=== PATIENT | female | born 1950 | race Caucasian/White ===

== ENCOUNTER 2017-05-11 06:45 | Day surgery (SDC) | payer MEDICARE, OTHER ==
[~2017-05-11] VITALS: Ht 152.4 cm; Wt 81.7 kg
[~2017-05-11 06:45] MED LIST: CARDIZEM LA240 MG PO; CARDIZEM30 MG; CRESTOR20 MG PO; CYCLOBENZAPRINE10 MG PO; LASIX20 MG; LASIX40 MG PO; LIPITOR10 MG; NITROGLYCERIN0.4 MG SUBD; NITROGLYCERIN0.4 MG TD; NORCO 5-325 TA1 EACH PO; PERCOCET 10-321 EACH PO; PRILOSEC20 MG PO; QVAR8.7 GM INH; TESSALON PERLE100 MG PO; TRAZODONE HCL150 MG PO; VENLAFAXINE HCL75 MG PO; VENTOLIN HFA18 GM INH
[2017-05-11] MEDS ORDERED: LEVOTHYROXINE88 MCG PO (07:05)
--- NOTE | 2017-05-11 10:02 | NUR ---
05/11/17 1002 Kailey Mariscal 0957 - PT ARRIVED TO PACU, MAINTAINING OWN AIRWAY. COUGH NOTED. SPECIAL OFFICER AUTOMAT STATES PT HAS HAD CRONIC COUGH RECIENTLY AND NO ACTION IS NEEDED AT THIS TIME.
[2017-05-11] MEDS ORDERED: NORCO 5-325 TA1 EACH PO (10:12)
--- NOTE | 2017-05-13 07:21 | OR ---
[facility] [address] [place] [address] Signed DATE OF OPERATION: 05/11/2017 SURGEON: Crispin Hill MD PREOPERATIVE DIAGNOSIS: Carpal tunnel syndrome, right. POSTOPERATIVE DIAGNOSIS: Carpal tunnel syndrome, right. PROCEDURE: Carpal tunnel release, right. ANESTHESIA: Alexus block with sedation. SPECIMENS AND COMPLICATIONS: There were no specimens or complications. TOURNIQUET TIME: About 25 minutes. WHAT WAS DONE: The patient was taken to the operating room. After anesthesia was induced and the patient sedated, the right upper extremity was positioned, prepped and draped in a routine sterile fashion. A volar incision was made beginning at the distal wrist flexion crease and extending distally about 2 cm. The skin was divided sharply. The subcutaneous tissue was bluntly spread. The transverse volar carpal ligament was identified and released with the tip of a #5 blade. We then used a small Ragnell retractor to lift up the distal flap and completed the decompression of the nerve under direct visualization. We then performed a retrograde examination putting the Ragnell underneath the edge of the proximal flap lifting up and then we did decompress the distal 3 cm of the antebrachial fascia. At this point, we appeared to have a complete release of the nerve which was significantly compromised in the carpal tunnel. The wound was gently irrigated, closed in standard fashion, sterile dressing applied. The patient was awakened to the recovery room where she arrived in stable condition. Counts were correct and antibiotic protocols were followed. Electronically Signed By: RCISPIN HILL MD 05/13/17 0721 PATIENT NAME: ANTHONY GONZALEZ OPERATIVE REPORT DATE OF : 54 PHYSICIAN: CRISPIN HILL MD REPORT #: [id number] REPORT IS CONFIDENTIAL AND NOT TO BE RELEASED WITHOUT AUTHORIZATION [address] [address] Signed Crispin Hill MD WFB/MODL /[id number] Electronically Signed By: CRISPIN HILL MD 05/13/17 0721 PATIENT NAME: ANTHONY GONZALEZ OPERATIVE REPORT DATE OF : 54 PHYSICIAN: CRISPIN HILL MD REPORT #: [id number] REPORT IS CONFIDENTIAL AND NOT TO BE RELEASED WITHOUT AUTHORIZATION
== END 2017-05-11 11:00 | disposition home or self-care (01) ==
LOC: DS 06:45
PROVIDERS: Orthopaedic Surgery
PROC: 01N50ZZ Release Median Nerve, Open Approach (ICD-10-PCS; principal; 2017-05-11 09:15)
DX: G56.01 Carpal tunnel syndrome, right upper limb (principal); I10 Essential (primary) hypertension; E78.00 Pure hypercholesterolemia, unspecified; J30.2 Other seasonal allergic rhinitis; Z88.8 Allergy status to other drugs, medicaments and biological substances
CPT/HCPCS: 01810; J0690; J1885; J2250; J2704; J7120

== ENCOUNTER 2017-10-21 08:00 | Day surgery (SDC) | payer MEDICARE, OTHER ==
[~2017-10-21] VITALS: Ht 152.4 cm; Wt 81.7 kg
--- NOTE | ~2017-10-21 | OR ---
[facility] [address] [place], [place] [address] Draft DATE OF OPERATION: 10/21/2017 SURGEON: Kirk Hill MD PREOPERATIVE DIAGNOSIS: Medial meniscal tear, left knee. POSTOPERATIVE DIAGNOSIS: Medial meniscal tear, left knee. PROCEDURE: Left knee arthroscopy with partial medial meniscectomy. ANESTHESIA: General. SPECIMENS AND COMPLICATIONS: There were no specimens or complications. TOURNIQUET TIME: About 20 minutes. WHAT WAS DONE: The patient was taken to the operating room. After anesthesia was induced and airway secured, the patient was positioned, prepped and draped in a routine sterile fashion. The leg was exsanguinated with Esmarch bandage. Pneumatic tourniquet about the thigh was inflated to 300 mmHg pressure. The standard superolateral portal was created for the outflow cannula and the standard anterolateral portal was created. We then created the anteromedial portal using transillumination and localization with a spinal needle. A probe was introduced. Diagnostic arthroscopy revealed an unremarkable suprapatellar pouch. Patellofemoral joint revealed pretty minimal degenerative change. The medial recess was unremarkable. Medial compartment revealed some areas of grade 2 to grade 3 chondral change both over the weightbearing portion of the medial femoral condyle as well as the reciprocal tibial plateau. There was a flap tear of the posterior horn of the medial meniscus and a portion of it had been smoothed off into almost a spherical appearing lesion. The intercondylar notch was unremarkable. There is intact ACL and the lateral compartment was similarly unremarkable to inspection and palpation as was the lateral recess. We then returned the scope to the medial compartment. I used a basket forceps to complete the tear. We then used the motorized shaver to debride the edges of the meniscectomy and remove the debris from the knee joint. The knee was PATIENT NAME: ANTHONY GONZALEZ OPERATIVE REPORT DATE OF : 54 REPORT #: [id number] PHYSICIAN: KIRK HILL MD PCP: CRIS VINCENT MD REPORT IS CONFIDENTIAL AND NOT TO BE RELEASED WITHOUT AUTHORIZATION [facility] [address] [place], [place] [address] Draft copiously irrigated and drained. The portals were closed and sterile dressings applied. The patient was awakened and taken to the recovery room where she arrived in stable condition. Counts were correct and antibiotic protocols were followed. Kirk Hill MD WFB/MODL /[id number] Copies: ~ PATIENT NAME: ANTHONY GONZALEZ OPERATIVE REPORT DATE OF : 54 REPORT #: [id number] PHYSICIAN: KIRK HILL MD PCP: CRIS VINCENT MD REPORT IS CONFIDENTIAL AND NOT TO BE RELEASED WITHOUT AUTHORIZATION
[~2017-10-21 08:00] MED LIST changes: +ASPIR-LOW81 MG PO; +LEVOTHYROXINE88 MCG PO; +LOSARTAN POTAS100 MG PO; +MELOXICAM7.5 MG PO; +NITROGLYCERIN0.4 MG MT; -NITROGLYCERIN0.4 MG SUBD
[2017-10-21] MEDS ORDERED: PROTONIX40 MG PO (08:22)
--- NOTE | 2017-10-21 10:57 | NUR ---
10/21/17 1057 Leonarda Pratt 1038 PATIENT ARRIVES TO PACU SLEEPING, BUT OPENS EYES AND ANSWERS QUESTIONS APPROPRIATELY WITH VERBAL STIMULI. RESP EVEN AND UNLABORED, MASK AT 6 LITERS. RATES PAIN AT 6/10, MEDICATED WITH FENTANYL BY AUTOMATIC BEADING LATHE OPERATOR. 1045 PATIENT DENIES IMPROVEMENT IN PAIN AFTER MEDS. PATIENT REPOSITIONED, ICE PACK APPLIED, WILL REMEDICATE FOR PAIN. ALSO NITRO PASTE TO PATIENT'S CHEST FOR CHRONIC USE. NO COMPLAINTS OF CHEST PAIN NOW. 1055 PATIENT DENIES IMPROVEMENT IN PAIN AFTER BEING REMEDICATED, BUT IS VERY DROWSY, AND SLEEPING WHEN NOT STIMULATED. RESP EVEN AND UNLABORED, BUT MORE SHALLOW WITH ROOM AIR SATS AT 87%. NC AT 2 LITERS APPLIED. ENCOURAGED PATIENT TO TAKE DEEP BREATHS, AND IS COUGING EFFECTIVELY ON HER OWN.
[2017-10-21] MEDS ORDERED: ULTRAM50 MG PO (11:57)
--- NOTE | 2017-10-21 14:49 | NUR ---
1125: PATIENT BACK IN DAY SURGERY ROOM FROM PACU. C/O PAIN 4/10 IN LEFT KNEE. LEFT KNEE DRESSING CDI. ICE PACK TO LEFT KNEE. LEFT LEG ELEVATED ON PILLOW. CSM TO LEFT TOES WNL. DENIES NAUSEA. GIVEN ICE WATER AND PUDDING. IV SITE WNL. AT BEDSIDE. CALL LIGHT WITHIN REACH. 1150: PATIENT TOLERATED WATER AND PUDDING. MEDICATED FOR PAIN WITH 1 TAB OF NORCO. 1300: PATIENT ASSISTED OOB AND TO WALK ABOUT ROOM. GAIT STEADY. PATIENT GETTING DRESSED. 1320: PATIENT WALKED TO BATHROOM WITH HELP FROM . VOID WITHOUT DIFFICULTY. GAIT STEADY BACK TO ROOM. 1345: DISCHARGE INSTRUCTIONS GIVEN TO PATIENT AND . IV DC'D WNL. TIP INTACT. DRESSING APPLIED. PATIENT DISCHARGED TO HOME WITH VIA WHEELCHAIR.
== END 2017-10-21 13:45 | disposition home or self-care (01) ==
LOC: DS 08:00 → OPS 08:00
PROVIDERS: Orthopaedic Surgery
PROC: 0SBD4ZZ Excision of Left Knee Joint, Percutaneous Endoscopic Approach (ICD-10-PCS; principal; 2017-10-21 09:00)
DX: S83.242A Other tear of medial meniscus, current injury, left knee, initial encounter (principal); M17.12 Unilateral primary osteoarthritis, left knee; I10 Essential (primary) hypertension; E78.00 Pure hypercholesterolemia, unspecified; J45.909 Unspecified asthma, uncomplicated; G47.30 Sleep apnea, unspecified; Z79.899 Other long term (current) drug therapy; Z79.1 Long term (current) use of non-steroidal anti-inflammatories (NSAID); Z88.8 Allergy status to other drugs, medicaments and biological substances; Z79.82 Long term (current) use of aspirin
CPT/HCPCS: J0690; J1885; J2250; J2405; J2704; J2765; J3010; J3301; J7120

== ENCOUNTER 2017-10-29 23:35 | Inpatient (IN) | payer MEDICARE, OTHER ==
[~2017-10-29] VITALS: Ht 152.4 cm; Wt 85.9 kg
[~2017-10-29 23:35] MED LIST changes: +MELOXICAM15 MG PO; -MELOXICAM7.5 MG PO; +NITRO-DUR1 EAC4 TD; -NITROGLYCERIN0.4 MG MT; -NITROGLYCERIN0.4 MG TD; +NITROLINGUAL12 GM TL; +PROTONIX40 MG PO; +QVAR REDIHALE10.6 G1 INH; -QVAR8.7 GM INH; +ULTRAM50 MG PO
--- NOTE | 2017-10-30 03:15 | NUR ---
PATIENT ARRIVED TO THE FLOOR VIA STRETCHER. ABLE TO MOVE HER SELF FROM ONE BED TO THE OTHER. SHE IS SLIGHTLY DROWSEY FROM DILAUDID AND ATIVAN GIVEN IN THE ED. PATIENT REPORTS GOOD PAIN CONTROL IN HER ABD, BUT IS COMPLAINING OF DISCOMFORT IN HER NOSE & THROAT FROM NG TUBE. NG PLACEMENT CONFIRMED VIA X-RAY IN ED, DR. LOWERY CONFIRMED PLACEMENT IN THE ABD. NG CONNECTED TO LIWS WITH PINK DRAINAGE. IV FLUIDS PER ORDER. PATIENT HAS HISTORY OF OFELIA AND DESATS TO THE MID 80'S WHILE SLEEPING. PLACED ON CONTINUOUS PULSE OX AND 2L NC TO MAINTAIN SATS >92%. LUNG SOUNDS ARE CLEAR. ABD IS MODERATELY DISTENDED, FIRM, AND TENDER. BOWEL SOUNDS HYPOACTIVE THROUGHOUT. NPO AT THIS TIME. LAP SITES ON LEFT KNEE ARE WELL APPROXIMATED AND HEALING WELL. NO EDEMA NOTED. CMS INTACT.
--- NOTE | 2017-10-30 03:17 | NUR ---
0305 - PT ADMITTED TO ROOM 115 FROM ER VIA STRETCHER, NGT LEFT NARE, PT ORIENTED TO ROOM, RETURN DEMONSTRATION OF CALL LIGHTS DONE. 07/27 L NARE PAIN, NO ABD PAIN, NO N/V, STATED LBM 10/25/17
--- NOTE | 2017-10-30 04:00 | NUR ---
PATIENT SLEEPING SOUNDLY. RR 18. O2 SAT 96% ON 2L NC. IV FLUIDS INFUSING, SITE WNL. CALL LIGHT IN REACH.
--- NOTE | 2017-10-30 05:11 | NUR ---
PATIENT RESTING SOUNDLY. WOKE EASILY TO VOICE. DENIES TOILETING NEEDS AT THIS TIME. IV FLUIDS INFUSING, SITE WNL. O2 SAT 96% 2L NC. CALL LIGHT IN REACH.
--- NOTE | 2017-10-30 06:13 | NUR ---
PATIENT ADMITTED AT 0300 FOR OBSERVATION. NG TUBE PLACED IN ED, CONFIRMED VIA CHEST X-RAY, CONNECTED TO LIWS. NPO. IV FLUIDS PER ORDER. PRN DILAUDID IN ED, NONE SINCE ADMISSION. MINIMAL NAUSEA. PAIN LOCALIZED IN LLQ, RADIATES TO LEFT ARM AND NECK. BOWEL SOUNDS HYPOACTIVE. LEFT KNEE HAS LAP SITE HEALING FROM SURGERY LAST WEEK, WNL. SBA TO BSC. AAOX4. CONTINUOUS PULSE OX DURING THE NIGHT W/ 2L NC, HX OFELIA.
--- NOTE | 2017-10-30 06:29 | NUR ---
PATIENT FEELING BETTER THIS MORNING. REPORTS MINIMAL PAIN IN ABD. COMPLAINS OF PAIN IN HER THROAT. PATIENT UP TO THE BATHROOM WITH SBA, STEADY ON HER FEET. WHILE PATIENT MOVING BACK INTO THE BED SHE SOME HOW PULLED THE NG TUBE OUT. NG HAD BEEN CONNECTED TO LIWS, MINIMAL OUTPUT SINCE 299. DR. NAVA CONTACTED. ORDERS TO LEAVE NG TUBE OUT.
--- NOTE | 2017-10-30 06:52 | NUR ---
VITALS AND I&OS DONE AND CHARTED. BEDSIDE TABLE AND CALL LIGHT WITHIN REACH.
--- NOTE | 2017-10-30 07:41 | NUR ---
RECIEVED BEDSIDE REPORT FROM SOPHY SORIANO. PT AWAKE AND ALERT IN BED. REPORTS NO NAUSEA, NO VOMITING, NO PAIN AT THIS TIME. PT STATED SHE WILL LET ME KNOW IF SHE NEEDS PAIN MEDS. NOTHING ORDERED AT THIS TIME. NG TUBE DC DUE TO ACCIDENTAL DISLODGEMENT.
--- NOTE | 2017-10-30 10:28 | NUR ---
pt showered herslef and is now back in bed, linens were changed. pt does not need anything else at the moment, call light in reach.
--- NOTE | 2017-10-30 13:24 | NUR ---
PT SLEEPING SOUNDLY, BREATHING EVEN AND UNLABORED.
--- NOTE | 2017-10-30 13:55 | NUR ---
pt is resting in bed safely with call light in reach. pt asked for a warm blanket
--- NOTE | 2017-10-30 14:40 | EKG ---
[facility] [address] [facility] [place] [address] Signed Normal sinus rhythm Possible Left atrial enlargement Borderline ECG When compared with ECG of 13-OCT-2017 10:31, QT has shortened Confirmed by CAIT MARTINEZ MD ([id number]) on 10/30/2017 2:39:44 PM Electronically Signed By: CAIT MARTINEZ MD 10/30/17 1440 PATIENT NAME: SERAFINMAUREENANTHONY Electrocardiogram DATE OF : 54 PHYSICIAN: CAIT MARTINEZ MD REPORT #: [id number] REPORT IS CONFIDENTIAL AND NOT TO BE RELEASED WITHOUT AUTHORIZATION
--- NOTE | 2017-10-30 17:25 | NUR ---
PT NPO ALL SHIFT. NG TUBE NOT REPLACED. PT TOLERATING NPO STATUS WELL. PT REPORTS PAIN CONTROLED WITH PRN DILAUDID. PT UP TO SHOWER THIS SHIFT. PT INDEPENDENT IN ROOM. RT ORDERS. FAMILY AT BEDSIDE.
--- NOTE | 2017-10-30 18:15 | NUR ---
pt is resting in bed safely with call light in reach and does not need anything at the moment
--- NOTE | 2017-10-30 20:00 | NUR ---
RECEIVED REPORT AT 1900, FOUND PT IN BED RESTING. PT DENIED PAIN AT THAT TIME AND HAD NO OTHER NEEDS.
--- NOTE | 2017-10-30 20:58 | NUR ---
ENTERED ROOM TO CHECK IV. PT STATES IT IS LEAKING. IV FLUSHES FINE AND PT DENIES PAIN. 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 HER ARM HAS SLIGHT SWELLING BUT VERY CLOSE IN COMPARISON TO HER OTHER ARM. EXPLAINED THAT IT MAY BE AGAINST A VALVE AND WE WILL KEEP AN EYE ON IT. REPOSITIONED ARM WITH PILLOW TO KEEP IT STRAIGHT AND TOLD HER TO CALL IF IT CAUSES PAIN OR SHE NOTICES ANY CHANGES.
--- NOTE | 2017-10-30 22:00 | NUR ---
V/S ARE WDL, ALL LOBES ARE CLEAR, PT DENIED PAIN AND N/V. ABD SOUNDS ARE NORMALLY ACTIVE, PT IS NOT PASSING GAS SO FAR. NEW IV WAS STARTED ON LEFT UPPER ARM. NO EDEMA NOTED. NO NEW CONCERNS AT THIS TIME.
--- NOTE | 2017-10-31 | NUR ---
PT IS SLEEPING AT THIS TIME.
--- NOTE | 2017-10-31 01:47 | NUR ---
VITALS AND I&OS DONE AND CHARTED. BEDSIDE TABLE AND CALL LIGHT IN REACH. PT NEEDS NOTHING ELSE AT THIS TIME.
--- NOTE | 2017-10-31 02:00 | NUR ---
PT RECEIVED 1MG IV DILAUDED FOR PAIN /. NEW IV SITE IS WDL SO FAR. ABD SOUNDS ARE PRESENT, ABD IS SOFT BUT THENDER IN LUQ TO TOUCH. PT STATED THAT ABD IS LESS DISTENDED AT THIS TIME. PT IS STILL NO PASSING GAS. V/S ARE WDL. NO NEW CONCERNS AT THIS TIME.
--- NOTE | 2017-10-31 04:00 | NUR ---
PT IS SLEEPING AT THIS TIME.
--- NOTE | 2017-10-31 04:01 | CONS ---
[facility] [address] [place], [place] [address] Signed DATE OF CONSULTATION: 10/30/2017 CHIEF COMPLAINT: Left upper quadrant abdominal pain with nausea and vomiting. HISTORY OF PRESENT ILLNESS: Anthony is a 67-year-old female, who has had previous abdominal surgery to include an open cholecystectomy with a common bile duct exploration with Dr. Gladys Carter. She has also had a full hysterectomy over three procedures and eventually had a laparoscopic assisted total abdominal colectomy in [address] Umberto Joseph in 2006 for colonic inertia. She presents now the last 2 days with left upper quadrant abdominal pain and nausea and vomiting. She said she has been through this twice before and it has always resolved. I helped her with the small bowel obstruction and he ended up having lysis of adhesions. I believe on Easter or Raj. Anthony came through our emergency room last night with elevated white count after all the vomiting. Chest x-ray was fine and showed the NG tube in her stomach, but it came out in the middle of the night. She said quite a bit of fluid come out of it. The CT scan showed the fluid-filled stomach and a fluid-filled mid jejunum, but the distal terminal ileum was decompressed. We can see mgiuel down around the top of the rectum. There is some stool in the rectum. She has been hydrated overnight and overall she says she does feel better. PAST MEDICAL HISTORY: Coronary artery spasm, hypertension, hypercholesterolemia, angina, colonic inertia, obstructive sleep apnea, osteoporosis, and obesity. PAST SURGICAL HISTORY: Left knee arthroscopy last week with Dr. Joseph. Full hysterectomy over three different procedures. An open cholecystectomy with common bile duct exploration with Dr. Carter many years ago, and then an laparoscopic assisted total abdominal colectomy in [address] Umberto Joseph for a colonic inertia. SOCIAL HISTORY: She does not smoke or drink. She lives with her , Shaggy, at [phone]. They currently live in a 5th wheel, but they were thinking about building a house here in [place]. They prefer the [facility] at [phone]. She is going to go see Dr. Emily Castaneda as a primary care provider. FAMILY HISTORY: Mom had diabetes, congestive heart failure, and CABG. Dad had an LA and CABG and eventually from his Alzheimer's dementia. REVIEW OF SYSTEMS: She had 10 systems reviewed and all the pertinent positives are included in the above. Electronically Signed By: MINA NAVA MD 10/31/17 0401 PATIENT NAME: ANTHONY GONZALEZ CONSULTATION DATE OF : 54 REPORT #: [id number] PHYSICIAN: MINA NAVA MD PCP: EMILY CASTANEDA MD REPORT IS CONFIDENTIAL AND NOT TO BE RELEASED WITHOUT AUTHORIZATION [facility] [address] [place] [id number] Signed There is no metal in the body having surgical clips and mgiuel. ALLERGIES: Prochlorperazine cause muscle spasms. MEDICATIONS: Nitroglycerin, diltiazem, Crestor, Flexeril, albuterol, Qvar, levothyroxine, losartan, meloxicam, aspirin, Protonix, and tramadol. PHYSICAL EXAMINATION: VITAL SIGNS: Her blood pressure is 154/60, heart rate 70, respiratory rate 16, and temperature is 98.5. She is 95% on room air. She is 5 feet tall at 85 kg. GENERAL: Anthony is a 67-year-old female, lying supine in her hospital bed. She does not appear to be systemically ill or toxic. She does appear to be uncomfortable. LUNGS: Clear to auscultation. HEART: Regular rate and rhythm. ABDOMEN: Obese, but mildly distended. She is mild to moderately firm. It is nontender and there is no peritoneal signs or symptoms. LABORATORY [place]: [place] [address], hemoglobin 15, neutrophils 74, BUN 20, and creatinine 0.8. Urinalysis negative. Liver function tests negative. Albumin is 4.4, lipase 11. RADIOGRAPHIC STUDIES: A chest x-ray showed clear lungs and an NG tube in her stomach. The CT scan of abdomen and pelvis showed the fluid-filled mid jejunum with miguel at the top of the rectum. ASSESSMENT AND PLAN: Anthony is a 67-year-old female, who presents with what sounds like her 3rd episode of small bowel obstruction. She said it has resolved quickly the last two times. She is not particularly encouraged about using her CPAP mask nor her an NG tube, but she is aware they are available to her, she wants them. We are going to keep her hydrated and provide her with pain control and antiemetics and I encourage her to walk the hallways and we will see if we can get this small bowel obstruction to resolve. We will also give her a Fleets enema and just see if we can help from below. We will give this a few days and see how things develop clinically. She has expressed understanding and agrees the above plan. Mina Nava MD Electronically Signed By: MINA NAVA MD 10/31/17 0401 PATIENT NAME: ANTHONY GONZALEZ CONSULTATION DATE OF : 54 REPORT #: [id number] PHYSICIAN: MINA NAVA MD PCP: EMILY CASTANEDA MD REPORT IS CONFIDENTIAL AND NOT TO BE RELEASED WITHOUT AUTHORIZATION [address] [place], [place] [address] Signed ALB/MODL /[id number] cc: MD Dr. Emily Saha Copies: MINA NAVA MD ~ Electronically Signed By: MINA NAVA MD 10/31/17 0401 PATIENT NAME: ANTHONY GONZALEZ CONSULTATION DATE OF : 54 REPORT #: [id number] PHYSICIAN: MINA NAVA MD PCP: EMILY CASTANEDA MD REPORT IS CONFIDENTIAL AND NOT TO BE RELEASED WITHOUT AUTHORIZATION
--- NOTE | 2017-10-31 05:15 | NUR ---
AT START OF SHIFT NEW IV SITE WAS NEEDED. V/S ARE WDL SO FAR. ABD SOUNDS ARE AND HAVE BEEN PRESENT ALL SHIFT. PT IS NOT PASSING GAS SO FAR. PT HAS MINOR BELCHING AT TIMES. ABD IS SOFT TO TOUCH WITH PAIN IN THE LUQ. PT REQUIRED 1MG OF IV DILAUDED SO FAR THIS SHIFT. NO NEW CONCERNS AT THIS TIME.
--- NOTE | 2017-10-31 05:38 | NUR ---
VITALS AND I&OS DONE AND CHARTED. STOOD BY PT USED THE BATHROOM. BEDSIDE TABLE AND CALL LIGHT WITHIN REACH. PT NEEDS NOTHING ELSE AT THIS TIME AND IS BACK IN BED.
--- NOTE | 2017-10-31 06:01 | NUR ---
PT IS PASSING GAS. ENCOURAGED PT TO GET UP AND WALK THE LATEST AFTER BREAKFAST.
--- NOTE | 2017-10-31 06:50 | NUR ---
ENTERED PT'S ROOM TO STOP IV FROM BEEPING, HER IV IS CAUSING DISCOMFORT. IT FLUSHES BUT THERE IS NO BLOOD RETURN. WILL NOTIFY HER RN.
--- NOTE | 2017-10-31 07:26 | NUR ---
RECIEVED REPORT FROM SOPHY ROLON. PT HAD A GOOD NIGHT. WILL HAVE SHAYAN, TEXTILE DESIGNER ATTEMPT A NEW IV SITE. PT HAS FRAGILE VEINS. RN REPORTS PT NOT PASSING GAS, BUT HAS BELCHED SEVERAL TIMES.
--- NOTE | 2017-10-31 09:09 | NUR ---
MULTIPLE RN'S ATTEMPTED TO PLACE IV. PT HAS SMALL, FRAGILE VEINS. NON-SUCESSFUL. DR NAVA ROUNDED WHILE SOPHY BARAKAT WAS ATTEMPTING IV START. DUE TO DIFFICULT START, WILL ADVANCE DIET TO CLEAR LIQUIDS TOLERATED. STOP IV FLUIDS. WILL RECHECK CBC IN AM.
--- NOTE | 2017-10-31 10:25 | NUR ---
pt is resting in bed with call light in reach. pt did not need anything at the moment but did complain of abdominal pain and feeling bloated, will notify nurse
--- NOTE | 2017-10-31 12:00 | NUR ---
pt asked to shower, IV was wrapped, and shower set up. pt then showered by herself and then returned to bed, linens changed.
--- NOTE | 2017-10-31 12:17 | NUR ---
pt's complained of IV site hurting, it appread red and puffy. Nurse was informed, after she looked at it she instructed me to DC the IV. IV was DC'd and pt is resting comfortably in bed now safely with call light in reach.
--- NOTE | 2017-10-31 13:22 | NUR ---
PT AWAKE AND ALERT IN BED. PT STATES SHE HAD A SMALL BM, ACTIVE BT. NO NAUSEA/VOMITING. PT STATES SHE HAS A LITTLE MORE DISCOMFORT WITH CLEAR LIQUIDS, BUT TOLERABLE. PT WILL CALL AND CANCEL HER APPOINTMENT WITH DR HILL IN THE MORNING.
--- NOTE | 2017-10-31 14:00 | NUR ---
RN BROUGHT PT A ROBE AND SLIPPER SOCKS. PT IS ENCOURAGED TO WALK AROUND THE UNIT TOLERATED. PT AGREES TO THIS PLAN.
--- NOTE | 2017-10-31 14:17 | NUR ---
pt has just returned from ambulating out in hallway, she is now resting in bed safely with call light in reach. pt asked for ice water
--- NOTE | 2017-10-31 17:28 | NUR ---
PT IV INFILTRATED AT SHIFT CHANGE. FOUR RN ATTEMPTED TO PLACE IV, NOT SUCESSFUL. MD VERBAL ORDER AT BEDSIDE TO LEAVE IV OUT AND ADVANCE TO CLEAR LIQUIDS. PT TOLERAING CLEAR LIQUIDS WELL. PT REPORTS SMALL BM, PASSING GAS. PT UP WALKING IN THE HALLS.
--- NOTE | 2017-10-31 18:14 | NUR ---
pt is sitting up in bed visiting with and call light in reach. pt did not need anything at the moment
--- NOTE | 2017-10-31 20:00 | NUR ---
RECEIVED REPORT AT 1900, FOUND PT WALKING THE HALLWAY. PT HAD NO NEEDS AT THAT TIME.
--- NOTE | 2017-10-31 22:00 | NUR ---
SBP WAS ELEVATED IN THE 160'S. OTHERWISE V/S WERE WDL. ABD SOUNDS ARE PRESENT, PT IS PASSING GAS AND TOLERATING THE CLEAR LIQUID DIET WELL. ALL LOBES ARE CLEAR, NO EDEMA NOTED, ABD IS NOT DISTENDED AND ONLY MILDLY TENDER TO TOUCH. NO NEW CONCERNS AT THIS TIME.
--- NOTE | 2017-10-31 22:19 | NUR ---
ADMINISTERED MEDICATION FOR PT'S PRIMARY NURSE. PT DENIES FURTHER NEEDS AT THIS TIME. CALL LIGHT IS WITHIN REACH.
--- NOTE | 2017-11-01 | NUR ---
PT IS SLEEPING AT THIS TIME.
--- NOTE | 2017-11-01 02:00 | NUR ---
PT IS SLEEPING AT THIS TIME.
--- NOTE | 2017-11-01 04:00 | NUR ---
PT IS SLEEPING AT THIS TIME.
--- NOTE | 2017-11-01 06:11 | NUR ---
VITALS ADONIS&OS DONE AND CHARTED. GARBAGES EMPTIED. BEDSIDE TABLE AND CALL LIGHT WITHIN REACH.
--- NOTE | 2017-11-01 06:28 | NUR ---
PT WALKED HALLWAY AT START OF SHIFT. PT IS PASSING GAS, HAD A BM FOR DAY SHIFT, IS TOLERATING A CLEAR LIQUID DIET, HAS NO PAIN OR N/V. ABD SOUNDS ARE PRESENT, ABD IS SOFT TO TOUCH. ALL LOBES ARE CLEAR. NO NEW ISSUES NOTED SO FAR THIS SHIFT.
--- NOTE | 2017-11-01 07:10 | NUR ---
RECIEVED BEDSIDE REPORT FROM SOPHY ROLON. PT AWAKE AND ALERT IN BED. PT STATED SHE HAS BEEN AWAKE SINCE 2AM. PT REPORTS NO PAIN, NO NAUSEA, NO VOMITING. ABD HAS BEEN SOFT. PT IS PASSING GAS.
--- NOTE | 2017-11-01 09:58 | NUR ---
PT DISCHARGE TEACHING COMPLETE WITH PT AND HER SPOUSE. DISCUSSED MEDICATIONS, ACTIVITY, AND FOLLOW-UP. PT AND SPOUSE VERBALIZED UNDERSTANDING. VITALS TAKEN AND PT ESCORTED OUT WITH URBAN AND REGIONAL PLANNER.
--- NOTE | 2017-11-02 06:50 | DS ---
[facility] [address], [place] [address] Signed ADMISSION DATE: 10/30/2017 DISCHARGE DATE: 11/01/2017 FINAL DIAGNOSIS: Resolved small-bowel obstruction. PROCEDURES: CT scan of abdomen and pelvis. HISTORY OF PRESENT ILLNESS: Anthony is a 67-year-old female, who underwent a laparoscopic-assisted total abdominal colectomy with an ileorectal anastomosis in [address] Umberto Joseph for colonic inertia. She has also had an open cholecystectomy with common bile duct exploration with Dr. Carter. She has had a full hysterectomy over 3 separate surgeries as well. Two days prior to this admission, she was having left lower quadrant abdominal pain with repeated nausea and vomiting. She finally told me today that she ate a bunch of pistachio nuts before coming to the hospital. In the emergency room, she was distended and mildly firm and mildly tender throughout. White count was elevated and a CT scan showed fluid-filled mid jejunum. We can see the miguel at the top of the rectum. I was asked to admit her as a general surgeon on-call. HOSPITAL COURSE: Anthony was admitted as above. We withheld the antibiotics and her white count came down nicely. She rapidly removed her NG tube that same night after more than 700 mL of bilious fluid was evacuated. She has a very difficult peripheral IV and we lost that the next day, so we simply left it out as she was already improving with moderate amounts of flatus and a bowel movement. We went ahead and allowed her clear liquid diet and kept her one more day even though she was anxious to leave. She continued to do well with lots of flatus. All her abdominal distention and pain is completely resolved at this point, and she had another bowel movement. At this point, she feels very comfortable going home. DISCHARGE PLANS AND MEDICATIONS: No new prescriptions for Anthony are written. We did have our Internal Medicine Service see her while she was here in the hospital because of her complex medical history and medications. She can resume her chronic medications at home. There has been no changes made. We talked at length about a diet for her and she needs to stay away from things like raw vegetables, peanuts, and other types of nuts as well. She is down to a soft diet at least for a couple of days and then proceed from there and in the future abstained from those very hard rough foods. She can shower and bathe as usual. She can perform her activities as usual and she is welcome to follow up my office as needed. Electronically Signed By: MINA NAVA MD 11/02/17 0650 PATIENT NAME: ANTHONY GONZALEZ DISCHARGE SUMMARY DATE OF : 54 REPORT #: [id number] PHYSICIAN: MINA NAVA MD PCP: CRIS VINCENT MD REPORT IS CONFIDENTIAL AND NOT TO BE RELEASED WITHOUT AUTHORIZATION [address] [address] Signed Otherwise, we are going to release her from the hospital today. She has expressed understanding and agrees to above plan. Mina Nava MD ALB/MODL /[id number] cc: MD Umberto Saha MD Dr. Gwen Libby Copies: MINA NAVA MD, MARK MD ~ Electronically Signed By: MINA NAVA MD 11/02/17 0650 PATIENT NAME: ANTHONY GONZALEZ DISCHARGE SUMMARY DATE OF : 54 REPORT #: [id number] PHYSICIAN: MINA NAVA MD PCP: CRIS VINCENT MD REPORT IS CONFIDENTIAL AND NOT TO BE RELEASED WITHOUT AUTHORIZATION
== END 2017-11-01 09:40 | disposition home or self-care (01) | DRG 390 ==
LOC: ED 23:35 → MS 23:36
PROVIDERS: ADMIT Colon & Rectal Surgery
DX: K56.699 Other intestinal obstruction unspecified as to partial versus complete obstruction (principal); I10 Essential (primary) hypertension; I25.10 Atherosclerotic heart disease of native coronary artery without angina pectoris; E03.9 Hypothyroidism, unspecified; E78.5 Hyperlipidemia, unspecified; G47.33 Obstructive sleep apnea (adult) (pediatric)
CPT/HCPCS: 36415; 43752; 71045; 74177; 80048; 80053; 81001; 83690; 83735; 84100; 85025; 93005; 93010; 94640; 96374; 96375; 99285; J1170; J1644; J2060; J2405; J7120; Q9967

== ENCOUNTER 2018-05-19 01:44 | Emergency (ER) | payer MEDICARE, OTHER ==
[~2018-05-19] VITALS: Ht 152.4 cm; Wt 77.6 kg
[2018-05-19] MEDS ORDERED: SYMBICORT 80-10.2 GM INH (02:05)
[2018-05-19] MEDS ORDERED: ISOSORBIDE DINI10 MG PO (02:06)
--- NOTE | 2018-05-19 07:46 | EKG ---
[facility] [address] [place] [address] Signed Normal sinus rhythm Normal ECG When compared with ECG of 29-OCT-2017 23:53, QT has lengthened Confirmed by TARAS AARON MD ([id number]) on 05/19/2018 7:46:28 AM Electronically Signed By: TARAS AARON MD 05/19/18 0746 PATIENT NAME: ANTHONY GONZALEZ Electrocardiogram DATE OF : 54 PHYSICIAN: TARAS AARON MD REPORT #: [id number] REPORT IS CONFIDENTIAL AND NOT TO BE RELEASED WITHOUT AUTHORIZATION
== END 2018-05-19 07:20 | disposition short-term general hospital (02) ==
LOC: ED 01:44
DX: I21.4 Non-ST elevation (NSTEMI) myocardial infarction (principal); I10 Essential (primary) hypertension; E78.00 Pure hypercholesterolemia, unspecified; Z90.49 Acquired absence of other specified parts of digestive tract; Z88.8 Allergy status to other drugs, medicaments and biological substances; Z79.82 Long term (current) use of aspirin; Z79.899 Other long term (current) drug therapy
CPT/HCPCS: 71045; 80053; 84484; 85025; 93005; 93010; 96374; 96375; 99285-25; J1644; J2405

== ENCOUNTER 2019-03-13 20:13 | Emergency (ER) | payer MEDICARE, OTHER ==
[~2019-03-13] VITALS: Ht 152.4 cm; Wt 79.4 kg
--- OUTSIDE RECORDS SUMMARY | ~2019-03-13 | XMS | Encounter Summary ---
Demographics + + + | Address | [address] | | | [place] [address] | + + + | Home Phone | | + + + | Preferred Language | Unknown | + + + | Marital Status | | + + + | Jain Affiliation | 1041 | + + + | Race | Unknown | + + + | Ethnic Group | Unknown | + + + Author + + + | Author | [facility] | | | and [place] | + + + | Organization | [facility] | | | and [place] | + + + | Address | Unknown | + + + | Phone | Unavailable | + + + Support + + +---------+ + | Name | Relationship | Address | Phone | + + +---------+ + | Shaggy Montez | ECON | Unknown | | + + +---------+ + | Shreya Romero | ECON | Unknown | | + + +---------+ + Care Team Providers + +------+ + | Care Counselor Camp Name | Role | Phone | + +------+ + | Garcia Valle MD | PCP | | + +------+ + Encounter Details +--------+ + + + + | Date | Type | Department | Care Team | Description | +--------+ + + + + | 05/25/ | Imaging | [facility] | Provider, | | | 2019 | Exam | [facility] | MD [address] | | | | | IMAGING | [address] | | | | | [phone] | [place] [address] | | +--------+ + + + + Social History + +-------+ +--------+------+ | Tobacco Use | Types | Packs/Day | Years | Date | | | | | Used | | + +-------+ +--------+------+ | Never Smoker | | | | | + +-------+ +--------+------+ + + +---------+ + | Alcohol Use | Drinks/Week | oz/Week | Comments | + + +---------+ + | Yes | | | | + + +---------+ + + + + | Sex Assigned at | Date Recorded | | | | + + + | Not on file | | + + + + + + + | Job Start Date | Occupation | Industry | + + + + | Not on file | Not on file | Not on file | + + + + + + + + | Travel History | Travel Start | Travel End | + + + + + + | No recent travel history available. | + + documented as of this encounter Plan of Treatment +--------+---------+ + + + | Date | Type | Specialty | Care Team | Description | +--------+---------+ + + + | 04/04/ | Office | Cardiology | Homero Lizarraga, | | | 2018 | Visit | | MD [address] | | | | | | [place] [address] | | | | | | [phone] | | | | | | | | +--------+---------+ + + + documented as of this encounter Procedures + +--------+ + + + | Procedure Name | Priori | Date/Time | Associated Diagnosis | Comments | | | ty | | | | + +--------+ + + + | XR CHEST 1 VIEW | Routin | 05/19/2018 | | Results for this | | | e | 2:25 AM | | procedure are in the | | | | PST | | results section. | + +--------+ + + + documented in this encounter Results XR Chest 1 Vw (05/19/2018 2:25 AM PST) + + | Specimen | + + | | + + + + + | Narrative | Performed At | + + + | External films for comparison only | [facility] | | | | | No results will be in the chart. | | + + + + +---------+ + + | Performing | Address | City/State/Zipcode | Phone Number | | Organization | | | | + +---------+ + + | [facility] | | | | + +---------+ + + documented in this encounter Visit Diagnoses Not on filedocumented in this encounter"
--- OUTSIDE RECORDS SUMMARY | ~2019-03-13 | XMS | Encounter Summary ---
Demographics + + + | Address | [address] | | | [place] [address] | + + + | Home Phone | | + + + | Preferred Language | Unknown | + + + | Marital Status | | + + + | Church Affiliation | CAT | + + + | Race | White | + + + | Ethnic Group | Not or | + + + Author + + + | Author | [facility] | + + + | Organization | [facility] [employer] [facility] | + + + | Address | Unknown | + + + | Phone | Unavailable | + + + Support + + +---------+ + | Name | Relationship | Address | Phone | + + +---------+ + | Charlene Rouse | ECON | Unknown | | + + +---------+ + Care Team Providers + +------+ + | Care Undercoater Name | Role | Phone | + +------+ + | Jesse Chand MD | PCP | | + +------+ + Reason for Visit + + + | Reason | Comments | + + + | Follow-up visit | | + + + Consultation (Routine) + +--------+ + + + + | Status | Reason | Specialty | Diagnoses / | Referred By | Referred To | | | | | Procedures | Contact | Contact | + +--------+ + + + + | Pending | | Otolaryngolog | | [place], | Ent | | Review | | y | | Mamta Peter, | Laryngology | | | | | | MD [address] [facility] [address] | | | | | [address] | [address] | | | | | | [place], | [place], [place] | | | | | | [place] [address] | [address] | | | | | | Phone: | Phone: | | | | | | [phone] | [phone] | | | | | | Fax: | Fax: | | | | | | [phone] | [phone] | + +--------+ + + + + Encounter Details +--------+---------+ + + + | Date | Type | Department | Care Team | Description | +--------+---------+ + + + | 07/29/ | Office | Otolaryngology | [place], | Chronic cough | | 2017 | Visit | Laryngology Services | Mamta Argueta PA-C | (Primary Dx); Vocal | | | | at [facility] [address] | [address] | cord dysfunction; | | | | [address] [place], | [place], [place] | Laryngeal | | | | [place] [address] | [address] | hyperfunction; | | | | [phone] | [phone] | Esophageal | | | | | | dysmotility | +--------+---------+ + + + Social History + +-------+ [...] + + documented as of this encounter Last Filed Vital Signs + + + + + | Vital Sign | Reading | Time Taken | Comments | + + + + + | Blood Pressure | 131/73 | 07/29/2016 1:03 PM | | | | | PDT | | + + + + + | Pulse | 94 | 07/29/2016 1:03 PM | | | | | PDT | | + + + + + | Temperature | - | - | | + + + + + | Respiratory Rate | - | - | | + + + + + | Oxygen Saturation | - | - | | + + + + + | Inhaled Oxygen | - | - | | | Concentration | | | | + + + + + | Weight | 77.1 kg (170 lb) | 07/29/2016 1:03 PM | | | | | PDT | | + + + + + | Height | 154.9 cm (5' 1") | 07/29/2016 1:03 PM | | | | | PDT | | + + + + + | Body Mass Index | 32.12 | 07/29/2016 1:03 PM | | | | | PDT | | + + + + + documented in this encounter Patient Instructions Patient Instructions Josefina Jeffers MA - 07/29/2016 1:00 PM PDTThank you for choosing [facility] Department of Otolaryngology for your health care needs. If you need to speak to an ENT physician after normal business hours, please call [phone] and ask to have the ENT phys ician customer solutions representative paged. 1. Start taking 4 puffs Qvar 40mcg twice daily - if your cough comes right back then we tommy l try gabapentin. If the higher dose seems to keep the cough suppressed, let me know to send a new inhaler ([email or web address]) 2. If the Qvar doesn't work call the clinic. We will start gabapentin. You take one 1 table t at night for the first week. Then after a week add a second tablet in the morning. After a nother week add a third dose before bedtime so you will be taking this 3x/day. 3. We will schedule you to have VCD and breathing therapy at your next follow-up. Francisca tavarez signed by Mamta Zambrano PA-C at 07/29/2016 1:43 PM PDT documented in this encounter Progress Notes Josefina Jeffers MA - 07/29/2016 1:00 PM PDTlaryngoscopy procedure was performed using the following instruments: Description #1: laryngoscope Serial ID #1: [id number] Mamta Silva PA-C - 07/29/2016 1:00 PM PDTFormatting of this note might be different from the enmanuela wagner. PATIENT NAME: Jocelyne Montez : 1950 REFERRING PROVIDER: LE LÓPEZ [facility] [facility] [address] / [place] [address] PRIMARY CARE PROVIDER: Jesse Chand MD CLINIC: [facility] REASON FOR FOLLOW-UP: Chief Complaint Patient presents with Follow-up visit HPI: Jocelyne Montez is a 66 y.o. female who was last seen at the [facility] for cough that was previously responsive to oral steroids. She was fel t to have some laryngeal hyperfunction and symptoms of vocal cord dysfunction, but we decide d to proceed with a trial of prednisone prior to initiation of breathing therapy. She endors es dysphagia for which a swallow study was ordered to be completed today. She returns today noting she didn't like what the prednisone did to her body. She reports r etaining water, feeling anxious and more trouble sleeping at night. She didn't notice an imp rovement as quickly as she did with her prior oral steroid trial, with her response not star ting until about 7 days into the trial. She reports at that time noting a 75% improvement in her cough. She was exposed to smoke which caused her cough come back, but remained improved compared to prior to the oral steroid. She was able to stop the hydrocodone and codeine whi le on the oral steroid. She took her last dose today. She reports 30 years ago she was treat ed with amitriptyline for headaches and ended up in the hospital with urinary retention. She has never been on gabapentin. She also wants to discuss tightness she experiences over the left side of her neck and points to the entire left side of her neck. She has noted the tigh tness for many years. She does not find this is worse positionally. PMHx: Past Medical History: Diagnosis Date Coronary disease Gastroesophageal reflux no esophagitis HTN (hypertension), benign Hypothyroidism Moderate persistent asthma OFELIA (obstructive sleep apnea) Osteopenia Prinzmetal angina (HCC) SURGHx: Past Surgical History Procedure Laterality Date Removal of rectum and colon 03/2007 colonic inertia Cystocele repair 08/2003` w/donor fascia, SPARC sling urethropexy, rectocele repair, enterocele resection and remov al vulvar lesions Breast biopsy 2001 right, atypical but benign Hx sphinterotomy 1993 for stenosis of bile ducts Hx pancreatic duct sphincterotomy 02/1991 for biliary dyskinesia Cholecystectomy 09/1989 gangerous cholecystitis Salpingo-oophorectomy 1981 left, cystic ovary Hx delia rso 1976 with kevin Egd (esophagogastroduodenoscopy) 01/08/[address] Moe Paiz, no esophagitis Tonsillectomy and adenoidectomy 1951 ALLERGIES: Allergies Allergen Reactions Compazine [Prochlorperazine] Unknown rxn at age 18 Morphine spasms MEDICATIONS: Current Outpatient Prescriptions Medication Sig Aspirin 81 mg Oral Tablet po 1 daily beclomethasone 40 mcg/actuation inhalation aerosol Inhale 1 puff two times daily. cholecalciferol, Vitamin D3, 1,000 unit oral tablet Take by mouth. cyclobenzaprine (FLEXERIL) 10 mg Oral Tablet take 1 tablet (10 mg) by oral route 2 time s per day as needed for pelvic muscle spasm denosumab (PROLIA) 60 mg/mL subcutaneous syringe Inject under the skin (SUBC). dilTIAZem CD 24 hour release 240 mg oral capsule,extended release 24hr Take by mouth. diphenoxylate-atropine (LOMOTIL) 2.5-0.025 mg Oral Tablet take 2 tablets (5 mg) by oral route 4 times per day as needed fexofenadine 180 mg oral tablet Take by mouth. Fluticasone Furoate 27.5 mcg/actuation nasal spray,suspension Instill in nose. furosemide (LASIX) 20 mg Oral Tablet take 1 tablet (20 mg) by oral route once daily hydroCHLOROthiazide 25 mg oral tablet Take by mouth. HYDROcodone-acetaminophen 5-500 mg oral tablet 1/2 to 2 every 6 hours as needed montelukast 10 mg oral tablet Take by mouth. nitroglycerin 0.4 mg Sublingual Tablet, Sublingual place 1 tablet (0.4 mg) by sublingua l route at the first sign of an attack; may repeat every 5 minutes, until relief; if pain pe rsists after a total of 3 tablets in 15 minutes, prompt medical attention is recommended predniSONE 10 mg oral tablet Take 3 tablets by mouth once daily. Indications: chronic c ough rosuvastatin (CRESTOR) 20 mg oral tablet Take by mouth. traZODone 150 mg oral tablet Take by mouth. valACYclovir (VALTREX) 1 g oral tablet 2 tablets by mouth two times daily for 7 days as needed No current facility-administered medications for this visit. EXAMINATION: BP 131/73 | Pulse 94 | Ht 1.549 m (5' 1") | Wt 77.1 kg (170 lb) | BMI 32.12 k g/(m^2) Gen: She is a 66 y.o. female. She is awake, alert and comfortable with the examination. Her weight is elevated. She is normocephalic. Ears: The pinnae are normal. External auditory canals show minimal cerumen bilaterally. The tympanic membranes are clear with normal anatomic landmarks and an aerated middle ear sp matt. Nose: The nasal dorsum is straight. The right inferior turbinate is hypertrophied which cameron rows the nasal vestibule. and the nares are widely patent. The mucosa is pink and there are no lesions or masses noted. Face: There are no worrisome lesions noted of the face or head. Salivary Glands: The salivary glands are soft and show no lesions or masses within the par otid or submandibular glands bilaterally. There is no obvious obstruction of Stensen's or W jimmie's ducts bilaterally. Oropharynx: Normal lips and oral competence are noted. The dentition is fair. The mucosa is moist and pale, but shows no lesions or masses. The tonsils are absent and the fossae s how no lesions. Neck: The neck is atraumatic. There is no lymphadenopathy noted in the anterior, posterior , digastric or submental triangles. Chest: Chest rise is symmetric and there is no audible wheezing, stridor or wet vocal qual ity. Neuro: Extraoccular movements are grossly intact. There is symmetric movement noted of th e face. Hearing is grossly intact. Palatal elevation is symmetric and full. Tongue protru freddy is midline. VOICE EVALUATION: Perceptual voice evaluation demonstrates dysphonia which is moderate. He r pitch is low for a female and shows limited range. Vocal intensity is acceptable and shows limited upper range. There is 1+ roughness and 2+ tightness appreciated. There is moderate glottal wang. LARYNGOSCOPY: Flexible fiberoptic laryngoscopy was performed today. The patient was spraye d with Lidocaine and Phenylephrine to each nostril prior to the examination after verbal con sent. The prominence of the right pharynx is similar in appearance to her last exam with mil d erythema. The vallecula is clear and epiglottis is crisp. The aryepiglottic folds are int act and symmetric bilaterally. The hypopharynx does not demonstrate pooling. The interaryt enoid space demonstrates no lesions. It does not demonstrate pachydermia. The false vocal folds are symmetric and without lesions or masses. False fold voicing (plica ventricularis) is not noted today. The true vocal folds show normal and symmetric motion bilaterally. Th ere is no paradoxical motion. There is moderate laryngeal hyperfunction which is most notabl e in the lateral dimension. There is not noted to be increased thick laryngeal mucous. Crico thyroid function appears to be intact bilaterally. While closure is difficult to assess comp letely without stroboscopy, it does appear to be complete. The right medial edge is crisp an d shows no lesions or masses. The left medial edge is crisp and shows no lesions or masses. The mucosal covering is not edematous. There is no erythema present today. There are no obvious vascular ectasias present. The vocal processes do not demonstrate granulomas or con tact ulcers. The subglottis and proximal trachea is clear and unobstructed to the limits of the examination today. Pseudosulcus is not appreciated on indirect examination today. IMAGING: Modified barium swallow 07/30/15 with Jasmine Contreras CF-MEDICAL DOCTOR MD Oral Phase: Oral bolus control and preparation were within normal limits. Pharyngeal Phase: Initiation of the pharyngeal phase was timely. Once initiated, laryngeal elevation was normal resulting in complete epiglottic deflection. Velopharyngeal closure was normal. Tongue base to pharyngeal wall contact was normal. There was no penetration, aspira tion, or post-swallow residue noted with any consistency. In the saurabh-posterior view, the swallow was noted to be normally symmetric. Esophageal Phase: Cricopharyngeal opening was noted to be normal. Please see the radiologis t s report for additional information. PATIENT EDUCATION [...] and after meals -chew gum after meals ASSESSMENT: Jocelyne appears to suffer from cough associated with 75% improvement following 2 weeks of 30mg prednisone. We discussed continuing the benefit with Qvar, but at a higher do se than she was taking previously. I have asked Jocelyne to take 160mcg twice daily. I prescrib ed a spacer as she was not using one previously with her inhaler. If her cough returns while on the inhaler, we discussed trying gabapentin. I don't find this as affect as amitriptylin e, but given her prior urinary retention with this I will avoid it. We discussed slowing tap ering up to 300mg TID and she was provided with instructions for the taper incase we decide to proceed with this. She will contact the clinic in a few weeks to discus how she is doing given the distance she has to travel for her visits. I do think Jocelyne will benefit from lelia thing and cough suppression therapy to address her vocal cord dysfunction and cough paroxysm s as smoke and fragrances are still problem for her. We will try to arrange for this when idalia argueta comes back up to [place] for another visit or is visiting her family in [place]. Jocelyne' s modified barium swallow and esophagram revealed normal oropharyngeal swallow with mild eso phageal dysmotility. She was provided with strategies to manage these symptoms which we revi ewed today. The tightness of her left lateral neck coincides with her left sternocleidomasto id muscle. We discussed considering massage to address this. PLAN: Today I have recommended 160mcg Qvar twice daily with spacer. She will contact the [facility] in 1-2 weeks to discuss how she is doing and the next steps. Maricel Zambrano PA-C [facility] Department of Otolaryngology and Head and Neck Surgery documented i n this encounter Plan of Treatment Not on filedocumented as of this encounter Procedures + +--------+ + + + | Procedure Name | Priori | Date/Time | Associated Diagnosis | Comments | | | ty | | | | + +--------+ + + + | [place] | Routin | 07/29/2016 | Chronic cough | | | LARYNGOSCOPY,FLEXIBL | e | 6:12 PM | Vocal cord | | | E, DIAGNOSTIC | | PDT | dysfunction | | | | | | Laryngeal | | | | | | hyperfunction | | + +--------+ + + + documented in this encounter Visit Diagnoses + + | Diagnosis | + + | Chronic cough - Primary Cough | + + | Vocal cord dysfunction Other diseases of vocal cords | + + | Laryngeal hyperfunction Other diseases of larynx | + + | Esophageal dysmotility Dyskinesia of esophagus | + + documented in this encounter
--- OUTSIDE RECORDS SUMMARY | ~2019-03-13 | XMS | Encounter Summary ---
Demographics + + + | Address | [address] | | | [place] [address] | + + + | Home Phone | | + + + | Preferred Language | Unknown | + + + | Marital Status | | + + + | Samaritan Affiliation | 1041 | + + + | Race | Unknown | + + + | Ethnic Group | Unknown | + + + Author + + + | Author | [facility] | | | and [place] | + + + | Organization | [facility] | | | and [place] | + + + | Address | Unknown | + + + | Phone | Unavailable | + + + Support + + +---------+ + | Name | Relationship | Address | Phone | + + +---------+ + | Shaggy Tc | ECON | Unknown | | + + +---------+ + | Shreya Romero | ECON | Unknown | | + + +---------+ + Care Team Providers + +------+ + | Care Block Machine Operator Name | Role | Phone | + +------+ + PCP | Unavailable | + +------+ + Encounter Details +--------+ + + + + | Date | Type | Department | Care Team | Description | +--------+ + + + + | 01/10/ | Abstract | [facility] | [facility] | | | 2011 | | Conversion Location | SR | | | | | [phone] | | | +--------+ + + + + Social History + +-------+ +--------+------+ | Tobacco Use | Types | Packs/Day | Years | Date | | | | | Used | | + +-------+ +--------+------+ | Never Assessed | | | | | + +-------+ +--------+------+ + + + | Sex Assigned at [...] + + + | Blood Pressure | 120/80 | 12/14/2011 12:00 AM | | | | | PDT | | + + + + + | Pulse | - | - | | + [...] + + + + | Weight | 75.8 kg (167 lb) | 12/14/2011 12:00 AM | | | | | PDT | | + + + + + | Height | 154.9 cm (5' 1") | 12/14/2011 12:00 AM | | | | | PDT | | + + + + + | Body Mass Index | 31.55 | 12/14/2011 12:00 AM | | | | | PDT | | + + + + + documented in this encounter Plan of Treatment +--------+---------+ + + + | Date | Type | Specialty | Care Team | Description | +--------+---------+ + + + | 04/04/ | Office | Cardiology | Homero Lizarraga, | | | 2019 | Visit | | MD [address] | | | | | | [place] [address] | | | | | | [phone] | | | | | | | | +--------+---------+ + + + documented as of this encounter Procedures + +--------+ + + + | Procedure Name | Priori | Date/Time | Associated Diagnosis | Comments | | | ty | | | | + +--------+ + + + | ENDOSCOPY, COLON, | Routin | 03/15/2006 | | Results for this | | DIAGNOSTIC | e | 12:00 AM | | procedure are in the | | | | PST | | results section. | + +--------+ + + + documented in this encounter Results ENDOSCOPY, COLON, DIAGNOSTIC (03/15/2006 12:00 AM PST) + + | Specimen | + + | | + + + + + | Narrative | Performed At | + + + | | | + + + documented in this encounter Visit Diagnoses Not on filedocumented in this encounter
--- OUTSIDE RECORDS SUMMARY | ~2019-03-13 | XMS | Encounter Summary ---
Demographics + + + | Address | [address] | | | [place] [address] | + + + | Home Phone | | + + + | Preferred Language | Unknown | + + + | Marital Status | | + + + | Mandaen Affiliation | CAT | + + + | Race | White | + + + | Ethnic Group | Not or | + + + Author + + + | Author | [facility] | + + + | Organization | [facility] | + + + | Address | Unknown | + + + | Phone | Unavailable | + + + Support + + +---------+ + | Name | Relationship | Address | Phone | + + +---------+ + | Charlene Rouse | ECON | Unknown | | + + +---------+ + Care Team Providers + +------+ + | Care Salesperson Shoes Name | Role | Phone | + +------+ + | Jesse Chand MD | PCP | | + +------+ + Encounter Details +--------+ + + + + | Date | Type | Department | Care Team | Description | +--------+ + + + + | 08/18/ | Abstract [facility] Wesley Terry, | | | 2007 | | [facility] | [address] | | | | | [address] | [address] | | | | | [address] | [place], [place] | | | | | Maryellen Crawford | [address] | | | | | [place], [place] | [phone] | | | | | [address] | | | | | | [phone] | | | +--------+ + + + [...] + documented as of this encounter Progress Notes Misa Estrada RN - 08/19/2007 10:15 AM PDTHistory abstracted from records dated 07/25/07 aquiles Jung. Pt has upcoming appt August 30, 2007. documented in this enc ounter Plan of Treatment Not on filedocumented as of this encounter Visit Diagnoses Not on filedocumented in this encounter"
--- OUTSIDE RECORDS SUMMARY | ~2019-03-13 | XMS | Encounter Summary ---
Demographics + + + | Address | [address] | | | [place] [address] | + + + | Home Phone | | + + + | Preferred Language | Unknown | + + + | Marital Status | | + + + | Confucianist Affiliation | CAT | + + + | Race | White | + + + | Ethnic Group | Not or | + + + Author + + + | Author | [facility] | + + + | Organization | [facility] | + + + | Address | Unknown | + + + | Phone | Unavailable | + + + Support + + +---------+ + | Name | Relationship | Address | Phone | + + +---------+ + | Charlene Rouse | ECON | Unknown | | + + +---------+ + Care Team Providers + +------+ + | Care School Treasurer Name | Role | Phone | + [...] Therapy | Dysphagia, | Mamta | [address] | | | | | unspecified | [facility] | [address] | | | | | type | [address] | [address] | | | | | Procedures | Ave | Mailcode: | | | | | CONSULT TO | [place], [place] | [address] | | | | | ENT SPEECH | [address] | Physician's | | | | | THERAPY | Phone: | Ty | | | | | | [phone] | [place] | | | | | | Fax: | [address] | | | | | | [phone] | Phone: | | | | | | | [phone] | | | | | | | Fax: | | | | | | | [phone] | +--------+--------+ + + + + Encounter Details +--------+ + + + + | Date | Type | Department | Care Team | Description | +--------+ + + + + | 07/29/ | Diagnostic | Otolaryngology | Jasmine Contreras | | | 2017 | Visit | Speech Therapy | | | | | | Services at [facility] | | | | | | [address] | | | | | | [address] Mailcode: | | | | | | [address] Physician's | | | | | | [place], | | | | | | [place] [address] | | | | | | [phone] | | | +--------+ + + + [...] documented as of this encounter Progress Notes Jasmine Contreras - 07/29/2016 11:00 AM PDT Clinic: [facility] Referring Physician: MD LE Manley [address] [place] [address] PCP: Jesse Chand MD Medical Diagnosis: Chronic [...] cholecystectomy (09/1989); salpingo-oophorectomy (1981); hx delia rso (19 77); egd (esophagogastroduodenoscopy) (01/08/2016); and tonsillectomy and adenoidectomy (195 4). DIETARY STATUS: Current diet: The patient is currently taking a regular diet and any liquid s by mouth. She does not have a feeding tube. She reports recently taking oatmeal, hamburger , corn on the cob, burmese salad. WEIGHT: The patient reports she has gained ~ 25 lbs over the past 3 years. Wt Readings from Last 3 Encounters: 07/29/16 77.1 kg (170 lb) 07/08/16 78 kg (172 lb) 08/30/07 60.1 kg (132 lb 8 oz) SOCIAL HISTORY: The patient currently lives in [place], [place]. COMMUNICATION/SPEECH STATUS: The patient communicates verbally. Speech quality was noted to be normal. Voice quality was clear. In terms of respiration, the patient is breathing easil y at rest. She reports improved breathing since began using bipap for sleep apnea. ORAL-MOTOR EXAMINATION: The patient s [place] dentition is significant for few missing mol ars on right bottom. Normal exam. Cough strength normal. MODIFIED BARIUM SWALLOW STUDY: Prior to starting the study, the patient's name and were verified. The patient was eval uated in the [facility] 10th floor Radiology suite & was observed [...] you for this consult. Jasmine Contreras MA, CF-SCREW MACHINE OPERATOR Speech-Language Pathology Fellow [facility] Dept. of Otolaryngology, [id number] [facility] [place] [address] Pager: [phone] documented in this encount er Plan of Treatment Not on filedocumented as of this encounter Procedures + +--------+ + + + | Procedure Name | Priori | Date/Time | Associated Diagnosis | Comments | | | ty | | | | + +--------+ + + + | ND MUSTAPHASWALLOW | Routin | 08/02/2016 | Esophageal | | | FUNCTION,CINE/VIDEO | e | 8:31 PM | dysphagia | | | RECORD | | PDT | Esophageal | | | | | | dysmotility Chronic | | | | | | cough | | + +--------+ + + + | ND EVAL,ORAL & | Routin | 08/02/2016 | [...]
--- OUTSIDE RECORDS SUMMARY | ~2019-03-13 | XMS | Encounter Summary ---
Demographics + + + | Address | [address] | | | [place] [address] | + + + | Home Phone | | + + + | Preferred Language | Unknown | + + + | Marital Status | | + + + | Hindu Affiliation | 1041 | + + + | Race | Unknown | + + + | Ethnic Group | Unknown | + + + Author + + + | Author | [facility] | | | and [place] | + + + | Organization | [facility] | | | and [place] | [...] Providers + +------+ + | Care Salesperson Automobiles Name | Role | Phone | + +------+ + PCP | Unavailable | + +------+ + Encounter Details +--------+ + + + + | Date | Type | Department | Care Team | Description | +--------+ + + + + | 10/14/ | Hospital | [facility] | Wilder Mosquera MD | | | 1995 | Encounter | MED CTR GENERIC OP | [address] [place] | | | | | CONV DEPT [address] | [address] [place], [place] | | | | | [place], | [address] | | | | | [place] [address] | | | | | | [phone] | | | +--------+ + + + [...] DR | | | | | | [place] [address] | | | | | | [phone] | | | | | | | | +--------+---------+ + + + documented as of this encounter Visit Diagnoses Not on filedocumented in this encounter"
--- OUTSIDE RECORDS SUMMARY | ~2019-03-13 | XMS | Encounter Summary ---
Demographics + + + | Address | [address] | | | [place] [address] | + + + | Home Phone | | + + + | Preferred Language | Unknown | + + + | Marital Status | | + + + | Pentecostalism Affiliation | 1041 | + + + | Race | Unknown | + + + | Ethnic Group | Unknown | + + + Author + + + | Author | [facility] | | | and [place] | + + + | Organization | [facility] | | | and [place] [...] Team Providers + +------+ + | Care Boom Operator Name | Role | Phone | + +------+ + PCP | Unavailable | + +------+ + Encounter Details +--------+ + + + + | Date | Type | Department | Care Team | Description | +--------+ + + + + | 09/29/ | Hospital | [facility] | Talon Torres, | | | 1993 - | Encounter | MED CTR GENERIC IP | MD [address] [facility] | | | | | CONV DEPT [address] | [place], [place] | | | 10/04/ | | [place], | [address] | | | 1991 | | [place] [address] | | | | | | [phone] | | | +--------+ + + + [...] | | | | | [place] [address] | | | | | | [phone] | | | | | | | | +--------+---------+ + + + documented as of this encounter Visit Diagnoses Not on filedocumented in this encounter"
--- OUTSIDE RECORDS SUMMARY | ~2019-03-13 | XMS | Encounter Summary ---
Demographics + + + | Address | [address] | | | [place] [address] | + + + | Home Phone | | + + + | Preferred Language | Unknown | + + + | Marital Status | | + + + | Christian Affiliation | 1041 | + + + | Race | Unknown | + + + | Ethnic Group | Unknown | + + + Author + + + | Author | [facility] | | | and [place] | + + + | Organization | [facility] | | | and [...] Team Providers + +------+ + | Care Project Production Engineer Name | Role | Phone | + +------+ + | Jesse Chand | PCP | | + +------+ + Encounter Details +--------+ + + + + | Date | Type | Department | Care Team | Description | +--------+ + + + + | 06/30/ | Hospital | [facility] | Conversion | Chronic cough | | 2016 | Encounter | [facility] [address] | Transaction, | | | | | [address] | Provider Unknown | | | | | [place], [place] | | | | | | [address] | (Fax) | | | | | [phone] | | | +--------+ + + + [...] + + documented as of this encounter Medications at Time of Discharge + + + +---------+ + + | Medication | Sig | Dispensed | Refills | Start | End Date | | | | | | Date | | + + + +---------+ + + | alendronate | Take 70 mg by mouth | | 0 | | | | (FOSAMAX) 70 mg | every 7 days. | | | | | | tablet | | | | | | + + + +---------+ + + | aspirin (ASPIRIN | Take 81 mg by mouth | | 0 | 01/11/20 | | | LOW DOSE) 81 MG | Daily. | | | 12 | | | tablet | | | | | | + + + +---------+ + + | cholecalciferol | Take 1,000 Units by | | 0 | 01/11/20 | | | (VITAMIN D-3) 1000 | mouth Daily. | | | 12 | | | UNITS TABS | | | | | | + + + +---------+ + + | cyclobenzaprine | Take 10 mg by mouth | | 0 | | | | (FLEXERIL) 5 MG | 3 times daily as | | | | | | tablet | needed for Muscle | | | | | | | spasms. | | | | | + + + +---------+ + + | DEXAMETHASONE | SOLN-2 tsp. swished | | 0 | 01/11/20 | | | SODIUM PHOSPHATE | in mouth two times | | | 12 | | | | daily three days; 1 | | | | | | | tsp two times daily | | | | | | | three days and | | | | | | | repeat as needed | | | | | + + + +---------+ + + | diazepam (VALIUM) | Take 2 mg by mouth | | 0 | | | | 2 mg tablet | every 6 hours as | | | | | | | needed for Anxiety. | | | | | + + + +---------+ + + | diltiazem (DILACOR | 1 tablet daily with | | 0 | 01/11/20 | | | XR) 240 MG 24 hr | 4 pellets and may | | | 12 | | | capsule | modify dosage | | | | | | | depending on | | | | | | | pressure | | | | | + + + +---------+ + + | estradiol (ESTRACE | Place 2 g vaginally | | 0 | | | | VAGINAL) 0.1 mg/g | nightly. | | | | | | vaginal cream | | | | | | + + + +---------+ + + | | 1/2 to 2 every 6 | | 0 | 01/11/20 | | | HYDROcodone-acetamin | hours as needed | | | 12 | | | ophen (VICODIN) | | | | | | | 5-500 mg per tablet | | | | | | + + + +---------+ + + | levothyroxine | 1/2 tablet daily | | 0 | 01/11/20 | | | (LEVOTHROID) 125 mcg | | | | 12 | | | tablet | | | | | | + + + +---------+ + + | nitroglycerin | 1 patch applied | | 0 | 01/11/20 | | | (NITRO-DUR) 0.4 | daily | | | 12 | | | mg/hr | | | | | | + + + +---------+ + + | rosuvastatin | Take 20 mg by mouth | | 0 | 01/11/20 | | | (CRESTOR) 20 mg | Daily. | | | 12 | | | tablet | | | | | | + + + +---------+ + + | trazodone | Take 150 mg by mouth | | 0 | | | | (DESYREL) 150 MG | nightly. | | | | | | tablet | | | | | | + + + +---------+ + + | valacyclovir | 2 tablets by mouth | | 0 | 01/11/20 | | | (VALTREX) 1 G tablet | two times daily for | | | 12 | | | | 7 days as needed | | | | | + + + +---------+ + + | venlafaxine | Take 75 mg by mouth | | 0 | | | | (EFFEXOR) 75 MG | Daily. | | | | | | tablet | | | | | | + + + +---------+ + + | furosemide (LASIX) | Take 40 mg by mouth | | 0 | 01/11/20 | | | 40 mg tablet | Daily. | | | 12 | 9 | + + + +---------+ + + documented as of this encounter Plan of Treatment +--------+---------+ + + + | Date | Type | Specialty | Care Team | Description | +--------+---------+ + + + | 04/04/ | Office | Cardiology | Homero Lizarraga, | | | 2018 | Visit | | MD [address] | | | | | | [place] [address] | | | | | | [phone] | | | | | | | | +--------+---------+ + + + documented as of this encounter Procedures + +--------+ + + + | Procedure Name | Priori | Date/Time | Associated Diagnosis | Comments | | | ty | | | | + +--------+ + + + | CT CHEST HIGH | Routin | 07/01/2015 | | Results for this | | RESOLUTION WO | e | 11:30 AM | | procedure are in the | | CONTRAST | | PDT | | results section. | + +--------+ + + + documented in this encounter Results CT Chest High Resolution WO Contrast (07/01/2015 11:30 AM PDT) + + | Specimen | + + | | + + + + + | Impressions | Performed At | + + + | 1. No acute abnormality of the chest. No evidence for | | | interstitial lung disease or bronchiectasis. No pulmonary lung | | | nodules. 2. No acute abnormality of the visualized portions of the | | | upper abdomen. Electronically signed by José Miguel Nicole MD on | | | 07/01/2015 12:15 PM | | + + + + + + | Narrative | Performed At | + + + | [place] [address] CHEST HIGH | | | RESOLUTION 07/01/2015 11:30 AM HISTORY: Chronic cough. Concern for | | | interstitial lung disease and bronchiectasis. COMPARISON: None | | | TECHNIQUE: CT scan of the chest without contrast. High resolution | | | chest CT. 5 mm thick helically acquired axial images were obtained | | | of the chest. 1 mm thick axial images were obtained for the | | | high-resolution portion with inspiration, expiration in supine and | | | prone position. Automated exposure control done to minimize dose. | | | FINDINGS: No supraclavicular adenopathy. No axillary adenopathy. | | | Patulous esophagus. Small hiatal hernia. No pulmonary lung | | | nodules. No lung consolidation. No bronchiectasis. No air trapping on | | | expiration images. Cholecystectomy. No acute abnormality of the | | | visualized portions of the upper abdomen. Small nodule of the left | | | adrenal gland consistent with adrenal adenoma measuring 1 cm x 0.9 cm. | | | No acute osseous abnormality. | | + + + + + | Procedure Note | + + | Gabriel, Rad Conversion - 12/01/2018 12:48 PM PDT [place] years | | FemaleCT CHEST HIGH RESOLUTION07/01/2015 11:30 AM HISTORY: Chronic cough. Concern for | | interstitial lung disease and bronchiectasis. COMPARISON: None TECHNIQUE: CT scan of the | | chest without contrast. High resolution chest CT. 5 mm thick helically acquired axial | | images were obtained of the chest. 1 mm thick axial images were obtained for the | | high-resolution portion with inspiration, expiration in supine and prone position. | | Automated exposure control done to minimize dose. FINDINGS: No supraclavicular | | adenopathy. No axillary adenopathy. Patulous esophagus. Small hiatal hernia. No | | pulmonary lung nodules. No lung consolidation. No bronchiectasis. No air trapping on | | expiration images. Cholecystectomy. No acute abnormality of the visualized portions of | | the upper abdomen. Small nodule of the left adrenal gland consistent with adrenal | | adenoma measuring 1 cm x 0.9 cm. No acute osseous abnormality. IMPRESSION: 1. No acute | | abnormality of the chest. No evidence for interstitial lung disease or bronchiectasis. | | No pulmonary lung nodules.2. No acute abnormality of the visualized portions of the | | upper abdomen. | |No supraclavicular adenopathy. No axillary adenopathy. | | | |Patulous esophagus. Small hiatal hernia. | | | |No pulmonary lung nodules. No lung consolidation. No bronchiectasis. No air trapping on exp iration images. | | | |Cholecystectomy. No acute abnormality of the visualized portions of the upper abdomen. Smal l nodule of the left adrenal gland consistent with adrenal adenoma measuring 1 cm x 0.9 cm. | | | |No acute osseous abnormality. | | | |IMPRESSION: | | | |1. No acute abnormality of the chest. No evidence for interstitial lung disease or bronchi ectasis. No pulmonary lung nodules. | |2. No acute abnormality of the visualized portions of the upper abdomen. | | | | | + + documented in this encounter Visit Diagnoses + + | Diagnosis | + + | Chronic cough Cough | + + documented in this encounter"
--- OUTSIDE RECORDS SUMMARY | ~2019-03-13 | XMS | Encounter Summary ---
Demographics + + + | Address | [address] | | | [place] [address] | + + + | Home Phone | | + + + | Preferred Language | Unknown | + + + | Marital Status | | + + + | Scientologist Affiliation | 1041 | + + + | Race | Unknown | + + + | Ethnic Group | Unknown | + + + Author + + + | Author | [facility] | | | and [place] | + + + | Organization | [facility] | | | and [...] Team Providers + +------+ + | Care Optometric Tech Name | Role | Phone | + +------+ + | Jesse Chand | PCP | | + +------+ + Encounter Details +--------+ + + + + | Date | Type | Department | Care Team | Description | +--------+ + + + + | 07/15/ | Hospital | [facility] | Conversion | Moderate persistent | | 2016 | Encounter | CENTER CARD[facility] | Transaction, | asthma without | | | | PULMONARY REHAB | Provider Unknown | complication | | | | [address] [facility] | | | | | | [place], [place] | (Fax) | | | | | [address] | | | | | | [phone] | | | +--------+ + + + [...] DR | | | | | | [place] [address] | | | | | | [phone] | | | | | | | | +--------+---------+ + + + documented as of this encounter Visit Diagnoses + + | Diagnosis | + + | Moderate persistent asthma without complication Unspecified asthma | + + documented in this encounter"
--- OUTSIDE RECORDS SUMMARY | ~2019-03-13 | XMS | Encounter Summary ---
Demographics + + + | Address | [address] | | | [place] [address] | + + + | Home Phone | | + + + | Preferred Language | Unknown | + + + | Marital Status | | + + + | Mandaen Affiliation | 1041 | + + + | Race | Unknown | + + + | Ethnic Group | Unknown | + + + Author + + + | Author | [facility] | | | and [place] | + + + | Organization | [facility] | | [...] Team Providers + +------+ + | Care Staking Engineer Name | Role | Phone | + +------+ + PCP | Unavailable | + +------+ + Encounter Details +--------+ + + + + | Date | Type | Department | Care Team | Description | +--------+ + + + + | 05/28/ | Hospital | [facility] | Wilder Mosquera MD | | | 2000 | Encounter | MED CTR GENERIC OP | [address] [place] | | | | | CONV DEPT [address] | [address] [place], [place] | | | | | [place], | [address] | | | | | [place] [address] | | | | | | [phone] | | | +--------+ + + + [...] | | | | | [place] [address] | | | | | | [phone] | | | | | | | | +--------+---------+ + + + documented as of this encounter Visit Diagnoses Not on filedocumented in this encounter"
--- OUTSIDE RECORDS SUMMARY | ~2019-03-13 | XMS | Encounter Summary ---
Demographics + + + | Address | [address] | | | [place] [address] | + + + | Home Phone | | + + + | Preferred Language | Unknown | + + + | Marital Status | | + + + | Restoration Affiliation | CAT | + + + | Race | White | + + + | Ethnic Group | Not or | + + + Author + + + | Author | [facility] | + + + | Organization | [facility] | + + + | Address | Unknown | + + + | Phone | Unavailable | + + + Support + + +---------+ + | Name | Relationship | Address | Phone | + + +---------+ + | Charlene Rouse | ECON | Unknown | | + + +---------+ + Care Team Providers + +------+ + | Care Soot Blower Name | Role | Phone | + [...] Therapy | Dysphagia, | Mamta | [address] | | | | | unspecified | MYNOR Argueta | [address] | | | | | type | [address] | [address] | | | | | Procedures | Ave | Mailcode: | | | | | CONSULT TO | [place], [place] | [address] | | | | | ENT SPEECH | [address] | Physician's | | | | | THERAPY | Phone: | Ty | | | | | | [phone] | [place] | | | | | | Fax: | [address] | | | | | | [phone] | Phone: | | | | | | | [phone] | | | | | | | Fax: | | | | | | | [phone] | +--------+--------+ + + + + Encounter Details +--------+ + + + + | Date | Type | Department | Care Team | Description | +--------+ + + + + | 07/29/ | Diagnostic | Otolaryngology | Jasmine Contreras | | | 2017 | Visit | Speech Therapy | | | | | | Services at [facility] | | | | | | [address] | | | | | | [address] Mailcode: | | | | | | [address] Physician's | | | | | | [place], | | | | | | [place] [address] | | | | | | [phone] | | | +--------+ + + + [...] Contreras - 07/29/2016 11:00 AM PDT Clinic: [facility] Referring Physician: MD LE Manley [address] [place] [address] PCP: Jesse Chand MD Medical Diagnosis: Chronic [...] oatmeal, hamburger , corn on the cob, kyrgyz salad. WEIGHT: The patient reports she has gained ~ 25 lbs over the past 3 years. Wt Readings from Last 3 Encounters: 07/29/16 77.1 kg (170 lb) 07/08/16 78 kg (172 lb) 08/30/07 60.1 kg (132 lb 8 oz) SOCIAL HISTORY: The patient currently lives in [place], [place]. COMMUNICATION/SPEECH STATUS: The patient communicates verbally. Speech quality was noted to be normal. Voice quality was clear. In terms of respiration, the patient is breathing easil y at rest. She reports improved breathing since began using bipap for sleep apnea. ORAL-MOTOR EXAMINATION: The patient s little river dentition is significant for few missing mol ars on right bottom. Normal exam. Cough strength normal. MODIFIED BARIUM SWALLOW STUDY: Prior to starting the study, the patient's name and were verified. The patient was eval uated in the [facility] 10th floor Radiology suite & was observed [...] you for this consult. Jasmine Contreras MA, CF-TRAFFIC OBSERVER Speech-Language Pathology Fellow [facility] Dept. of Otolaryngology, [address] [place] [address] Pager: [phone] documented in this encount er Plan of Treatment Not on filedocumented as of this encounter Procedures + +--------+ + + + | Procedure Name | Priori | Date/Time | Associated Diagnosis | Comments | | | ty | | | | + +--------+ + + + | TN MUSTAPHASWALLOW | Routin | 08/02/2016 | Esophageal | | | FUNCTION,CINE/VIDEO | e | 8:31 PM | dysphagia | | | RECORD | | PDT | Esophageal | | | | | | dysmotility Chronic | | | | | | cough | | + +--------+ + + + | TN EVAL,ORAL & | Routin | 08/02/2016 | [...]
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
--- OUTSIDE RECORDS SUMMARY | ~2019-03-13 | XMS | Encounter Summary ---
Demographics + + + | Address | [address] | | | [place] [address] | + + + | Home Phone | | + + + | Preferred Language | Unknown | + + + | Marital Status | | + + + | Worship Affiliation | 1041 | + + + | Race | Unknown | + + + | Ethnic Group | Unknown | + + + Author + + + | Author | [facility] | | | and [place] | + + + | Organization | [facility] | | | and [place] [...] Team Providers + +------+ + | Care Photographic Editor Name | Role | Phone | + +------+ + PCP | Unavailable | + +------+ + Encounter Details +--------+ + + + + | Date | Type | Department | Care Team | Description | +--------+ + + + + | 10/14/ | Hospital | [facility] | Wilder Mosquera MD | | | 1995 | Encounter | MED CTR GENERIC OP | [address], [place] | | | | | CONV DEPT [address] [place], [place] | | | | | [place], | [address] | | | | | [place] [address] | | | | | | [phone] | | | +--------+ + + + [...] | | | | | [place] [address] | | | | | | [phone] | | | | | | | | +--------+---------+ + + + documented as of this encounter Visit Diagnoses Not on filedocumented in this encounter"
--- OUTSIDE RECORDS SUMMARY | ~2019-03-13 | XMS | Encounter Summary ---
Demographics + + + | Address | [address] | | | [place] [address] | + + + | Home Phone | | + + + | Preferred Language | Unknown | + + + | Marital Status | | + + + | Judaism Affiliation | CAT | + + + | Race | White | + + + | Ethnic Group | Not or | + + + Author + + + | Author | [facility] | + + + | Organization | [facility] | + + + | Address | Unknown | + + + | Phone | Unavailable | + + + Support + + +---------+ + | Name | Relationship | Address | Phone | + + +---------+ + | Charlene Rouse | ECON | Unknown | | + + +---------+ + Care Team Providers + +------+ + | Care Lab Aide Name | Role | Phone | + +------+ + | Jesse Chand MD | PCP | | + +------+ + Encounter Details +--------+ + + + + | Date | Type | Department | Care Team | Description | +--------+ + + + + | 08/13/ | [employer] | Otolaryngology | [place], | Chronic cough | | 2017 | | Laryngology Services | Mamta Argueta PA-C | (Primary Dx) | | | | at [facility] [address] | | | | | [address] [place], | [place], [place] | | | | | [place] [address] | [address] | | | | | [phone] | [phone] | | | | | | | [...]
--- OUTSIDE RECORDS SUMMARY | ~2019-03-13 | XMS | Clinical Summary ---
Demographics + + + | Address | [address] | | | [place] [address] | + + + | Home Phone | | + + + | Preferred Language | Unknown | + + + | Marital Status | | + + + | Sikh Affiliation | CAT | + + + | Race | White | + + + | Ethnic Group | Not or | + + + Author + + + | Author | [facility] | + + + | Organization | [facility] | + + + | Address | Unknown | + + + | Phone | Unavailable | + + + Support + + +---------+ + | Name | Relationship | Address | Phone | + + +---------+ + | Charlene Rouse | ECON | Unknown | | + + +---------+ + Care Team Providers + +------+ + | Care Count Room Clerk Name | Role | Phone | + +------+ + | Jesse Chand MD | PCP | | + +------+ + Source Comments IRMA is fully live on both EpicCare Ambulatory and EpicCare InPatient.[facility] Allergies + + + + + + | Active Allergy | Reactions | Severity | Noted | Comments | | | | | Date | | + + + + + + | Prochlorperazine | | | 08/19/19 | Unknown rxn at age | | | | | 10 | 18 | + + + + + + | Morphine | | | 08/19/19 | spasms | | | | | 08 | | + + + + + + Medications + + + +---------+------+------+-------+ | Medication | Sig | Dispensed | Refills | Star | End | Statu | | | | | | t | Date | s | | | | | | Date | | | + + + +---------+------+------+-------+ | furosemide (LASIX) | take 1 tablet (20 | | 0 | | | Activ | | 20 mg Oral Tablet | mg) by oral route | | | | | e | | | once daily | | | | | | + + + +---------+------+------+-------+ | nitroglycerin 0.4 | place 1 tablet (0.4 | | 0 | | | Activ | | mg Sublingual | mg) by sublingual | | | | | e | | Tablet, Sublingual | route at the first | | | | | | | | sign of an attack; | | | | | | | | may repeat every 5 | | | | | | | | minutes, until | | | | | | | | relief; if pain | | | | | | | | persists after a | | | | | | | | total of 3 tablets | | | | | | | | in 15 minutes, | | | | | | | | prompt medical | | | | | | | | attention is | | | | | | | | recommended | | | | | | + + + +---------+------+------+-------+ | | take 2 tablets (5 | | 0 | | | Activ | | diphenoxylate-atropi | mg) by oral route 4 | | | | | e | | ne (LOMOTIL) | times per day as | | | | | | | 2.5-0.025 mg Oral | needed | | | | | | | Tablet | | | | | | | + + + +---------+------+------+-------+ | Aspirin 81 mg Oral | po 1 daily | | 0 | | | Activ | | Tablet | | | | | | e | + + + +---------+------+------+-------+ | cyclobenzaprine | take 1 tablet (10 | 60 | 1 | 05/1 | | Activ | | (FLEXERIL) 10 mg | mg) by oral route 2 | | | 3/20 | | e | | Oral Tablet | times per day as | | | 08 | | | | | needed for pelvic | | | | | | | | muscle spasm | | | | | | + + + +---------+------+------+-------+ | | Take by mouth. | | 0 | 12/2 | | Activ | | hydroCHLOROthiazide | | | | 8/20 | | e | | 25 mg oral tablet | | | | 15 | | | + + + +---------+------+------+-------+ | dilTIAZem CD 24 | Take by mouth. | | 0 | | | Activ | | hour release 240 mg | | | | | | e | | oral | | | | | | | | capsule,extended | | | | | | | | release 24hr | | | | | | | + + + +---------+------+------+-------+ | rosuvastatin | Take by mouth. | | 0 | 09/2 | | Activ | | (CRESTOR) 20 mg oral | | | | 4/20 | | e | | tablet | | | | 12 | | | + + + +---------+------+------+-------+ | traZODone 150 mg | Take by mouth. | | 0 | | | Activ | | oral tablet | | | | | | e | + + + +---------+------+------+-------+ | | 1/2 to 2 every 6 | | 0 | 09/2 | | Activ | | HYDROcodone-acetamin | hours as needed | | | 4/20 | | e | | ophen 5-500 mg oral | | | | 12 | | | | tablet | | | | | | | + + + +---------+------+------+-------+ | montelukast 10 mg | Take by mouth. | | 0 | 03/0 | | Activ | | oral tablet | | | | 2/20 | | e | | | | | | 16 | | | + + + +---------+------+------+-------+ | denosumab (PROLIA) | Inject under the | | 0 | | | Activ | | 60 mg/mL | skin (SUBC). | | | | | e | | subcutaneous syringe | | | | | | | + + + +---------+------+------+-------+ | valACYclovir | 2 tablets by mouth | | 0 | 09/2 | | Activ | | (VALTREX) 1 g oral | two times daily for | | | 4/20 | | e | | tablet | 7 days as needed | | | 12 | | | + + + +---------+------+------+-------+ | Fluticasone | Instill in nose. | | 0 | | | Activ | | Furoate 27.5 | | | | | | e | | mcg/actuation nasal | | | | | | | | spray,suspension | | | | | | | + + + +---------+------+------+-------+ | cholecalciferol, | Take by mouth. | | 0 | 09/2 | | Activ | | Vitamin D3, 1,000 | | | | 4/20 | | e | | unit oral tablet | | | | 12 | | | + + + +---------+------+------+-------+ | fexofenadine 180 | Take by mouth. | | 0 | | | Activ | | mg oral tablet | | | | | | e | + + + +---------+------+------+-------+ | inhalational | Use as directed. | 1 each | 0 | 04/1 | | Activ | | spacing device | | | | 2/20 | | e | | | | | | 17 | | | + + + +---------+------+------+-------+ | beclomethasone 80 | Inhale 2 puffs two | 1 | 3 | 04/2 | | Activ | | mcg/actuation | times daily. | Inhaler | | 7/20 | | e | | inhalation aerosol | | | | 17 | | | + + + +---------+------+------+-------+ | ISOSORBIDE ORAL | Take by mouth. | | 0 | | | Activ | | | | | | | | e | + + + +---------+------+------+-------+ | GABAPENTIN ORAL | Take by mouth. | | 0 | | | Activ | | | | | | | | e | + + + +---------+------+------+-------+ | celecoxib | Take by mouth. | | 0 | | | Activ | | (CELEBREX ORAL) | | | | | | e | + + + +---------+------+------+-------+ Active Problems + + + | Problem | Noted Date | + + + | Malignant neoplasm of upper-outer quadrant of female breast | | + + + + + | Overview: | | Primary | | diagnosis | + + Encounters +--------+ + + + + | Date | Type | Specialty | Care Team | Description | +--------+ + + + + | 03/11/ | Emergency | Emergency Medicine | Eileen Dudley, | | | 2018 | | | [facility] | | +--------+ + + + + | 03/11/ | Travel | | | | | 2018 | | | | | +--------+ + + + + from Last 3 Months Family History + + +------+ + | Medical History | Relation | Name | Comments | + + +------+ + | Tremor | Brother | | | + + +------+ + | Thyroid | Daughter | | | + + +------+ + | Thyroid | Mother | | | + + +------+ + | Thyroid | Sister | | x 2 | + + +------+ + | Cancer | Son | | | + + +------+ + | Movement Disorder | Neg Hx | | | + + +------+ + + +------+--------+ + | Relation | Name | Status | Comments | + +------+--------+ + | Brother | | | | + +------+--------+ + | Daughter | | | | + +------+--------+ + | Mother | | | | + +------+--------+ + | Sister | | | | + +------+--------+ + | Son | | | | + +------+--------+ + Social History + +-------+ +--------+------+ | Tobacco Use | Types | Packs/Day | Years | Date | | | | | Used | | + +-------+ +--------+------+ | Never Smoker | | | | | + +-------+ +--------+------+ + +---+---+---+ | Smokeless Tobacco: | | | | | Never Used | | | | + +---+---+---+ + + +---------+ + | Alcohol Use [...] recent travel history available. | + + Last Filed Vital Signs + + + + + | Vital Sign | Reading | Time Taken | Comments | + + + + + | Blood Pressure | 130/61 | 03/11/2019 4:57 PM | | | | | PST | | + + + + + | Pulse | 76 | 03/11/2019 4:57 PM | | | | | PST | | + + + + + | Temperature | 36.7 C (98.1 F) | 03/11/2019 4:57 PM | | | | | PST | | + + + + + | Respiratory Rate | 18 | 03/11/2019 4:57 PM | | | | | PST | | + + + + + | Oxygen Saturation | 97% | 03/11/2019 4:57 PM | | | | | PST | | + + + + + | Inhaled Oxygen | - | - | | | Concentration | | | | + + + + + | Weight | 79.4 kg (175 lb) | 03/11/2019 2:56 PM | | | | | PST | | + + + + + | Height | 153.7 cm (5' 0.5") | 03/11/2019 2:56 PM | | | | | PST | | + + + + + | Body Mass Index | 33.61 | 03/11/2019 2:56 PM | | | | | PST | | + + + + + Plan of Treatment + + + + + | Health Maintenance | Due Date | Last Done | Comments | + + + + + | Influenza (Flu) | Completed | 01/16/2019, 04/26/2018, | | | vaccination | | 02/28/2009 | | + + + + + | Pneumococcal | Completed | 01/16/2019, 09/28/2017 | | | vaccination | | | | + + + + + Procedures + +--------+ + + + | Procedure Name | Priori | Date/Time | Associated Diagnosis | Comments | | | ty | | | | + +--------+ + + + | X-RAY SHOULDER 3+ | Urgent | 03/11/2019 | | Results for this | | VIEWS RIGHT | | 3:52 PM | | procedure are in the | | | | PST | | results section. | + +--------+ + + + | X-RAY CHEST 2 VIEW | Urgent | 03/11/2019 | | Results for this | | | | 3:17 PM | | procedure are in the | | | | PST | | results section. | + +--------+ + + + | X-RAY HUMERUS 2 | Urgent | 03/11/2019 | | Results for this | | VIEWS RIGHT | | 3:17 PM | | procedure are in the | | | | PST | | results section. | + +--------+ + + + | CT SPINE CERVICAL WO | Urgent | 03/11/2019 | | Results for this | | CONTRAST | | 3:05 PM | | procedure are in the | | | | PST | | results section. | + +--------+ + + + | CT HEAD WO CONTRAST | Urgent | 03/11/2019 | | Results for this | | | | 3:05 PM | | procedure are in the | | | | PST | | results section. | + +--------+ + + + | CBC AND AUTO DIFF | Urgent | 03/11/2019 | | Results for this | | | | 2:47 PM | | procedure are in the | | | | PST | | results section. | + +--------+ + + + | INR | Urgent | 03/11/2019 | | Results for this | | | | 2:47 PM | | procedure are in the | | | | PST | | results section. | + +--------+ + + + | BASIC METABOLIC SET | Urgent | 03/11/2019 | | Results for this | | (NA, K, CL, TCO2, | | 2:47 PM | | procedure are in the | | BUN, CR, GLU, CA) | | PST | | results section. | + +--------+ + + + | CBC, WITH | Urgent | 03/11/2019 | | Results for this | | DIFFERENTIAL | | 2:47 PM | | procedure are in the | | | | PST | | results section. | + +--------+ + + + from Last 3 Months Results X-RAY SHOULDER 3+ VIEWS RIGHT (03/11/2019 3:52 PM PST) + + | Specimen | + + | | + + + + + | Narrative | Performed At | + + + | EXAM DESCRIPTION: X-RAY SHOULDER 3+ VIEWS RIGHT CLINICAL | [facility] | | HISTORY: 68 y/o F patient. Possible dislocation. Possible scapular | RADIOLOGY VOICE | | fracture. Recent fall with injury. COMPARISON: Humerus radiograph | RECOGNITION | | from the same day. TECHNIQUE: AP radiograph of the shoulder in | | | neutral position with scapular Y-view. FINDINGS: No evidence of | | | acute fracture or dislocation. Joint spaces are maintained. The | | | scapula appears intact. Visualized portions of the humerus appear | | | intact. Mild degenerative changes of the acromioclavicular joint | | | without significant inferior impingement. IMPRESSION: No | | | displaced fracture or evidence of dislocation. Signed By: | | | Garcia Bravo DO On 03/11/2019 15:59:03 | | + + + + ----+ | Procedure Note | + ----+ | Service Account, [email or web address] Res In Interface - 03/11/2019 4:02 PM PST EXAM | | DESCRIPTION:X-RAY SHOULDER 3+ VIEWS RIGHT CLINICAL HISTORY:68 y/o F patient. Possible | | dislocation. Possible scapular fracture. Recent fall with injury. COMPARISON:Humerus | | radiograph from the same day. TECHNIQUE:AP radiograph of the shoulder in neutral | | position with scapular Y-view. FINDINGS:No evidence of acute fracture or dislocation. | | Joint spaces are maintained. The scapula appearsintact. Visualized portions of the | | humerus appear intact. Mild degenerative changes of theacromioclavicular joint without | | significant inferior impingement. IMPRESSION:No displaced fracture or evidence of | | dislocation. Signed By: Garcia Bravo DO On 03/11/2019 15:59:03 | |TECHNIQUE: | |AP radiograph of the shoulder in neutral position with scapular Y-view. | | | |FINDINGS: | |No evidence of acute fracture or dislocation. Joint spaces are maintained. The scapula appe ars | |intact. Visualized portions of the humerus appear intact. Mild degenerative changes of the | |acromioclavicular joint without significant inferior impingement. | | | |IMPRESSION: | |No displaced fracture or evidence of dislocation. | | | | | |Signed By: Garcia Bravo DO On 03/11/2019 15:59:03 | + ----+ + + + + + | Performing | Address | City/State/Zipcode | Phone Number | | Organization | | | | + + + + + | [facility] | [address] | [place] [address] | [phone] | | VOICE RECOGNITION | | | | + + + + + X-RAY CHEST 2 VIEW (03/11/2019 3:17 PM PST) + + | Specimen | + + | | + + + + + | Narrative | Performed At | + + + | EXAM DESCRIPTION: X-RAY CHEST 2 VIEW CLINICAL HISTORY: 68 y/o | [facility] | | F patient. Chest pain after fall. COMPARISON: None. | RADIOLOGY VOICE | | TECHNIQUE: Frontal and lateral views of the chest. FINDINGS: The | RECOGNITION | | cardiac and mediastinal silhouettes are unremarkable. The lungs are | | | mildly hypoexpanded without consolidation. There is no pneumothorax | | | or pleural effusion. There is no acute osseous abnormality. No | | | displaced fractures are identified. Surgical clips are present in the | | | right upper quadrant suggesting prior cholecystectomy. | | | IMPRESSION: No acute disease. Signed By: Garcia Bravo DO On | | | 03/11/2019 15:24:40 | | + + + + ---------+ | Procedure Note | + ---------+ | Service Account, [email or web address] Res In Interface - 03/11/2019 3:28 PM PST EXAM | | DESCRIPTION:X-RAY CHEST 2 VIEW CLINICAL HISTORY:68 y/o F patient. Chest pain after | | fall. COMPARISON:None. TECHNIQUE:Frontal and lateral views of the chest. FINDINGS:The | | cardiac and mediastinal silhouettes are unremarkable. The lungs are mildly hypoexpanded | | withoutconsolidation. There is no pneumothorax or pleural effusion. There is no acute | | osseous abnormality.No displaced fractures are identified. Surgical clips are present in | | the right upper quadrantsuggesting prior cholecystectomy. IMPRESSION:No acute disease. | | Signed By: Garcia Bravo DO On 03/11/2019 15:24:40 | | | |TECHNIQUE: | |Frontal and lateral views of the chest. | | | |FINDINGS: | |The cardiac and mediastinal silhouettes are unremarkable. The lungs are mildly hypoexpanded without | |consolidation. There is no pneumothorax or pleural effusion. There is no acute osseous abno rmality. | |No displaced fractures are identified. Surgical clips are present in the right upper quadra nt | |suggesting prior cholecystectomy. | | | |IMPRESSION: | |No acute disease. | | | | | |Signed By: Garcia Bravo DO On 03/11/2019 15:24:40 | + ---------+ + + + + + | Performing | Address | City/State/Zipcode | Phone Number | | Organization | | | | + + + + + | [facility] | [address] | [place] [address] | [phone] | | VOICE RECOGNITION | | | | + + + + + X-RAY HUMERUS 2 VIEWS RIGHT (03/11/2019 3:17 PM PST) + + | Specimen | + + | | + + + + + | Narrative | Performed At | + + + | EXAM DESCRIPTION: X-RAY HUMERUS 2 VIEWS RIGHT CLINICAL HISTORY: | [facility] | | 68 y/o F patient. COMPARISON: None. TECHNIQUE: AP and | RADIOLOGY VOICE | | lateral views of the humerus. FINDINGS: No evidence of fracture | RECOGNITION | | or findings to suggest dislocation. Subjectively normal bone | | | mineralization. Unremarkable appearance of the visualized soft | | | tissues. Mild degenerative changes of the acromioclavicular joint. | | | IMPRESSION: No acute osseous abnormality. Signed By: Shelly, | | | Garcia WILSON On 03/11/2019 15:25:44 | | + + + + -------+ | Procedure Note | + -------+ | Service Account, [employer] In Interface - 03/11/2019 3:29 PM PST EXAM | | DESCRIPTION:X-RAY HUMERUS 2 VIEWS RIGHT CLINICAL HISTORY:68 y/o F patient. | | COMPARISON:None. TECHNIQUE:AP and lateral views of the humerus. FINDINGS:No evidence of | | fracture or findings to suggest dislocation. Subjectively normal bonemineralization. | | Unremarkable appearance of the visualized soft tissues. Mild degenerative changesof the | | acromioclavicular joint. IMPRESSION:No acute osseous abnormality. Signed By: Shelly, | | Garcia WILSON On 03/11/2019 15:25:44 | |None. | | | |TECHNIQUE: | |AP and lateral views of the humerus. | | | |FINDINGS: | |No evidence of fracture or findings to suggest dislocation. Subjectively normal bone | |mineralization. Unremarkable appearance of the visualized soft tissues. Mild degenerative c hanges | |of the acromioclavicular joint. | | | |IMPRESSION: | |No acute osseous abnormality. | | | | | |Signed By: Garcia Bravo DO On 03/11/2019 15:25:44 | + -------+ + + + + + | Performing | Address | City/State/Zipcode | Phone Number | | Organization | | | | + + + + + | [facility] | [address] | [place] [address] | [phone] | | VOICE RECOGNITION | | | | + + + + + CT SPINE CERVICAL WO CONTRAST (03/11/2019 3:05 PM PST) + + | Specimen | + + | | + + + + + | Narrative | Performed At | + + + | EXAM DESCRIPTION: CT HEAD WO CONTRAST; CT SPINE CERVICAL WO | [facility] | | CONTRAST CLINICAL HISTORY: 68 y/o F patient. Fall. Neck pain. | RADIOLOGY VOICE | | COMPARISON: None. TECHNIQUE: Helical data was acquired | RECOGNITION | | through the head and cervical spine without contrast. Axial, sagittal | | | and coronal reformatted images were reviewed. FINDINGS: Brain: | | | Evaluation of the axial images demonstrates no evidence of significant | | | canal stenosis or foraminal narrowing. No intracranial hemorrhage, | | | midline shift or mass effect is identified. There are no extra-axial | | | fluid collections. There is no hydrocephalus. Kaur-white junction is | | | preserved. There is mild generalized parenchymal volume loss. | | | Unremarkable CT appearance of the cerebral white matter. | | | Visualized paranasal sinuses and mastoid air cells appear clear. | | | Calvarium is grossly intact. Cervical spine: There is normal | | | alignment. Vertebral heights are preserved. Eniq-qn-lyztgcai | | | spondylotic changes are most pronounced at the C5-6 and C6-7 levels. | | | No fractures are identified. No prevertebral soft tissue swelling is | | | seen. The craniovertebral junction appears unremarkable. | | | Straightening of the expected cervical lordosis can be positional or | | | due to muscle spasm. Evaluation of the axial images demonstrates no | | | evidence of significant canal stenosis or foraminal narrowing. | | | IMPRESSION: No acute intracranial abnormality. Mild age related | | | cerebral parenchymal volume loss. No acute cervical spinal | | | fracture or subluxation. Straightening of the cervical lordosis can | | | be positional or due to muscle spasm. Tujz-ku-zckglgoo spondylotic | | | changes. Signed By: Garcia Bravo DO On 03/11/2019 15:23:21 | | + + + + --------+ | Procedure Note | + --------+ | Service Account, [facility] In Interface - 03/11/2019 3:26 PM PST EXAM | | DESCRIPTION:CT HEAD WO CONTRAST; CT SPINE CERVICAL WO CONTRAST CLINICAL HISTORY:68 y/o | | F patient. Fall. Neck pain. COMPARISON:None. TECHNIQUE:Helical data was acquired through | | the head and cervical spine without contrast. Axial, sagittal andcoronal reformatted | | images were reviewed. FINDINGS:Brain:Evaluation of the axial images demonstrates no | | evidence of significant canal stenosis or foraminalnarrowing.No intracranial hemorrhage, | | midline shift or mass effect is identified. There are no extra-axialfluid collections. | | There is no hydrocephalus. Kaur-white junction is preserved. There is mildgeneralized | | parenchymal volume loss. Unremarkable CT appearance of the cerebral white matter. | | Visualized paranasal sinuses and mastoid air cells appear clear. Calvarium is grossly | | intact. Cervical spine:There is normal alignment. Vertebral heights are preserved. | | Jzhk-in-wegmurol spondylotic changesare most pronounced at the C5-6 and C6-7 levels. No | | fractures are identified. No prevertebral softtissue swelling is seen. The | | craniovertebral junction appears unremarkable.Straightening of the expected cervical | | lordosis can be positional or due to muscle spasm.Evaluation of the axial images | | demonstrates no evidence of significant canal stenosis or foraminalnarrowing. | | IMPRESSION:No acute intracranial abnormality.Mild age related cerebral parenchymal | | volume loss. No acute cervical spinal fracture or subluxation.Straightening of the | | cervical lordosis can be positional or due to muscle spasm.Dsdn-ig-ortoyyfh spondylotic | | changes. Signed By: Garcia Bravo DO On 03/11/2019 15:23:21 | | | |Visualized paranasal sinuses and mastoid air cells appear clear. Calvarium is grossly intac t. | | | |Cervical spine: | |There is normal alignment. Vertebral heights are preserved. Bfsx-zj-jghguxux spondylotic ch anges | |are most pronounced at the C5-6 and C6-7 levels. No fractures are identified. No prevertebr al soft | |tissue swelling is seen. The craniovertebral junction appears unremarkable. | |Straightening of the expected cervical lordosis can be positional or due to muscle spasm. | |Evaluation of the axial images demonstrates no evidence of significant canal stenosis or fo raminal | |narrowing. | | | |IMPRESSION: | |No acute intracranial abnormality. | |Mild age related cerebral parenchymal volume loss. | | | |No acute cervical spinal fracture or subluxation. | |Straightening of the cervical lordosis can be positional or due to muscle spasm. | |Cyuf-pp-iixamtbg spondylotic changes. | | | | | |Signed By: Garcia Bravo DO On 03/11/2019 15:23:21 | + --------+ + + + + + | Performing | Address | City/State/Zipcode | Phone Number | | Organization | | | | + + + + + | [facility] | [address] | [place] [address] | [phone] | | VOICE RECOGNITION | | | | + + + + + CT HEAD WO CONTRAST (03/11/2019 3:05 PM PST) + + | Specimen | + + | | + + + + + | Narrative | Performed At | + + + | EXAM DESCRIPTION: CT HEAD WO CONTRAST; CT SPINE CERVICAL WO | [facility] | | CONTRAST CLINICAL HISTORY: 68 y/o F patient. Fall. Neck pain. | RADIOLOGY VOICE | | COMPARISON: None. TECHNIQUE: Helical data was acquired | RECOGNITION | | through the head and cervical spine without contrast. Axial, sagittal | | | and coronal reformatted images were reviewed. FINDINGS: Brain: | | | Evaluation of the axial images demonstrates no evidence of significant | | | canal stenosis or foraminal narrowing. No intracranial hemorrhage, | | | midline shift or mass effect is identified. There are no extra-axial | | | fluid collections. There is no hydrocephalus. Kaur-white junction is | | | preserved. There is mild generalized parenchymal volume loss. | | | Unremarkable CT appearance of the cerebral white matter. | | | Visualized paranasal sinuses and mastoid air cells appear clear. | | | Calvarium is grossly intact. Cervical spine: There is normal | | | alignment. Vertebral heights are preserved. Zqhj-kg-tlvecyvj | | | spondylotic changes are most pronounced at the C5-6 and C6-7 levels. | | | No fractures are identified. No prevertebral soft tissue swelling is | | | seen. The craniovertebral junction appears unremarkable. | | | Straightening of the expected cervical lordosis can be positional or | | | due to muscle spasm. Evaluation of the axial images demonstrates no | | | evidence of significant canal stenosis or foraminal narrowing. | | | IMPRESSION: No acute intracranial abnormality. Mild age related | | | cerebral parenchymal volume loss. No acute cervical spinal | | | fracture or subluxation. Straightening of the cervical lordosis can | | | be positional or due to muscle spasm. Uvxv-ho-maweegvb spondylotic | | | changes. Signed By: Garcia Bravo DO On 03/11/2019 15:23:21 | | + + + + --------+ | Procedure Note | + --------+ | Service Account, [facility] In Interface - 03/11/2019 3:26 PM PST EXAM | | DESCRIPTION:CT HEAD WO CONTRAST; CT SPINE CERVICAL WO CONTRAST CLINICAL HISTORY:68 y/o | | F patient. Fall. Neck pain. COMPARISON:None. TECHNIQUE:Helical data was acquired through | | the head and cervical spine without contrast. Axial, sagittal andcoronal reformatted | | images were reviewed. FINDINGS:Brain:Evaluation of the axial images demonstrates no | | evidence of significant canal stenosis or foraminalnarrowing.No intracranial hemorrhage, | | midline shift or mass effect is identified. There are no extra-axialfluid collections. | | There is no hydrocephalus. Kaur-white junction is preserved. There is mildgeneralized | | parenchymal volume loss. Unremarkable CT appearance of the cerebral white matter. | | Visualized paranasal sinuses and mastoid air cells appear clear. Calvarium is grossly | | intact. Cervical spine:There is normal alignment. Vertebral heights are preserved. | | Eavx-eu-oapquavx spondylotic changesare most pronounced at the C5-6 and C6-7 levels. No | | fractures are identified. No prevertebral softtissue swelling is seen. The | | craniovertebral junction appears unremarkable.Straightening of the expected cervical | | lordosis can be positional or due to muscle spasm.Evaluation of the axial images | | demonstrates no evidence of significant canal stenosis or foraminalnarrowing. | | IMPRESSION:No acute intracranial abnormality.Mild age related cerebral parenchymal | | volume loss. No acute cervical spinal fracture or subluxation.Straightening of the | | cervical lordosis can be positional or due to muscle spasm.Zthv-dm-oistcdom spondylotic | | changes. Signed By: Garcia Bravo DO On 03/11/2019 15:23:21 | | | |Visualized paranasal sinuses and mastoid air cells appear clear. Calvarium is grossly intac t. | | | |Cervical spine: | |There is normal alignment. Vertebral heights are preserved. Nffe-yv-lnakhojr spondylotic ch anges | |are most pronounced at the C5-6 and C6-7 levels. No fractures are identified. No prevertebr al soft | |tissue swelling is seen. The craniovertebral junction appears unremarkable. | |Straightening of the expected cervical lordosis can be positional or due to muscle spasm. | |Evaluation of the axial images demonstrates no evidence of significant canal stenosis or fo raminal | |narrowing. | | | |IMPRESSION: | |No acute intracranial abnormality. | |Mild age related cerebral parenchymal volume loss. | | | |No acute cervical spinal fracture or subluxation. | |Straightening of the cervical lordosis can be positional or due to muscle spasm. | |Suzp-fw-ktltkxde spondylotic changes. | | | | | |Signed By: Garcia Bravo DO On 03/11/2019 15:23:21 | + --------+ + + + + + | Performing | Address | City/State/Zipcode | Phone Number | | Organization | | | | + + + + + | [facility] | [address] | [place] [address] | [phone] | | VOICE RECOGNITION | | | | + + + + + CBC AND AUTO DIFF (03/11/2019 2:47 PM PST) + +-------+ + + + | Component | Value | Ref Range | Performed | Pathologist | | | | | At | Signature | + +-------+ + + + | WHITE CELL | 10.10 | 3.50 - 10.80 | [facility] | | | COUNT | | K/cu mm | [facility] | | + +-------+ + + + | RED CELL | 4.56 | 4.00 - 5.20 | [facility] | | | COUNT | | M/cu mm | [facility] | | + +-------+ + + + | HEMOGLOBIN | 13.8 | 12.0 - 16.0 | [facility] | | | | | g/dL | [facility] | | + +-------+ + + + | HEMATOCRIT | 41.3 | 36.0 - 46.0 % | [facility] | | | | | | [facility] | | + +-------+ + + + | MCV | 90.6 | 80.0 - 100.0 fL | [facility] | | | | | | [facility] | | + +-------+ + + + | MCH | 30.3 | 27.0 - 34.0 pg | [facility] | | | | | | [facility] | | + +-------+ + + + | MCHC | 33.4 | 33.0 - 35.5 | [facility] | | | | | g/dL | [facility] | | + +-------+ + + + | RDW | 12.8 | 11.5 - 14.5 % | [facility] | | | | | | [facility] | | + +-------+ + + + | PLATELET | 339 | 150 - 400 K/cu | [facility] | | | COUNT | | mm | [facility] | | + +-------+ + + + | MPV | 8.5 | 7.4 - 10.4 fL | [facility] | | | | | | [facility] | | + +-------+ + + + | NEUTROPHIL | 59.9 | 50.0 - 70.0 % | [facility] | | | % | | | [facility] | | + +-------+ + + + | LYMPHOCYTE | 31.3 | 18.0 - 42.0 % | [facility] | | | % | | | [facility] | | + +-------+ + + + | MONOCYTE % | 6.7 | 3.5 - 9.0 % | [facility] | | | | | | [facility] | | + +-------+ + + + | EOS % | 1.1 | 0.0 - 3.0 % | [facility] | | | | | | [facility] | | + +-------+ + + + | BASO % | 1.0 | 0.0 - 2.0 % | [facility] | | | | | | [facility] | | + +-------+ + + + | NEUTROPHIL | 6.00 | 1.80 - 7.70 | [facility] | | | # | | K/cu mm | [facility] | | + +-------+ + + + | LYMPHOCYTE | 3.20 | 1.00 - 4.80 | [facility] | | | # | | K/cu mm | [facility] | | + +-------+ + + + | MONOCYTE # | 0.70 | 0.10 - 0.90 | [facility] | | | | | K/cu mm | [facility] | | + +-------+ + + + | EOS # | 0.10 | 0.00 - 0.50 | [facility] | | | | | K/cu mm | [facility] | | + +-------+ + + + | BASO # | 0.10 | 0.00 - 0.10 | [facility] | | | | | K/cu mm | [facility] | | + +-------+ + + + + + | Specimen | + + | Blood - Blood | | (substance) | + + + + + + + | Performing | Address | City/State/Zipcode | Phone Number | | Organization | | | | + + + + + | [facility] | [address] | [place] [address] | | | LAB | | | | + + + + + INR (03/11/2019 2:47 PM PST) + + + + + + | Component | Value | Ref Range | Performed | Pathologist | | | | | At | Signature | + + + + + + | INR | 0.87 (L) | 0.90 - 1.20 INR | [facility] | | | | | | [facility] | | + + + + + + | PROTHROMBIN | 11.8 | 11.8 - 14.7 sec | [facility] | | | TIME | | | [facility] | | + + + + + + + + | Specimen | + + | Blood - Blood | | (substance) | + + + + + | Narrative | Performed At | + + + | INR Therapeutic ranges for full anticoagulation: INR for Venous | | | Thromboembolism (2.0 - 3.0) INR INR for most | [facility] | | patients with mech. valves (2.5 - 3.5) INR | [facility] | + + + + + + + + | Performing | Address | City/State/Zipcode | Phone Number | | Organization | | | | + + + + + | [facility] | [address] | [place] [address] | | | LAB | | | | + + + + + BASIC METABOLIC SET (NA, K, CL, TCO2, BUN, CR, GLU, CA) (03/11/2019 2:47 PM PST) + +---------+ + + + | Component | Value | Ref Range | Performed | Pathologist | | | | | At | Signature | + +---------+ + + + | GLUCOSE, | 161 (H) | 70 - 99 mg/dL | [facility] | | | PLASMA | | | [facility] | | | (LAB) | | | | | + +---------+ + + + | BUN, PLASMA | 17 | 6 - 20 mg/dL | [facility] | | | (LAB) | | | [facility] | | + +---------+ + + + | CREATININE, | 0.9 | 0.6 - 1.3 mg/dL | [facility] | | | PLASMA | | | [facility] | | + +---------+ + + + | SODIUM, | 139 | 136 - 145 | [facility] | | | PLASMA | | mmol/L | [facility] | | | (LAB) | | | | | + +---------+ + + + | POTASSIUM, | 3.8 | 3.4 - 5.0 | [facility] | | | PLASMA | | mmol/L | [facility] | | | (LAB) | | | | | + +---------+ + + + | CHLORIDE, | 102 | 97 - 108 mmol/L | [facility] | | | PLASMA | | | [facility] | | | (LAB) | | | | | + +---------+ + + + | TOTAL CO2, | 26 | 21 - 32 mmol/L | [facility] | | | PLASMA | | | [facility] | | | (LAB) | | | | | + +---------+ + + + | CALCIUM, | 9.6 | 8.6 - 10.2 | [facility] | | | PLASMA | | mg/dL | [facility] | | | (LAB) | | | | | + +---------+ + + + | BUN/CREATIN | 19 | 8 - 25 | [facility] | | | INE RATIO | | | [facility] | | + +---------+ + + + | EGFR | >60 | >60 mL/min | [facility] | | | - | | | [facility] | | | MONGOLIAN | | | | | + +---------+ + + + | EGFR NON | >60 | >60 mL/min | [facility] | | | -LUDIVINA | | | [facility] | | | RICAN | | | | | + +---------+ + + + | ANION GAP | 11 | 4 - 11 mmol/L | [facility] | | | | | | [facility] | | + +---------+ + + + + + | Specimen | + + | Blood - Blood | | (substance) | + + + + + | Narrative | Performed At | + + + | GFR is estimated using the MDRD equation recommended by the National | | | Kidney Disease Education Program. Estimated GFR Interpretive | [facility] | | Information: <60 mL/min/1.73 sq m Chronic Kidney | [facility] | | Disease <15 mL/min/1.73 sq m Kidney Failure | | | Estimated GFR greater than 60 mL/min/1.73 sq m is of limited clinical | | | value. The MDRD equation is not valid in the following situations: | | | - Patients under 18 years of age - Severe malnutrition or obesity | | | - Vegetarian diet - Rapidly changing kidney function - Amputees, | | | paraplegics, or other muscle-wasting diseases | | + + + + + + + + | Performing | Address | City/State/Zipcode | Phone Number | | Organization | | | | + + + + + | [facility] | [address] | [place] [address] | | | LAB | | | | + + + + + from Last 3 Months Insurance + +--------+ +--------+ + +--------+ | Payer | Benefi | Subscriber | Effect | Phone | Address | Type | | | t Plan | ID | jane | | | | | | / | | Dates | | | | | | Group | | | | | | + +--------+ +--------+ + +--------+ | MEDICARE | MEDICA | xxxxxxxxxxx | Effect | [phone] | [address] | Medica | | | RE A & | | jane | 1 | [phone] | re | | | B | | for | | [place] | | | | | | all | | [phone] | | | | | | dates | | | | + +--------+ +--------+ + +--------+ | [employer] [facility] [place] | MUTUAL | [id number] | Effect | [phone] | MUTUAL OF | Indemn | | MEDICARE SUPPL | OF | | jane | [address] | [facility] | ity | | | [facility] [place] | | for | | PLAZA | | | | MEDICA | | all | | [place] | | | | RE | | dates | | [phone] | | | | SUPPL | | | | | | + +--------+ +--------+ + +--------+ | [employer] | MODA | xxxxxxxxx | | [phone] | [address] | PPO | | | OEBB | | [phone] | | | | ANAT | | fortunatoent | | [place], | | | | [place] | | | | [place] [address] | | + +--------+ +--------+ + +--------+ + +--------+ +--------+ + + | Guarantor Name | Accoun | Relation to | Date | Phone | Billing Address | | | t Type | Patient | of | | | | | | | | | | + +--------+ +--------+ + + | Jocelyne Montez | Person | Self [birth year] | [address] | | | al/Fam | | 1950 | [phone] | [address] | | | mike | | | 7 (Home) | [place] [address] | | | | | | [phone] | | | | | | | 2 (Work) | | + +--------+ +--------+ + + | Jocelyne Montez | Person | Self | [birth year] | [address] | | | al/Fam | | 1950 | [phone] | [address] | | | mike | | | 7 (Home) | [place] [address] | | | | | | [phone] | | | | | | | 2 (Work) | | + +--------+ +--------+ + +
--- OUTSIDE RECORDS SUMMARY | ~2019-03-13 | XMS | Encounter Summary ---
Demographics + + + | Address | [address] | | | [place] [address] | + + + | Home Phone | | + + + | Preferred Language | Unknown | + + + | Marital Status | | + + + | Jain Affiliation | 1041 | + + + | Race | Unknown | + + + | Ethnic Group | Unknown | + + + Author + + + | Author | [facility] | | | and [place] | + + + | Organization | [facility] | | | and [...] Team Providers + +------+ + | Care Solar Designer Name | Role | Phone | + +------+ + | Jesse Chand | PCP | | + +------+ + Encounter Details +--------+ + + + + | Date | Type | Department | Care Team | Description | +--------+ + + + + | 07/13/ | Orders Only | [facility] [place] | Jace Mcdonald | Backache, | | 2015 | | NEUR[address]URGERY [address] | MYNOR [address] | unspecified (Primary | | | | [address] | [address] | Dx) | | | | [place] | [place] | | | | | [address] | [address] | | | | | [phone] | | | +--------+ + + + [...] | | | | | [place] [address] | | | | | | [phone] | | | | | | | | +--------+---------+ + + + + +---------+--------+ + + | Name | [...]
--- OUTSIDE RECORDS SUMMARY | ~2019-03-13 | XMS | Encounter Summary ---
Demographics + + + | Address | [address] | | | [place] [address] | + + + | Home Phone | | + + + | Preferred Language | Unknown | + + + | Marital Status | | + + + | Scientology Affiliation | 1041 | + + + | Race | Unknown | + + + | Ethnic Group | Unknown | + + + Author + + + | Author | [facility] | | | and [place] | + + + | Organization | [facility] | | | and [...] Team Providers + +------+ + | Care Parts Interpreter Name | Role | Phone | + +------+ + PCP | Unavailable | + +------+ + Encounter Details +--------+ + + + + | Date | Type | Department | Care Team | Description | +--------+ + + + + | 10/12/ | Hospital | [facility] | William Tinajero MD | Unspecified | | 2005 | Encounter | CONVERSION [address] | [address] | Essential | | | | [address] | [address], [address] | Hypertension | | | | [place], [place] | [address] | | | | | [address] | [phone] | | | | | [phone] | | | +--------+ + + + [...] | 04/04/ | Office | Cardiology | Zia Homero N, | | | 2018 | Visit | | MD [address] | | | | | | [place] [address] | | | | | | [phone] | | | | | | | | +--------+---------+ + + + documented as of this encounter Visit Diagnoses + + | Diagnosis | + + | Unspecified essential hypertension | + + documented in this encounter"
--- OUTSIDE RECORDS SUMMARY | ~2019-03-13 | XMS | Encounter Summary ---
Demographics + + + | Address | [address] | | | [place] [address] | + + + | Home Phone | | + + + | Preferred Language | Unknown | + + + | Marital Status | | + + + | Yazidi Affiliation | CAT | + + + | Race | White | + + + | Ethnic Group | Not or | + + + Author + + + | Author | [facility] | + + + | Organization | [facility] [employer] [facility] | + + + | Address | Unknown | + + + | Phone | Unavailable | + + + Support + + +---------+ + | Name | Relationship | Address | Phone | + + +---------+ + | Charlene Rouse | ECON | Unknown | | + + +---------+ + Care Team Providers + +------+ + | Care Senior Property Manager Name | Role | Phone | + +------+ + | Jesse Chand MD | PCP | | + +------+ + Encounter Details +--------+ + + + + | Date | Type | Department | Care Team | Description | +--------+ + + + + | 07/30/ | Telephone | Otolaryngology | [place], | | | 2016 | | Laryngology Services | Mamta Argueta PA-C | | | | | at [facility] [address] | [address] | | | | | [address] [place], | [place], [place] | | | | | [place] [address] | [address] | | | | | [phone] | [phone] | | | | | | | [...]
--- OUTSIDE RECORDS SUMMARY | ~2019-03-13 | XMS | Encounter Summary ---
Demographics + + + | Address | [address] | | | [place] [address] | + + + | Home Phone | | + + + | Preferred Language | Unknown | + + + | Marital Status | | + + + | Orthodoxy Affiliation | CAT | + + + | Race | White | + + + | Ethnic Group | Not or | + + + Author + + + | Author | [facility] | + + + | Organization | [facility] | + + + | Address | Unknown | + + + | Phone | Unavailable | + + + Support + + +---------+ + | Name | Relationship | Address | Phone | + + +---------+ + | Charlene Rouse | ECON | Unknown | | + + +---------+ + Care Team Providers + +------+ + | Care Filer Helper Name | Role | Phone | + +------+ + | Jesse Chand MD | PCP | | + +------+ + Reason for Visit + + + | Reason | Comments | + + + | Patient referral | [facility] patient | + + + Encounter Details +--------+ + + + + | Date | Type | Department | Care Team | Description | +--------+ + + + + | 08/30/ | Telephone | [facility] | Wesley [facility], | Patient referral | | 2007 | | [facility] | [address] | ([facility] patient ) | | | | [facility] [address] | [address] | | | | | [address] | [place], [place] | | | | | [facility] | [address] | | | | | [place], [place] | [phone] | | | | | [address] | | | | | | [phone] | | | +--------+ + + + [...]
--- OUTSIDE RECORDS SUMMARY | ~2019-03-13 | XMS | Encounter Summary ---
Demographics + + + | Address | [address] | | | [place] [address] | + + + | Home Phone | | + + + | Preferred Language | Unknown | + + + | Marital Status | | + + + | Oriental Orthodox Affiliation | 1041 | + + + | Race | Unknown | + + + | Ethnic Group | Unknown | + + + Author + + + | Author | [facility] | | | and [place] | + + + | Organization | [facility] | | | and [place] [...] Team Providers + +------+ + | Care Wax Room Supervisor Name | Role | Phone | + +------+ + PCP | Unavailable | + +------+ + Encounter Details +--------+ + + + + | Date | Type | Department | Care Team | Description | +--------+ + + + + | 06/17/ | Hospital | [facility] GENER[facility] OP | Umberto Joseph, | Other Specified | | 2009 - | Encounter | CONVERSION [address] | MD [address] | Rehabilitation | | | | [address] | [facility] [address] | Procedure | | 07/17/ | | [place], [place] | [place], [place] | | | 2009 | | [address] | [address] | | | | | [phone] | [phone] | | | | | | | [...] | 04/04/ | Office | Cardiology | oHmero Lizarraga, | | | 2018 | Visit | | MD [address] | | | | | | [place] [address] | | | | | | [phone] | | | | | | | | +--------+---------+ + + + documented as of this encounter Visit Diagnoses + + | Diagnosis | + + | Other specified rehabilitation procedure(V57.89) Other specified rehabilitation | | procedure | + + documented in this encounter"
--- OUTSIDE RECORDS SUMMARY | ~2019-03-13 | XMS | Encounter Summary ---
Demographics + + + | Address | [address] | | | [place] [address] | + + + | Home Phone | | + + + | Preferred Language | Unknown | + + + | Marital Status | | + + + | Protestant Affiliation | 1041 | + + + | Race | Unknown | + + + | Ethnic Group | Unknown | + + + Author + + + | Author | [facility] | | | and [place] | + + + | Organization | [facility] | | | and [place] [...] Team Providers + +------+ + | Care Java Manager Name | Role | Phone | + +------+ + PCP | Unavailable | + +------+ + Encounter Details +--------+ + + + + | Date | Type | Department | Care Team | Description | +--------+ + + + + | 05/20/ | Hospital | C GENERIC OP | Umberto Joseph, | Other Specified | | 2009 - | Encounter | CONVERSION DEP [address] | MD [address] | Rehabilitation | | | | [address] | [facility] [address] | Procedure | | 06/16/ | | [place], [place] | [place], [place] | | | 2009 | | [address] | [address] | | | | | [phone] | [phone] | | | | | | | [...] DR | | | | | | [place] [address] | | | | | | [phone] | | | | | | | | +--------+---------+ + + + documented as of this encounter Visit Diagnoses + + | Diagnosis | + + | Other specified rehabilitation procedure(V57.89) Other specified rehabilitation | | procedure | + + documented in this encounter"
--- OUTSIDE RECORDS SUMMARY | ~2019-03-13 | XMS | Encounter Summary ---
Demographics + + + | Address | [address] | | | [place] [address] | + + + | Home Phone | | + + + | Preferred Language | Unknown | + + + | Marital Status | | + + + | Mosque Affiliation | 1041 | + + + | Race | Unknown | + + + | Ethnic Group | Unknown | + + + Author + + + | Author | [facility] | | | and [place] | + + + | Organization | [facility] | | [...] Team Providers + +------+ + | Care Port Crane Operator Name | Role | Phone | [...] + + | 07/27/ | Telephone | [facility] | Jace Mcdonald | [place] | | 2014 | | [address]UR[address]UR[address] | [address] | | | | | [address] | [address] | | | | | [place], [place] | [place], [place] | | | | | [address] | [address] | | | | | [phone] | | | +--------+ + + + [...] DR | | | | | | [place] [address] | | | | | | [phone] | | | | | | | | +--------+---------+ + + + documented as of this encounter Visit Diagnoses Not on filedocumented in this encounter"
--- OUTSIDE RECORDS SUMMARY | ~2019-03-13 | XMS | Encounter Summary ---
Demographics + + + | Address | [address] | | | [place] [address] | + + + | Home Phone | | + + + | Preferred Language | Unknown | + + + | Marital Status | | + + + | Congregation Affiliation | CAT | + + + | Race | White | + + + | Ethnic Group | Not or | + + + Author + + + | Author | [facility] | + + + | Organization | [facility] | + + + | Address | Unknown | + + + | Phone | Unavailable | + + + Support + + +---------+ + | Name | Relationship | Address | Phone | + + +---------+ + | Charlene Rouse | ECON | Unknown | | + + +---------+ + Care Team Providers + +------+ + | Care Replacer Name | Role | Phone | + +------+ + | Jesse Chand MD | PCP | | + +------+ + Encounter Details +--------+ + + + + | Date | Type | Department | Care Team | Description | +--------+ + + + + | 07/31/ | Telephone | Otolaryngology | [place], | | | 2016 | | Laryngology Services | Mamta Argueta PA-C | | | | | at [facility] [address] | [address] | | | | | [address] [place], | [place], [place] | | | | | [place] [address] | [address] | | | | | [phone] | [phone] | | | | | | | [...]
--- OUTSIDE RECORDS SUMMARY | ~2019-03-13 | XMS | Encounter Summary ---
Demographics + + + | Address | [address] | | | [place] [address] | + + + | Home Phone | | + + + | Preferred Language | Unknown | + + + | Marital Status | | + + + | Denominational Affiliation | 1041 | + + + | Race | Unknown | + + + | Ethnic Group | Unknown | + + + Author + + + | Author | [facility] | | | and [place] | + + + | Organization | [facility] | | | and [place] [...] Team Providers + +------+ + | Care Forming Mill Operator Name | Role | Phone | + +------+ + PCP | Unavailable | + +------+ + Encounter Details +--------+ + + + + | Date | Type | Department | Care Team | Description | +--------+ + + + + | 09/25/ | Hospital | [facility] | Talon Torres, | | | 1993 | Encounter | [facility] | [address] [facility] | | | | | [address] [place] | [place], [place] | | | | | [place], [place] | [address] | | | | | [address] | | | | | | [phone] | | | +--------+ + + + [...] | | | | | [place] [address] | | | | | | [phone] | | | | | | | | +--------+---------+ + + + documented as of this encounter Visit Diagnoses Not on filedocumented in this encounter"
--- OUTSIDE RECORDS SUMMARY | ~2019-03-13 | XMS | Encounter Summary ---
Demographics + + + | Address | [address] | | | [place] [address] | + + + | Home Phone | | + + + | Preferred Language | Unknown | + + + | Marital Status | | + + + | Gnosticism Affiliation | 1041 | + + + | Race | Unknown | + + + | Ethnic Group | Unknown | + + + Author + + + | Author | and [facility] | | | and [place] | + + + | Organization | and [facility] | | [...] Team Providers + +------+ + | Care Manager Credit Risk Name | Role | Phone | + +------+ + | Jesse Chand | PCP | | + +------+ + Encounter Details +--------+ + + + + | Date | Type | Department | Care Team | Description | +--------+ + + + + | 01/07/ | Hospital | [facility] | Moe Paiz | Chronic cough; | | 2016 | Encounter | [facility] | MD Moira [address] | Gastroesophageal | | | | INTRA OP [address] | [address] | reflux disease, | | | | [address]VD [place], [place] | [place] [address] | esophagitis presence | | | | [address] | [phone] | not specified; | | | | [phone] | | Colon cancer | | | | | | screening | +--------+ + + + + Social [...] + + + | Blood Pressure | 118/60 | 01/08/2016 11:40 AM | | | | | PDT | | + + + + + | Pulse | 74 | 01/08/2016 11:40 AM | | | | | PDT | | + + + + + | Temperature | 36.9 C (98.4 F) | 01/08/2016 11:40 AM | | | | | PDT | | + + + + + | Respiratory Rate | 16 | 01/08/2016 11:40 AM | | | | | PDT | | + + + + + | Oxygen Saturation | - | - | | + + + + + | Inhaled Oxygen | - | - | | | Concentration | | | | + + + + + | Weight | 73.6 kg (162 lb 4.2 | 01/08/2016 11:40 AM | | | | oz) | PDT | | + + + + + | Height | 154.9 cm (5' 1") | 01/08/2016 11:40 AM | | | | | PDT | | + + + + + | Body Mass Index | 30.66 | 01/08/2016 11:40 AM | | | | | PDT | | + + + + + documented in this encounter Discharge Summaries Moe Paiz MD - 01/08/2016 11:20 AM PDT Discharge Summaries by Moe Paiz MD at 01/08/16 112 Author: Moe Paiz MD Service: Gastroenterology Author Type: Physician Filed: 01/08/161119 Date of Service: 01/08/161119 Status: Signed Medical Assisting Program Director: Moe Paiz MD (Physician) [facility] Service: Gastroenterology Brief Post-op Discharge Note DISCHARGE DIAGNOSES: Active Problems: GERD (gastroesophageal reflux disease) Colon cancer screening Resolved Problems: * No resolved hospital problems. * Procedures: Procedure(s): ESOPHAGOGASTRODUODENOSCOPY SIGMOIDOSCOPY - FLEXIBLE This patient was transferred to the recovery area post-operatively and has experienced no d ifficulties at the time of my assessment. The patient is anticipated to continue to meet di scharge criteria per protocol as assessed by nursing and may be discharged at that time with designated caregiver. Disposition: Home Condition: Good Follow up: With GI clinic Medication List CONTINUE taking these medications aspirin 81 MG tablet Refills: 0 beclomethasone 40 MCG/ACT inhaler QTY: 1 Inhaler Refills: 12 For diagnoses: Moderate persistent asthma without complication Commonly known as: QVAR Inhale 1 puff into the lungs 2 (two) times daily. Cholecalciferol 2000 UNITS Caps Refills: 0 cyclobenzaprine 10 MG tablet Refills: 0 Commonly known as: FLEXERIL diltiazem 240 MG 24 hr capsule Refills: 0 Commonly known as: CARDIZEM CD diphenoxylate-atropine 2.5-0.025 MG per tablet Refills: 0 Commonly known as: LOMOTIL esomeprazole 20 MG capsule QTY: 120 capsule Refills: 5 For diagnoses: Gastroesophageal reflux disease, esophagitis presence not specified Commonly known as: NEXIUM Take 2 capsules by mouth every morning before breakfast. fexofenadine 180 MG tablet Refills: 0 Commonly known as: GABBY fluticasone 27.5 MCG/SPRAY nasal spray Refills: 0 Commonly known as: VERAMYST hydrochlorothiazide 25 MG tablet QTY: 90 tablet Refills: 3 Commonly known as: HYDRODIURIL Take 1 tablet by mouth daily. levothyroxine 125 MCG tablet Refills: 0 Commonly known as: SYNTHROID lisinopril 20 MG tablet QTY: 180 tablet Refills: 3 Commonly known as: ZESTRIL Take 1 tablet by mouth 2 (two) times daily. montelukast 10 MG tablet QTY: 30 tablet Refills: 11 For diagnoses: Moderate persistent asthma without complication Commonly known as: SINGULAIR Take 1 tablet by mouth nightly. * nitroGLYCERIN 0.4 MG/SPRAY spray Refills: 0 Commonly known as: NITROLINGUAL * nitroGLYCERIN 0.4 MG/HR Refills: 0 Commonly known as: NITRODUR PROLIA 60 MG/ML injection Refills: 0 Generic drug: denosumab rosuvastatin 40 MG tablet Refills: 0 Commonly known as: CRESTOR traZODone 150 MG tablet Refills: 0 Commonly known as: DESYREL valacyclovir 1000 MG tablet Refills: 0 Commonly known as: VALTREX venlafaxine 75 MG tablet Refills: 0 Commonly known as: EFFEXOR * Notice: This list has 2 medication(s) that are the same as other medications prescribed for you. Read the directions carefully, and ask your doctor or other care provider to revie w them with you. Moe Paiz MD 01/08/2016 11:20 AM documented in th is encounter Medications at Time of Discharge + [...] DR | | | | | | [place] [address] | | | | | | [phone] | | | | | | | | +--------+---------+ + + + documented as of this encounter Procedures + +--------+ + + + | Procedure Name | Priori | Date/Time | Associated Diagnosis | Comments | | | ty | | | | + +--------+ + + + | TISSUE REQUEST FOR | Routin | 01/08/2016 | | Results for this | | PATHOLOGY (NON-ORD) | e | 12:00 AM | | procedure are in the | | | | PDT | | results section. | + +--------+ + + + documented in this encounter Results Tissue Request For Pathology (01/08/2016 12:00 AM PDT) + + | Specimen | + + | Soft tissue sample | | (specimen) | + + + + + | Narrative | Performed At | + + + | SPECIMEN(S): A GASTRIC- BIOPSY SPECIMEN(S): B DISTAL ESOPHAGUS | EXTERNAL LAB | | SPECIMEN(S): C MID ESOPHAGUS SPECIMEN SOURCE: A. GASTRIC- BIOPSY | | | B. DISTAL ESOPHAGUS C. MID ESOPHAGUS CLINICAL HISTORY: 01/08/16 at | | | 1046 H. Dysphagia. GERD. MICROSCOPIC DESCRIPTION: A-C. | | | Histologic sections of all submitted blocks are examined by light | | | microscopy. These findings, together with the gross examination, | | | support the pathologic diagnosis. FINAL PATHOLOGIC DIAGNOSIS: A. | | | Gastric biopsies: - No pathologic abnormality COMMENT: The | | | gastric mucosa is negative for significant inflammation and | | | gastropathy. There is no metaplasia, dysplasia or neoplasia. B. | | | Distal esophagus: - Mildly reactive squamous mucosa with | | | occasional eosinophils - Glandular mucosa with mild acute | | | inflammation - Negative for intestinal metaplasia and | | | dysplasia C. Mid esophagus, biopsies: - Squamous | | | mucosa without eosinophils or other abnormality GROSS DESCRIPTION: | | | Three specimens are received in three containers, labeled with the | | | patient's name: A. Received in formalin designated "gastric | | | biopsy", consists of 3 yellow-charlton soft tissue fragments that range in | | | size from 0.2 cm up to 0.3 cm in greatest dimension. The specimen is | | | entirely submitted in cassette A1. B. Received in formalin | | | designated "distal esophagus", consists of 4 pink-white soft tissue | | | fragments that range in size from 0.2 cm up to 0.3 cm in greatest | | | dimension. The specimen is entirely submitted in cassette B1. C. | | | Received in formalin designated "mid esophagus", consists of 3 | | | white-charlton soft tissue fragments that range in size from 0.1 cm up to | | | 0.4 cm in greatest dimension. The specimen is entirely submitted in | | | cassette C1.FM The gross description section of this report has | | | been prepared using a voice recognition system. The report was | | | reviewed for accuracy, however, sound-alike word errors, addition | | | and/or deletions may occur. If there is any question about this | | | report please contact the originating pathologist. PERFORMING | | | LABORATORY: Professional interpretation and technical preparation was | | | performed by [facility], [facility], [facility] | | | [place] [address] (Tetryl Nitrator Operator: Bernardo Montiel M.D.; MARISSA#: [id number]). Diagnostician: Bernardo Montiel | Mame | Pathologist Electronically Signed 01/09/2016 | | + + + + +---------+ + + | Performing | Address | City/State/Zipcode | Phone Number | | Organization | | | | + +---------+ + + | EXTERNAL LAB | | | | + +---------+ + + documented in this encounter Visit Diagnoses + + | Diagnosis | + + | Chronic cough Cough | + + | Gastroesophageal reflux disease, esophagitis presence not specified | + + | Colon cancer screening Special screening for malignant neoplasms, colon | + + documented in this encounter
--- OUTSIDE RECORDS SUMMARY | ~2019-03-13 | XMS | Encounter Summary ---
Demographics + + + | Address | [address] | | | [place] [address] | + + + | Home Phone | | + + + | Preferred Language | Unknown | + + + | Marital Status | | + + + | Baptist Affiliation | 1041 | + + + | Race | Unknown | + + + | Ethnic Group | Unknown | + + + Author + + + | Author | [facility] | | | and [place] | + + + | Organization | [facility] [...] Team Providers + +------+ + | Care Printing Plate Clerk Name | Role | Phone | [...] | | | | [address] | [facility] [address] | Procedure | | 07/17/ | | [place], [place] | [place], [place] | | | 2009 | | [address] | [address] | | | | | [phone] | [phone] | | | | | | | [...] DR | | | | | | [place] [address] | | | | | | [phone] | | | | | | | | +--------+---------+ + + + documented as of this encounter Visit Diagnoses + + | Diagnosis | + + | Other specified rehabilitation procedure(V57.89) Other specified rehabilitation | | procedure | + + documented in this encounter"
--- OUTSIDE RECORDS SUMMARY | ~2019-03-13 | XMS | Encounter Summary ---
Demographics + + + | Address | [address] | | | [place] [address] | + + + | Home Phone | | + + + | Preferred Language | Unknown | + + + | Marital Status | | + + + | Sikh Affiliation | 1041 | + + + | Race | Unknown | + + + | Ethnic Group | Unknown | + + + Author + + + | Author | [facility] | | | and [place] | + + + | Organization | [facility] | | | and [...] Team Providers + +------+ + | Care Insulation Worker Furnace Installer Name | Role | Phone | + +------+ + PCP | Unavailable | + +------+ + Encounter Details +--------+ + + + + | Date | Type | Department | Care Team | Description | +--------+ + + + + | 05/19/ | Hospital | [facility] | Wilder Mosquera MD | | | 1991 - | Encounter | MED CTR GENERIC IP | [address], [place] | | | | | CONV DEPT [address] | [address] [place], [place] | | | 05/20/ | | [place], | [address] | | | 1991 | | [place] [address] | | | | | | [phone] | | | +--------+ + + + [...] | | | | | [place] [address] | | | | | | [phone] | | | | | | | | +--------+---------+ + + + documented as of this encounter Visit Diagnoses Not on filedocumented in this encounter"
--- OUTSIDE RECORDS SUMMARY | ~2019-03-13 | XMS | Encounter Summary ---
Demographics + + + | Address | [address] | | | [place] [address] | + + + | Home Phone | | + + + | Preferred Language | Unknown | + + + | Marital Status | | + + + | Moravian Affiliation | 1041 | + + + | Race | Unknown | + + + | Ethnic Group | Unknown | + + + Author + + + | Author | [facility] | | | and [place] | + + + | Organization | [facility] | | | and [place] [...] Team Providers + +------+ + | Care Mesh Worker Name | Role | Phone | + +------+ + | Jesse Chand | PCP | | + +------+ + Reason for Visit + + + | Reason | Comments | + + + | Appointment | | + + + Encounter Details +--------+ + + + + | Date | Type | Department | Care Team | Description | +--------+ + + + + | 08/01/ | Telephone | [facility] [place] | Jace Mcdonald | Appointment | | 2014 | | NEUROSURGERY [address] | MYNOR Rojas [address] | | | | | [address] | [address] | | | | | [place] | [place] | | | | | [address] | [address] | | | | | [phone] | | | +--------+ + + + [...] [address] | | | | | | [place] [address] | | | | | | [phone] | | | | | | | | +--------+---------+ + + + documented as of this encounter Visit Diagnoses Not on filedocumented in this encounter"
--- OUTSIDE RECORDS SUMMARY | ~2019-03-13 | XMS | Encounter Summary ---
Demographics + + + | Address | [address] | | | [place] [address] | + + + | Home Phone | | + + + | Preferred Language | Unknown | + + + | Marital Status | | + + + | Taoist Affiliation | CAT | + + + [...] Team Providers + +------+ + | Care Subscription Agent Name | Role | Phone | + +------+ + | Jesse Chand MD | PCP | | + +------+ + Encounter Details +--------+--------+ + + + | Date | Type | Department | Care Team | Description | +--------+--------+ + + + | 03/11/ | Travel | | | | | 2019 | | | | | +--------+--------+ + + + Social History + +-------+ [...]
--- OUTSIDE RECORDS SUMMARY | ~2019-03-13 | XMS | Encounter Summary ---
Demographics + + + | Address | [address] | | | [place] [address] | + + + | Home Phone | | + + + | Preferred Language | Unknown | + + + | Marital Status | | + + + | Sikh Affiliation | 1041 | + + + | Race | Unknown | + + + | Ethnic Group | Unknown | + + + Author + + + | Author | [facility] | | | and [place] | + + + | Organization | [facility] | | | and [...] Team Providers + +------+ + | Care Heading Machine Operator Name | Role | Phone | + +------+ + | Jesse Chand | PCP | | + +------+ + Encounter Details +--------+ + + + + | Date | Type | Department | Care Team | Description | +--------+ + + + + | 07/24/ | Abstract | [facility] [place] | Jovanny Abigail Gamble, | | | 2014 | | NEUROSURGERY [address] | RN | | | | | [address] | | | | | | [place], [place] | | | | | | [address] | | | | | | [phone] | | | +--------+ + + + [...] DR | | | | | | [place] [address] | | | | | | [phone] | | | | | | | | +--------+---------+ + + + documented as of this encounter Visit Diagnoses Not on filedocumented in this encounter"
--- OUTSIDE RECORDS SUMMARY | ~2019-03-13 | XMS | Encounter Summary ---
Demographics + + + | Address | [address] | | | [place] [address] | + + + | Home Phone [...] + | Author | [facility] | | | and [place] | + + + | Organization | [facility] | | [...] Team Providers + +------+ + | Care Subway Operator Name | Role | Phone | + +------+ + PCP | Unavailable | + +------+ + Encounter Details +--------+ + + + + | Date | Type | Department | Care Team | Description | +--------+ + + + + | 05/19/ | Hospital | [facility] | Wilder Mosquera MD | | | 1991 - | Encounter | MED CTR GENERIC IP | [address], [place] | | | | | CONV DEPT [address] | [address] [place], [place] | | | 05/20/ | | [place], | [address] | | | 1991 | | [place] [address] | | | | | | [phone] | | | +--------+ + + + [...] | 04/04/ | Office | Cardiology | Hmoero Lizarraga, | | | 2018 | Visit | | MD [address] | | | | | | [place] [address] | | | | | | [phone] | | | | | | | | +--------+---------+ + + + documented as of this encounter Visit Diagnoses Not on filedocumented in this encounter"
--- OUTSIDE RECORDS SUMMARY | ~2019-03-13 | XMS | Encounter Summary ---
Demographics + + + | Address | [address] | | | [place] [address] | + + + | Home Phone | | + + + | Preferred Language | Unknown | + + + | Marital Status | | + + + | Hindu Affiliation | 1041 | + + + | Race | Unknown | + + + | Ethnic Group | Unknown | + + + Author + + + | Author | [facility] | | | and [place] | + + + | Organization | [facility] | | | and [...] Team Providers + +------+ + | Care Supervisor Maintenance Name | Role | Phone | + +------+ + | Jesse Chand | PCP | | + +------+ + Encounter Details +--------+ + + + + | Date | Type | Department | Care Team | Description | +--------+ + + + + | 07/15/ | Hospital | [facility] | Conversion | Moderate persistent | | 2016 | Encounter | CENTER CARDIAC | Transaction, | asthma without | | | | PULMONARY REHAB | Provider Unknown | complication | | | | [address] [facility] | | | | | | [place], [place] | (Fax) | | | | | [address] | | | | | | [phone] | | | +--------+ + + + [...] DR | | | | | | [place] [address] | | | | | | [phone] | | | | | | | | +--------+---------+ + + + documented as of this encounter Visit Diagnoses + + | Diagnosis | + + | Moderate persistent asthma without complication Unspecified asthma | + + documented in this encounter"
--- OUTSIDE RECORDS SUMMARY | ~2019-03-13 | XMS | Encounter Summary ---
Demographics + + + | Address | [address] | | | [place] [address] | + + + | Home Phone | | + + + | Preferred Language | Unknown | + + + | Marital Status | | + + + | Episcopal Affiliation | 1041 | + + + | Race | Unknown | + + + | Ethnic Group | Unknown | + + + Author + + + | Author | [facility] | | | and [place] | + + + | Organization | [facility] [...] Team Providers + +------+ + | Care Manufacturing Baker Name | Role | Phone | + +------+ + PCP | Unavailable | + +------+ + Encounter Details +--------+ + + + + | Date | Type | Department | Care Team | Description | +--------+ + + + + | 04/04/ | Hospital | [facility] | Wilder Mosquera MD | | | 1998 | Encounter | MED CTR GENERIC OP | [address] [place] | | | | | CONV DEPT [address] | [address] [place], [place] | | | | | [place], | [address] | | | | | [place] [address] | | | | | | [phone] | | | +--------+ + + + [...] | | | | | [place] [address] | | | | | | [phone] | | | | | | | | +--------+---------+ + + + documented as of this encounter Visit Diagnoses Not on filedocumented in this encounter"
--- OUTSIDE RECORDS SUMMARY | ~2019-03-13 | XMS | Encounter Summary ---
Demographics + + + | Address | [address] | | | [place] [address] | + + + | Home Phone | | + + + | Preferred Language | Unknown | + + + | Marital Status | | + + + | Taoist Affiliation | 1041 | + + + | Race | Unknown | + + + | Ethnic Group | Unknown | + + + Author + + + | Author | [facility] | | | and [place] | + + + | Organization | [facility] | | | and [...] Providers + +------+ + | Care Solar Electric Installer Name | Role | Phone | [...] [address] | | | | | [phone] | [place] [address] | | +--------+ + + + + [...] DR | | | | | | [place] [address] | | | | | | [phone] | | | | | | | [...]
--- OUTSIDE RECORDS SUMMARY | ~2019-03-13 | XMS | Clinical Summary ---
Demographics + + + | Address | [address] [facility] [address] | | | [place] [address] | + + + | Home Phone | | + + + | Preferred Language | Unknown | + + + | Marital Status | | + + + | Faith Affiliation | 1041 | + + + | Race | Unknown | + + + | Ethnic Group | Unknown | + + + Author + + + | Author | [facility] | | | and [place] | + + + | Organization | [facility] | | | and [place] [...] Team Providers + +------+ + | Care Groundskeeping Maintenance Worker Name | Role | Phone | + +------+ + | Eliseo Grady MD | PCP | | + +------+ + Allergies + + + + + + | Active Allergy | Reactions | Severity | Noted | Comments | | | | | Date | | + + + + + + | Alendronate | | | 08/10/19 | esopohagitis | | | | | 18 | | + + + + + + | Alprazolam | | | | | + + + + + + | Bupropion Hcl | | | | | + + + + + + | Compazine | | | | | + + + + + + | Morphine | | | 08/19/19 | spasms | | | | | 08 | | + + + + + + | Vilazodone Hcl | | | | | + + + + + + Medications + + + +---------+------+------+-------+ | Medication | Sig | Dispensed | Refills | Star | End | Statu | | | | | | t | Date | s | | | | | | Date | | | + + + +---------+------+------+-------+ | cholecalciferol | Take 1,000 Units by | | 0 | 09/2 | | Activ | | (VITAMIN D-3) 1000 | mouth Daily. | | | 4/20 | | e | | UNITS TABS | | | | 12 | | | + + + +---------+------+------+-------+ | rosuvastatin | Take 20 mg by mouth | | 0 | 09/2 | | Activ | | (CRESTOR) 20 mg | Daily. | | | 4/20 | | e | | tablet | | | | 12 | | | + + + +---------+------+------+-------+ | aspirin (ASPIRIN | Take 81 mg by mouth | | 0 | 09/2 | | Activ | | LOW DOSE) 81 MG | Daily. | | | 4/20 | | e | | tablet | | | | 12 | | | + + + +---------+------+------+-------+ | valacyclovir | 2 tablets by mouth | | 0 | 09/2 | | Activ | | (VALTREX) 1 G tablet | two times daily for | | | 4/20 | | e | | | 7 days as needed | | | 12 | | | + + + +---------+------+------+-------+ | diltiazem (DILACOR | 1 tablet daily with | | 0 | 09/2 | | Activ | | XR) 240 MG 24 hr | 4 pellets and may | | | 20 | | e | | capsule | modify dosage | | | 12 | | | | | depending on | | | | | | | | pressure | | | | | | + + + +---------+------+------+-------+ | levothyroxine | 1/2 tablet daily | | 0 | 09/2 | | Activ | | (LEVOTHROID) 125 mcg | | | | 4/20 | | e | | tablet | | | | 12 | | | + + + +---------+------+------+-------+ | DEXAMETHASONE | SOLN-2 tsp. swished | | 0 | 09/2 | | Activ | | SODIUM PHOSPHATE | in mouth two times | | | 4/20 | | e | | | daily three days; 1 | | | 12 | | | | | tsp two times daily | | | | | | | | three days and | | | | | | | | repeat as needed | | | | | | + + + +---------+------+------+-------+ | | 1/2 to 2 every 6 | | 0 | 09/2 | | Activ | | HYDROcodone-acetamin | hours as needed | | | 4/20 | | e | | ophen (VICODIN) | | | | 12 | | | | 5-500 mg per tablet | | | | | | | + + + +---------+------+------+-------+ | nitroglycerin | 1 patch applied | | 0 | 09/2 | | Activ | | (NITRO-DUR) 0.4 | daily | | | 4/20 | | e | | mg/hr | | | | 12 | | | + + + +---------+------+------+-------+ | venlafaxine | Take 75 mg by mouth | | 0 | | | Activ | | (EFFEXOR) 75 MG | Daily. | | | | | e | | tablet | | | | | | | + + + +---------+------+------+-------+ | trazodone | Take 150 mg by mouth | | 0 | | | Activ | | (DESYREL) 150 MG | nightly. | | | | | e | | tablet | | | | | | | + + + +---------+------+------+-------+ | cyclobenzaprine | Take 10 mg by mouth | | 0 | | | Activ | | (FLEXERIL) 5 MG | 3 times daily as | | | | | e | | tablet | needed for Muscle | | | | | | | | spasms. | | | | | | + + + +---------+------+------+-------+ | diazepam (VALIUM) | Take 2 mg by mouth | | 0 | | | Activ | | 2 mg tablet | every 6 hours as | | | | | e | | | needed for Anxiety. | | | | | | + + + +---------+------+------+-------+ | estradiol (ESTRACE | Place 2 g vaginally | | 0 | | | Activ | | VAGINAL) 0.1 mg/g | nightly. | | | | | e | | vaginal cream | | | | | | | + + + +---------+------+------+-------+ | alendronate | Take 70 mg by mouth | | 0 | | | Activ | | (FOSAMAX) 70 mg | every 7 days. 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 | + + + + + | DDD (degenerative disc disease), lumbar | 07/26/2014 | + + + | Lumbar radiculopathy | 07/26/2014 | + + + | Lumbar facet arthropathy | 07/26/2014 | + + + | Myelopathy | 07/26/2014 | + + + | IRRITABLE BOWEL SYNDROME | | + + + | DIARRHEA | | + + + Resolved Problems + + + + | Problem | Noted | Resolved | | | Date | Date | + + + + | Syncope, vasovagal | 05/19/19 | | | | 19 | 9 | + + + + Family History + + +------+ + | Medical History | Relation | Name | Comments | + + +------+ + | Diabetes, IDDM | Brother | | | + + +------+ + | Heart defect | Brother | | | + + +------+ + | Heart failure | Brother | | | + + +------+ + | Alzheimer's disease | Father | | | + + +------+ + | Cancer | Father | | | + + +------+ + | Hypertension | Father | | | + + +------+ + | Arthritis | Mother | | | + + +------+ + | Diabetes | Mother | | | + + +------+ + | Diabetes, NIDDM | Mother | | | + + +------+ + | Heart disease | Mother | | | + + +------+ + | Hypertension | Mother | | | + + +------+ + | Cancer | Son | | Testicular | + + +------+ + | Malig hypertherm | Neg Hx | | | + + +------+ + + +------+ + + | Relation | Name | Status | Comments | + +------+ + + | Brother | | | | + +------+ + + | Brother | | | | + +------+ + + | Father | | Alive | | + +------+ + + | Father | | | | + +------+ + + | Mother | | | | + +------+ + + | Mother | | | | + +------+ + + | Son | | | | + +------+ + + Social History + +-------+ +--------+------+ [...] + + + + Plan of Treatment +--------+---------+ + + + | Date | Type | Specialty | Care Team | Description | +--------+---------+ + + + | 04/04/ Office | Cardiology | Homero Lizarraga, | | | 2019 | Visit | | MD [address] | | | | | | [place] [address] | | | | | | [phone] | | | | | | | | +--------+---------+ + + + + + + + + | Health Maintenance | Due Date | Last Done | Comments | + + + + + | Hepatitis C | | | | | Screening | 2 | | | + + + + + | Vaccine: | | | | | Dtap/Tdap/Td (1 - | 1 | | | | Tdap) | | | | + + + + + | Vaccine: Zoster (1 | | | | | of 2) | 2 | | | + + + + + | Breast Cancer | | | | | Screening | 7 | | | + + + + + | Colorectal Cancer | | 03/15/2006 | | | Screening | 6 | | | | (Colonoscopy) | | | | + + + + + | Vaccine: | | | | | Pneumococcal 65+ (1 | 7 | | | | of 2 - PCV13) | | | | + + + + + | Adult Annual | | | | | Wellness Visit | 9 | | | + + + + + | Vaccine: Influenza | | 04/26/2018 | | | (#1) | 9 | | | + + + + + Results Not on filefrom Last 3 Months Insurance + +--------+ +--------+ +---------+--------+ | Payer | Benefi | Subscriber | Effect | Phone | Address | Type | | | t Plan | ID | jane | | | | | | / | | Dates | | | | | | Group | | | | | | + +--------+ +--------+ +---------+--------+ | MEDICARE | MEDICA | [id number] | | [phone] | | Medica | | | RE | | 017-Pr | 5 | | re | | | PART A | | esent | | | | | | AND B | | | | | | + +--------+ +--------+ +---------+--------+ | [employer] [place] | [place] | [id number] | | [phone] | Indemn | | | OF | | 017-Pr | 0 | | ity | | | [place] | | esent | | | | | | MDCR | | | | | | | | SUPPL | | | | | | + +--------+ +--------+ +---------+--------+ | MEDICARE | MEDICA | [id number] | | [phone] | | Medica | | | RE | | 017-Pr | 5 | | re | | | PART A | | esent | | | | | | AND B | | | | | | + +--------+ +--------+ +---------+--------+ | [employer] [place] | MUTUAL | [id number] | | [phone] | | Indemn | | | OF | | 017-Pr | 0 | | ity | | | [place] | | esent | | | | + +--------+ +--------+ +---------+--------+ + +--------+ +--------+ + + | Guarantor Name | Accoun | Relation to | Date | Phone | Billing Address | | | t Type | Patient | of | | | | | | | | | | + +--------+ +--------+ + + | Jocelyne Montez | Person | Self [birth year] | [address] | | | al/Fam | | 1950 | [phone] | [address] | | | mike | | | 7 (Home) | [place] [address] | | | | | | [phone] | | | | | | | 2 (Work) | | + +--------+ +--------+ + + | Jocelyne Montez | Person | Self | [birth year] | [address] | | | al/Fam | | 1950 | [phone] | [address] | | | mike | | | 7 (Home) | [place] [address] | + +--------+ +--------+ + + Advance Directives + + + + + | Type | Date Recorded | Patient | Explanation | | | | 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
--- OUTSIDE RECORDS SUMMARY | ~2019-03-13 | XMS | Encounter Summary ---
Demographics + + + | Address | [address] | | | [place] [address] | + + + | Home Phone [...] + | Author | [facility] | | | and [place] | + + + | Organization | [facility] | | | and [place] [...] Team Providers + +------+ + | Care Slumber Room Attendant Name | Role | Phone | + +------+ + PCP | Unavailable | + +------+ + Encounter Details +--------+ + + + + | Date | Type | Department | Care Team | Description | +--------+ + + + + | 03/30/ | Hospital | [facility] | Wilder Mosquera MD | | | 1996 | Encounter | MED CTR GENERIC OP | [address], [place] | | | | | CONV DEPT [address] | [address] [place], [place] | | | | | [place], | [address] | | | | | [place] [address] | | | | | | [phone] | | | +--------+ + + + [...] | | | | | [place] [address] | | | | | | [phone] | | | | | | | | +--------+---------+ + + + documented as of this encounter Visit Diagnoses Not on filedocumented in this encounter"
--- OUTSIDE RECORDS SUMMARY | ~2019-03-13 | XMS | Encounter Summary ---
Demographics + + + | Address | [address] | | | [place] [address] | + + + | Home Phone | | + + + | Preferred Language | Unknown | + + + | Marital Status | | + + + | Catholic Affiliation | 1041 | + + + | Race | Unknown | + + + | Ethnic Group | Unknown | + + + Author + + + | Author | [facility] | | | and [place] | + + + | Organization | [facility] | [...] Team Providers + +------+ + | Care Radiotelegraphist Name | Role | Phone | + +------+ + PCP | Unavailable | + +------+ + Encounter Details +--------+ + + + + | Date | Type | Department | Care Team | Description | +--------+ + + + + | 07/01/ | Hospital | [facility] | Wilder Mosquera MD | | | 1992 | Encounter | MED CTR GENERIC OP | [address], [place] | | | | | CONV DEPT [address] | [address] [place], [place] | | | | | [place], | [address] | | | | | [place] [address] | | | | | | [phone] | | | +--------+ + + + [...] | | | | | [place] [address] | | | | | | [phone] | | | | | | | | +--------+---------+ + + + documented as of this encounter Visit Diagnoses Not on filedocumented in this encounter"
--- OUTSIDE RECORDS SUMMARY | ~2019-03-13 | XMS | Encounter Summary ---
Demographics + + + | Address | [address] | | | [place] [address] | + + + | Home Phone [...] | [facility] | | | and [place] | + + + | Organization | [facility] | | | and [...] Providers + +------+ + | Care Director Federal Name | Role | Phone | + +------+ + PCP | Unavailable | + +------+ + Encounter Details +--------+ + + + + | Date | Type | Department | Care Team | Description | +--------+ + + + + | 04/07/ | Hospital | [facility] | Wilder Mosquera MD | | | 2006 | Encounter | MED CTR XRAY [address] | [address] [place], [place] | | | | | [place] | [address] [place], [place] | | | | | [place] [address] | [address] | | | | | [phone] | | | +--------+ + + + [...] | | | | | [place] [address] | | | | | | [phone] | | | | | | | | +--------+---------+ + + + documented as of this encounter Visit Diagnoses Not on filedocumented in this encounter"
--- OUTSIDE RECORDS SUMMARY | ~2019-03-13 | XMS | Encounter Summary ---
Demographics + + + | Address | [address] | | | [place] [address] | + + + | Home Phone | | + + + | Preferred Language | Unknown | + + + | Marital Status | | + + + | Restorationism Affiliation | 1041 | + + + | Race | Unknown | + + + | Ethnic Group | Unknown | + + + Author + + + | Author | [facility] | | | and [place] | + + + | Organization | [facility] | | | and [place] [...] Team Providers + +------+ + | Care Therapist Asst Name | Role | Phone | + [...] Physical | Diagnoses | Harry, | Raul Davis | | | Services | Medicine and | DDD | Jace | E MD [address] | | | Required | Rehabilitatio | (degenerativ | MNYOR Rojas | [address] | | | | n | e disc | [address] | [place], | | | | | disease), | [address] | [place] [address] | | | | | lumbar | [address] | Phone: | | | | | Lumbar | [place], | [phone] | | | | | radiculopath | [place] [address] | Fax: | | | | | y | Phone: | [phone] | | | | | Paresthesia | [phone] | | | | | | of both | Fax: | | | | | | hands | [phone] | | +--------+ + + + + + Reason for Visit + + + | Reason | Comments | + + + | Back Pain | MRI review | + + + Encounter Details +--------+---------+ + + + | Date | Type | Department | Care Team | Description | +--------+---------+ + + + | 09/18/ | Office | [facility] | Jace Mcdonald | DDD (degenerative | | 2015 | Visit | NEUROSURGERY [address] | [address] | disc disease), | | | | [address] | [address] | lumbar (Primary Dx); | | | | [place], [place] | [place], [place] | Lumbar | | | | [address] | [address] | radiculopathy; | | | | [phone] | | Paresthesia of both | | [...] differen t from the original. SCOT Trevino [address] [place] [address], [address] [place] [address] FAX: NEUROSURGERY HISTORY AND PHYSICAL EXAMINATION CHIEF [...] has no apparent deficits with short or skilled nursing memory. CRANIAL NERVES: Fundoscopic Exam: The optic [...] Intrinsics 5 5 Ulnar Intrinsics 5 5 Account Advisor Strength 5 5 Hip Flexion 5 5 [...] in th is encounter Plan of Treatment +--------+---------+ + + + | Date | Type | Specialty | Care Team | Description | +--------+---------+ + + + | 04/04/ | Office | Cardiology | Homero Lizarraga, | | | 2018 | Visit | | MD [address] | | | | | | [place] [address] | | | | | | [phone] | | | | | | | | +--------+---------+ + + + +-------+ +--------+ + + | Name | [...]
--- OUTSIDE RECORDS SUMMARY | ~2019-03-13 | XMS | Clinical Summary ---
Demographics + + + | Address | [address] [facility] [address] | | | [place] [address] | + + + | Home Phone | | + + + | Preferred Language | Unknown | + + + | Marital Status | | + + + | Temple Affiliation | 1041 | + + + | Race | Unknown | + + + | Ethnic Group | Unknown | + + + Author + + + | Author | [facility] | | | and [place] | + + + | Organization | [facility] | | | and [place] | [...] Team Providers + +------+ + | Care Electroencephalograph Technologist Name | Role | Phone | [...] + + + | 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 | + + + + + [...] DR | | | | | | [place] [address] | | | | | | [phone] | | | | | | | [...] | | t Plan | ID | ajne | | | | | | / | | Dates | | | | | | Group | | | | | | + +--------+ +--------+ +---------+--------+ | MEDICARE | MEDICA | [id number] | | [phone] | | Medica | | | RE | | 017-Pr | 5 | | re | | | PART A | | esent | | | | | | AND B | | | | | | + +--------+ +--------+ +---------+--------+ | [employer] [place] | [place] | [id number] | | [phone] | | Indemn | | | OF | | 017-Pr | 0 | | ity | | | [place] | | esent | | | | | | MDCR | | | | | | | | SUPPL | | | | | | + +--------+ +--------+ +---------+--------+ | MEDICARE | MEDICA | [id number] | | [phone] | | Medica | | | RE | | 017-Pr | 5 | | re | | | PART A | | esent | | | | | | AND B | | | | | | + +--------+ +--------+ +---------+--------+ | [employer] [place] | MUTUAL | [id number] | | [phone] | | Indemn | | | OF | | 017-Pr | 0 | | ity | | | [place] | | esent | | | | [...] | | 7 (Home) | [place] [address] | | | | | | [phone] [...] | | 7 (Home) | [place] [address] | + +--------+ +--------+ + + Advance Directives + + + + + | Type | Date Recorded | Patient | Explanation | | | | Wedger | | + + + + + | Power of | | | | | Engineer Automated Equipment | | | | + + + [...]
--- OUTSIDE RECORDS SUMMARY | ~2019-03-13 | XMS | Encounter Summary ---
Demographics + + + | Address | [address] | | | [place] [address] | + + + | Home Phone | | + + + | Preferred Language | Unknown | + + + | Marital Status | | + + + | Sabianist Affiliation | 1041 | + + + | Race | Unknown | + + + | Ethnic Group | Unknown | + + + Author + + + | Author | [facility] | | | and [place] | + + + | Organization | [facility] | | | and [place] [...] Team Providers + +------+ + | Care Production Control Expediter Name | Role | Phone | + [...] [address] | | | | | | [place], [place] | | | | | | [address] | | | | | | [phone] | | | +--------+ + + + [...] [address] | | | | | | [place] [address] | | | | | | [phone] | | | | | | | | +--------+---------+ + + + documented as of this encounter Visit Diagnoses Not on filedocumented in this encounter"
--- OUTSIDE RECORDS SUMMARY | ~2019-03-13 | XMS | Encounter Summary ---
Demographics + + + | Address | [address] | | | [place] [address] | + + + | Home Phone | | + + + | Preferred Language | Unknown | + + + | Marital Status | | + + + | Adventist Affiliation | 1041 | + + + | Race | Unknown | + + + | Ethnic Group | Unknown | + + + Author + + + | Author | [facility] | | | and [place] | + + + | Organization | [facility] | | | and [place] | [...] Providers + +------+ + | Care Public Health Microbiologist Name | Role | Phone | + [...] [address] | | | | | [phone] | [place] [address] | | +--------+ + + + + [...] DR | | | | | | [place] [address] | | | | | | [phone] | | | | | | | | +--------+---------+ + + + documented as of this encounter Procedures + +--------+ + + + | Procedure Name | Priori | Date/Time | Associated Diagnosis | Comments | | | ty | | | | + +--------+ + + + | XR CHEST AP PORTABLE | Routin | 10/30/2017 | | Results for this | | | e | 2:45 AM | | procedure are in the | | | | PDT | | results section. | + +--------+ + + + documented in this encounter Results XR Chest AP Portable (10/30/2017 2:45 AM PDT) + + | Specimen | [...]
--- OUTSIDE RECORDS SUMMARY | ~2019-03-13 | XMS | Encounter Summary ---
Demographics + + + | Address | [address] | | | [place] [address] | + + + | Home Phone | | + + + | Preferred Language | Unknown | + + + | Marital Status | | + + + | Episcopalian Affiliation | 1041 | + + + | Race | Unknown | + + + | Ethnic Group | Unknown | + + + Author + + + | Author | [facility] | | | and [place] | + + + | Organization | [facility] | | | and [place] [...] Team Providers + +------+ + | Care Operating Room Orderly Name | Role | Phone | + +------+ + PCP | Unavailable | + +------+ + Encounter Details +--------+ + + + + | Date | Type | Department | Care Team | Description | +--------+ + + + + | 06/29/ | Hospital | [facility] | Wilder Mosquera MD | | | 2000 | Encounter | MED CTR XRAY [address] | [address], [place] | | | | | [place] | [address] [place], [place] | | | | | [place] [address] | [address] | | | | | [phone] | | | +--------+ + + + [...] | | | | | [place] [address] | | | | | | [phone] | | | | | | | | +--------+---------+ + + + documented as of this encounter Visit Diagnoses Not on filedocumented in this encounter"
--- OUTSIDE RECORDS SUMMARY | ~2019-03-13 | XMS | Encounter Summary ---
Demographics + + + | Address | [address] | | | [place] [address] | + + + | Home Phone | | + + + | Preferred Language | Unknown | + + + | Marital Status | | + + + | Pentecostal Affiliation | 1041 | + + + | Race | Unknown | + + + | Ethnic Group | Unknown | + + + Author + + + | Author | [facility] | | | and [place] | + + + | Organization | [facility] | | | and [place] | [...] Team Providers + +------+ + | Care Engineering Group Leader Name | Role | Phone | + +------+ + PCP | Unavailable | + +------+ + Encounter Details +--------+ + + + + | Date | Type | Department | Care Team | Description | +--------+ + + + + | 10/12/ | Hospital | [facility] | William Tinajero MD | Unspecified | | 2005 | Encounter | CONVERSION [address] | [address] | Essential | | | | [address] | [address], [address] | Hypertension | | | | [place], [place] | [address] | | | | | [address] | [phone] | | | | | [phone] | | | +--------+ + + + [...] DR | | | | | | [place] [address] | | | | | | [phone] | | | | | | | | +--------+---------+ + + + documented as of this encounter Visit Diagnoses + + | Diagnosis | + + | Unspecified essential hypertension | + + documented in this encounter"
--- OUTSIDE RECORDS SUMMARY | ~2019-03-13 | XMS | Encounter Summary ---
Demographics + + + | Address | [address] | | | [place] [address] | + + + | Home Phone | | + + + | Preferred Language | Unknown | + + + | Marital Status | | + + + | Mandaeism Affiliation | CAT | + + + | Race | White | + + + | Ethnic Group | Not or | + + + Author + + + | Author | [facility] | + + + | Organization | [facility] [employer] [facility] | + + + | Address | Unknown | + + + | Phone | Unavailable | + + + Support + + +---------+ + | Name | Relationship | Address | Phone | + + +---------+ + | Charlene Rouse | ECON | Unknown | | + + +---------+ + Care Team Providers + +------+ + | Care Washtub Worker Helper Name | Role | Phone | [...] | on | Laryngology Services | [address] | | | | | at [facility] [address] | [address] [place], | | | | | [place], | [place] [address] | | | | | [place] [address] | [phone] | | | | | [phone] | | | +--------+ + + + [...]
--- OUTSIDE RECORDS SUMMARY | ~2019-03-13 | XMS | Encounter Summary ---
Demographics + + + | Address | [address] | | | [place] [address] [...] + | Author | [facility] | | | and [place] | + + + | Organization | [facility] | | | and [...] Team Providers + +------+ + | Care Installation And Repair Technician Name | Role | Phone | + +------+ + PCP | Unavailable | + +------+ + Encounter Details +--------+ + + + + | Date | Type | Department | Care Team | Description | +--------+ + + + + | 03/15/ | Hospital | [facility] | Wilder Mosquera MD | | | 2006 | Encounter | MED CTR GENERIC OP | [address], [place] | | | | | CONV DEPT [address] [place], [place] | | | | | [address], | [address] | | | | | [place] [address] | | | | | | [phone] | | | +--------+ + + + [...] | | | | | [place] [address] | | | | | | [phone] | | | | | | | | +--------+---------+ + + + documented as of this encounter Visit Diagnoses Not on filedocumented in this encounter"
--- OUTSIDE RECORDS SUMMARY | ~2019-03-13 | XMS | Encounter Summary ---
Demographics + + + | Address | [address] | | | [place] [address] | + + + | Home Phone | | + + + | Preferred Language | Unknown | + + + | Marital Status | | + + + | Worship Affiliation | 1041 | + + + | Race | Unknown | + + + | Ethnic Group | Unknown | + + + Author + + + | Author | [facility] | | | and [place] | + + + | Organization | [facility] | | | and [place] [...] Team Providers + +------+ + | Care Discharge Coordinator Name | Role | Phone | + +------+ + | Jesse Chand | PCP | | + +------+ + Encounter Details +--------+ + + + + | Date | Type | Department | Care Team | Description | +--------+ + + + + | 12/31/ | Hospital | [facility] | Conversion | | | 2016 | Encounter | CENTER [facility] | Transaction, | | | | | CLINIC [address] | Provider Unknown | | | | | [address] [place], [place] | [phone] | | | | | [address] | | | | | | [phone] | | | +--------+ + + + [...] mg by mouth | | 0 | 09/24/20 | | | LOW DOSE) 81 MG [...] [address] | | | | | | [place] [address] | | | | | | [phone] | | | | | | | [...] + + documented in this encounter Results Basic Metabolic Panel (01/01/2016 12:24 PM PDT) [...] | | | | | [place] [address] | | | | + + + + + + | K | 4.0Comment: Testing | 3.5 - 4.9 | EXTERNAL | | | | performed at [facility], [address] | mmol/L | LAB | | | | [address], | | | | | | [place] [address] | | | | + + + + + + | Cl | 105Comment: Testing | 99 - 109 mmol/L | EXTERNAL | | | | performed at [facility], [address] | | LAB | | | | [address], | | | | | | [place] [address] | | | | + + + + + + | CO2 | 30Comment: Testing | 23 - 32 mmol/L | EXTERNAL | | | | performed at [facility], [address] | | LAB | | | | [address], | | | | | | [place] [address] | | | | + + + + + + | Anion Gap | 10Comment: Testing | 5 - 20 mmol/L | EXTERNAL | | | | performed at [facility], [address] | | LAB | | | | [address], | | | | | | [place] [address] | | | | + + + + + + | Glucose, | 86Comment: Testing | 65 - 99 mg/dL | EXTERNAL | | | Fasting | performed at [facility], [address] | | LAB | | | | [address], | | | | | | [place] [address] | | | | + + + + + + | BUN | 12Comment: Testing | 8 - 25 mg/dL | EXTERNAL | | | | performed at [facility], [address] | | LAB | | | | [address], | | | | | | [place] [address] | | | | + + + + + + | Creatinine | 0.8Comment: Testing | 0.50 - 1.00 | EXTERNAL | | | | performed at [facility], [address] | mg/dL | LAB | | | | [address], | | | | | | [place] [address] | | | | + + + + + + | BUN/Creatin | 15Comment: Testing | | EXTERNAL | | | ine Ratio | performed at [facility], [address] | | LAB | | | | [address], | | | | | | [place] [address] | | | | + + + + + + | Calcium | 9.1Comment: Testing | 8.5 - 10.5 | EXTERNAL | | | | performed at [facility], [address] | mg/dL | LAB | | | | [address], | | | | | | [place] [address] | | | | + + + [...] | | | | | | at [facility], [address] | | | | | | [facility], | | | | | | [place] [address] | | | | + + + [...]
--- OUTSIDE RECORDS SUMMARY | ~2019-03-13 | XMS | Encounter Summary ---
Demographics + + + | Address | [address] | | | [place] [address] | + + + | Home Phone | | + + + | Preferred Language | Unknown | + + + | Marital Status | | + + + | Sikhism Affiliation | CAT | + + + | Race | White | + + + | Ethnic Group | Not or | + + + Author + + + | Author | [facility] | + + + | Organization | [facility] | + + + | Address | Unknown | + + + | Phone | Unavailable | + + + Support + + +---------+ + | Name | Relationship | Address | Phone | + + +---------+ + | Charlene Roues | ECON | Unknown | | + + +---------+ + Care Team Providers + +------+ + | Care Gelatin Plant Supervisor Name | Role | Phone | [...] PA-C | | | | | at [facility] [address] | [address] | | | | | [place], | [place], [place] | | | | | [place] [address] | [address] | | | | | [phone] | [phone] | | | | | | | [...]
--- OUTSIDE RECORDS SUMMARY | ~2019-03-13 | XMS | Encounter Summary ---
Demographics + + + | Address | [address] | | | [place] [address] | + + + | Home Phone [...] + | Author | [facility] | + + + | Organization | [facility] | + + + | Address | Unknown | + + + | Phone | Unavailable | + + + Support + + +---------+ + | Name | Relationship | Address | Phone | + + +---------+ + | Charlene Rouse | ECON | Unknown | | + + +---------+ + Care Team Providers + +------+ + | Care Open Source Developer Name | Role | Phone | + +------+ + | Jesse Chand MD | PCP | | + +------+ + Encounter Details +--------+ + + + + | Date | Type | Department | Care Team | Description | +--------+ + + + + | 08/13/ | Geomorphologist | Otolaryngology | [place], | Chronic cough | | 2017 | | Laryngology Services | Mamta Argueta PA-C | (Primary Dx) | | | | at [facility] [address] | [address] | | | | | [address] [place], | [place], [place] | | | | | [place] [address] | [address] | | | | | [phone] | [phone] | | | | | | | [...]
--- OUTSIDE RECORDS SUMMARY | ~2019-03-13 | XMS | Encounter Summary ---
Demographics + + + | Address | [address] | | | [place] [address] | + + + | Home Phone | | + + + | Preferred Language | Unknown | + + + | Marital Status | | + + + | Mormon Affiliation | CAT | + + + | Race | White | + + + | Ethnic Group | Not or | + + + Author + + + | Author | [facility] | + + + | Organization | [facility] | + + + | Address | Unknown | + + + | Phone | Unavailable | + + + Support + + +---------+ + | Name | Relationship | Address | Phone | + + +---------+ + | Charlene Rouse | ECON | Unknown | | + + +---------+ + Care Team Providers + +------+ + | Care Public Health Worker Name | Role | Phone | + +------+ + | Jesse Chand MD | PCP | | + +------+ + Reason for Referral Speech Therapy (Routine) +--------+--------+ + + + + | Status | Reason | Specialty | Diagnoses / | Referred By | Referred To | | | | | Procedures | Contact | Contact | +--------+--------+ + + + + | Closed | | Speech | Diagnoses | [place], | Ent Speech | | | | Therapy | Dysphagia, | Mamta | [address] | | | | | unspecified | MYNOR Argueta | Ezequiel Le | | | | | type | [address] | [address] | | | | | Procedures | Ave | Mailcode: | | | | | CONSULT TO | [place], [place] | [address] | | | | | ENT SPEECH | [address] | Physician's | | | | | THERAPY | Phone: | [facility] | | | | | | [phone] | [place], [place] | | | | | | Fax: | [address] | | | | | | [phone] | Phone: | | | | | | | [phone] | | | | | | | Fax: | | | | | | | [phone] | +--------+--------+ + + + + Reason for Visit + + + | Reason | Comments | + + + | New patient | | | consultation | | + + + Consultation (Routine) [...] Ave | | | | | | [place], | [place], [place] | | | | | | [place] [address] | [address] | | | | | | Phone: | Phone: | | | | | | [phone] | [phone] | | | | | | Fax: | Fax: | | | | | | [phone] | [phone] | + +--------+ + + + + Encounter Details +--------+---------+ + + + | Date | Type | Department | Care Team | Description | +--------+---------+ + + + | 07/08/ | Office | Otolaryngology | [place], | Chronic cough | | 2017 | Visit | Laryngology Services | Mamta Argueta PA-C | (Primary Dx); | | | | at [facility] [address] | [address] | Dysphagia, | | | | [address] [place], | [place], [place] | unspecified type; | | | | [place] [id number] | [address] | Laryngeal | | | | [phone] | [phone] | hyperfunction; | | | | | | Muscle tension | | | | | | dysphonia | +--------+---------+ + + + Social History [...] + + + | Blood Pressure | - | - | | + [...] + + + + | Weight | 78 kg (172 lb) | 07/08/2016 1:05 PM | | | | | PDT | | + + + + + | Height | 154.9 cm (5' 1") | 07/08/2016 1:05 PM | | | | | PDT | | + + + + + | Body Mass Index | 32.5 | 07/08/2016 1:05 PM | | | | | PDT | | + + + + + documented in this encounter Patient Instructions Patient Instructions Josefina Jeffers MA - 07/08/2016 1:00 PM BRITTNEYThshreyas you for choosing [facility] Department of Otolaryngology for your health care needs. If you need to speak to an ENT physician after normal business hours, please call [phone] and ask to have the ENT phys ician drilling and production superintendent paged. 1. Start prednisone 30mg (3 tablets) in the morning daily for 2 weeks. I want to see you jesus chen on the last day of the oral steroid so count back from your appointment date to make sure you finish the day I see you. This will be important if you respond well to the oral steroi d 2. Schedule a follow-up with me and the swallow study the same day 3. We will consider voice therapy in the future. documented in this encounter Progress Notes Josefina Jeffers MA - 07/08/2016 1:00 PM PDTlaryngoscopy procedure was performed using the following instruments: Description #1: laryngoscope Serial ID #1: [id number] amta Zambrano PA-C - 07/08/2016 1:00 PM PDTFormatting of this note might be different from the origina l. PATIENT: Jocelyne Montez MR#: [id number] : 1950 REQUESTING PROVIDER: Jesse Chand MD [facility] [address] [place] [address] PRIMARY CARE PROVIDER: Jesse Chand MD CLINIC: [facility] CHIEF COMPLAINT: Chronic cough HPI: Jocelyne Montez is a 66 y.o. female who is referred to the [facility] for evaluation of cough by her station cleaning porter Dr. Golden. [facility] for the past 4 years. Around the onset of her cough she reports pain in her throat which prompted her to seek evaluation with an waterworks chief engineer in the [facility] [place], she is unsur e of the providers name. She was found to have a lesion near her tonsils which was biopsied and identified as Lichen Planus. She reports being treated with steroids with improvement. N ow when she gets a flare it typically involves her gingiva. The discomfort of her Lichen earnest nus is what she felt was the initial trigger for her cough. She reports always being prone t o cough. With upper respiratory tract infections she would typically have a cough for 3-4 mo nths. She had asthma as a child. Another contributor to her cough was starting on fosamax fo r her osteopenia. She had worsening of her throat discomfort and cough with this despite fol lowing all the precautions including staying upright after taking. She started to have troub le swallowing and with frequent choking. One instance she necessitated the hemlick maneuver from her which was terrifying for Jocelyne. She reports stopping this and transition to Prolia either june 2014 or 2015. This improved her swallowing, but she continues to have d ysphagia symptoms. She describes avoiding particulate food like popcorn and chips because it leads to coughing. She finds carrots, turkey and chicken hang up in her throat. These do no t clear with a second swallow. She has to cut her food into really small pieces. She has mor e trouble with dry foods. She denies weight loss and aspiration pneumonia. She does have occ asional reflux. She has nexium, but does not take this regularly. She will use it when she i s symptomatic. She takes it 2-3x/month. She had an upper endoscopy in December 2015 which d id not demonstrate esophagitis. She describes her cough as being so severe she is not going to druze. She has cough paroxy sms. She has a history of a colectomy following a bowel obstruction. With her severe coughin g bouts she will have stool incontinence. The cough is constant. She says it is typically pr oductive in that she feels mucus come up, but she does not expectorate this. She does not crowley ve known hemoptysis. She was waking at night due to the cough which led her to sleep on the cough for 2 years. She was diagnosed with sleep apnea and has noted improvement in her cough at night with her CPAP machine. She is not waking at night anymore. She reports the biggest trigger for her cough is smoke, but perfumes, pollen and dust can a lso trigger it. She has allergies, but feels they have been better this year. Jocelyne had rani rgy testing which revealed sensitivities to black mold, grains, cotton wood, weeds and pet d lázaro. She takes Vanessa and Singulair to manage her symptoms. When she is around one of her triggers she feels her throat get tight and then will start coughing really hard which can lead to inspiratory stridor at times when she tries to gasp to catch her breath. She reports feeling limited by her breathing. She is fearful she is going to have trouble breathing aga in like the time she necessitates the hemlick. She denies a history of recurrent sinusitis. She has occasional sinus congestion for which she uses Flonase, but not chronic. She has not had a CT sinus. She was evaluated by Dr. Goldne with pulmonary function testing 07/16/15. At baseline, th yonatan studies demonstrated and FVC of 75% of predicted, an FEV1 of 80% of predicted and an FEV 1/FVC ratio of 82. She has a CT chest 07/01/15 which revealed "no acute abnormality of the ch est. No evidence of interstitial lung disease or bronchiectasis. No pulmonary lung nodules. She was tried on albuterol and Qvar 40mcg 2-3x/day without a spacer without improvement in h er cough. She reports she is discussing using a nebulizer. She was provided codeine cough sy rup and hydrocodone to use for her severe coughing episodes which do help. She previously wa s tried on an oral steroid and feels after 24 hours her cough would improve. She was previou sly on lisinopril, but discontinued this due to concern it was contributing to her cough. She has also noted a gradual change in her voice over the past 8 years. She reports having many procedures over the years and would wake up hoarse after these and feels this contribut ed. She is unable to sing in druze anymore. Her pitch is lower and she experiences vocal fa tigue. People ask her to repeat herself. She finds voicing effortful and has trouble project ing. She feels like she is not getting enough air at times. She does note improvement in her voice with rest. She denies periods of normal voicing. She is not significantly bothered by her voice. VOCAL DEMANDS and HYGIENE: Jocelyne is retired. 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 Her vocal demands are primarily those of conversational speech and recreational singing. She drinks about 32 oz of noncaffeinated fluid daily, 16 oz of caffeinated beverages. She is a lifetime nonsmoker. PMHx: Past Medical History: Diagnosis Date Coronary [...] Paiz, no esophagitis Tonsillectomy and adenoidectomy 1951 SOCIAL Hx: Social History Social History Marital status: Spouse name: N/A Number of children: N/A Years of education: N/A Occupational History Not on file. Social History Main Topics Smoking status: Never Smoker Smokeless tobacco: Not on file Alcohol use No Comment: very rarely Drug use: Not on file Sexual activity: Not on file Other Topics Concern Not on file Social History Narrative FAMILY HX: Family History Problem Relation Thyroid Mother Thyroid Sister x 2 Tremors Brother Thyroid Daughter Cancer Son Movement Disorders Neg Hx ALLERGIES: Allergies Allergen Reactions Compazine [Prochlorperazine] Unknown [...] route 4 times per day as needed esomeprazole 20 mg oral capsule,delayed release(DR/EC) Take by mouth. fexofenadine 180 mg oral tablet Take by [...] 15 minutes, prompt medical attention is recommended rosuvastatin (CRESTOR) 20 mg oral tablet Take by mouth. traZODone 150 mg oral tablet Take by mouth. valACYclovir (VALTREX) 1 g oral tablet 2 tablets by mouth two times daily for 7 days as needed No current facility-administered medications for this visit. ROS: She does note a 25-30lb weight gain over the last 3 years, prinzmetal angina, palpita tions, history of stomach ulcer/bleeding, biliary dyskinesia, hand tremor, anxiety and depre ssion and sleep apnea. System review was otherwise negative for: recent objective fevers, recent hemoptysis, physiologically significant murmur, recent myocardial infarction, stroke , primary bleeding disorder, bowel problems, or renal insufficiency/failure. EXAMINATION: Ht 1.549 m (5' 1") | Wt 78 kg (172 lb) | BMI 32.5 kg/(m^2) Gen: the patient is a healthy 66 y.o. female who appears comfortable with the examination. She is normocephalic. Her weight is elevated. Ears: The pinnae are normal. External auditory canals show minimal cerumen bilaterally. The tympanic membranes are clear with normal anatomic landmarks and an aerated middle ear sp christina. Nose: The nasal dorsum is straight and the nares are widely patent. The mucosa is pink and there are no lesions or masses noted. There is no significant nasal obstruction noted. Face: Normal and symmetric movement is noted bilaterally. Salivary Glands: The salivary glands are soft and show no lesions or masses within the par otid or submandibular glands bilaterally. There is no obvious obstruction of Stensen's or W jimmie's ducts bilaterally. Oropharynx: Normal lips and oral competence are noted. The dentition is fair. The mucosa is moist, but shows no lesions or masses. Palatal elevation is symmetric and tongue protru freddy is midline. The tonsils are absent and the fossae show no lesions. Neck: There is no lymphadenopathy noted in the anterior, posterior, digastric or submental triangles. Chest: Chest rise is symmetric and there is no audible wheezing, stridor or wet vocal qual ity. Neurologic: The patient is awake, alert and cooperative with the examination. Responses t o questions were judged to be appropriate throughout the interview. Facial motion is normal on the right. Facial motion is normal on the left. Hearing is grossly intact. Palatal el evation is normal on the right. Palatal elevation is normal on the left. Tongue bulk is no rmal bilaterally and protrusion is midline. Tongue protrusion is normal on the right. Tong ue protrusion is normal on the left. There are no tremors of the head, palate or tongue no [place]. VOICE EVALUATION: Perceptual voice evaluation demonstrates dysphonia which is moderate. Sh e lacks breath support with moderate glottal wang. Her pitch is low for a female and shows li mited range. Vocal intensity is acceptable and shows limited upper range. There is 1+ rough ness, 0 breathiness, 0 asthenia and 2+ tightness appreciated. There is no tremor noted w ith sustained vowel phonation. I am unable to detect voice breaks. VIDEOSTROBOSCOPY: Laryngovideostroboscopy was performed today. The patient was sprayed wit h Lidocaine and Phenylephrine to each nostril prior to the examination after verbal consent. This demonstrates a clear vallecula and crisp epiglottis. The aryepiglottic folds are int act and symmetric bilaterally. The hypopharynx does not demonstrate pooling. There is a ra ised, erythematous lesion of the right pharynx, see picture below. The interarytenoid space demonstrates a purple discoloration with pachydermia.The false vocal folds are symmetric and without lesions or masses. False fold voicing (plica ventricularis) is not noted today. Th e true vocal folds show normal and symmetric motion bilaterally. There is no paradoxical mo tion. There is moderate laryngeal hyperfunction which is most notable in the anterior-home health lvn ior and lateral dimensions. There is not noted to be increased thick laryngeal mucous. Crico thyroid function appears to be intact bilaterally. The mucosal wave is periodic. There is oc casional chasing asymmetry noted. On the right, the wave amplitude is globally decreased. On the left, the wave amplitude is globally decreased. Closure is complete. The right media l edge is crisp and shows no lesions or masses. The left medial edge is crisp and shows no lesions or masses. The mucosal covering is not edematous. There is no erythema present tod ay. There are no obvious vascular ectasias present. The vocal processes do not demonstrate granulomas or contact ulcers. The subglottis and proximal trachea is clear and unobstructe d to the limits of the examination today. Pseudosulcus is appreciated on indirect examinati on today. Prior work-up: CT chest PFT Upper endoscopy ICS and oral steroid, but not with ICS immediately following Taken off of her CHRISTINA-inhibitor Consider in future: Never regulary took Nexium CT sinus ASSESSMENT: Ms. Montez appears to have chronic cough associated with a diagnosis of moder ate persistent asthma with a normal pulmonary function testing last year. Jocelyne experiences severe cough paroxysms following exposures to smoke, dust, pollen and perfumes, but also suf fers from a baseline chronic cough. She has found codeine cough syrup and hydrocodone helpfu l following these exposures. Her description does fit with vocal cord dysfunction, but I carol pect if we treat her cough it will reduce her laryngeal sensitivity and prevent these episod es from occurring. I would like to have Jocelyne try a 2 week oral steroid trial given her prio r positive response to steroids and childhood history of asthma. We discussed the risks incl ude acute angle glaucoma, increased blood sugars and blood pressure, hip necrosis, agitation and trouble sleeping at night and she has elected to proceed. If she responds well I would have her continue the benefit with an ICS with a spacer to help prevent thrush. If she does not respond, I would consider treating with amitriptyline. Jocelyne lacks breath support leadin g to frequent glottal wang and laryngeal hyperfunction. I suspect a component of her dysphoni a is trying to prevent a cough by not taking a deep breath. I will attempt to get better con trol of her cough before determining her need for voice therapy. She is not significant both ered by her voice and does not know if she would proceed with therapy. Jocelyne also reports dy sphagia symptoms that warrant further investigation. I have ordered a modified barium swallo w and an esophagram. I will see Jocelyne back in 2 weeks with the swallow studies the same day. PLAN: After a thorough discussion of our findings today, I have recommended a 2 week oral steroid trial. I will see her back on the last day of this with a modified barium swallow an d an esophagram the same day. Jocelyne will contact the clinic in the interim if she has troubl e tolerating the steroid or worsening of her symptoms. Maricel Zambrano PA-C [facility] Department of Otolaryngology and Head and Neck Surgery documented i n this encounter Plan of Treatment Not on filedocumented as of this encounter Procedures + +--------+ + + + | Procedure Name | Priori | Date/Time | Associated Diagnosis | Comments | | | ty | | | | + +--------+ + + + | NC | Routin | 07/14/2016 | Chronic cough | | | LARYNGOSCOPY,FLEX/RI | e | 8:42 AM | Laryngeal | | | GID+STROBOSCOPY | | PDT | hyperfunction | | | | | | Muscle tension | | | | | | dysphonia | | + +--------+ + + + documented in this encounter Results X-RAY ESOPHAGRAM (07/29/2016 12:08 PM PDT) + + | Specimen | + + | | + + + + + | Narrative | Performed At | + + + | EXAM: Modified barium swallow and esophagram HISTORY: | [facility] | | Dysphasia for solids. COMPARISON: No relevant priors. | RADIOLOGY VOICE | | TECHNIQUE: 1. Fluoroscopy assistance provided to speech pathology for | RECOGNITION | | performance of modified barium swallow. Fluoroscopy time: 194 seconds | | | 2. Esophagram using thin and thick barium and effervescent | | | granules. Fluoroscopy time:118 seconds Actual time was less due to | | | use of pulsed fluoroscopy. FINDINGS: No laryngeal | | | penetration or aspiration. MODIFIED BARIUM SWALLOW: Please see | | | speech pathology report for full details. ESOPHAGRAM: | | | Esophagus: Unremarkable. Esophageal motility: Mild delayed | | | transit noted with solid materials. Gastroesophageal reflux: Small | | | amount noted with Valsalva into the distal esophagus. Barium pill | | | tablet: Passes to stomach without obstruction. Bones and soft | | | tissues: Visualized portions are unremarkable. IMPRESSION: | | | Mild delayed transit of solid materials within the upper to mid | | | esophagus without evidence of stricture, which may relate to some | | | degree of underlying dysmotility. Please also see speech | | | pathologist report. I have personally reviewed the images | | | and, if necessary, edited the report. I agree with the report as now | | | presented. | | + + + + + | Procedure Note | + + | Service Account, Radiant Res In Interface - 07/29/2016 3:56 PM PDT EXAM: Modified | | barium swallow and esophagramHISTORY: Dysphasia for solids.COMPARISON: No relevant | | priors.TECHNIQUE: 1. Fluoroscopy assistance provided to speech pathology for performance | | of modified barium swallow. Fluoroscopy time: 194 seconds2. Esophagram using thin and | | thick barium and effervescent granules. Fluoroscopy time:118 seconds Actual time was | | less due to use of pulsed fluoroscopy.FINDINGS: No laryngeal penetration or | | aspiration.MODIFIED BARIUM SWALLOW:Please see speech pathology report for full | | details.ESOPHAGRAM:Esophagus: Unremarkable.Esophageal motility: Mild delayed transit | | noted with solid materials.Gastroesophageal reflux: Small amount noted with Valsalva | | into the distal esophagus.Barium pill tablet: Passes to stomach without | | obstruction.Bones and soft tissues: Visualized portions are unremarkable.IMPRESSION: | | Mild delayed transit of solid materials within the upper to mid esophagus without | | evidence of stricture, which may relate to some degree of underlying dysmotility.Please | | also see speech pathologist report.I have personally reviewed the images and, if | | necessary, edited the report. I agree with the report as now presented. | |Please see speech pathology report for full details. | | | | | |ESOPHAGRAM: | |Esophagus: Unremarkable. | |Esophageal motility: Mild delayed transit noted with solid materials. | |Gastroesophageal reflux: Small amount noted with Valsalva into the distal esophagus. | |Barium pill tablet: Passes to stomach without obstruction. | | | |Bones and soft tissues: Visualized portions are unremarkable. | | | |IMPRESSION: | | | |Mild delayed transit of solid materials within the upper to mid esophagus without evidence of stricture, which may relate to some degree of underlying dysmotility. | | | |Please also see speech pathologist report. | | | | | | | |I have personally reviewed the images and, if necessary, edited the report. I agree with t he report as now presented. | + + + +---------+ + + | Performing | Address | City/State/Zipcode | Phone Number | | Organization | | | | + +---------+ + + | [facility] | | | | | VOICE RECOGNITION | | | | + +---------+ + + MODIFIED BARIUM SWALLOWING (07/29/2016 12:08 PM PDT) + + | Specimen | + + | | + + + + + | Narrative | Performed At | + + + | EXAM: Modified barium swallow and esophagram HISTORY: | [facility] | | Dysphasia for solids. COMPARISON: No relevant priors. | RADIOLOGY VOICE | | TECHNIQUE: 1. Fluoroscopy assistance provided to speech pathology for | RECOGNITION | | performance of modified barium swallow. Fluoroscopy time: 194 seconds | | | 2. Esophagram using thin and thick barium and effervescent | | | granules. Fluoroscopy time:118 seconds Actual time was less due to | | | use of pulsed fluoroscopy. FINDINGS: No laryngeal | | | penetration or aspiration. MODIFIED BARIUM SWALLOW: Please see | | | speech pathology report for full details. ESOPHAGRAM: | | | Esophagus: Unremarkable. Esophageal motility: Mild delayed | | | transit noted with solid materials. Gastroesophageal reflux: Small | | | amount noted with Valsalva into the distal esophagus. Barium pill | | | tablet: Passes to stomach without obstruction. Bones and soft | | | tissues: Visualized portions are unremarkable. IMPRESSION: | | | Mild delayed transit of solid materials within the upper to mid | | | esophagus without evidence of stricture, which may relate to some | | | degree of underlying dysmotility. Please also see speech | | | pathologist report. I have personally reviewed the images | | | and, if necessary, edited the report. I agree with the report as now | | | presented. | | + + + + + | Procedure Note | + + | Service Account, MissingLINK In Interface - 07/29/2016 3:56 PM PDT EXAM: Modified | | barium swallow and esophagramHISTORY: Dysphasia for solids.COMPARISON: No relevant | | priors.TECHNIQUE: 1. Fluoroscopy assistance provided to speech pathology for performance | | of modified barium swallow. Fluoroscopy time: 194 seconds2. Esophagram using thin and | | thick barium and effervescent granules. Fluoroscopy time:118 seconds Actual time was | | less due to use of pulsed fluoroscopy.FINDINGS: No laryngeal penetration or | | aspiration.MODIFIED BARIUM SWALLOW:Please see speech pathology report for full | | details.ESOPHAGRAM:Esophagus: Unremarkable.Esophageal motility: Mild delayed transit | | noted with solid materials.Gastroesophageal reflux: Small amount noted with Valsalva | | into the distal esophagus.Barium pill tablet: Passes to stomach without | | obstruction.Bones and soft tissues: Visualized portions are unremarkable.IMPRESSION: | | Mild delayed transit of solid materials within the upper to mid esophagus without | | evidence of stricture, which may relate to some degree of underlying dysmotility.Please | | also see speech pathologist report.I have personally reviewed the images and, if | | necessary, edited the report. I agree with the report as now presented. | |Please see speech pathology report for full details. | | | | | |ESOPHAGRAM: | |Esophagus: Unremarkable. | |Esophageal motility: Mild delayed transit noted with solid materials. | |Gastroesophageal reflux: Small amount noted with Valsalva into the distal esophagus. | |Barium pill tablet: Passes to stomach without obstruction. | | | |Bones and soft tissues: Visualized portions are unremarkable. | | | |IMPRESSION: | | | |Mild delayed transit of solid materials within the upper to mid esophagus without evidence of stricture, which may relate to some degree of underlying dysmotility. | | | |Please also see speech pathologist report. | | | | | | | |I have personally reviewed the images and, if necessary, edited the report. I agree with t he report as now presented. | + + + +---------+ + + | Performing | Address | City/State/Zipcode | Phone Number | | Organization | | | | + +---------+ + + | [facility] | | | | | [facility] | | | | + +---------+ + + documented in this encounter Visit Diagnoses + + | Diagnosis | + + | Chronic cough - Primary Cough | + + | Dysphagia, unspecified type | + + | Laryngeal hyperfunction Other diseases of larynx | + + | Muscle tension dysphonia Dysphonia | + + documented in this encounter
--- OUTSIDE RECORDS SUMMARY | ~2019-03-13 | XMS | Encounter Summary ---
Demographics + + + | Address | [address] | | | [place] [address] | + + + | Home Phone [...] + + + | Author | [facility] | + + + | Organization | [facility] | + [...] Team Providers + +------+ + | Care Set Up Mechanic Heading Machines Name | Role | Phone | + [...] Le | | | | | at [facility] [address] | [address] [place], | | | | | [place], | [place] [address] | | | | | [place] [address] | [phone] | | | | | [phone] | | | +--------+ + + + [...]
--- OUTSIDE RECORDS SUMMARY | ~2019-03-13 | XMS | Encounter Summary ---
Demographics + + + | Address | [address] | | | [place] [address] | + + + | Home Phone | | + + + | Preferred Language | Unknown | + + + | Marital Status | | + + + | Orthodoxy Affiliation | 1041 | + + + | Race | Unknown | + + + | Ethnic Group | Unknown | + + + Author + + + | Author | [facility] | | | and [place] | + + + | Organization | [facility] | [...] Providers + +------+ + | Care Service Girl Name | Role | Phone | + +------+ + PCP | Unavailable | + +------+ + Encounter Details +--------+ + + + + | Date | Type | Department | Care Team | Description | +--------+ + + + + | 11/13/ | Hospital | [facility] | Wilder Mosquera MD | | | 1994 | Encounter | MED CTR XRAY [address] | [address] [place], [place] | | | | | [place] | [address] [place], [place] | | | | | [place] [address] | [address] | | | | | [phone] | | | +--------+ + + + [...] | | | | | [place] [address] | | | | | | [phone] | | | | | | | | +--------+---------+ + + + documented as of this encounter Visit Diagnoses Not on filedocumented in this encounter"
--- OUTSIDE RECORDS SUMMARY | ~2019-03-13 | XMS | Encounter Summary ---
Demographics + + + | Address | [address] | | | [place] [address] | + + + | Home Phone | | + + + | Preferred Language | Unknown | + + + | Marital Status | | + + + | Taoism Affiliation | 1041 | + + + | Race | Unknown | + + + | Ethnic Group | Unknown | + + + Author + + + | Author | [facility] | | | and [place] | + + + | Organization | [facility] [...] Team Providers + +------+ + | Care Materials Scientist Name | Role | Phone | + +------+ + | Jesse Chand | PCP | | + +------+ + Encounter Details +--------+ + + + + | Date | Type | Department | Care Team | Description | +--------+ + + + + | 01/07/ | Hospital | [facility] | Moe Paiz | Chronic cough; | | 2016 | Encounter | [facility] | MD Moira [address] | Gastroesophageal | | | | INTRA OP [address] | [address] | reflux disease, | | | | [address]VD [place], [place] | [place] [address] | esophagitis presence | | | | [address] | [phone] | not specified; | | | | [phone] | | Colon cancer | | | [...] 01/08/161119 Date of Service: 01/08/161119 Status: Signed Nocturnist Physician: Moe Paiz MD (Physician) [facility] Service: Gastroenterology Brief Post-op Discharge Note [...] DR | | | | | | [place] [address] | | | | | | [phone] | | | | | | | [...] preparation was | | | performed by [facility] | | | [place] [address] (Glass Curvature Gauger: Bernardo Montiel M.D.; MARISSA#: [id number]). Diagnostician: Bernardo Montiel | Mame | Pathologist [...]
--- OUTSIDE RECORDS SUMMARY | ~2019-03-13 | XMS | Encounter Summary ---
Demographics + + + | Address | [address] | | | [place] [address] | + + + | Home Phone | | + + + | Preferred Language | Unknown | + + + | Marital Status | | + + + | Moravian Affiliation | CAT | + + + [...] Team Providers + +------+ + | Care Revenue Accounting Manager Name | Role | Phone | [...]
--- OUTSIDE RECORDS SUMMARY | ~2019-03-13 | XMS | Encounter Summary ---
Demographics + + + | Address | [address] | | | [place] [address] | + + + | Home Phone [...] Author | [facility] | | | and [place] | + + + | Organization | [facility] | | | and [...] Team Providers + +------+ + | Care Business Management Professor Name | Role | Phone | + +------+ + | Garcia Valle MD | PCP | | + +------+ + Encounter Details +--------+ + + + + | Date | Type | Department | Care Team | Description | +--------+ + + + + | 06/18/ | Orders Only | [facility] | [place], | | | 2015 | | [address] | [place], | | | | | [place] | [address] | | | | | [address] | [place], | | | | | [phone] | [place] [address] | | | | | | [phone] | | | | | | | [...] DR | | | | | | [place] [address] | | | | | | [phone] | | | | | | | | +--------+---------+ + + + documented as of this encounter Procedures + +--------+ + + + | Procedure Name | Priori | Date/Time | Associated Diagnosis | Comments | | | ty | | | | + +--------+ + + + | ALLERGEN ASPERGILLUS | Routin | 06/19/2015 | | Results for this | | FUMAGATUS IGE | e | 3:17 PM | | procedure are in the | | | | PST | | results section. | + +--------+ + + + | IMMUNOGLOBULIN E | Routin | 06/19/2015 | | Results for this | | | e | 3:17 PM | | procedure are in the | | | | PST | | results section. | + +--------+ + + + documented in this encounter Results Allergen Aspergillus Fumagatus IgE (06/19/2015 3:17 PM PST) + + + + + + | Component | Value | Ref Range | Performed | Pathologist | | | | | At | Signature | + + + + + + | Aspergillus | <0.10Comment: CLASS 0 | | EXTERNAL | | | fumigatus, | BELOW DETECTIONTesting | | LAB | | | IgG | performed at [facility], [address] | | | | | | [address] [facility] [place] | | | | | | [place] [address] | | | | + + + + + + + + | Specimen | + + | Blood specimen | | (specimen) | + + + +---------+ + + | Performing | Address | City/State/Zipcode | Phone Number | | Organization | | | | + +---------+ + + | EXTERNAL LAB | | | | + +---------+ + + Immunoglobulin E (06/19/2015 3:17 PM PST) + + + + + + | Component | Value | Ref Range | Performed | Pathologist | | | | | At | Signature | + + + + + + | Immunoglobu | 15.8Comment: Testing | 0.0 - 158.0 | EXTERNAL | | | jose miguel IgE | performed at [facility], [address] | | LAB | | | | [address] [place] | | | | | | [place] [address] | | | | + + + [...]
--- OUTSIDE RECORDS SUMMARY | ~2019-03-13 | XMS | Encounter Summary ---
Demographics + + + | Address | [address] | | | [place] [address] | + + + | Home Phone | | + + + | Preferred Language | Unknown | + + + | Marital Status | | + + + | Yarsanism Affiliation | CAT | + + + | Race | White | + + + | Ethnic Group | Not or | + + + Author + + + | Author | [facility] | + + + | Organization | [facility] | + + + | Address | Unknown | + + + | Phone | Unavailable | + + + Support + + +---------+ + | Name | Relationship | Address | Phone | + + +---------+ + | Charlene Rouse | ECON | Unknown | | + + +---------+ + Care Team Providers + +------+ + | Care Glass Installer Technician Name | Role | Phone | [...] PA-C | | | | | at [facility] [address] | [address] | | | | | [address] [place], | [place], [place] | | | | | [place] [address] | [address] | | | | | [phone] | [phone] | | | | | | | [...]
--- OUTSIDE RECORDS SUMMARY | ~2019-03-13 | XMS | Encounter Summary ---
Demographics + + + | Address | [address] | | | [place] [address] | + + + | Home Phone | | + + + | Preferred Language | Unknown | + + + | Marital Status | | + + + | Yarsani Affiliation | CAT | + + + | Race | White | + + + | Ethnic Group | Not or | + + + Author + + + | Author | [facility] | + + + | Organization | [facility] | + + + | Address | Unknown | + + + | Phone | Unavailable | + + + Support + + +---------+ + | Name | Relationship | Address | Phone | + + +---------+ + | Charlene Rouse | ECON | Unknown | | + + +---------+ + Care Team Providers + +------+ + | Care Ballast Cleaning Machine Operator Name | Role | Phone [...] Gynecology | | Epic Dept | [facility] [address] | | | | | | | [address] | | | | | | | [address] | | | | | | | [facility] | | | | | | | Pavilion | | | | | | | [place], [place] | | | | | | | [address] | | | | | | | Phone: | | | | | | | [phone] | | | | | | | Fax: | | | | | | | [phone] | +--------+--------+ + + + + Encounter Details +--------+---------+ + + + | Date | Type | Department | Care Team | Description | +--------+---------+ + + + | 08/29/ | Office [facility] | Wesley Terry, | Myalgia; Frequent | | 2007 | Visit | [facility] | [address] | Bowel Movements | | | | Pav[address] | [address] | | | | | [address] | [place], [place] | | | | | [facility] | [address] | | | | | [place], [place] | [phone] | | | | | [address] | | | | | | [phone] | | | +--------+---------+ + + + [...] questionnaire found in the scanned documents in [employer]. They have also been entered into the [employer] database. PHYSICAL EXAM HEIGHT: 5ft 1ins. WEIGHT 132.5pounds BLOOD PRESSURE 167/93 BMI [id number] GENERAL: Healthy appearing, no acute distress NECK: [...] | + + +--------+ + + | [place] | Procedures | Routin | | Ordered: [...] | + + + + + | [facility] | [address] | [place], [place] | | | [facility] | [address] | [address] | | | TESTS | | | | + + + + + | [facility] | [address] | [place], [place] | | | TESTS | [facility] | [address] | | + + + + + documented in this encounter Visit Diagnoses + + | Diagnosis | + + | Myalgia Mylagia and myositis, unspecified | + + | Frequent bowel movements Other symptoms involving digestive system | + + documented in this encounter
--- OUTSIDE RECORDS SUMMARY | ~2019-03-13 | XMS | Encounter Summary ---
Demographics + + + | Address | [address] | | | [place] [address] | + + + | Home Phone | | + + + | Preferred Language | Unknown | + + + | Marital Status | | + + + | Hindu Affiliation | CAT | + + + | Race | White | + + + | Ethnic Group | Not or | + + + Author + + + | Author | [facility] | + + + | Organization | [facility] | + + + | Address | Unknown | + + + | Phone | Unavailable | + + + Support + + +---------+ + | Name | Relationship | Address | Phone | + + +---------+ + | Charlene Rouse | ECON | Unknown | | + + +---------+ + Care Team Providers + +------+ + | Care Risk Manager Name | Role | Phone | [...] Le | | | | | at [facility] [address] | [address] [place], | | | | | [address], | [place] [address] | | | | | [place] [address] | [phone] | | | | | [phone] | | | +--------+ + + + [...]
--- OUTSIDE RECORDS SUMMARY | ~2019-03-13 | XMS | Encounter Summary ---
Demographics + + + | Address | [address] | | | [place] [address] | + + + | Home Phone | | + + + | Preferred Language | Unknown | + + + | Marital Status | | + + + | Mormonism Affiliation | 1041 | + + + | Race | Unknown | + + + | Ethnic Group | Unknown | + + + Author + + + | Author | [facility] | | | and [place] | + + + | Organization | [facility] | | | [...] Team Providers + +------+ + | Care Mapping Supervisor Name | Role | Phone | + +------+ + PCP | Unavailable | + +------+ + Encounter Details +--------+ + + + + | Date | Type | Department | Care Team | Description | +--------+ + + + + | 04/04/ | Hospital | [facility] | Wilder Mosquera MD | | | 1998 | Encounter | MED CTR GENERIC OP | [address], [place] | | | | | CONV DEPT [address] | [address] [place], [place] | | | | | [place], | [address] | | | | | [place] [address] | | | | | | [phone] | | | +--------+ + + + [...] | | | | | [place] [address] | | | | | | [phone] | | | | | | | | +--------+---------+ + + + documented as of this encounter Visit Diagnoses Not on filedocumented in this encounter"
--- OUTSIDE RECORDS SUMMARY | ~2019-03-13 | XMS | Encounter Summary ---
Demographics + + + | Address | [address] | | | [place] [address] | + + + | Home Phone | | + + + | Preferred Language | Unknown | + + + | Marital Status | | + + + | Moravian Affiliation | CAT | + + + | Race | White | + + + | Ethnic Group | Not or | + + + Author + + + | Author | [facility] [employer] [facility] | + + + | Organization | [facility] | + + + | Address | Unknown | + + + | Phone | Unavailable | + + + Support + + +---------+ + | Name | Relationship | Address | Phone | + + +---------+ + | Charlene Rouse | ECON | Unknown | | + + +---------+ + Care Team Providers + +------+ + | Care Bond Clerk Name | Role | Phone | [...] Therapy | Dysphagia, | [address] | [address] | | | | | unspecified | [facility] | [address] | | | | | type | [address] | [address] | | | | | Procedures | Ave | Mailcode: | | | | | CONSULT TO | [place], [place] | [address] | | | | | ENT SPEECH | [address] | Physician's | | | | | THERAPY | Phone: | [address] | | | | | | [phone] | [place], [place] | | | | | | Fax: | [address] | | | | | | [phone] | Phone: | | | | | | | [phone] | | | | | | | Fax: | | | | | | | [phone] | +--------+--------+ + + + + Reason [...] Ave | | | | | | [place], | [place], [place] | | | | | | [place] [address] | [address] | | | | | | Phone: | Phone: | | | | | | [phone] | [phone] | | | | | | Fax: | Fax: | | | | | | [phone] | [phone] | + +--------+ + + + + [...] Dysphagia, | | | | [address] [place], | [place], [place] | unspecified type; | | | | [place] [address] | [address] | Laryngeal | | | | [phone] | [phone] | hyperfunction; | | | | | [...] Josefina Jeffers MA - 07/08/2016 1:00 PM BRITTENYThshreyas you for choosing [facility] Department of Otolaryngology for your health care needs. If you need to speak to an ENT physician after normal business hours, please call [phone] and ask to have the ENT phys ician bronc breaker paged. 1. Start prednisone 30mg (3 tablets) [...] instruments: Description #1: laryngoscope Serial ID #1: [id number] amta Zambrano PA-C - 07/08/2016 1:00 PM PDTFormatting of this note might be different from the origina l. PATIENT: Jocelyne Montez MR#: [id number] : 1950 REQUESTING PROVIDER: Jesse Chand MD [facility] [address] [place] [address] PRIMARY CARE PROVIDER: Jesse Chand MD CLINIC: [facility] for Voice and Swallowing CHIEF COMPLAINT: Chronic cough HPI: Jocelyne Montez is a 66 y.o. female who is referred to the [facility] for Vo ice and Swallowing for evaluation of cough by her clinical fellow Dr. Golden. She reports co [facility] [place] for the past 4 years. Around the onset of her cough she reports pain in her throat which prompted her to seek evaluation with an cellular equipment repairer in the [facility] area, she is unsur e of the [...] so severe she is not going to yarsanism. She has cough paroxy sms. She has [...] CT sinus. She was evaluated by Dr. Golden with pulmonary function testing 07/16/15. At baseline, [...] ed. She is unable to sing in yarsanism anymore. Her pitch is lower and she [...] is retired. 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 Her vocal demands are primarily those of [...] hyperfunction which is most notable in the anterior-associate professor of pathology ior and lateral dimensions. There is not [...] worsening of her symptoms. Maricel Zambrano PA-C [facility] Department of Otolaryngology and Head and Neck Surgery documented i n this encounter Plan of Treatment Not on filedocumented as of this encounter Procedures + +--------+ + + + | Procedure Name | Priori | Date/Time | Associated Diagnosis | Comments | | | ty | | | | + +--------+ + + + | [place] | Routin | 07/14/2016 | Chronic cough [...] Note | + + | Service Account, [employer] In Interface - 07/29/2016 3:56 PM PDT [...]
--- OUTSIDE RECORDS SUMMARY | ~2019-03-13 | XMS | Encounter Summary ---
Demographics + + + | Address | [address] | | | [place] [address] | + + + | Home Phone | | + + + | Preferred Language | Unknown | + + + | Marital Status | | + + + | Muslim Affiliation | 1041 | + + + | Race | Unknown | + + + | Ethnic Group | Unknown | + + + Author + + + | Author | [facility] | | | and [place] | + + + | Organization | [facility] | | | and [place] [...] Team Providers + +------+ + | Care Yard Warehouse Worker Name | Role | Phone | [...] [address] | | | | | [address] | [place], | | | | | [phone] | [place] [address] | | | | | | [phone] | | | | | | | [...] DR | | | | | | [place] [address] | | | | | | [phone] | | | | | | | [...] | | | IgG | performed at [facility], [address] | | | | | | [address] [facility] [place] | | | | | | [place] [address] | | | | + + + [...] | jose miguel IgE | performed at [facility], [address] | | LAB | | | | [address] [place] | | | | | | [place] [address] | | | | + + + [...]
--- OUTSIDE RECORDS SUMMARY | ~2019-03-13 | XMS | Encounter Summary ---
Demographics + + + | Address | [address] | | | [place] [address] | + + + | Home Phone [...] [facility] | | | and [place] | + + + | Organization | [facility] | | | and [place] [...] Team Providers + +------+ + | Care Marshmallow Machine Operator Name | Role | Phone | + +------+ + PCP | Unavailable | + +------+ + Encounter Details +--------+ + + + + | Date | Type | Department | Care Team | Description | +--------+ + + + + | 06/29/ | Hospital | [facility] | Wilder Mosquera MD | | | 2000 | Encounter | MED CTR XRAY [address] | [address], [place] | | | | | [place] | [address] [place], [place] | | | | | [place] [address] | [address] | | | | | [phone] | | | +--------+ + + + [...] | | | | | [place] [address] | | | | | | [phone] | | | | | | | | +--------+---------+ + + + documented as of this encounter Visit Diagnoses Not on filedocumented in this encounter"
--- OUTSIDE RECORDS SUMMARY | ~2019-03-13 | XMS | Encounter Summary ---
Demographics + + + | Address | [address] | | | [place] [address] | + + + | Home Phone [...] | Author | [facility] | | | and [place] | + + + | Organization | [facility] [...] Team Providers + +------+ + | Care Bacteriology Professor Name | Role | Phone | [...] | 2018 | | MED CTR | [facility] | | | | | [facility] | | | | | | [address] [place] | | | | | | [place] [address] | | | | | | [phone] | | | +--------+ + + + [...] DR | | | | | | [place] [address] | | | | | | [phone] | | | | | | | | +--------+---------+ + + + documented as of this encounter Visit Diagnoses Not on filedocumented in this encounter"
--- OUTSIDE RECORDS SUMMARY | ~2019-03-13 | XMS | Encounter Summary ---
Demographics + + + | Address | [address] | | | [place] [address] | + + + | Home Phone | | + + + | Preferred Language | Unknown | + + + | Marital Status | | + + + | Restoration Affiliation | 1041 | + + + | Race | Unknown | + + + | Ethnic Group | Unknown | + + + Author + + + | Author | [facility] | | | and [place] | + + + | Organization | [facility] | [...] Team Providers + +------+ + | Care Assembler Musical Instruments Name | Role | Phone | + +------+ + PCP | Unavailable | + +------+ + Encounter Details +--------+ + + + + | Date | Type | Department | Care Team | Description | +--------+ + + + + | 11/26/ | Hospital | [facility] | Wilder Mosquera MD | | | 1991 | Encounter | MED CTR GENERIC OP | [address], [place] | | | | | CONV DEPT [address] | [address] [place], [place] | | | | | [place], | [address] | | | | | [place] [address] | | | | | | [phone] | | | +--------+ + + + [...] | | | | | [place] [address] | | | | | | [phone] | | | | | | | | +--------+---------+ + + + documented as of this encounter Visit Diagnoses Not on filedocumented in this encounter"
--- OUTSIDE RECORDS SUMMARY | ~2019-03-13 | XMS | Encounter Summary ---
Demographics + + + | Address | [address] | | | [place] [address] | + + + | Home Phone | | + + + | Preferred Language | Unknown | + + + | Marital Status | | + + + | Pentecostal Affiliation | 1041 | + + + | Race | Unknown | + + + | Ethnic Group | Unknown | + + + Author + + + | Author | [facility] | | | and [place] | + + + | Organization | [facility] | | | and [place] | [...] Team Providers + +------+ + | Care Budget Specialist Name | Role | Phone | + +------+ + PCP | Unavailable | + +------+ + Encounter Details +--------+ + + + + | Date | Type | Department | Care Team | Description | +--------+ + + + + | 09/29/ | Hospital [facility] | Talon Torres, | | | 1993 - | Encounter | MED CTR GENERIC IP | MD [address] [facility] | | | | | CONV DEPT [address] | [place], [place] | | | 10/04/ | | [place], | [address] | | | 1991 | | [place] [address] | | | | | | [phone] | | | +--------+ + + + [...] | | | | | [place] [address] | | | | | | [phone] | | | | | | | | +--------+---------+ + + + documented as of this encounter Visit Diagnoses Not on filedocumented in this encounter"
--- OUTSIDE RECORDS SUMMARY | ~2019-03-13 | XMS | Encounter Summary ---
Demographics + + + | Address | [address] | | | [place] [address] | + + + | Home Phone | | + + + | Preferred Language | Unknown | + + + | Marital Status | | + + + | Hoahaoism Affiliation | 1041 | + + + | Race | Unknown | + + + | Ethnic Group | Unknown | + + + Author + + + | Author | [facility] | | | and [place] | + + + | Organization | [facility] | | | [...] Team Providers + +------+ + | Care Laboratory Animal Facility Supervisor Name | Role | Phone | + +------+ + PCP | Unavailable | + +------+ + Encounter Details +--------+ + + + + | Date | Type | Department | Care Team | Description | +--------+ + + + + | 07/18/ | Hospital | C GENERIC OP | Umberto Joseph, | Other Specified | | 2009 - | Encounter | CONVERSION DEP 888 | MD [address] | Rehabilitation | | | | [address] | [facility] [address] | Procedure | | 08/16/ | | [place], [place] | [place], [place] | | | 2009 | | [address] | [address] | | | | | [phone] | [phone] | | | | | | | [...] DR | | | | | | [place] [address] | | | | | | [phone] | | | | | | | | +--------+---------+ + + + documented as of this encounter Visit Diagnoses + + | Diagnosis | + + | Other specified rehabilitation procedure(V57.89) Other specified rehabilitation | | procedure | + + documented in this encounter"
--- OUTSIDE RECORDS SUMMARY | ~2019-03-13 | XMS | Encounter Summary ---
Demographics + + + | Address | [address] | | | [place] [address] | + + + | Home Phone | | + + + | Preferred Language | Unknown | + + + | Marital Status | | + + + | Nondenominational Affiliation | 1041 | + + + | Race | Unknown | + + + | Ethnic Group | Unknown | + + + Author + + + | Author | [facility] | | | and [place] | + + + | Organization | [facility] | | | and [place] | [...] Team Providers + +------+ + | Care Control Systems Designer Name | Role | Phone | [...] Thoracic or | [place], | [address] | | | | | lumbosacral | Flakito Peter MD | [place], | | | | | neuritis or | [address] | [place] | | | | | | [place] | [address] | | | | | radiculitis, | [place] | Phone: | | | | | unspecified | [address] | [phone] | | | | | Procedures | Phone: | Fax: | | | | | HI INJECT | [phone] | [phone] | | | | | ANES/STEROID | Fax: | | | | | | FORAMEN | [phone] | | | | | | LUMBAR/SACRA | | | | | | | L W IMG | | | | | | | GUIDE ,1 | | | | | | | LEVEL HI | | | | | | | TRIAMCINOLON | | | | | | | E ACET INJ | | | | | | | NOS, 10 MG | | | | | | | Left L5-S1 | | | | | | | TFESI-Referr | | | | | | | al from [place]annie | | | | | | | West | | | +--------+--------+ + + + + Encounter Details +--------+ + + + + | Date | Type | Department | Care Team | Description | +--------+ + + + + | 08/27/ | [facility] | [facility] | Flakito Nicholson | Lumbar radiculopathy | | 2014 | Encounter | MED CTR XRAY [address] | T, [address] | | | | | [place] | [place], [place] | | | | | [place] [address] | [address] | | | | | [phone] | | | | | | | Video Rental Clerk, [facility] | | +--------+ + + + + [...] + +---------+ + + | olmesartan | 2 - 1 tablet by | | 0 [...] DR | | | | | | [place] [address] | | | | | | [phone] | | | | | | | [...] radiculopathy ICD-9 Code 724.4 Jocelyne Montez | [facility] | | presents to the fluoroscopy suite for a fluoroscopically-guided [facility] | | L5-S1 transforaminal epidural steroid injection [...] + + | Performing | Address | City/State/[facility] | Phone Number | | Organization | | | | + + + + + | [address] | [address] | [place] | [phone] | | [facility] | | [address] | | | - IMAGING | | [...] | | | | | Other, ONCE, Wed08/27/14 at 1345, | | PM PDT | [...] | | | | | INTRATHECAL, ONCE, Wed08/27/14 at | | PM PDT | | | | | 1345, For 1 dose | | | | | | + +-------+ +-------+---+---+ +---+---+ | | | +---+---+ + +-------+ +------+---+ + | lidocaine 1% injection 1 mL 1 | Given | 05/11/20 | 1 mL | | Other | | mL, Intradermal, ONCE, Mon | | 15 1:30 | | | [...]
--- OUTSIDE RECORDS SUMMARY | ~2019-03-13 | XMS | Encounter Summary ---
Demographics + + + | Address | [address] | | | [place] [address] | + + + | Home Phone | | + + + | Preferred Language | Unknown | + + + | Marital Status | | + + + | Methodist Affiliation | CAT | + + + | Race | White | + + + | Ethnic Group | Not or | + + + Author + + + | Author | [facility] [employer] [facility] | + + + | Organization | [facility] | + + + | Address | Unknown | + + + | Phone | Unavailable | + + + Support + + +---------+ + | Name | Relationship | Address | Phone | + + +---------+ + | Charlene Rouse | ECON | Unknown | | + + +---------+ + Care Team Providers + +------+ + | Care Machine Shop Repair Technician Name | Role | Phone [...] PA-C | | | | | at [facility] [address] | [address] | | | | | [place], | [place], [place] | | | | | [place] [address] | [address] | | | | | [phone] | [phone] | | | | | | | [...]
--- OUTSIDE RECORDS SUMMARY | ~2019-03-13 | XMS | Encounter Summary ---
Demographics + + + | Address | [address] | | | [place] [address] | + + + | Home Phone [...] + | Author | [facility] | | | and [place] | + + + | Organization | [facility] | | | and [...] Team Providers + +------+ + | Care Administrative Liaison Name | Role | Phone | + +------+ + PCP | Unavailable | + +------+ + Encounter Details +--------+ + + + + | Date | Type | Department | Care Team | Description | +--------+ + + + + | 04/07/ | Hospital | [facility] | Wilder Mosquera MD | | | 2006 | Encounter | MED CTR XRAY [address] | [address] [place] | | | | | [place] | [address] [place], [place] | | | | | [place] [address] | [address] | | | | | [phone] | | | +--------+ + + + [...] | | | | | [place] [address] | | | | | | [phone] | | | | | | | | +--------+---------+ + + + documented as of this encounter Visit Diagnoses Not on filedocumented in this encounter"
--- OUTSIDE RECORDS SUMMARY | ~2019-03-13 | XMS | Encounter Summary ---
Demographics + + + | Address | [address] | | | [place] [address] | + + + | Home Phone | | + + + | Preferred Language | Unknown | + + + | Marital Status | | + + + | Scientology Affiliation | CAT | + + + | Race | White | + + + | Ethnic Group | Not or | + + + Author + + + | Author | [facility] [employer] [facility] | + + + | Organization | [facility] | + + + | Address | Unknown | + + + | Phone | Unavailable | + + + Support + + +---------+ + | Name | Relationship | Address | Phone | + + +---------+ + | Charlene Rouse | ECON | Unknown | | + + +---------+ + Care Team Providers + +------+ + | Care Certified Master Locksmith Name | Role | Phone | + [...] | | | | at [facility] [address] | [address] | | | | | [place], | [place], [place] | | | | | [place] [address] | [address] | | | | | [phone] | [phone] | | | | | | | [...]
--- OUTSIDE RECORDS SUMMARY | ~2019-03-13 | XMS | Encounter Summary ---
Demographics + + + | Address | [address] | | | [place] [address] | + + + | Home Phone | | + + + | Preferred Language | Unknown | + + + | Marital Status | | + + + | Methodist Affiliation | CAT | + + + | Race | White | + + + | Ethnic Group | Not or | + + + Author + + + | Author | [facility] | + + + | Organization | [facility] | + + + | Address | Unknown | + + + | Phone | Unavailable | + + + Support + + +---------+ + | Name | Relationship | Address | Phone | + + +---------+ + | Charlene Rouse | ECON | Unknown | | + + +---------+ + Care Team Providers + +------+ + | Care Fitness Services Manager Name | Role | Phone | [...] Le | | | | | at [facility] [address] | [address] [place], | | | | | [place], | [place] [address] | | | | | [place] [address] | [phone] | | | | | [phone] | | | +--------+ + + + [...]
--- OUTSIDE RECORDS SUMMARY | ~2019-03-13 | XMS | Encounter Summary ---
Demographics + + + | Address | [address] | | | [place] [address] | + + + | Home Phone [...] Team Providers + +------+ + | Care Pharmacy Technologist Name | Role | Phone | [...]
--- OUTSIDE RECORDS SUMMARY | ~2019-03-13 | XMS | Encounter Summary ---
Demographics + + + | Address | [address] | | | [place] [address] | + + + | Home Phone | | + + + | Preferred Language | Unknown | + + + | Marital Status | | + + + | Bahai Affiliation | 1041 | + + + | Race | Unknown | + + + | Ethnic Group | Unknown | + + + Author + + + | Author | [facility] | | | and [place] | + + + | Organization | [facility] | | [...] + +------+ + | Care Director Of Corporate Communications Name | Role | Phone | + +------+ + PCP | Unavailable | + +------+ + Encounter Details +--------+ + + + + | Date | Type | Department | Care Team | Description | +--------+ + + + + | 06/05/ | Hospital | [facility] | Wilder Mosquera MD | | | 1996 | Encounter | MED CTR GENERIC OP | [address] [place], [place] | | | | | CONV DEPT [address] | [address] [place], [place] | | | | | [place], | [address] | | | | | [place] [address] | | | | | | [phone] | | | +--------+ + + + [...] | | | | | [place] [address] | | | | | | [phone] | | | | | | | | +--------+---------+ + + + documented as of this encounter Visit Diagnoses Not on filedocumented in this encounter"
--- OUTSIDE RECORDS SUMMARY | ~2019-03-13 | XMS | Encounter Summary ---
Demographics + + + | Address | [address] | | | [place] [address] | + + + | Home Phone | | + + + | Preferred Language | Unknown | + + + | Marital Status | | + + + | Zoroastrianism Affiliation | 1041 | + + + | Race | Unknown | + + + | Ethnic Group | Unknown | + + + Author + + + | Author | [facility] | | | and [place] | + + + | Organization | [facility] | | | and [place] [...] Team Providers + +------+ + | Care Reel Assembler Name | Role | Phone | + +------+ + PCP | Unavailable | + +------+ + Encounter Details +--------+ + + + + | Date | Type | Department | Care Team | Description | +--------+ + + + + | 11/13/ | Hospital | [facility] | Wilder Mosquera MD | | | 1994 | Encounter | MED CTR XRAY [address] | [address] [place], [place] | | | | | [place] | [address] [place], [place] | | | | | [place] [address] | [address] | | | | | [phone] | | | +--------+ + + + [...] | | | | | [place] [address] | | | | | | [phone] | | | | | | | | +--------+---------+ + + + documented as of this encounter Visit Diagnoses Not on filedocumented in this encounter"
--- OUTSIDE RECORDS SUMMARY | ~2019-03-13 | XMS | Encounter Summary ---
Demographics + + + | Address | [address] | | | [place] [address] | + + + | Home Phone | | + + + | Preferred Language | Unknown | + + + | Marital Status | | + + + | Denominational Affiliation | CAT | + + + | Race | White | + + + | Ethnic Group | Not or | + + + Author + + + | Author | [facility] [employer] [facility] | + + + | Organization | [facility] [employer] [facility] | + + + | Address | Unknown | + + + | Phone | Unavailable | + + + Support + + +---------+ + | Name | Relationship | Address | Phone | + + +---------+ + | Charlene Rouse | ECON | Unknown | | + + +---------+ + Care Team Providers + +------+ + | Care Sales Financial Analyst Name | Role | Phone | [...] | | | | | | | [place], [place] | | | | | | | [address] | | | | | | | Phone: | | | | | | | [phone] | | | | | | | Fax: | | | | | | | [phone] | +--------+--------+ + + + + Encounter Details +--------+---------+ + + + | Date | Type | Department | Care Team | Description | +--------+---------+ + + + | 08/29/ | [facility] | Wesley Terry, | Myalgia; Frequent | | 2007 | Visit | [facility] | [address] | Bowel Movements | | | | Pavilion [address] | [address] | | | | | [address] | [place], [place] | | | | | [facility] | [address] | | | | | [place], [place] | [phone] | | | | | [address] | | | | | | [phone] | | | +--------+---------+ + + + [...] questionnaire found in the scanned documents in [employer]. They have also been entered into the [employer] database. PHYSICAL EXAM HEIGHT: 5ft 1ins. WEIGHT 132.5pounds BLOOD PRESSURE 167/93 BMI [id number]/[id number] GENERAL: Healthy appearing, no acute distress NECK: [...] | + + +--------+ + + | [place] | Procedures | Routin | | Ordered: [...] [facility] | [address] | [place], [place] | | | [facility] CARE | [address] | [address] | | | TESTS | | | | + + + + + | [facility] | [address] | [place], [place] | | | TESTS | [facility] | [address] | | + + + + + documented in this encounter Visit Diagnoses + + | Diagnosis | + + | Myalgia Mylagia and myositis, unspecified | + + | Frequent bowel movements Other symptoms involving digestive system | + + documented in this encounter
--- OUTSIDE RECORDS SUMMARY | ~2019-03-13 | XMS | Encounter Summary ---
Demographics + + + | Address | [address] | | | [place] [address] | + + + | Home Phone | | + + + | Preferred Language | Unknown | + + + | Marital Status | | + + + | Adventist Affiliation | 1041 | + + + | Race | Unknown | + + + | Ethnic Group | Unknown | + + + Author + + + | Author | [facility] | | | and [place] | + + + | Organization | [facility] | | | and [...] Team Providers + +------+ + | Care Car Conditioner Name | Role | Phone | + [...] | | | | [address] | [facility] [address] | Procedure | | 08/16/ | | [place], [place] | [place], [place] | | | 2009 | | [address] | [address] | | | | | [phone] | [phone] | | | | | | | [...] DR | | | | | | [place] [address] | | | | | | [phone] | | | | | | | | +--------+---------+ + + + documented as of this encounter Visit Diagnoses + + | Diagnosis | + + | Other specified rehabilitation procedure(V57.89) Other specified rehabilitation | | procedure | + + documented in this encounter"
--- OUTSIDE RECORDS SUMMARY | ~2019-03-13 | XMS | Encounter Summary ---
Demographics + + + | Address | [address] | | | [place] [address] | + + + | Home Phone | | + + + | Preferred Language | Unknown | + + + | Marital Status | | + + + | Hindu Affiliation | 1041 | + + + | Race | Unknown | + + + | Ethnic Group | Unknown | + + + Author + + + | Author | [facility] | | | and [place] | + + + | Organization | [facility] [...] + +------+ + | Care Public Works Inspector Name | Role | Phone | + +------+ + PCP | Unavailable | + +------+ + Encounter Details +--------+ + + + + | Date | Type | Department | Care Team | Description | +--------+ + + + + | 04/23/ | Hospital | C GENERIC OP | Umberto Joseph, | Other Specified | | 2009 - | Encounter | CONVERSION DEP 888 | MD [address] | Rehabilitation | | | | [address] | [facility] [address] | Procedure | | 05/19/ | | [place], [place] | [place], [place] | | | 2009 | | [address] | [address] | | | | | [phone] | [phone] | | | | | | | [...] DR | | | | | | [place] [address] | | | | | | [phone] | | | | | | | | +--------+---------+ + + + documented as of this encounter Visit Diagnoses + + | Diagnosis | + + | Other specified rehabilitation procedure(V57.89) Other specified rehabilitation | | procedure | + + documented in this encounter"
--- OUTSIDE RECORDS SUMMARY | ~2019-03-13 | XMS | Encounter Summary ---
Demographics + + + | Address | [address] | | | [place] [address] | + + + | Home Phone [...] | Author | [facility] | | | and [place] | + + + | Organization | [facility] | | | and [...] Team Providers + +------+ + | Care Pulp Mill Operator Name | Role | Phone [...] | SR | | | | | [phone] | | | +--------+ + + + [...] DR | | | | | | [place] [address] | | | | | | [phone] | | | | | | | [...]
--- OUTSIDE RECORDS SUMMARY | ~2019-03-13 | XMS | Encounter Summary ---
Demographics + + + | Address | [address] | | | [place] [address] | + + + | Home Phone [...] + + | Author | [facility] | + + + | Organization | [facility] | + + + | Address | Unknown | + + + | Phone | Unavailable | + + + Support + + +---------+ + | Name | Relationship | Address | Phone | + + +---------+ + | Charlene Rouse | ECON | Unknown | | + + +---------+ + Care Team Providers + +------+ + | Care Web Developer Name | Role | Phone | [...] [id number] | | | | | | [place], [place] | | | | | | [address] | | | | | | [phone] | | | +--------+ + + + [...]
--- OUTSIDE RECORDS SUMMARY | ~2019-03-13 | XMS | Encounter Summary ---
Demographics + + + | Address | [address] | | | [place] [address] | + + + | Home Phone [...] | Author | [facility] | | | and [place] | + + + | Organization | [facility] [...] Team Providers + +------+ + | Care Driver Wheelchair Name | Role | Phone | + +------+ + PCP | Unavailable | + +------+ + Encounter Details +--------+ + + + + | Date | Type | Department | Care Team | Description | +--------+ + + + + | 05/28/ | Hospital | [facility] | Wilder Mosquera MD | | | 2000 | Encounter | MED CTR GENERIC OP | [address] [place] | | | | | CONV DEPT [address] | [address] [place], [place] | | | | | [place], | [address] | | | | | [place] [address] | | | | | | [phone] | | | +--------+ + + + [...] | | | | | [place] [address] | | | | | | [phone] | | | | | | | | +--------+---------+ + + + documented as of this encounter Visit Diagnoses Not on filedocumented in this encounter"
--- OUTSIDE RECORDS SUMMARY | ~2019-03-13 | XMS | Encounter Summary ---
Demographics + + + | Address | [address] | | | [place] [address] | + + + | Home Phone | | + + + | Preferred Language | Unknown | + + + | Marital Status | | + + + | Latter-Day Affiliation | CAT | + + + | Race | White | + + + | Ethnic Group | Not or | + + + Author + + + | Author | [facility] | + + + | Organization | [facility] [employer] [facility] | + + + | Address | Unknown | + + + | Phone | Unavailable | + + + Support + + +---------+ + | Name | Relationship | Address | Phone | + + +---------+ + | Charlene Rouse | ECON | Unknown | | + + +---------+ + Care Team Providers + +------+ + | Care Nursing Staffing Coordinator Name | Role | Phone | [...] PA-C | | | | | at [facility] [address] | [address] | | | | | [address], | [place], [place] | | | | | [place] [address] | [address] | | | | | [phone] | | | | | | | [...]
--- OUTSIDE RECORDS SUMMARY | ~2019-03-13 | XMS | Encounter Summary ---
Demographics + + + | Address | [address] | | | [place] [address] | + + + | Home Phone [...] Author | [facility] | | | and [place] | + + + | Organization | [facility] | | [...] Team Providers + +------+ + | Care Employee Relations Assistant Name | Role | Phone | + [...] | 05/19/ | Hospital | [facility] | Jon Carpio MD | Acute coronary | | 2019 - | Encounter | MED CTR ICU [address] | [address] | syndromes (HCC); | | | | [place], | [place] | Dyslipidemia; | | 05/20/ | | [place] [address] | [address] | Essential (primary) | | 2019 | | [phone] | | hypertension; | | | | | Eduinh, | Syncope, vasovagal; | | | | | MD Daiana [address] | Prinzmetal angina | | | | | [address] [place] | ([facility]) | | | | | [place] [address] | | | | | | [phone] | | | | | | | [...] Walker MD - 05/20/2018 1:50 PM PST [place] HOSPITALIST DISCHARGE SUMMARY Pt. Name/Age/: Anthony [...] passing out in the bathroom. Went to [facility] where workup re vealed troponin 0.082. EKG showed normal sinus rhythm. Transferred to [facility] for further cardiac evaluation. Seen by Dr Fonseca who recommended noninvasive testing. Of note, repeat [...] Medicine Why: Hospital follow up Contact information: [facility] [place] [address] Condition: stable Diet: general Less than 30 minutes were spent on discharge and coordination of post-hospital care. Electronically signed by: Suyapa Walker MD, 05/20/2018 13:50 [facility] documented in this enco unter Discharge Instructions [...] units at outside hospital on 05/19 @ 623) Infusion: Continue current infusion rate of 850 units/hr (Heparin infusion was initiated by outside hospital at 1,000 units/hour on 05/19 @ 626) Per dosing protocol 2. Discussed and coordinated [...] Infusion Protocol Electronically signed by: Gilbert Arroyo, PharmLian 05/19/2018 19:49 Mara Zayas, Mental Tester - 05/19/2018 11:51 AM PST HEPARIN MONITORING AND DOSING PER PHARMACY Anthony Montez is a 68 y.o. female admitted on 05/19/2018 8:18. Heparin infusion is orde red. Diagnosis: ACS Protocol: CARDIAC DOSE 0.2- 0.4 units/mL Maximums: bolus 7,000 units, infusion 1,400 unit/h r Initial assessment: Describe any recent anticoagulant use prior to heparin initiation: NONE If HEAD OF GLO[employer]NERSHIPS medlist shows Xa inhibitor oral agent or [...] Infusion Protocol Electronically signed by: Mara Arroyo, Mental Tester 05/19/2018 11:51 documented in this encounter Plan of Treatment +--------+---------+ + + + | Date | Type | Specialty | Care Team | Description | +--------+---------+ + + + | 04/04/ | Office | Cardiology | Homero Lizarraga, | | | 2018 | Visit | | MD [address] | | | | | | [place] [address] | | | | | | [phone] | | | | | | | [...] + + documented in this encounter Results [place] Nuclear Stress Test (Vasodilator) (05/20/2018 11:15 AM [...] | third generation TSH | uIU/mL | [facility] | | | | test. | | [...] [address] | [place] | [phone] | | [facility] | | [address] | | | - LABORATORY | | [...] + | [facility] | [address] | [place] | [phone] | | [facility] | | [address] | | | - LABORATORY | | [...] | | | Count | | | [facility] | | [...] | | | | WBC's | [facility] | | | | [...] ST. | [address] | [place] | [phone] | | [facility] | | [address] | | | - LABORATORY | | [...] | | | | | mg/dL | [facility] | | | | | | MEDICAL | | | | | | CENTER - | | | | | | LABORATORY | | + + + + + + | eGFR if not | >60Comment: GLOMERULAR | >=60 | [facility] | | | | FILTRATION | mL/min/1.73m2 | [facility] | | | HUNGARIAN | RATE,ESTIMATED | | MEDICAL | | | | mL/min/1.27v1Ptuj than | | CENTER - | | [...] | 8.7 | 8.3 - 10.5 | [facility] | | | | | mg/dL | [facility] | | | | | | MEDICAL | | | | | | CENTER - | | | | | | LABORATORY | | + + + + + + | Albumin | 3.8 | 3.2 - 5.0 g/dL | [facility] [...] + | [facility] | [address] | [place] | [phone] | | [facility] | | [address] | | | - LABORATORY | | | | + + + + + Heparin XA (05/19/2018 6:52 PM PST) + +-------+ + + + | Component | Value | Ref Range | Performed | Pathologist | | | | | At | Signature | + +-------+ + + + | Heparin, | 0.37 | IU/mL | [facility] | [...] Therapeutic range: 0.30 - 0.70 IU/mL | [facility] | | | [facility] | | | [facility]ICAL CENTER | | | - LABORATORY | + + + + + + + + | Performing | Address | City/State/Zipcode | Phone Number | | Organization | | | | + + + + + | [facility] | [address] | [place] | [phone] | | [facility] | | [address] | | | - LABORATORY | | [...] | | | | | | [employer] | | | | | [...] + + | Performing | Address | City/State/[facility] Cent[facility]ode | Phone Number | | Organization | | | | + + + + + | [facility] | [address] | [place] | [phone] | | [facility] | | [address] | | | - LABORATORY | | [...] | | | | | | n [place] | | | | | + +--------+ [...] 457 SYBIL | | | Patient Number [id number] Date of Study | | | 05/19/2018 Visit Number [id number] Accession | | | [id number] Referring Physician NATACHA Number | | | | | | SENTHILRAJ Date of 1950 Parking Enforcer | | | DARIUS HOLLOWAY Age 68 year(s) | | | Interpreting NATACHA | | | House Worker DAIANA | | | | | | LUCIA FONSECA MD | | | MARLENY HINES MD Gender | | | Female Nurse | | | Stress Healthcare Administration Internship Procedure Type of Study TTE procedure: ECHO [...] Diastolic: 0.88 cm EF | | | Ayrgvzzxi60% EF Calculated: 75% Miscellaneous Aorta Aortic Root: [...] Diastolic: 0.88 cm | | | EF Pbvbpclou53% | | | EF Calculated: 75% | | | | | | Miscellaneous | | | | | | Aorta | | | | | | Aortic Root: 2.81 cm | | | Ascending Aorta: 2.82 cm | | | | | + + + + + | Procedure Note | + + | Gabriel, Rad Results In - 06/02/2018 1:10 PM [facility] Transthoracic Echocardiography Report | | (TTE) Demographics Patient Name LISA CRUZ Room Number 457 | | SYBIL Patient Number [id number] Date of Study 05/19/2018 Visit Number | | [id number] Referring Physician NATACHA Number | | SENTHILRAJ Date of 1950 | | Parking Enforcer DARIUS HOLLOWAY Age 68 year(s) Interpreting | | NATACHA House Worker SENTHILRAJ | | LUCIA FONSECA MD | | [...] PW | | Diastolic: 0.88 cm EF Qlrrxzvbw07% EF Calculated: 75% Miscellaneous Aorta Aortic Root: [...] PW Diastolic: 0.88 cm | | EF Ffbxabldy48% | | EF Calculated: 75% | | [...] | | | | BRITTA BAKER MD ([id number]) | | | | | | on [...] | + +-------+ + + + | Heparin, | 0.72 | IU/mL | [facility] | | | Unfractiona | | | [facility] | | | [place] | | [...] 0.70 IU/mL | [facility] | | | [facility] | | | [facility] | | | - LABORATORY | + + + + + + + + | Performing | Address | City/State/Zipcode | Phone Number | | Organization | | | | + + + + + | [facility] | [address] | [place] | [phone] | | [facility] | | [address] | | | - LABORATORY | | [...] | | Anticoagulation Range: | | [facility] | | | | 2.0 - 3.0High [...] ST. | [address] | [place], [place] | [phone] | | [facility] | | [address] | | | - LABORATORY | | [...] [address] | [place] | [phone] | | [facility] | | [address] | | | - LABORATORY | | | | + + + + + CBC no Differential (05/19/2018 11:41 AM PST) + + + + + + | Component | Value | Ref Range | Performed | Pathologist | | | | | At | Signature | + + + + + + | WBC | 7.8 | 4.0 - 11.0 K/uL | [facility] [...] | | | | g/dL | [facility] | | | | [...] + | [facility] | [address] | [place] | [phone] | | [facility] | | [address] | | | - LABORATORY | | [...] | 0.82 | 0.60 - 1.30 | [facility] | [...] | | | FILTRATION | mL/min/1.73m2 | [facility] | | | HUNGARIAN | RATE,ESTIMATED | | MEDICAL | | | | mL/min/1.63b8Gitw than | | CENTER - | | [...] | 9.2 | 8.3 - 10.5 | [facility] | | | | | mg/dL | [facility] | | | | | | MEDICAL | | | | | | CENTER - | | | | | | LABORATORY | | + + + + + + | Albumin | 4.0 | 3.2 - 5.0 g/dL | [facility] | | | | | | ST. [...] | + + + + + | [facility] | [address] | [place] | [phone] | | [facility] | | [address] | | | - LABORATORY | | [...] | | | | | | [employer] | | | | | [...] | + + + + + | [facility] | [address] | [place] | [phone] | | [facility] | | [address] | | | - LABORATORY | | [...] Note | + + | Gabriel, Rad Results In - 05/19/2018 12:49 PM PST [...] | | chromogenic agar method | | [facility] | | | [...] [address] | [place] | [phone] | | [facility] | | [address] | | | - LABORATORY | | [...] | | | Starting Savanna 05/19/18 at 3 | | + +---+ | | | [...] | tablet 25 mg 25 mg, Oral, | | 19 8:47 | | | | | TIMES DAILY, First dose on Wed | | AM PST | | | [...] PST | | | | | Starting 05/20/18 at 0726, For | | | | [...] | | | | | dose on [facility] 05/19/18 at 1145 | | AM PST [...] Starting Savanna | | | 05/19/18 at 2022 | | + +---+ | | | [...] | | | | | | Starting 05/20/18 at 1114, For | | | | [...] | | dose on [place] 05/19/18 at 2100 | | PM PST | | | | + +-------+ +--------+---+---+ +---+---+ | | | +---+---+ documented in this encounter
--- OUTSIDE RECORDS SUMMARY | ~2019-03-13 | XMS | Encounter Summary ---
Demographics + + + | Address | [address] | | | [place] [address] | + + + | Home Phone | | + + + | Preferred Language | Unknown | + + + | Marital Status | | + + + | Christianity Affiliation | 1041 | + + + | Race | Unknown | + + + | Ethnic Group | Unknown | + + + Author + + + | Author | [facility] | | | and [place] | + + + | Organization | [facility] | | | and [place] [...] Providers + +------+ + | Care Machine Operator Picker Name | Role | Phone | [...] | | | | [address] | [facility] [address] | Procedure | | 05/19/ | | [place], [place] | [place], [place] | | | 2009 | | [address] | [address] | | | | | [phone] | [phone] | | | | | | | [...] DR | | | | | | [place] [address] | | | | | | [phone] | | | | | | | | +--------+---------+ + + + documented as of this encounter Visit Diagnoses + + | Diagnosis | + + | Other specified rehabilitation procedure(V57.89) Other specified rehabilitation | | procedure | + + documented in this encounter"
--- OUTSIDE RECORDS SUMMARY | ~2019-03-13 | XMS | Encounter Summary ---
Demographics + + + | Address | [address] | | | [place] [address] | + + + | Home Phone | | + + + | Preferred Language | Unknown | + + + | Marital Status | | + + + | Mandaeism Affiliation | 1041 | + + + | Race | Unknown | + + + | Ethnic Group | Unknown | + + + Author + + + | Author | [facility] | | | and [place] | + + + | Organization | [facility] | | | and [...] Team Providers + +------+ + | Care Sorting Cows Worker Name | Role | Phone | + +------+ + PCP | Unavailable | + +------+ + Encounter Details +--------+ + + + + | Date | Type | Department | Care Team | Description | +--------+ + + + + | 11/06/ | Hospital | [facility] | Wilder Mosquera MD | | | 1994 | Encounter | MED CTR GENERIC OP | [address], [place] | | | | | CONV DEPT [address] | [address] [place], [place] | | | | | [place], | [address] | | | | | [place] [address] | | | | | | [phone] | | | +--------+ + + + [...] | | | | | [place] [address] | | | | | | [phone] | | | | | | | | +--------+---------+ + + + documented as of this encounter Visit Diagnoses Not on filedocumented in this encounter"
--- OUTSIDE RECORDS SUMMARY | ~2019-03-13 | XMS | Encounter Summary ---
Demographics + + + | Address | [address] | | | [place] [address] | + + + | Home Phone | | + + + | Preferred Language | Unknown | + + + | Marital Status | | + + + | Rastafarian Affiliation | 1041 | + + + | Race | Unknown | + + + | Ethnic Group | Unknown | + + + Author + + + | Author | [facility] | | | and [place] | + + + | Organization | [facility] | | | and [...] Team Providers + +------+ + | Care Construction Stonemason Name | Role | Phone | + [...] Closed | | MRI | Diagnoses | Harry, | | | | | | Myelopathy | Jace | | | | | | ([facility]) | MYNOR Rojas | | | | | | Procedures | [address] | | | | | | MRI Cervical | [address] | | | | | | Spine wo | [address] | | | | | | Contrast | [place], | | | | | | | [place] [address] | | | | | | | Phone: | | | | | | | [phone] | | | | | | | Fax: | | | | | | | [phone] | | +--------+--------+ + + + + [...] Gerardo Stroud | | | | | Radiculatessie | Jesse | MD David [address] | | | | | syndrome | [address] | | | | | Low back | [address] | [place], [place] | | | | | pain Left | [address] | [address] | | | | | leg weakness | [place], | Phone: | | | | | Procedures | [place] | [phone] | | | | | MD OFFICE | [address] | Fax: | | | | | CONSULTATION | Phone: | [phone] | | | | | NEW/ESTAB | [phone] | | | | | | PATIENT 60 | Fax: | | | | | | MIN | [phone] | | +--------+--------+ + + + + Encounter Details +--------+---------+ + + + | Date | Type | Department | Care Team | Description | +--------+---------+ + + + | 07/26/ | Office | [facility] | Jace Mcdonald | DDD (degenerative | | 2015 | Visit | NEUROSURGERY [address] | MYNOR Rojas [address] | disc disease), | | | | [address] | [address] | lumbar (Primary Dx); | | | | [place], [place] | [place], [place] | Lumbar | | | | [address] | [address] | radiculopathy; | | | | [phone] | | Lumbar facet | | | [...] be different from jorge reza. SCOT Trevino [address] [facility] [address] [place] [address] FAX: NEUROSURGERY HISTORY AND PHYSICAL EXAMINATION CHIEF [...] has no apparent deficits with short or chcf memory. CRANIAL NERVES: Fundoscopic Exam: The optic [...] Intrinsics 5 5 Ulnar Intrinsics 5 5 Water Proofer Strength 5 5 Hip Flexion 5 5 [...] 04/04/ | Office | Cardiology | Homero Lizarraga Edgardo, | | | 2019 | Visit | | MD [address] | | | | | | [place] [address] | | | | | | [phone] | | | | | | | [...]
--- OUTSIDE RECORDS SUMMARY | ~2019-03-13 | XMS | Encounter Summary ---
Demographics + + + | Address | [address] | | | [place] [address] | + + + | Home Phone [...] Team Providers + +------+ + | Care Pin Inserter Name | Role | Phone | + [...]
--- OUTSIDE RECORDS SUMMARY | ~2019-03-13 | XMS | Encounter Summary ---
Demographics + + + | Address | [address] | | | [place] [address] | + + + | Home Phone | | + + + | Preferred Language | Unknown | + + + | Marital Status | | + + + | Taoism Affiliation | 1041 | + + + | Race | Unknown | + + + | Ethnic Group | Unknown | + + + Author + + + | Author | [facility] | | | and [place] | + + + | Organization | [facility] | | | and [...] Team Providers + +------+ + | Care Cosmetic Consultant Name | Role | Phone | [...] + + | 05/19/ | Hospital | [facility] | Jon Carpio MD | Acute coronary | | 2019 - | Encounter | MED CTR ICU [address] | [address] | syndromes (HCC); | | | | [place], | [place] | Dyslipidemia; | | 05/20/ | | [place] [address] | [address] | Essential (primary) | | 2019 | | [phone] | | hypertension; | | | | | Eduinh, | Syncope, vasovagal; | | | | | MD [address]iana [address] | Prinzmetal angina | | | | | [address] [place] | ([facility]) | | | | | [place] [address] | | | | | | [phone] | | | | | | | [...] Walker MD - 05/20/2018 1:50 PM PST [place], [place] HOSPITALIST DISCHARGE SUMMARY Pt. Name/Age/: Anthony [...] passing out in the bathroom. Went to [facility] where workup re vealed troponin [...] Medicine Why: Hospital follow up Contact information: [facility] [address] Condition: stable Diet: general Less than 30 minutes were spent on discharge and coordination of post-hospital care. Electronically signed by: Suyapa Walker MD, 05/20/2018 13:50 [facility] documented in this enco unter Discharge [...] Gilbert Arroyo, PharmLian 05/19/2018 19:49 Mara Zayas, Materials Manager - 05/19/2018 11:51 AM PST HEPARIN MONITORING AND DOSING PER PHARMACY Anthony Montez is a 68 y.o. female admitted on 05/19/2018 8:18. Heparin infusion is orde red. Diagnosis: ACS Protocol: CARDIAC DOSE 0.2- 0.4 units/mL Maximums: bolus 7,000 units, infusion 1,400 unit/h r Initial assessment: Describe any recent anticoagulant use prior to heparin initiation: NONE If CONVEYOR INSTALLER medlist shows Xa inhibitor oral agent or [...] Infusion Protocol Electronically signed by: Mara Arroyo, Materials Manager 05/19/2018 11:51 documented in this encounter Plan of Treatment +--------+---------+ + + + | Date | Type | Specialty | Care Team | Description | +--------+---------+ + + + | 04/04/ | Office | Cardiology | Homero Lizarraga, | | | 2018 | Visit | | MD [address] | | | | | | [place] [address] | | | | | | [phone] | | | | | | | [...] + + documented in this encounter Results [place] Nuclear Stress Test (Vasodilator) (05/20/2018 11:15 AM [...] | third generation TSH | uIU/mL | [facility] | | | | test. | [...] [address] | [place] | [phone] | | [facility] | | [address] | | | - LABORATORY | | [...] + | [facility] | [address] | [place] | [phone] | | [facility] | | [address] | | | - LABORATORY | | [...] ST. | [address] | [place] | [phone] | | [facility] | | [address] | | | - LABORATORY | | [...] | | | FILTRATION | mL/min/1.73m2 | [facility] | | | STATELESS | RATE,ESTIMATED | | MEDICAL | | | | mL/min/1.79z5Ybub than | | CENTER - | | [...] | | | | | mg/dL | [facility] | | | | | | [...] + | [facility] | [address] | [place] | [phone] | | [facility] | | [address] | | | - LABORATORY | | [...] Therapeutic range: 0.30 - 0.70 IU/mL | [facility] | | | [facility] | | | MEDICAL CENTER | | | - LABORATORY | + + + + + + + + | Performing | Address | City/State/Zipcode | Phone Number | | Organization | | | | + + + + + | [facility] | [address] | [place] | [phone] | | [facility] | | [address] | | | - LABORATORY | | [...] | | | | | | [employer] | | | | | [...] + + | Performing | Address | City/State/[facility] Cent[facility]ode | Phone Number | | Organization | | | | + + + + + | [facility] | [address] | [place] | [phone] | | [facility] | | [address] | | | - LABORATORY | | [...] | | | | | | n Barton | | | | | + +--------+ [...] 457 [address]BIL | | | Patient Number [id number] Date of Study | | | 05/19/2018 Visit Number [id number] Accession | | | [id number] Referring Physician NATACHA Number | | | | | | SENTHILRAJ Date of 1950 Ship Superintendent | | | DARIUS HOLLOWAY Age 68 year(s) | | | Interpreting NATACHA | | | Shipping Hand DAIANA | | | | | | LUCIA FONSECA MD | | | MARLENY HINES MD Gender | | | Female Nurse | | | Stress Police Pilot Procedure Type of Study TTE procedure: ECHO [...] Diastolic: 0.88 cm EF | | | Grfrzfvpw75% EF Calculated: 75% Miscellaneous Aorta Aortic Root: [...] Diastolic: 0.88 cm | | | EF Dqlzolofe42% | | | EF Calculated: 75% | | | | | | Miscellaneous | | | | | | Aorta | | | | | | Aortic Root: 2.81 cm | | | Ascending Aorta: 2.82 cm | | | | | + + + + + | Procedure Note | + + | Gabriel, Rad Results In - 06/02/2018 1:10 PM [facility] Transthoracic Echocardiography Report | | (TTE) Demographics Patient Name LISA CRUZ Room Number 457 | | SYBIL Patient Number [id number] Date of Study 05/19/2018 Visit Number | | [id number] Referring Physician NATACHA Number | | SENTHILRAJ Date of 1950 | | Ship Superintendent DARIUS HOLLOWAY Age 68 year(s) Interpreting | | NATACHA Shipping Hand SENTHILRAJ | | LUCIA FONSECA MD | [...] PW | | Diastolic: 0.88 cm EF Gwglecyqa90% EF Calculated: 75% Miscellaneous Aorta Aortic Root: [...] PW Diastolic: 0.88 cm | | EF Wtvhsvpwj20% | | EF Calculated: 75% | | [...] | | | | BRITTA BAKER MD ([id number]) | | | | | | on [...] 0.70 IU/mL | [facility] | | | [facility] | | | [facility] | | | - LABORATORY | + + + + + + + + | Performing | Address | City/State/Zipcode | Phone Number | | Organization | | | | + + + + + | [facility] | [address] | [place] | [phone] | | [facility] | | [address] | | | - LABORATORY | | [...] ST. | [address] | [place], [place] | [phone] | | [facility] | | [address] | | | - LABORATORY | | [...] [address] | [place] | [phone] | | [facility] | | [address] | | | - LABORATORY | | [...] + | [facility] | [address] | [place] | [phone] | | [facility] | | [address] | | | - LABORATORY | | [...] mL/min/1.73m2 | [facility] | | | STATELESS | RATE,ESTIMATED | | MEDICAL | | | | mL/min/1.32x6Hhsd than | | CENTER - | | [...] | 9.2 | 8.3 - 10.5 | [facility] | | | | | mg/dL | [...] [address] | [place] | [phone] | | [facility] | | [address] | | | - LABORATORY | | [...] | | | | | | [employer] | | | | | [...] [address] | [place] | [phone] | | [facility] | | [address] | | | - LABORATORY | | [...] [address] | [place] | [phone] | | [facility] | | [address] | | | - LABORATORY | | [...] | | | | | dose on [facility] 05/19/18 at 1145 | | AM PST [...]
--- OUTSIDE RECORDS SUMMARY | ~2019-03-13 | XMS | Encounter Summary ---
Demographics + + + | Address | [address] | | | [place] [address] | + + + | Home Phone | | + + + | Preferred Language | Unknown | + + + | Marital Status | | + + + | Voodoo Affiliation | 1041 | + + + | Race | Unknown | + + + | Ethnic Group | Unknown | + + + Author + + + | Author | [facility] | | | and [place] | + + + | Organization | [facility] | | | and [place] [...] Team Providers + +------+ + | Care Payroll And Benefits Specialist Name | Role | Phone | + +------+ + PCP | Unavailable | + +------+ + Encounter Details +--------+ + + + + | Date | Type | Department | Care Team | Description | +--------+ + + + + | 03/30/ | Hospital | [facility] | Wilder Mosquera MD | | | 1996 | Encounter | MED CTR GENERIC OP | [address], [place] | | | | | CONV DEPT [address] | [address] [place], [place] | | | | | [place], | [address] | | | | | [place] [address] | | | | | | [phone] | | | +--------+ + + + [...] | | | | | [place] [address] | | | | | | [phone] | | | | | | | | +--------+---------+ + + + documented as of this encounter Visit Diagnoses Not on filedocumented in this encounter"
--- OUTSIDE RECORDS SUMMARY | ~2019-03-13 | XMS | Encounter Summary ---
Demographics + + + | Address | [address] | | | [place] [address] | + + + | Home Phone | | + + + | Preferred Language | Unknown | + + + | Marital Status | | + + + | Evangelical Affiliation | CAT | + + + | Race | White | + + + | Ethnic Group | Not or | + + + Author + + + | Author | [facility] [employer] | + + + | Organization | [facility] | + [...] Providers + +------+ + | Care Director Child Abuse Therapy Name | Role | Phone | + [...] PA-C | | | | | at [facility] [address] | [address] | | | | | [address] [place], | [place], [place] | | | | | [place] [address] | [address] | | | | | [phone] | [phone] | | | | | | | [...]
--- OUTSIDE RECORDS SUMMARY | ~2019-03-13 | XMS | Encounter Summary ---
Demographics + + + | Address | [address] | | | [place] [address] | + + + | Home Phone [...] | Author | [facility] | | | and [place] | + + + | Organization | [facility] [...] Providers + +------+ + | Care Client Engagement Specialist Name | Role | Phone | [...] | hand | [address] | | | | n | numbness | [address] | [place], | | | | | Hand | [place], | [place] [address] | | | | | weakness | [place] [address] | Phone: | | | | | Procedures | Phone: | [phone] | | | | | DOS 12/05/14 | [phone] | Fax: | | | | | | Fax: | [phone] | | | | | | [phone] | | +--------+ + + + + [...] | (degenerativ | MYNOR Rojas | [address] | | | | n | e disc | [address] | [place], | | | | | disease), | [address] | [place] [address] | | | | | lumbar | [address] | Phone: | | | | | Lumbar | [place], | [phone] | | | | | radiculopath | [place] [address] | Fax: | | | | | y | Phone: | [phone] | | | | | Paresthesia | [phone] | | | | | | of both | Fax: | | | | | | hands | [phone] | | +--------+ + + + + + Encounter Details +--------+---------+ + + + | Date | Type | Department | Care Team | Description | +--------+---------+ + + + | 11/01/ | Office | [facility] [place] | Raul Golden, | Bilateral hand | | 2014 | Visit | PHYSIATRY [address] | [address] | numbness (Primary | | | | [address] [place], | [place], [place] | Dx); Hand weakness; | | | | [place] [address] | [address] | Midline low back | | | | [phone] | | pain with left-sided | | [...] MD - 11/01/2014 12:51 PM PDT [facility] PHY[facility] [address] [facility] [address] OFFICE NOTE RAUL GOLDEN JR, MD Patient: ANTHONY MONTEZ Admitting: MR #: [id number] LOC: PT TYPE: Adm Date: 11/01/2014 : [...] of obj ects and not having the nurse 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 She [...] Transcribed on 11/01/2014 20:20:13 by sb job# [id number] Confirmation #: [id number] cc: JESSE KIMBLE [place] PA-C [facility], Raul Gamble MD - 11/01/2014 11:38 AM PDTThis office note has been dictated. Job ID# [id number] signed by Raul Golden MD at 11/01/2014 12:51 PM PDTdocumented in this encounter Plan of Treatment +--------+---------+ + + + | Date | Type | Specialty | Care Team | Description | +--------+---------+ + + + | 04/04/ | Office | Cardiology | Homero Lizarraga, | | | 2018 | Visit | | MD [address] | | | | | | [place] [address] | | | | | | [phone] | | | | | | | [...]
--- OUTSIDE RECORDS SUMMARY | ~2019-03-13 | XMS | Encounter Summary ---
Demographics + + + | Address | [address] | | | [place] [address] | + + + | Home Phone | | + + + | Preferred Language | Unknown | + + + | Marital Status | | + + + | Samaritan Affiliation | CAT | + + + | Race | White | + + + | Ethnic Group | Not or | + + + Author + + + | Author | [facility] | + + + | Organization | [facility] | + + + | Address | Unknown | + + + | Phone | Unavailable | + + + Support + + +---------+ + | Name | Relationship | Address | Phone | + + +---------+ + | Charlene Rouse | ECON | Unknown | | + + +---------+ + Care Team Providers + +------+ + | Care Hemotherapist Name | Role | Phone | + [...] [address] | | | | | | [place], | [place], [place] | | | | | | [place] [address] | [address] | | | | | | Phone: | Phone: | | | | | | [phone] | [phone] | | | | | | Fax: | Fax: | | | | | | [phone] | [phone] | + +--------+ + + + + [...] dysfunction; | | | | [address] [place], | [place], [place] | Laryngeal | | | | [place] [address] | [address] | hyperfunction; | | | | [phone] | [phone] | Esophageal | | | | | [...] 07/29/2016 1:00 PM PDTThank you for choosing [facility] Department of Otolaryngology for your health care needs. If you need to speak to an ENT physician after normal business hours, please call [phone] and ask to have the ENT phys ician business continuity planner paged. 1. Start taking 4 puffs Qvar 40mcg twice daily - if your cough comes right back then we tommy l try gabapentin. If the higher dose seems to keep the cough suppressed, let me know to send a new inhaler ([email or web address]) 2. If the Qvar doesn't [...] instruments: Description #1: laryngoscope Serial ID #1: [id number] Mamta Silva PA-C - 07/29/2016 1:00 PM PDTFormatting of this note might be different from the enmanuela wagner. PATIENT NAME: Jocelyne Montez : 1950 REFERRING PROVIDER: LE LÓPEZ [facility] [facility] [address] / [place] [address] PRIMARY CARE PROVIDER: Jesse Chand MD CLINIC: [facility] REASON FOR FOLLOW-UP: Chief Complaint Patient presents with Follow-up visit HPI: Jocelyne Montez is a 66 y.o. 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 Jocelyne' s modified barium swallow and esophagram [...] | + +--------+ + + + | [place] | Routin | 07/29/2016 | Chronic cough [...]
--- OUTSIDE RECORDS SUMMARY | ~2019-03-13 | XMS | Encounter Summary ---
Demographics + + + | Address | [address] | | | [place] [address] | + + + | Home Phone [...] Author | [facility] | | | and [place] | + + + | Organization | [facility] | | | [...] Team Providers + +------+ + | Care Progressive Care Manager Name | Role | Phone | [...] | 08/01/ | Telephone | [facility] | Jace Mcdonald | Appointment | | 2014 | | NEUROSURGERY [address] | MY[address] Rojas [address] | | | | | [address] | [address] | | | | | [place] | [place] | | | | | [address] | [address] | | | | | [phone] | | | +--------+ + + + [...] DR | | | | | | [place] [address] | | | | | | [phone] | | | | | | | | +--------+---------+ + + + documented as of this encounter Visit Diagnoses Not on filedocumented in this encounter"
--- OUTSIDE RECORDS SUMMARY | ~2019-03-13 | XMS | Encounter Summary ---
Demographics + + + | Address | [address] | | | [place] [address] | + + + | Home Phone | | + + + | Preferred Language | Unknown | + + + | Marital Status | | + + + | Temple Affiliation | CAT | + + + | Race | White | + + + | Ethnic Group | Not or | + + + Author + + + | Author | [facility] | + + + | Organization | [facility] | + + + | Address | Unknown | + + + | Phone | Unavailable | + + + Support + + +---------+ + | Name | Relationship | Address | Phone | + + +---------+ + | Charlene Rouse | ECON | Unknown | | + + +---------+ + Care Team Providers + +------+ + | Care Warehouse Representative Name | Role | Phone | + [...] [address] | | | | | | [place] [address] | | | | | | [phone] | | | | | | | [...] as of this encounter Progress Notes Interface, Programmer In - 08/29/2010 6:47 PM PDTJanuary 2001-Sent 04/28/01 Jesse Chand M.D. [facility] [address] [place] [address] RE:ANTHONY MONTEZ MR:[id number] Chand: I recently had the opportunity to see your patient Anthony Mnotez for evaluation of her atypical ductal hyperplasia [...] April 26, 2001 Page 2 RE:ANTHONY MONTEZ MR:[id number] Her current medications include Hyzaar, atenolol, dicyclomine, estrogen patches, multivitamin, Lipitor, Tiazac, nitroglycerin patch, Toprol and Maxzide. She reports an allergy to Compazine. Her family history is as described above. In addition, her son has testicular cancer and her father had colon cancer. She also has a strong family history of coronary artery disease. Anthony lives in [place], [place]. 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 She denies any tobacco use and has [...] please feel free to contact me at [phone]. Sincerely, Marie Amaya M.D. [facility]/[email or web address].let cc:Talon Stallings M.D. documented in this encounter Plan of Treatment Not on filedocumented as of this encounter Visit Diagnoses Not on filedocumented in this encounter"
--- OUTSIDE RECORDS SUMMARY | ~2019-03-13 | XMS | Encounter Summary ---
Demographics + + + | Address | [address] | | | [place] [address] | + + + | Home Phone [...] | Author | [facility] | | | and [place] | + + + | Organization | [facility] | | [...] Team Providers + +------+ + | Care Emergency Room Nurse Name | Role | Phone | + +------+ + | Garcia Valle MD | PCP | | + +------+ + Encounter Details +--------+ + + + + | Date | Type | Department | Care Team | Description | +--------+ + + + + | 05/02/ | Orders Only | [facility] | Homero Lizarraga Edgardo, | | | 2015 | | CARDIOLOGY ROC[address]O | [address] | | | | | [address] | [place] [address] | | | | | [place], [place] | [phone] | | | | | [address] | | | | | | [phone] | | | +--------+ + + + [...] DR | | | | | | [place] [address] | | | | | | [phone] | | | | | | | [...] MV A Michael: 1.02 m/s MV Dec [place]: 3.57 m/s2 MV DecT: | | | 192.68 ms MV E Michael: 0.68 m/s MV E/A Ratio: 0.67 MV PHT: | | | 55.87 ms MVA By PHT: 3.93 cm2 Septal e': 0.07 m/s Septal | | | E/e': 8.94 Lateral e': 0.08 m/s Lateral E/e': 8.44 RAP: | | | 5 mmHg Contract Assistant: ABHI Authenticated by: Hoemro Lizarraga MD, | | | FACC, FACP, FASNC Report Date/Time: -- [id number] | | + + + + + | Procedure Note | + + | Gabriel, Rad Conversion - 12/08/2018 8:45 PM PDT Patient Name: Ysabel MONTEZ | | : 1950 Performing Physician: Homero Lizarraga MD, [facility], | | FACP, | | FASNC INDICATIONS--------- | | --Dizziness [...] cmLVPWd: | | 0.77 cmLVOT Area: 3.07 [id number] Diam: 1.97 cm%FS: 31.33 %EF(Teich): 59.95 | [...] mlLAESV Index (A-L): 11.92 ml/m2LAAs A2C: 10.77 [id number] A-L | | A2C: 23.82 mlLALs A2C: 4.13 cmLAAs A4C: 9.27 [id number] A-L A4C: 18.08 mlLALs A4C: | | 4.03 cmAo Diam: 2.76 cmLA Diam: 3.80 cmLA/Ao: 1.37AV maxP.15 mmHgAV | | meanP.54 mmHgAV Vmax: 1.42 m/T[place] Vmean: 0.85 m/[place]roy VTI: 24.13 cmAVA Vmax: | | 1.98 cm2AVA (VTI): 2.27 [id number] maxP.40 mmHgLVOT meanP.58 mmHgLVSI Dopp: | | 31.17 ml/m2LVSV Dopp: 54.86 mlLVOT Vmax: 0.92 m/sLVOT Vmean: 0.57 m/sLVOT VTI: | | 17.83 cmIVRT: 86.50 msMV A Michael: 1.02 m/sMV Dec [place]: 3.57 m/s2MV DecT: 192.68 | | msMV E Michael: 0.68 m/sMV E/A Ratio: 0.67MV PHT: 55.87 msMVA By PHT: 3.93 [id number] | | e': 0.07 m/sSeptal E/e': 8.94Lateral e': 0.08 m/sLateral E/e': 8.44RAP: 5 | | mmHg Contract Assistant: DHAuthenticated by: Homero Lizarraga MD, FACC, FACP, FASNCReport | | Date/Time: -- [id number]:28:08 IMPRESSION: 1. This was a technically difficult [...] A Michael: 1.02 m/s | |MV Dec [place]: 3.57 m/s2 | |MV DecT: 192.68 ms | |MV E Michael: 0.68 m/s | |MV E/A Ratio: 0.67 | |MV PHT: 55.87 ms | |MVA By PHT: 3.93 cm2 | |Septal e': 0.07 m/s | |Septal E/e': 8.94 | |Lateral e': 0.08 m/s | |Lateral E/e': 8.44 | |RAP: 5 mmHg | | | |Contract Assistant: | |Authenticated by: Homero Lizarraga MD, FAC, FACP, [facility] | |Report Date/Time: -- [id number]:28:08 | | | |IMPRESSION: | |1. This was a technically difficult study with suboptimal views. | |2. Overall left ventricular systolic function is normal with, an EF between 65 - 70 %. | + + documented in this encounter Visit Diagnoses Not on filedocumented in this encounter"
--- OUTSIDE RECORDS SUMMARY | ~2019-03-13 | XMS | Encounter Summary ---
Demographics + + + | Address | [address] | | | [place] [address] | + + + | Home Phone | | + + + | Preferred Language | Unknown | + + + | Marital Status | | + + + | Restorationism Affiliation | CAT | + + + | Race | White | + + + | Ethnic Group | Not or | + + + Author + + + | Author | [facility] | + + + | Organization | [facility] | [...] Team Providers + +------+ + | Care Hospice Plan Administrator Name | Role | Phone | [...] | | 2007 | | [facility] | [address] | ([facility] patient ) | | | | [facility] | [address] | | | | | [address] | [place], [place] | | | | | [facility] | [address] | | | | | [place], [place] | [phone] | | | | | [address] | | | | | | [phone] | | | +--------+ + + + [...]
--- OUTSIDE RECORDS SUMMARY | ~2019-03-13 | XMS | Encounter Summary ---
Demographics + + + | Address | [address] | | | [place] [address] | + + + | Home Phone [...] | [facility] | | | and [place] | + + + | Organization | [facility] [...] Team Providers + +------+ + | Care Informatics Nurse Specialist Name | Role | Phone | + +------+ + PCP | Unavailable | + +------+ + Encounter Details +--------+ + + + + | Date | Type | Department | Care Team | Description | +--------+ + + + + | 01/02/ | Hospital | [facility] | Wilder Mosquera MD | | | 1990 | Encounter | MED CTR GENERIC OP | [address], [place] | | | | | CONV DEPT [address] | [address] [place], [place] | | | | | [address] [place], | [address] | | | | | [place] [address] | | | | | | [phone] | | | +--------+ + + + [...] | | | | | [place] [address] | | | | | | [phone] | | | | | | | | +--------+---------+ + + + documented as of this encounter Visit Diagnoses Not on filedocumented in this encounter"
--- OUTSIDE RECORDS SUMMARY | ~2019-03-13 | XMS | Encounter Summary ---
Demographics + + + | Address | [address] | | | [place] [address] | + + + | Home Phone [...] + | Author | [facility] | | | and [place] | + + + | Organization | [facility] | | | and [place] [...] Team Providers + +------+ + | Care Contact Center Analyst Name | Role | Phone | + +------+ + | Garcia Valle MD | PCP | | + +------+ + Encounter Details +--------+ + + + + | Date | Type | Department | Care Team | Description | +--------+ + + + + | 04/09/ | Orders Only | [facility] | Homero Lizarraga Edgardo, | | | 2014 | | CARDIOLOGY [place] | MD [address] | | | | | [address] | [place] [address] | | | | | [address] | [phone] | | | | | [place], [place] | | | | | | [address] | | | | | | [phone] | | | +--------+ + + + [...] DR | | | | | | [place] [address] | | | | | | [phone] | | | | | | | [...] Performed At | + + + | [facility] Nuclear Treadmill Stress Test With | | [...] Max BP: | | | 159/76. RPP: 13362. METS: 10.10. Symptoms lightheaded and shortness of [...] | | Homero Lizarraga MD, FACC, FACP, FASNC | | + + + + + | Procedure Note | + + | Gabriel, Rad Conversion - 12/09/2018 12:[address] [facility] CARDIOLOGYNuclear | | Treadmill Stress Test With Lexiscan [...] achieved: 118 bpm, Max BP: 159/76. RPP: 56126. METS: 10.10. Symptoms | | lightheaded and [...] | | studies available Homero Lizarraga MD, ZHENG, FACP, BLANE | |The quality of the images are [...]
--- OUTSIDE RECORDS SUMMARY | ~2019-03-13 | XMS | Encounter Summary ---
Demographics + + + | Address | [address] | | | [place] [address] | + + + | Home Phone [...] Author | [facility] | | | and [place] | + + + | Organization | [facility] | | [...] Team Providers + +------+ + | Care Pump Runner Name | Role | Phone | + +------+ + PCP | Unavailable | + +------+ + Encounter Details +--------+ + + + + | Date | Type | Department | Care Team | Description | +--------+ + + + + | 03/15/ | Hospital | [facility] | Wilder Mosquera MD | | | 2006 | Encounter | MED CTR GENERIC OP | [address], [place] | | | | | CONV DEPT [address] | [address] [place], [place] | | | | | [place], | [address] | | | | | [place] [address] | | | | | | [phone] | | | +--------+ + + + [...] | | | | | [place] [address] | | | | | | [phone] | | | | | | | | +--------+---------+ + + + documented as of this encounter Visit Diagnoses Not on filedocumented in this encounter"
--- OUTSIDE RECORDS SUMMARY | ~2019-03-13 | XMS | Encounter Summary ---
Demographics + + + | Address | [address] | | | [place] [address] | + + + | Home Phone | | + + + | Preferred Language | Unknown | + + + | Marital Status | | + + + | Yazdanism Affiliation | CAT | + + + | Race | White | + + + | Ethnic Group | Not or | + + + Author + + + | Author | [facility] | + + + | Organization | [facility] | + + + | Address | Unknown | + + + | Phone | Unavailable | + + + Support + + +---------+ + | Name | Relationship | Address | Phone | + + +---------+ + | Charlene Rouse | ECON | Unknown | | + + +---------+ + Care Team Providers + +------+ + | Care Adjunct Physics Instructor Name | Role | Phone | + [...] [id number] | | | | | | [place], [place] | | | | | | [address] | | | | | | [phone] | | | +--------+ + + + [...]
--- OUTSIDE RECORDS SUMMARY | ~2019-03-13 | XMS | Encounter Summary ---
Demographics + + + | Address | [address] | | | [place] [address] | + + + | Home Phone [...] | [facility] | | | and [place] | + + + | Organization | [facility] | | | and [...] Team Providers + +------+ + | Care Assistant Professor Of Music Name | Role | Phone | + [...] | 2018 | | MED CTR | PERSONNEL INTERVIEWER | | | | | [employer] | | | | | | [address] [place] | | | | | | [place] [address] | | | | | | [phone] | | | +--------+ + + + [...] DR | | | | | | [place] [address] | | | | | | [phone] | | | | | | | | +--------+---------+ + + + documented as of this encounter Visit Diagnoses Not on filedocumented in this encounter"
--- OUTSIDE RECORDS SUMMARY | ~2019-03-13 | XMS | Encounter Summary ---
Demographics + + + | Address | [address] | | | [place] [address] | + + + | Home Phone [...] | Author | [facility] | | | and [place] | + + + | Organization | [facility] | | | [...] Team Providers + +------+ + | Care Classified Advertising Supervisor Name | Role | Phone | [...] 2014 | | PHYSIATRY [address] | PLUCK SEPARATOR | (Primary Dx) | | | | [place], | | | | | | [place] [address] | | | | | | [phone] | | | +--------+ + + + [...] DR | | | | | | [place] [address] | | | | | | [phone] | | | | | | | | +--------+---------+ + + + documented as of this encounter Results FL LAILA Lumbar Transforaminal (08/27/2014 1:29 PM PDT) + + | Specimen | + + | | + + + + + | Narrative | Performed At | + + + | 08/27/2014 Transforaminal Epidural Steroid Injection Diagnosis: | [facility] | | Lumbar radiculopathy ICD-9 Code 724.4 Jocelyne Montez | [facility] | | presents to the fluoroscopy suite for a fluoroscopically-guided [facility] | | L5-S1 transforaminal epidural steroid [...] | + + + + + | [facility] | [address] | [place] | [phone] | | [facility] | | [address] | | | - IMAGING | | | | + + + + + documented in this encounter Visit Diagnoses + + | Diagnosis | + + | Lumbar radiculopathy - Primary Thoracic or lumbosacral neuritis or radiculitis, | | unspecified | + + documented in this encounter"
--- OUTSIDE RECORDS SUMMARY | ~2019-03-13 | XMS | Encounter Summary ---
Demographics + + + | Address | [address] | | | [place] [address] | + + + | Home Phone | | + + + | Preferred Language | Unknown | + + + | Marital Status | | + + + | Lutheran Affiliation | 1041 | + + + | Race | Unknown | + + + | Ethnic Group | Unknown | + + + Author + + + | Author | [facility] | | | and [place] | + + + | Organization | [facility] | | | and [...] Team Providers + +------+ + | Care Scouring Train Operator Chief Name | Role | Phone | + +------+ + | Garcia Valle MD | PCP | | + +------+ + Encounter Details +--------+ + + + + | Date | Type | Department | Care Team | Description | +--------+ + + + + | 04/09/ | Orders Only | [facility] | Homero Lizarraga Edgardo, | | | 2014 | | CARDIOLOGY [place] | MD [address] | | | | | [address] | [place] [address] | | | | | [address] | [phone] | | | | | [place], [place] | | | | | | [address] | | | | | | [phone] | | | +--------+ + + + [...] DR | | | | | | [place] [address] | | | | | | [phone] | | | | | | | [...] Performed At | + + + | [facility] Nuclear Treadmill Stress Test With | | [...] Max BP: | | | 159/76. RPP: 15541. METS: 10.10. Symptoms lightheaded and shortness of [...] Gabriel, Rad Conversion - 12/09/2018 12:26 PM [facility] CARDIOLOGYNuclear | | Treadmill Stress Test With [...] achieved: 118 bpm, Max BP: 159/76. RPP: 33415. METS: 10.10. Symptoms | | lightheaded and [...]
--- OUTSIDE RECORDS SUMMARY | ~2019-03-13 | XMS | Encounter Summary ---
Demographics + + + | Address | [address] | | | [place] [address] | + + + | Home Phone | | + + + | Preferred Language | Unknown | + + + | Marital Status | | + + + | Latter Day Affiliation | 1041 | + + + | Race | Unknown | + + + | Ethnic Group | Unknown | + + + Author + + + | Author | [facility] | | | and [place] | + + + | Organization | [facility] | [...] Team Providers + +------+ + | Care Floor Mechanic Name | Role | Phone | + +------+ + PCP | Unavailable | + +------+ + Encounter Details +--------+ + + + + | Date | Type | Department | Care Team | Description | +--------+ + + + + | 11/06/ | Hospital | [facility] | Wilder Mosquera MD | | | 1994 | Encounter | MED CTR GENERIC OP | [address], [place] | | | | | CONV DEPT [address] | [address] [place], [place] | | | | | [address] [place], | [address] | | | | | [place] [address] | | | | | | [phone] | | | +--------+ + + + [...] | | | | | [place] [address] | | | | | | [phone] | | | | | | | | +--------+---------+ + + + documented as of this encounter Visit Diagnoses Not on filedocumented in this encounter"
--- OUTSIDE RECORDS SUMMARY | ~2019-03-13 | XMS | Encounter Summary ---
Demographics + + + | Address | [address] | | | [place] [address] | + + + | Home Phone [...] | [facility] | | | and [place] | + + + | Organization | [facility] | | [...] Team Providers + +------+ + | Care Livestock Farmer Name | Role | Phone | + +------+ + | Jesse Chand | PCP | | + +------+ + Encounter Details +--------+ + + + + | Date | Type | Department | Care Team | Description | +--------+ + + + + | 06/30/ | Hospital | [facility] | Conversion | Chronic cough | | 2016 | Encounter | [facility] [address] | Transaction, | | | | | [address] | Provider Unknown | | | | | [place], [place] | | | | | | [address] | (Fax) | | | | | [phone] | | | +--------+ + + + [...] DR | | | | | | [place] [address] | | | | | | [phone] | | | | | | | [...]
--- OUTSIDE RECORDS SUMMARY | ~2019-03-13 | XMS | Encounter Summary ---
Demographics + + + | Address | [address] | | | [place] [address] | + + + | Home Phone [...] | Author | [facility] | | | and [place] | + + + | Organization | [facility] | | | and [...] Providers + +------+ + | Care Engineering Psychologist Name | Role | Phone | + [...] Jace | | | | | | ([facility]) | MYNOR Rojas | | | | | | Procedures | [address] | | | | | | MRI Cervical | [address] | | | | | | Spine wo | [address] | | | | | | Contrast | [place], | | | | | | | [place] [address] | | | | | | | Phone: | | | | | | | [phone] | | | | | | | Fax: | | | | | | | [phone] | | +--------+--------+ + + + + [...] Gerardo Stroud | | | | | Radiculaetssie | Jesse | MD David [address] | | | | | syndrome | [address] | | | | | Low back | [address] | [place], [place] | | | | | pain Left | [address] | [address] | | | | | leg weakness | [place], | Phone: | | | | | Procedures | [place] | [phone] | | | | | [place] OFFICE | [address] | Fax: | | | | | CONSULTATION | Phone: | [phone] | | | | | NEW/ESTAB | [phone] | | | | | | PATIENT 60 | Fax: | | | | | | MIN | [phone] | | +--------+--------+ + + + + Encounter Details +--------+---------+ + + + | Date | Type | Department | Care Team | Description | +--------+---------+ + + + | 07/26/ | Office | [facility] | Jace Mcdonald | DDD (degenerative | | 2015 | Visit | NEUROSURGERY [address] | MYNOR Rojas [address] | disc disease), | | | | [address] | [address] | lumbar (Primary Dx); | | | | [place], [place] | [place], [place] | Lumbar | | | | [address] | [address] | radiculopathy; | | | | [phone] | | Lumbar facet | | | [...] different from jorge reza. SCOT Trevino [address] [facility], [address] [place] [address] FAX: NEUROSURGERY HISTORY AND PHYSICAL EXAMINATION CHIEF [...] has no apparent deficits with short or snf memory. CRANIAL NERVES: Fundoscopic Exam: The optic [...] Intrinsics 5 5 Ulnar Intrinsics 5 5 Financial Institution President Strength 5 5 Hip Flexion 5 [address] | | | | | | [place] [address] | | | | | | [phone] | | | | | | | [...]
--- OUTSIDE RECORDS SUMMARY | ~2019-03-13 | XMS | Encounter Summary ---
Demographics + + + | Address | [address] | | | [place] [address] | + + + | Home Phone [...] + | Author | [facility] | | | and [place] | + + + | Organization | [facility] | [...] Team Providers + +------+ + | Care Corporate Banking Officer Name | Role | Phone | [...] Valeri HENDRICKS | | | | | [phone] | [place] [address] | | +--------+ + + + + [...] DR | | | | | | [place] [address] | | | | | | [phone] | | | | | | | [...]
--- OUTSIDE RECORDS SUMMARY | ~2019-03-13 | XMS | Encounter Summary ---
Demographics + + + | Address | [address] | | | [place] [address] | + + + | Home Phone [...] | Author | [facility] | | | and [place] | + + + | Organization | [facility] [...] Team Providers + +------+ + | Care Communication Engineer Name | Role | Phone | [...] | | | | [address] | [facility] [address] | Procedure | | 06/16/ | | [place], [place] | [place], [place] | | | 2009 | | [address] | [address] | | | | | [phone] | [phone] | | | | | | | [...] DR | | | | | | [place] [address] | | | | | | [phone] | | | | | | | | +--------+---------+ + + + documented as of this encounter Visit Diagnoses + + | Diagnosis | + + | Other specified rehabilitation procedure(V57.89) Other specified rehabilitation | | procedure | + + documented in this encounter"
--- OUTSIDE RECORDS SUMMARY | ~2019-03-13 | XMS | Encounter Summary ---
Demographics + + + | Address | [address] | | | [place] [address] | + + + | Home Phone | | + + + | Preferred Language | Unknown | + + + | Marital Status | | + + + | Congregational Affiliation | CAT | + + + | Race | White | + + + | Ethnic Group | Not or | + + + Author + + + | Author | [facility] [employer] [facility] | + + + | Organization | [facility] | + + + | Address | Unknown | + + + | Phone | Unavailable | + + + Support + + +---------+ + | Name | Relationship | Address | Phone | + + +---------+ + | Charlene Rouse | ECON | Unknown | | + + +---------+ + Care Team Providers + +------+ + | Care Mutual Fund Manager Name | Role | Phone | [...] W | | | | | | [address] | | | | | | [place] [address] | | | | | | [phone] | | | | | | | [...] as of this encounter Progress Notes 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 [facility] [address] [place] [address] RE:ANTHONY MONTEZ [id number] Chand: I recently had the [...] April 26, 2001 Page 2 RE:ANTHONY MONTEZ [id number] Her current medications include Hyzaar, atenolol, dicyclomine, estrogen patches, multivitamin, Lipitor, Tiazac, nitroglycerin patch, Toprol and Maxzide. She reports an allergy to Compazine. Her family history is as described above. In addition, her son has testicular cancer and her father had colon cancer. She also has a strong family history of coronary artery disease. Anthony lives in [place], [place]. 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 She denies any tobacco use and has [...] please feel free to contact me at [phone]. Sincerely, Marie Amaya M.D. [facility]/[email or web address].let cc:Talon Stallings M.D. documented in this encounter Plan of Treatment Not on filedocumented as of this encounter Visit Diagnoses Not on filedocumented in this encounter"
--- OUTSIDE RECORDS SUMMARY | ~2019-03-13 | XMS | Encounter Summary ---
Demographics + + + | Address | [address] | | | [place] [address] | + + + | Home Phone [...] + + + | Author | [facility] [employer] [facility] | + + + | Organization | [facility] [employer] [facility] | + + + | Address | Unknown | + + + | Phone | Unavailable | + + + Support + + +---------+ + | Name | Relationship | Address | Phone | + + +---------+ + | Charlene Rouse | ECON | Unknown | | + + +---------+ + Care Team Providers + +------+ + | Care Shipping Team Leader Name | Role | Phone | [...] Le | | | | | at [facility] [address] | [address] [place], | | | | | [address] [place], | [place] [address] | | | | | [place] [address] | [phone] | | | | | [phone] | | | +--------+ + + + [...]
--- OUTSIDE RECORDS SUMMARY | ~2019-03-13 | XMS | Encounter Summary ---
Demographics + + + | Address | [address] | | | [place] [address] | + + + | Home Phone [...] + + | Author | [facility] | + + + | Organization | [facility] | + + + | Address | Unknown | + + + | Phone | Unavailable | + + + Support + + +---------+ + | Name | Relationship | Address | Phone | + + +---------+ + | Charlene Rouse | ECON | Unknown | | + + +---------+ + Care Team Providers + +------+ + | Care Golf Manager Name | Role | Phone | [...] Argueta PA-C | | | | | [address] | [address] | | | | | [address] Mailcode: | [place], [place] | | | | | [address] [facility] | [address] | | | | | [place], [place] | [phone] | | | | | [address] | | | | | | [phone] | | | +--------+ + + + [...] Note | + + | Service Account, [facility] In Interface - 07/29/2016 3:56 PM [...]
--- OUTSIDE RECORDS SUMMARY | ~2019-03-13 | XMS | Encounter Summary ---
Demographics + + + | Address | [address] | | | [place] [address] | + + + | Home Phone [...] | Author | [facility] | + + + | Organization | [facility] [employer] [facility] | + + + | Address | Unknown | + + + | Phone | Unavailable | + + + Support + + +---------+ + | Name | Relationship | Address | Phone | + + +---------+ + | Charlene Rouse | ECON | Unknown | | + + +---------+ + Care Team Providers + +------+ + | Care Main Line Station Engineer Name | Role | Phone | [...] 2016 | Encounter | Services at [facility] | Mamta Argueta PA-C | | | | | [address] | [address] | | | | | [address] Mailcode: | [place], [place] | | | | | [address] [facility] | [address] | | | | | [place], [place] | [phone] | | | | | [address] | | | | | | [phone] | | | +--------+ + + + [...] Note | + + | Service Account, [facility] In Interface - 07/29/2016 3:56 PM [...]
--- OUTSIDE RECORDS SUMMARY | ~2019-03-13 | XMS | Encounter Summary ---
Demographics + + + | Address | [address] | | | [place] [address] | + + + | Home Phone [...] + + | Author | [facility] | + + + | Organization | [facility] | + [...] Team Providers + +------+ + | Care General Operator Name | Role | Phone | [...] [facility] | Wesley Terry, | Other (jeremiah) | | 2008 | | [facility] | [address] | | | | | [address] | [address] | | | | | [address] | [place], [place] | | | | | [facility] | [address] | | | | | [place], [place] | [phone] | | | | | [address] | | | | | | [phone] | | | +--------+ + + + [...]
--- OUTSIDE RECORDS SUMMARY | ~2019-03-13 | XMS | Encounter Summary ---
Demographics + + + | Address | [address] | | | [place] [address] | + + + | Home Phone [...] + | Author | [facility] | | | and [place] | + + + | Organization | [facility] | | | and [place] [...] Providers + +------+ + | Care Director Stars Name | Role | Phone | + [...] [address] | | | | | [place], [place] | [place], [place] | | | | | [address] | [address] | | | | | [phone] | | | +--------+ + + + [...] DR | | | | | | [place] [address] | | | | | | [phone] | | | | | | | | +--------+---------+ + + + documented as of this encounter Visit Diagnoses Not on filedocumented in this encounter"
--- OUTSIDE RECORDS SUMMARY | ~2019-03-13 | XMS | Encounter Summary ---
Demographics + + + | Address | [address] | | | [place] [address] | + + + | Home Phone [...] [facility] | | | and [place] | + + + | Organization | [facility] | | | and [...] Providers + +------+ + | Care Client Experience Specialist Name | Role | Phone | + +------+ + PCP | Unavailable | + +------+ + Encounter Details +--------+ + + + + | Date | Type | Department | Care Team | Description | +--------+ + + + + | 11/26/ | Hospital | [facility] | Wilder Mosquera MD | | | 1991 | Encounter | MED CTR GENERIC OP | [address], [place] | | | | | CONV DEPT [address] | [address] [place], [place] | | | | | [place], | [address] | | | | | [place] [address] | | | | | | [phone] | | | +--------+ + + + [...] | | | | | [place] [address] | | | | | | [phone] | | | | | | | | +--------+---------+ + + + documented as of this encounter Visit Diagnoses Not on filedocumented in this encounter"
--- OUTSIDE RECORDS SUMMARY | ~2019-03-13 | XMS | Encounter Summary ---
Demographics + + + | Address | [address] | | | [place] [address] | + + + | Home Phone [...] + + | Author | [facility] [employer] [facility] | + + + | Organization | [facility] [employer] [facility] | + + + | Address | Unknown | + + + | Phone | Unavailable | + + + Support + + +---------+ + | Name | Relationship | Address | Phone | + + +---------+ + | Charlene Rouse | ECON | Unknown | | + + +---------+ + Care Team Providers + +------+ + | Care It Help Desk Associate Name | Role | Phone | + [...] | | 2008 | | [facility] [place] [facility] | [address] | | | | | [address] | [address] | | | | | [address] | [place], [place] | | | | | [facility] | [address] | | | | | [place], [place] | [phone] | | | | | [address] | | | | | | [phone] | | | +--------+ + + + [...]
--- OUTSIDE RECORDS SUMMARY | ~2019-03-13 | XMS | Encounter Summary ---
Demographics + + + | Address | [address] | | | [place] [address] | + + + | Home Phone | | + + + | Preferred Language | Unknown | + + + | Marital Status | | + + + | Confucianist Affiliation | 1041 | + + + | Race | Unknown | + + + | Ethnic Group | Unknown | + + + Author + + + | Author | [facility] | | | and [place] | + + + | Organization | [facility] | | | and [place] | + + + | Address | Unknown | + + + | Phone | Unavailable | + + + Support + + +---------+ + | Name | Relationship | Address | Phone | + + +---------+ + | Shaggy Montez | ECON | Unknown | | + + +---------+ + | hSreya Romero | ECON | Unknown | | + + +---------+ + Care Team Providers + +------+ + | Care Broke Beater Machine Operator Name | Role | Phone [...] Valeri HENDRICKS | | | | | [phone] | [place] [address] | | +--------+ + + + + [...] DR | | | | | | [place] [address] | | | | | | [phone] | | | | | | | [...]
--- OUTSIDE RECORDS SUMMARY | ~2019-03-13 | XMS | Encounter Summary ---
Demographics + + + | Address | [address] | | | [place] [address] | + + + | Home Phone | | + + + | Preferred Language | Unknown | + + + | Marital Status | | + + + | Restorationist Affiliation | CAT | + + + | Race | White | + + + | Ethnic Group | Not or | + + + Author + + + | Author | [facility] [employer] [facility] | + + + | Organization | [facility] | + + + | Address | Unknown | + + + | Phone | Unavailable | + + + Support + + +---------+ + | Name | Relationship | Address | Phone | + + +---------+ + | Charlene Rouse | ECON | Unknown | | + + +---------+ + Care Team Providers + +------+ + | Care Windows Systems Engineer Name | Role | Phone | [...] Le | | | | | at [facility] [address] | [address] [place], | | | | | [address] [place], | [place] [address] | | | | | [place] [address] | [phone] | | | | | [phone] | | | +--------+ + + + [...]
--- OUTSIDE RECORDS SUMMARY | ~2019-03-13 | XMS | Encounter Summary ---
Demographics + + + | Address | [address] | | | [place] [address] | + + + | Home Phone | | + + + | Preferred Language | Unknown | + + + | Marital Status | | + + + | Taoism Affiliation | 1041 | + + + | Race | Unknown | + + + | Ethnic Group | Unknown | + + + Author + + + | Author | [facility] | | | and [place] | + + + | Organization | [facility] | | | and [place] [...] Providers + +------+ + | Care Hand Glove Cleaner Name | Role | Phone | + +------+ + PCP | Unavailable | + +------+ + Encounter Details +--------+ + + + + | Date | Type | Department | Care Team | Description | +--------+ + + + + | 06/05/ | Hospital | [facility] | Wilder Mosquera MD | | | 1996 | Encounter | MED CTR GENERIC OP | [address], [place] | | | | | CONV DEPT [address] | [address] [place], [place] | | | | | [place], | [address] | | | | | [place] [address] | | | | | | [phone] | | | +--------+ + + + [...] | | | | | [place] [address] | | | | | | [phone] | | | | | | | | +--------+---------+ + + + documented as of this encounter Visit Diagnoses Not on filedocumented in this encounter"
--- OUTSIDE RECORDS SUMMARY | ~2019-03-13 | XMS | Encounter Summary ---
Demographics + + + | Address | [address] | | | [place] [address] | + + + | Home Phone [...] + | Author | [facility] | | | and [place] | + + + | Organization | [facility] | | | and [...] Team Providers + +------+ + | Care Sailing Instructor Name | Role | Phone | + +------+ + PCP | Unavailable | + +------+ + Encounter Details +--------+ + + + + | Date | Type | Department | Care Team | Description | +--------+ + + + + | 09/25/ | Hospital | [facility] | Talon Torres, | | | 1993 | Encounter | MED CTR LABORATORY | [address] [facility] | | | | | [address] [place] | [place], [place] | | | | | [place], [place] | [address] | | | | | [address] | | | | | | [phone] | | | +--------+ + + + [...] | | | | | [place] [address] | | | | | | [phone] | | | | | | | | +--------+---------+ + + + documented as of this encounter Visit Diagnoses Not on filedocumented in this encounter"
--- OUTSIDE RECORDS SUMMARY | ~2019-03-13 | XMS | Encounter Summary ---
Demographics + + + | Address | [address] | | | [place] [address] | + + + | Home Phone [...] + | Author | [facility] | | | and [place] | + + + | Organization | [facility] | | [...] Team Providers + +------+ + | Care Forge Tender Name | Role | Phone | [...] | (degenerativ | MY[address] Rojas | [address] | | | | n | e disc | [address] | [place], | | | | | disease), | [address] | [place] [address] | | | | | lumbar | [address] | Phone: | | | | | Lumbar | [place], | [phone] | | | | | radiculopath | [place] [address] | Fax: | | | | | y | Phone: | [phone] | | | | | Paresthesia | [phone] | | | | | | of both | Fax: | | | | | | hands | [phone] | | +--------+ + + + + + Reason for Visit + + + | Reason | Comments | + + + | Back Pain | MRI review | + + + Encounter Details +--------+---------+ + + + | Date | Type | Department | Care Team | Description | +--------+---------+ + + + | 09/18/ | Office | [facility] | Jace Mcdonald | DDD (degenerative | | 2015 | Visit | NEUROSURGERY [address] | [address] | disc disease), | | | | [address] | [address] | lumbar (Primary Dx); | | | | [place], [place] | [place], [place] | Lumbar | | | | [address] | [address] | radiculopathy; | | | | [phone] | | Paresthesia of both | | [...] differen t from the original. SCOT Trevino [address] [place] [address], [address] [place] [address] FAX: NEUROSURGERY HISTORY AND PHYSICAL EXAMINATION CHIEF [...] Intrinsics 5 5 Ulnar Intrinsics 5 5 Physical Therapist Aide Strength 5 5 Hip Flexion 5 [address] [...] DR | | | | | | [place] [address] | | | | | | [phone] | | | | | | | [...]
--- OUTSIDE RECORDS SUMMARY | ~2019-03-13 | XMS | Encounter Summary ---
Demographics + + + | Address | [address] | | | [place] [address] | + + + | Home Phone [...] + | Author | [facility] | | | and [place] | + + + | Organization | [facility] | | [...] Providers + +------+ + | Care Fire Chief Name | Role | Phone | [...] Valeri HENDRICKS | | | | | [phone] | [place] [address] | | +--------+ + + + + [...] DR | | | | | | [place] [address] | | | | | | [phone] | | | | | | | [...]
--- OUTSIDE RECORDS SUMMARY | ~2019-03-13 | XMS | Encounter Summary ---
Demographics + + + | Address | [address] | | | [place] [address] | + + + | Home Phone [...] | Author | [facility] | | | and [place] | + + + | Organization | [facility] | [...] Team Providers + +------+ + | Care International Flight Attendant Name | Role | Phone | [...] 2014 | | PHYSIATRY [address] | DEFLECTOR OPERATOR | (Primary Dx) | | | | [place], | | | | | | [place] [address] | | | | | | [phone] | | | +--------+ + + + [...] DR | | | | | | [place] [address] | | | | | | [phone] | | | | | | | [...] radiculopathy ICD-9 Code 724.4 Jocelyne Montez | [facility] | | presents to the fluoroscopy suite for a fluoroscopically-guided [facility] | | L5-S1 transforaminal epidural steroid injection [...] | + + + + + | [facility] | [address] | [place] | [phone] | | [facility] | | [address] | | | - IMAGING | | | | + + + + + documented in this encounter Visit Diagnoses + + | Diagnosis | + + | Lumbar radiculopathy - Primary Thoracic or lumbosacral neuritis or radiculitis, | | unspecified | + + documented in this encounter"
--- OUTSIDE RECORDS SUMMARY | ~2019-03-13 | XMS | Encounter Summary ---
Demographics + + + | Address | [address] | | | [place] [address] | + + + | Home Phone | | + + + | Preferred Language | Unknown | + + + | Marital Status | | + + + | Pentecostalism Affiliation | 1041 | + + + | Race | Unknown | + + + | Ethnic Group | Unknown | + + + Author + + + | Author | [facility] | | | and [place] | + + + | Organization | [facility] | | | and [...] Providers + +------+ + | Care Sales Promoter Name | Role | Phone | + [...] | | | | [place] | [place] | | | | | [address] | [address] | | | | | [phone] | | | +--------+ + + + [...] | | | | | [place] [address] | | | | | | [phone] | | | | | | | [...]
--- OUTSIDE RECORDS SUMMARY | ~2019-03-13 | XMS | Encounter Summary ---
Demographics + + + | Address | [address] | | | [place] [address] | + + + | Home Phone | | + + + | Preferred Language | Unknown | + + + | Marital Status | | + + + | Restoration Affiliation | 1041 | + + + | Race | Unknown | + + + | Ethnic Group | Unknown | + + + Author + + + | Author | [facility] | | | and [place] | + + + | Organization | [facility] | [...] Providers + +------+ + | Care Assembler Leather Goods Name | Role | Phone | + [...] [address] | | | | | [phone] | [address] | | | | | | [place] [address] | | | | | | [phone] | | | | | | | [...] | | | | | [place] [address] | | | | | | [phone] | | | | | | | | +--------+---------+ + + + documented as of this encounter Visit Diagnoses Not on filedocumented in this encounter"
--- OUTSIDE RECORDS SUMMARY | ~2019-03-13 | XMS | Encounter Summary ---
Demographics + + + | Address | [address] | | | [place] [address] | + + + | Home Phone [...] + | Author | [facility] | | | and [place] | + + + | Organization | [facility] | | | and [...] Providers + +------+ + | Care Director Marketing Name | Role | Phone | + +------+ + | Garcia Valle MD | PCP | | + +------+ + Encounter Details +--------+ + + + + | Date | Type | Department | Care Team | Description | +--------+ + + + + | 05/02/ | Orders Only | [facility] | Homero Lizarraga Edgardo, | | | 2015 | | CARDIOLOGY ROCÍO | [address] | | | | | [address] | [place] [address] | | | | | [place], [place] | [phone] | | | | | [address] | | | | | | [phone] | | | +--------+ + + + [...] DR | | | | | | [place] [address] | | | | | | [phone] | | | | | | | [...] MV A Michael: 1.02 m/s MV Dec Ford: 3.57 m/s2 MV DecT: | | | 192.68 ms MV E Michael: 0.68 m/s MV E/A Ratio: 0.67 MV PHT: | | | 55.87 ms MVA By PHT: 3.93 cm2 Septal e': 0.07 m/s Septal | | | E/e': 8.94 Lateral e': 0.08 m/s Lateral E/e': 8.44 RAP: | | | 5 mmHg Onsite Health Coach: ABHI Authenticated by: Homero Lizarraga MD, | | | FACC, FACP, FASNC Report Date/Time: -- [id number]:08 | | + + + + + | Procedure Note | + + | Gabriel, Rad Conversion - 12/08/2018 8:45 PM PDT Patient Name: Ysabel MONTEZ | | : 1950 Performing Physician: Homero Lizarraga MD, [facility], | | FACP, | | FASNC INDICATIONS--------- [...] cmLVPWd: | | 0.77 cmLVOT Area: 3.07 ue4HWRL Diam: 1.97 cm%FS: 31.33 %EF(Teich): 59.95 | [...] mlLAESV Index (A-L): 11.92 ml/m2LAAs A2C: 10.77 dm6WBPSR A-L | | A2C: 23.82 mlLALs A2C: 4.13 cmLAAs A4C: 9.27 re5SYZWW A-L A4C: 18.08 mlLALs A4C: | | 4.03 cmAo Diam: 2.76 cmLA Diam: 3.80 cmLA/Ao: 1.37AV maxP.15 mmHgAV | | meanP.54 mmHgAV Vmax: 1.42 m/Troy Vmean: 0.85 m/Troy VTI: 24.13 cmAVA Vmax: | | 1.98 cm2AVA (VTI): 2.27 gd8TFBY maxP.40 mmHgLVOT meanP.58 mmHgLVSI Dopp: | | 31.17 ml/m2LVSV Dopp: 54.86 mlLVOT Vmax: 0.92 m/sLVOT Vmean: 0.57 m/sLVOT VTI: | | 17.83 cmIVRT: 86.50 msMV A Michael: 1.02 m/sMV Dec Ford: 3.57 m/s2MV DecT: 192.68 | | msMV E Michael: 0.68 m/sMV E/A Ratio: 0.67MV PHT: 55.87 msMVA By PHT: 3.93 bq5Enycnl | | e': 0.07 m/sSeptal E/e': 8.94Lateral e': 0.08 m/sLateral E/e': 8.44RAP: 5 | | mmHg Onsite Health Coach: DHAuthenticated by: Homero Lizarraga MD, FACC, FACP, FASNCReport | | Date/Time: -- [id number] IMPRESSION: 1. This was a technically difficult [...] A Michael: 1.02 m/s | |MV Dec Ford: 3.57 m/s2 | |MV DecT: 192.68 ms | |MV E Michael: 0.68 m/s | |MV E/A Ratio: 0.67 | |MV PHT: 55.87 ms | |MVA By PHT: 3.93 cm2 | |Septal e': 0.07 m/s | |Septal E/e': 8.94 | |Lateral e': 0.08 m/s | |Lateral E/e': 8.44 | |RAP: 5 mmHg | | | |Onsite Health Coach: | |Authenticated by: Homero Lizarraga MD, FAC, FACP, [facility] | |Report Date/Time: -- [id number]:28:08 | | | |IMPRESSION: | |1. This was a technically difficult study with suboptimal views. | |2. Overall left ventricular systolic function is normal with, an EF between 65 - 70 %. | + + documented in this encounter Visit Diagnoses Not on filedocumented in this encounter"
--- OUTSIDE RECORDS SUMMARY | ~2019-03-13 | XMS | Encounter Summary ---
Demographics + + + | Address | [address] | | | [place] [address] | + + + | Home Phone [...] + + | Author | [facility] | | | and [place] | + + + | Organization | [facility] | | [...] Team Providers + +------+ + | Care Forms Examiner Name | Role | Phone | + +------+ + PCP | Unavailable | + +------+ + Encounter Details +--------+ + + + + | Date | Type | Department | Care Team | Description | +--------+ + + + + | 01/02/ | Hospital | [facility] | Wilder Mosquera MD | | | 1990 | Encounter | MED CTR GENERIC OP | [address] [place] | | | | | CONV DEPT [address] | [address] [place], [place] | | | | | [place], | [address] | | | | | [place] [address] | | | | | | [phone] | | | +--------+ + + + [...] | | | | | [place] [address] | | | | | | [phone] | | | | | | | | +--------+---------+ + + + documented as of this encounter Visit Diagnoses Not on filedocumented in this encounter"
--- OUTSIDE RECORDS SUMMARY | ~2019-03-13 | XMS | Encounter Summary ---
Demographics + + + | Address | [address] | | | [place] [address] | + + + | Home Phone | | + + + | Preferred Language | Unknown | + + + | Marital Status | | + + + | Hinduism Affiliation | CAT | + + + | Race | White | + + + | Ethnic Group | Not or | + + + Author + + + | Author | [facility] | + + + | Organization | [facility] | + + + | Address | Unknown | + + + | Phone | Unavailable | + + + Support + + +---------+ + | Name | Relationship | Address | Phone | + + +---------+ + | Charlene Rouse | ECON | Unknown | | + + +---------+ + Care Team Providers + +------+ + | Care Chemical Lab Technician Name | Role | Phone | [...] | | 2007 | | [facility] | [address] | | | | | [address] | [address] | | | | | [address] | [place], [place] | | | | | [place] | [address] | | | | | [place], [place] | [phone] | | | | | [address] | | | | | | [phone] | | | +--------+ + + + [...]
--- OUTSIDE RECORDS SUMMARY | ~2019-03-13 | XMS | Encounter Summary ---
Demographics + + + | Address | [address] | | | [place] [address] | + + + | Home Phone | | + + + | Preferred Language | Unknown | + + + | Marital Status | | + + + | Anabaptist Affiliation | 1041 | + + + | Race | Unknown | + + + | Ethnic Group | Unknown | + + + Author + + + | Author | [facility] | | | and [place] | + + + | Organization | [facility] [...] Team Providers + +------+ + | Care Life Insurance Specialist Name | Role | Phone | [...] [address] | | | | | [phone] | [address] | | | | | | [place] [address] | | | | | | [phone] | | | | | | | [...] | | | | | [place] [address] | | | | | | [phone] | | | | | | | | +--------+---------+ + + + documented as of this encounter Visit Diagnoses Not on filedocumented in this encounter"
--- OUTSIDE RECORDS SUMMARY | ~2019-03-13 | XMS | Encounter Summary ---
Demographics + + + | Address | [address] | | | [place] [address] | + + + | Home Phone | | + + + | Preferred Language | Unknown | + + + | Marital Status | | + + + | Congregation Affiliation | 1041 | + + + | Race | Unknown | + + + | Ethnic Group | Unknown | + + + Author + + + | Author | [facility] | | | and [place] | + + + | Organization | [facility] | | | and [...] Team Providers + +------+ + | Care Order Takers Supervisor Name | Role | Phone | + +------+ + PCP | Unavailable | + +------+ + Encounter Details +--------+ + + + + | Date | Type | Department | Care Team | Description | +--------+ + + + + | 07/01/ | Hospital | [facility] | Wilder Mosquera MD | | | 1992 | Encounter | MED CTR GENERIC OP | [address] | | | | | CONV DEPT [address] | [address] [place], [place] | | | | | [place], | [address] | | | | | [place] [address] | | | | | | [phone] | | | +--------+ + + + [...] | | | | | [place] [address] | | | | | | [phone] | | | | | | | | +--------+---------+ + + + documented as of this encounter Visit Diagnoses Not on filedocumented in this encounter"
--- OUTSIDE RECORDS SUMMARY | ~2019-03-13 | XMS | Encounter Summary ---
Demographics + + + | Address | [address] | | | [place] [address] | + + + | Home Phone [...] Team Providers + +------+ + | Care Transfer And Pumphouse Operator Name | Role | Phone | [...] Medicine [address] | [facility] [address] [facility] | | | | | [place], [place] | [facility] | | | | | [id number] | [place], [place] | | | | | | [address] | | | | | | [phone] | | | | | | | [...] cannot be sent through Care Everywhere.Musculoskeletal Pain (Nicaraguan)Scapular: Exercises (Nicaraguan)Shoulder Stretches: Exercises ([place]icaraguan)documente d in this encounter Medications at Time [...] RADIOLOGY | [address] | [place] [address] | [phone] | | VOICE RECOGNITION | | | [...] | IMPRESSION: No acute disease. Signed By: Gacria Bravo DO On | | | 03/11/2019 15:24:40 | | + + + + ---------+ | Procedure Note | + ---------+ | Service Account, [employer] Res In Interface - 03/11/2019 3:28 PM [...] RADIOLOGY | [address] | [place] [address] | [phone] | | VOICE RECOGNITION | | | [...] Note | + -------+ | Service Account, Emir[employer]era[employer] Res In Interface - 03/11/2019 3:29 PM PST [...] RADIOLOGY | [address] | [place] [address] | [phone] | | VOICE RECOGNITION | | | [...] | | alignment. Vertebral heights are preserved. Xlco-pq-ztvcsoip | | | spondylotic changes are most [...] be positional or due to muscle spasm. Hyme-mk-ayttbzmq spondylotic | | | changes. Signed By: [...] alignment. Vertebral heights are preserved. | | Rprc-bn-mdvbzzdd spondylotic changesare most pronounced at the C5-6 [...] can be positional or due to muscle spasm.Ukbh-oe-duohzleu spondylotic | | changes. Signed By: Garcia Bravo DO On 03/11/2019 15:23:21 | | | |Visualized paranasal sinuses and mastoid air cells appear clear. Calvarium is grossly intac t. | | | |Cervical spine: | |There is normal alignment. Vertebral heights are preserved. Vhfb-de-isayxhsq spondylotic ch anges | |are most pronounced [...] positional or due to muscle spasm. | |Vdnn-zs-kqwwsalv spondylotic changes. | | | | | |Signed By: Garcia Bravo DO On 03/11/2019 15:23:21 | + --------+ + + + + + | Performing | Address | City/State/Zipcode | Phone Number | | Organization | | | | + + + + + | [facility] | [address] | [place] [address] | [phone] | | VOICE RECOGNITION | | | [...] | | alignment. Vertebral heights are preserved. Hrhv-xd-vmpnuwrx | | | spondylotic changes are most [...] be positional or due to muscle spasm. Ccit-qc-nbrugrno spondylotic | | | changes. Signed By: [...] alignment. Vertebral heights are preserved. | | Wwjr-xk-azxffrzf spondylotic changesare most pronounced at the C5-6 [...] can be positional or due to muscle spasm.Zrma-xc-buyyunze spondylotic | | changes. Signed By: Garcia Bravo DO On 03/11/2019 15:23:21 | | | |Visualized paranasal sinuses and mastoid air cells appear clear. Calvarium is grossly intac t. | | | |Cervical spine: | |There is normal alignment. Vertebral heights are preserved. Rtzl-rx-nqgegevu spondylotic ch anges | |are most pronounced [...] positional or due to muscle spasm. | |Cjzb-bs-cedsnpqb spondylotic changes. | | | | | |Signed By: Garcia Bravo DO On 03/11/2019 15:23:21 | + --------+ + + + + + | Performing | Address | City/State/Zipcode | Phone Number | | Organization | | | | + + + + + | [facility] | [address] | [place] [address] | [phone] | | VOICE RECOGNITION | | | [...] [facility] | [address] | [place] [address] | | | LAB | | | [...] [facility] | [address] | [place] [address] | | | LAB | | | [...] | | [facility] | | | [facility] | | | | | + +---------+ [...] [facility] | [address] | [place], [place] [address] | | | LAB | | | [...]
--- OUTSIDE RECORDS SUMMARY | ~2019-03-13 | XMS | Clinical Summary ---
Demographics + + + | Address | [address] | | | [place] [address] | + + + | Home Phone | | + + + | Preferred Language | Unknown | + + + | Marital Status | | + + + | Hinduism Affiliation | CAT | + + + | Race | White | + + + | Ethnic Group | Not or | + + + Author + + + | Author | [facility] | + + + | [...] Team Providers + +------+ + | Care Burnishing Machine Operator Name | Role | Phone | + +------+ + | Jesse Chand MD | PCP | | + +------+ + Source Comments IRMA is fully live on both EpicCare Ambulatory and EpicCare InPatient.[facility] Allergies + + + + + [...] Note | + ----+ | Service Account, [employer] Res In Interface - 03/11/2019 4:02 PM [...] RADIOLOGY | [address] | [place] [address] | [phone] | | VOICE RECOGNITION | | | [...] Note | + ---------+ | Service Account, [employer] Res In Interface - 03/11/2019 3:28 PM [...] RADIOLOGY | [address] | [place] [address] | [phone] | | VOICE RECOGNITION | | | [...] RADIOLOGY | [address] | [place] [address] | [phone] | | VOICE RECOGNITION | | | [...] | | alignment. Vertebral heights are preserved. Yrgz-hy-bviulmgf | | | spondylotic changes are most [...] be positional or due to muscle spasm. Npev-dq-xbwjxvcz spondylotic | | | changes. Signed By: [...] alignment. Vertebral heights are preserved. | | Bcsg-ic-olqyqhai spondylotic changesare most pronounced at the C5-6 [...] can be positional or due to muscle spasm.Xpkv-mk-rbjfwddr spondylotic | | changes. Signed By: Garcia Bravo DO On 03/11/2019 15:23:21 | | | |Visualized paranasal sinuses and mastoid air cells appear clear. Calvarium is grossly intac t. | | | |Cervical spine: | |There is normal alignment. Vertebral heights are preserved. Czhx-hs-yaqldkmh spondylotic ch anges | |are most pronounced [...] positional or due to muscle spasm. | |Sseb-kw-kqnciokc spondylotic changes. | | | | | |Signed By: Garcia Bravo DO On 03/11/2019 15:23:21 | + --------+ + + + + + | Performing | Address | City/State/Zipcode | Phone Number | | Organization | | | | + + + + + | [facility] | [address] | [place] [address] | [phone] | | VOICE RECOGNITION | | | [...] | | alignment. Vertebral heights are preserved. Mdag-av-reimdcsj | | | spondylotic changes are most [...] be positional or due to muscle spasm. Ftgz-ev-biitllez spondylotic | | | changes. Signed By: [...] alignment. Vertebral heights are preserved. | | Mjxv-zs-medvldjs spondylotic changesare most pronounced at the C5-6 [...] can be positional or due to muscle spasm.Kjfc-iy-mhabjqxd spondylotic | | changes. Signed By: Garcia Bravo DO On 03/11/2019 15:23:21 | | | |Visualized paranasal sinuses and mastoid air cells appear clear. Calvarium is grossly intac t. | | | |Cervical spine: | |There is normal alignment. Vertebral heights are preserved. Tkjt-fs-cxnmbchy spondylotic ch anges | |are most pronounced [...] positional or due to muscle spasm. | |Evcc-mn-jxqvlbss spondylotic changes. | | | | | |Signed By: Garcia Bravo DO On 03/11/2019 15:23:21 | + --------+ + + + + + | Performing | Address | City/State/Zipcode | Phone Number | | Organization | | | | + + + + + | [facility] | [address] | [place] [address] | [phone] | | VOICE RECOGNITION | | | [...] [facility] | [address] | [place] [address] | | | LAB | | | [...] [facility] | [address] | [place] [address] | | | LAB | | | [...] | | [facility] | | | [facility] | | | | | + +---------+ [...] [facility] | [address] | [place] [address] | | | LAB | | | [...] | MEDICA | xxxxxxxxxxx | Effect | [phone] | [address] | Medica | | | RE A & | | jane | [address] | [phone] | re | | | B | | for | | [place] | | | | | | all | | [id number] | | | | | | dates | | | | + +--------+ +--------+ + +--------+ | [employer] [place] | MUTUAL | [id number] | Effect | [phone] | [employer] OF | Indemn | | MEDICARE SUPPL | OF | | jane | 0 | [place] | ity | | | [place] | | for | | PLAZA | | | | MEDICA | | all | | [place] | | | | RE | | dates | | [id number] | | | | SUPPL | | | | | | + +--------+ +--------+ + +--------+ | [employer] | MODA | xxxxxxxxx | | [phone] | [address] | PPO | | | OEBB | | [phone] | | | | ANAT | | fortunatoent | | [place], | | | | [place] | | | | [place] [address] | | + +--------+ +--------+ + +--------+ [...] | | 7 (Home) | [place] [address] | | | | | | [phone] | | | | | | | 2 (Work) | | + +--------+ +--------+ + + | Jocelyne [place]z | Person | Self | [birth year] | [address] | | | al/Fam | | 1950 | [phone] | [address] | | | mike | | | 7 (Home) | [place] [address] | | | | | | [phone] | | | | | | | 2 (Work) | | + +--------+ +--------+ + +
--- OUTSIDE RECORDS SUMMARY | ~2019-03-13 | XMS | Encounter Summary ---
Demographics + + + | Address | [address] | | | [place] [address] | + + + | Home Phone [...] | Author | [facility] | | | and [place] | + + + | Organization | [facility] | | [...] Providers + +------+ + | Care Planning Intern Name | Role | Phone | + +------+ + | Jesse Chand | PCP | | + +------+ + Encounter Details +--------+ + + + + | Date | Type | Department | Care Team | Description | +--------+ + + + + | 12/31/ | Hospital | [facility] | Conversion | | | 2016 | Encounter | [facility] | Transaction, | | | | | CLINIC [address] | Provider Unknown | | | | | [address] [place], [place] | [phone] | | | | | [address] | | | | | | [phone] | | | +--------+ + + + [...] DR | | | | | | [place] [address] | | | | | | [phone] | | | | | | | [...] | | | | | [place] [address] | | | | + + + + + + | K | 4.0Comment: Testing | 3.5 - 4.9 | EXTERNAL | | | | performed at [facility], [address] | mmol/L | LAB | | | | [address], | | | | | | [place] [address] | | | | + + + + + + | Cl | 105Comment: Testing | 99 - 109 mmol/L | EXTERNAL | | | | performed at [facility], [address] | | LAB | | | | [address], | | | | | | [place] [address] | | | | + + + + + + | CO2 | 30Comment: Testing | 23 - 32 mmol/L | EXTERNAL | | | | performed at [facility], [address] | | LAB | | | | [address], | | | | | | [place] [address] | | | | + + + + + + | Anion Gap | 10Comment: Testing | 5 - 20 mmol/L | EXTERNAL | | | | performed at [facility], [address] | | LAB | | | | [address], | | | | | | [place] [address] | | | | + + + + + + | Glucose, | 86Comment: Testing | 65 - 99 mg/dL | EXTERNAL | | | Fasting | performed at [facility], [address] | | LAB | | | | [address], | | | | | | [place] [address] | | | | + + + + + + | BUN | 12Comment: Testing | 8 - 25 mg/dL | EXTERNAL | | | | performed at [facility], [address] | | LAB | | | | [address], | | | | | | [place] [address] | | | | + + + + + + | Creatinine | 0.8Comment: Testing | 0.50 - 1.00 | EXTERNAL | | | | performed at [facility], [address] | mg/dL | LAB | | | | [address], | | | | | | [place] [address] | | | | + + + + + + | BUN/Creatin | 15Comment: Testing | | EXTERNAL | | | ine Ratio | performed at [facility], [address] | | LAB | | | | [address], | | | | | | [place] [address] | | | | + + + + + + | Calcium | 9.1Comment: Testing | 8.5 - 10.5 | EXTERNAL | | | | performed at [facility], [address] | mg/dL | LAB | | | | [address], | | | | | | [place] [address] | | | | + + + [...] | | | | | | at [facility], [address] | | | | | | [facility], | | | | | | [place] [address] | | | | + + + [...]
--- OUTSIDE RECORDS SUMMARY | ~2019-03-13 | XMS | Encounter Summary ---
Demographics + + + | Address | [address] | | | [place] [address] | + + + | Home Phone [...] Team Providers + +------+ + | Care Recycling Specialist Name | Role | Phone | [...] Medicine [address] | [facility] [address] [facility] | | | | | [place], [place] | [facility] | | | | | [id number] | [place], [place] | | | | | | [address] | | | | | | [phone] | | | | | | | [...] cannot be sent through Care Everywhere.Musculoskeletal Pain (Maltese)Scapular: Exercises (Maltese)Shoulder Stretches: Exercises (Maltese)documente d in this encounter Medications at Time [...] RADIOLOGY | [address] | [place] [address] | [phone] | | VOICE RECOGNITION | | | [...] Note | + ---------+ | Service Account, Veenome Res In Interface - 03/11/2019 3:28 PM [...] RADIOLOGY | [address] | [place] [address] | [phone] | | VOICE RECOGNITION | | | [...] Note | + -------+ | Service Account, EmirCode Blue Res In Interface - 03/11/2019 3:29 PM [...] RADIOLOGY | [address] | [place] [address] | [phone] | | VOICE RECOGNITION | | | [...] | | alignment. Vertebral heights are preserved. Cddr-hy-sgarhjht | | | spondylotic changes are most [...] be positional or due to muscle spasm. Bbet-ky-itrzgtap spondylotic | | | changes. Signed By: [...] alignment. Vertebral heights are preserved. | | Wuyx-uf-jfaaelre spondylotic changesare most pronounced at the C5-6 [...] can be positional or due to muscle spasm.Qcyg-ab-cqowvfec spondylotic | | changes. Signed By: Garcia Bravo DO On 03/11/2019 15:23:21 | | | |Visualized paranasal sinuses and mastoid air cells appear clear. Calvarium is grossly intac t. | | | |Cervical spine: | |There is normal alignment. Vertebral heights are preserved. Qnaa-oa-emakozlt spondylotic ch anges | |are most pronounced [...] positional or due to muscle spasm. | |Cmaq-pc-jzshnwyj spondylotic changes. | | | | | |Signed By: Garcia Bravo DO On 03/11/2019 15:23:21 | + --------+ + + + + + | Performing | Address | City/State/Zipcode | Phone Number | | Organization | | | | + + + + + | [facility] | [address] | [place] [address] | [phone] | | VOICE RECOGNITION | | | [...] | | alignment. Vertebral heights are preserved. Vaqw-py-qhvrgouz | | | spondylotic changes are most [...] be positional or due to muscle spasm. Zgva-ba-xzttxlqd spondylotic | | | changes. Signed By: [...] alignment. Vertebral heights are preserved. | | Atea-ep-yyxaabeg spondylotic changesare most pronounced at the C5-6 [...] can be positional or due to muscle spasm.Ptvw-ak-ckkymwdq spondylotic | | changes. Signed By: Garcia Bravo DO On 03/11/2019 15:23:21 | | | |Visualized paranasal sinuses and mastoid air cells appear clear. Calvarium is grossly intac t. | | | |Cervical spine: | |There is normal alignment. Vertebral heights are preserved. Zzct-sb-dsndmzuu spondylotic ch anges | |are most pronounced [...] positional or due to muscle spasm. | |Ruoc-bk-rgkchgxb spondylotic changes. | | | | | |Signed By: Garcia Bravo DO On 03/11/2019 15:23:21 | + --------+ + + + + + | Performing | Address | City/State/Zipcode | Phone Number | | Organization | | | | + + + + + | [facility] | [address] | [place] [address] | [phone] | | VOICE RECOGNITION | | | [...] [facility] | [address] | [place] [address] | | | LAB | | | [...] [facility] | [address] | [place] [address] | | | LAB | | | [...] | | [facility] | | | [facility] | | | | | + +---------+ [...] [facility] | [address] | [place], [place] [address] | | | LAB | | | [...]
--- OUTSIDE RECORDS SUMMARY | ~2019-03-13 | XMS | Encounter Summary ---
Demographics + + + | Address | [address] | | | [place] [address] | + + + | Home Phone [...] [facility] | | | and [place] | + + + | Organization | [facility] | | | [...] Team Providers + +------+ + | Care Piped Buttonhole Machine Operator Name | Role | Phone [...] Thoracic or | [place], | [address] | | | | | lumbosacral | Flakito Peter MD | [place], | | | | | neuritis or | [address] | [place] | | | | | | [place] | [address] | | | | | radiculitis, | [place], [place] | Phone: | | | | | unspecified | [address] | [phone] | | | | | Procedures | Phone: | Fax: | | | | | [place] INJECT | [phone] | [phone] | | | | | ANES/STEROID | Fax: | | | | | | FORAMEN | [phone] | | | | | | LUMBAR/SACRA | | | | | | | L W IMG | | | | | | | GUIDE ,1 | | | | | | | LEVEL [place] | | | | | | | [...] + + + + | 08/27/ | [facility] | Flakito Nicholson | Lumbar radiculopathy | | 2014 | Encounter | MED CTR XRAY [address] | T, [address] | | | | | [place] | [place], [place] | | | | | [place] [address] | [address] | | | | | [phone] | | | | | | | [employer] Partition Erector, [facility] | | +--------+ + + + [...] DR | | | | | | [place] [address] | | | | | | [phone] | | | | | | | [...] radiculopathy ICD-9 Code 724.4 Jocelyne Montez | [facility] | | presents to the fluoroscopy suite for a fluoroscopically-guided [facility] | | L5-S1 transforaminal epidural steroid [...] + + | Performing | Address | City/State/[facility] | Phone Number | | Organization | | | | + + + + + | [facility] [address] | [address] | [place] | [phone] | | [facility] | | [address] | | | - IMAGING | | [...]
[~2019-03-13 20:13] MED LIST changes: +ALENDRONATE SOD35 MG PO; +ASPIRIN325 MG PO; +CELEBREX200 MG PO; +GABAPENTIN300 MG PO; +HYDROCODON-ACE1 EA11 PO; +ISOSORBIDE DINI10 MG PO; +SYMBICORT 80-10.2 GM INH
--- OUTSIDE RECORDS SUMMARY | 2019-03-13 20:16 | XMS ---
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 E.D. VISIT COUNT (12 MO.) [address] TOTAL 3 NOTE: Visits indicate total known visits. ED/UCC VISIT TRACKING (12 MO.) 03/13/2019 20:14 [facility] [place] TYPE: Emergency COMPLAINT: - HIP PAIN/FALL 03/11/2019 14:29 [facility] [place] TYPE: Emergency DIAGNOSES: [address]. [facility] [address]. Pain in right shoulder 48872. Other specified disorders of bone, shoulder 36185. Other chest pain 76094. Unspecified fall, initial encounter [address]. 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
[2019-03-13] MEDS ORDERED: FAMOTIDINE40 MG PO (20:38)
== END 2019-03-13 21:52 | disposition home or self-care (01) ==
LOC: ED 20:13
DX: S40.011A Contusion of right shoulder, initial encounter (principal); W18.30XA Fall on same level, unspecified, initial encounter; I10 Essential (primary) hypertension; E78.00 Pure hypercholesterolemia, unspecified; Z88.8 Allergy status to other drugs, medicaments and biological substances; Z79.899 Other long term (current) drug therapy
CPT/HCPCS: 99283

== ENCOUNTER 2019-09-02 18:52 | Emergency (ER) | payer MEDICARE, OTHER ==
[~2019-09-02] VITALS: Ht 152.4 cm; Wt 79.4 kg
--- OUTSIDE RECORDS SUMMARY | ~2019-09-02 | XMS | Encounter Summary ---
Demographics + + + | Address | [address] | | | [place] [address] | + + + | Home Phone | | + + + | Preferred Language | Unknown | + + + | Marital Status | | + + + | Jehovah'S Witness Affiliation | CAT | + + + | Race | White | + + + | Ethnic Group | Not or | + + + Author + + + | Author | [facility] [employer] [facility] | + + + | Organization | [facility] | + + + | Address | Unknown | + + + | Phone | Unavailable | + + + Support + + +---------+ + | Name | Relationship | Address | Phone | + + +---------+ + | Charlene Rouse | ECON | Unknown | | + + +---------+ + Care Team Providers + +------+ + | Care Tare Worker Name | Role | Phone | + +------+ + | Jesse Chand MD | PCP | | + +------+ + Reason for Visit Speech Therapy (Routine) +--------+--------+ + + + + | Status | Reason | Specialty | Diagnoses / | Referred By | Referred To | | | | | Procedures | Contact | Contact | +--------+--------+ + + + + | Closed | | Speech | Diagnoses | [place], | Ent Speech | | | | Therapy | Dysphagia, | Mamta | [address] | | | | | unspecified | E, PA-C | [address] | | | | | type | [address] | Physician's | | | | | Procedures | Ave | Pavilion, | | | | | CONSULT TO | [place], [place] | [facility] floor | | | | | ENT SPEECH | [address] | [place], [place] | | | | | THERAPY | Phone: | [address] | | | | | | [phone] | Phone: | | | | | | Fax: | [phone] | | | | | | [phone] | Fax: | | | | | | | [phone] | +--------+--------+ + + + + Encounter Details +--------+ + + + + | Date | Type | Department | Care Team | Description | +--------+ + + + + | 07/29/ | Diagnostic | Otolaryngology | Jasmine Contreras | | | 2017 | Visit | Speech Therapy | | | | | | Services at [facility] | | | | | | [address] | | | | | [address] Physician's | | | | | | [address], [address] [place] [address] | | | | | | [place], [place] | | | | | | [address] | | | | | | [phone] | | | +--------+ + + + + [...] Comments | + + +---------+ + | No | | | very rarely | + + +---------+ + + + [...] + + documented as of this encounter Progress Jasmine Chi - 07/29/2016 11:00 AM PDT Clinic: [facility] Swallowing Referring Physician: Jesse Chand MD [facility] [address] [place] [address] PCP: Jesse Chand MD Medical Diagnosis: Chronic cough Date of Onset for This Diagnosis: 07/08/16 Treatment Diagnosis: Esophageal dysmotility, esophageal dysphagia Start of Care Date: 07/29/16 Duration of session: 45 minutes REASON FOR CONSULT: Jocelyne Montez is a 66 y.o. female patient referred by Derrick Mena, for evaluation of swallowing. Patient reports a 4 year history of cough and choking wit h eating. Patient indicates the cough is "good today". She indicates it is worse at night an d better during the winter when her allergies are not so bad. She was tried on a 2-week oral steroid which did not eliminate her cough, but helped it go from productive to dry cough. S he notes bad side effects from the steroids, such as burning in throat, hands, eyes, and vag erica. She reports choking mostly on solid foods about 1-2x per day. She has to cut her food s mall so it won't get stuck. She feels transit is slow through her esophagus with solid foods - "stuck in esophagus". She tolerates a regular diet and any liquids. She does not avoid an y foods due to her difficulties. Foods that give her the most difficulty include chicken isadora ast, nuts, chips, popcorn, crackers, licorice, toast, celery. She is more careful with these . She reports pills go down ok; sometimes she will cut them in half. She has not lost any we ight unintentionally; she reports her weight has increased over the past 3 years. She thinks her voice may have lowered over the past 5 years. She reports occasional GERD, usually once per week. She had a sleep study which revealed sleep apnea; she wears a bipap at night. She denies recent pneumonia. She endorses allergies such as mold and smoke. Pt has a past medical history of Coronary disease; Gastroesophageal reflux; HTN (hypertens ion), benign; Hypothyroidism; Moderate persistent asthma; OFELIA (obstructive sleep apnea); Ost eopenia; and Prinzmetal angina (HCC). She also has no past medical history of Diabetes melli tus (HCC) or Liver disease. Pt has a past surgical history that includes removal of rectum and colon (03/2007); cystoc marcelina repair (08/2003`); breast biopsy (2001); hx sphinterotomy (1993); hx pancreatic duct sphi ncterotomy (02/1991); cholecystectomy (09/1989); salpingo-oophorectomy (1981); hx delia rso (); egd (esophagogastroduodenoscopy) (01/08/2016); and tonsillectomy and adenoidectomy (195 4). DIETARY STATUS: Current diet: The patient is currently taking a regular diet and any liquid s by mouth. She does not have a feeding tube. She reports recently taking oatmeal, hamburger , corn on the cob, portuguese salad. WEIGHT: The patient reports she has gained ~ 25 lbs over the past 3 years. Wt Readings from Last 3 Encounters: 07/29/16 77.1 kg (170 lb) 07/08/16 78 kg (172 lb) 08/30/07 60.1 kg (132 lb 8 oz) SOCIAL HISTORY: The patient currently lives in [place], [place]. COMMUNICATION/SPEECH STATUS: The patient communicates verbally. Speech quality was noted to be normal. Voice quality was clear. In terms of respiration, the patient is breathing easil y at rest. She reports improved breathing since began using bipap for sleep apnea. ORAL-MOTOR EXAMINATION: The patient s sauk-suiattle dentition is significant for few missing mol ars on right bottom. Normal exam. Cough strength normal. MODIFIED BARIUM SWALLOW STUDY: Prior to starting the study, the patient's name and were verified. The patient was eval uated in the [facility] 10th floor Radiology suite & was observed in the lateral and anteroposteri or planes while standing. Consistencies/materials administered included: honey, nectar, thin , pudding, fruit cocktail, triscuit, potato chip, kavon cracker, red vine, pill. The patien t tolerated the exam well, despite distaste for barium. Oral Phase: Oral bolus control and preparation were within normal limits. Pharyngeal Phase: Initiation of the pharyngeal phase was timely. Once initiated, laryngeal elevation was normal resulting in complete epiglottic deflection. Velopharyngeal closure wa s normal. Tongue base to pharyngeal wall contact was normal. There was no penetration, asp iration, or post-swallow residue noted with any consistency. In the saurabh-posterior view, t he swallow was noted to be normally symmetric. Esophageal Phase: Cricopharyngeal opening was noted to be normal. Please see the radiolog ist s report for additional information. PATIENT EDUCATION & TREATMENT: Subsequent to the examination, the findings were reviewed wi th the patient. Discussed her esophageal dysmotility for solids and how this is contributing to her symptoms of food sticking in throat and esophagus. Reviewed esophageal dysmotility r ecommendations and provided these in written form. Encouraged her to return to see us if sym ptoms worsen. Patient demonstrated understanding of our discussion. All questions answered t o her satisfaction. ASSESSMENT: The patient demonstrates esophageal dysmotility for solids. Provided esophageal dysmotility recommendations were provided. PLAN: The patient was advised to: 1. The patient s diet was not changed. Continue regular solids and any liquids by mouth. 2. Implement esophageal dysmotility recommendations: -chew well -smaller, more frequent meals over fewer large meals -small bites/sips -remain upright and walk around after meals -avoid laying down or reclined during and after meals -chew gum after meals 3. Discuss reflux options with Maricel Zambrano or PCP. FOLLOW-UP: The patient was advised to follow-up with us should symptoms worsen. Thank you for this consult. Jasmine Contreras MA, CF-AUTO MECHANIC Speech-Language Pathology Fellow [facility] Dept. of Otolaryngology, [id number] [place] [address] Pager: [phone] documented in this encount er Plan of Treatment Not on filedocumented as of this encounter Procedures + +--------+ + + + | Procedure Name | Priori | Date/Time | Associated Diagnosis | Comments | | | ty | | | | + +--------+ + + + | HI EVAL,SWALLOW | Routin | 08/02/2016 | Esophageal | | | FUNCTION,CINE/VIDEO | e | 8:31 PM | dysphagia | | | RECORD | | PDT | Esophageal | | | | | | dysmotility Chronic | | | | | | cough | | + +--------+ + + + | HI EVAL,ORAL & | Routin | 08/02/2016 | Esophageal | | | PHARYNGEAL SWALLOW | e | 8:31 PM | dysphagia | | | FUNCTION | | PDT | Esophageal | | | | | | dysmotility Chronic | | | | | | cough | | + +--------+ + + + documented in this encounter Visit Diagnoses + + | Diagnosis | + + | Esophageal dysphagia - Primary Dysphagia, pharyngoesophageal phase | + + | Esophageal dysmotility Dyskinesia of esophagus | + + | Chronic cough Cough | + + documented in this encounter
--- OUTSIDE RECORDS SUMMARY | ~2019-09-02 | XMS | Encounter Summary ---
Demographics + + + | Address | [address] | | | [place] [address] | + + + | Home Phone | | + + + | Preferred Language | Unknown | + + + | Marital Status | | + + + | Druze Affiliation | CAT | + + + | Race | White | + + + | Ethnic Group | Not or | + + + Author + + + | Author | [facility] | + + + | Organization | [facility] | + + + | Address | Unknown | + + + | Phone | Unavailable | + + + Support + + +---------+ + | Name | Relationship | Address | Phone | + + +---------+ + | Charlene Rouse | ECON | Unknown | | + + +---------+ + Care Team Providers + +------+ + | Care Hay Buckler Name | Role | Phone | + +------+ + | Jesse Chand MD | PCP | | + +------+ + Encounter Details +--------+ + + + + | Date | Type | Department | Care Team | Description | +--------+ + + + + | 04/24/ | Documentati | Otolaryngology | [place], | | | 2017 | on | Laryngology Services | Mamta Argueta PA-C | | | | | at [facility] [address] | [address] | | | | | Ave [place], [place] | [place], [place] | | | | | [address] | [address] | | | | | [phone] | [phone] | | | | | | | | +--------+ + + + + Social History + +-------+ +--------+------+ | Tobacco Use | Types | Packs/Day | Years | Date | | | | | Used | | + +-------+ +--------+------+ | Never Smoker | | | | | + +-------+ +--------+------+ + + + + + | Alcohol Use | Drinks/Week | oz/Week | Comments | + + + + + | Yes | 3-4 Standard | 2.5 - 3.3 | | | | drinks or equivalent | | | + + + + + + + + | Sex Assigned [...] as of this encounter Plan of Treatment Not on filedocumented as of this encounter Visit Diagnoses Not on filedocumented in this encounter"
--- OUTSIDE RECORDS SUMMARY | ~2019-09-02 | XMS | Encounter Summary ---
Demographics + + + | Address | [address] | | | [place] [address] | + + + | Home Phone | | + + + | Preferred Language | Unknown | + + + | Marital Status | | + + + | Anglican Affiliation | 1041 | + + + | Race | Unknown | + + + | Ethnic Group | Unknown | + + + Author + + + | Author | [facility] | | | and [place] | + + + | Organization | [facility] | | | and [place] [...] Team Providers + +------+ + | Care Conduit Cleaner Name | Role | Phone | + +------+ + PCP | Unavailable | + +------+ + Encounter Details +--------+ + + + + | Date | Type | Department | Care Team | Description | +--------+ + + + + | 03/30/ | Hospital | [facility] | Wilder Mosquera MD | | | 1996 | Encounter | MED CTR GENERIC OP | [address], [place] | | | | | CONV DEPT [address] | [address] [place], [place] | | | | | [address] [place], | [address] | | | | | [place] [address] | | | | | | [phone] | | | +--------+ + + + [...]
--- OUTSIDE RECORDS SUMMARY | ~2019-09-02 | XMS | Encounter Summary ---
Demographics + + + | Address | [address] | | | [place] [address] | + + + | Home Phone | | + + + | Preferred Language | Unknown | + + + | Marital Status | | + + + | Rastafari Affiliation | CAT | + + + | Race | White | + + + | Ethnic Group | Not or | + + + Author + + + | Organization | Unknown | + + + | Address | Unknown | + + + | Phone | Unavailable | + + + Support + + +---------+ + | Name | Relationship | Address | Phone | + + +---------+ + | Charlene Rouse | ECON | Unknown | | + + +---------+ + Care Team Providers + +------+ + | Care Director Of Physical Education Name | Role | Phone | + +------+ + | Jesse Chand MD | PCP | | + +------+ + Encounter Details +--------+ + + + + | Date | Type | Department | Care Team | Description | +--------+ + + + + | 07/04/ | [facility] | | | | | 2010 | Document-Sc | | | | | | anned | | | | +--------+ + + [...]
--- OUTSIDE RECORDS SUMMARY | ~2019-09-02 | XMS | Encounter Summary ---
Demographics + + + | Address | [address] | | | [place] [address] | + + + | Home Phone | | + + + | Preferred Language | Unknown | + + + | Marital Status | | + + + | Sabianism Affiliation | 1041 | + + + | Race | Unknown | + + + | Ethnic Group | Unknown | + + + Author + + + | Author | [facility] | | | and [place] | + + + | Organization | [facility] | | | and [place] | [...] Team Providers + +------+ + | Care Revival Clerk Name | Role | Phone | + +------+ + PCP | Unavailable | + +------+ + Encounter Details +--------+ + + + + | Date | Type | Department | Care Team | Description | +--------+ + + + + | 11/13/ | Hospital | [facility] | Wilder Mosquera MD | | | 1994 | Encounter | MED CTR XRAY [address] | [address], [place] | | | | | [address] [place] | [address] [place], [place] | | | | | [place] [address] | [address] | | | | | [phone] | | | +--------+ + + + [...]
--- OUTSIDE RECORDS SUMMARY | ~2019-09-02 | XMS | Encounter Summary ---
Demographics + + + | Address | [address] | | | [place] [address] | + + + | Home Phone | | + + + | Preferred Language | Unknown | + + + | Marital Status | | + + + | Adventist Affiliation | CAT | + + + | Race | White | + + + | Ethnic Group | Not or | + + + Author + + + | Author | [facility] | + + + | Organization | [facility] | + + + | Address | Unknown | + + + | Phone | Unavailable | + + + Support + + +---------+ + | Name | Relationship | Address | Phone | + + +---------+ + | Charlene Rouse | ECON | Unknown | | + + +---------+ + Care Team Providers + +------+ + | Care Slot Machine Repairer Name | Role | Phone | + +------+ + | Jesse Chand MD | PCP | | + +------+ + Encounter Details +--------+ + + + + | Date | Type | Department | Care Team | Description | +--------+ + + + + | 12/15/ | Documentati | [facility] | Marie Amaya MD | | | 2004 | on | Department | [facility] [facility] | | | | | | [facility] | | | | | | & ONCOLOGY [address] | | | | | | [address] | | | | | | [place] [address] | | | | | | [phone] | | | | | | | [...] documented as of this encounter Progress Notes Interface, Electronics Computer Mechanic In - 08/29/2010 6:47 PM PDTJanuary 2001-Sent 04/28/01 Jesse Chand M.D. [facility] [address] [place] [id number] RE:ANTHONY MONTEZ MR:[id number] Chand: I recently had the opportunity to see your patient Anthony Montez for evaluation of her atypical ductal hyperplasia on a recent breast biopsy. Although you are quite familiar with her history, please allow me to review it for our records. Anthony Montez is a 51-year-old postmenopausal woman who states that approximately three years ago on routine screening mammogram, she was found to have some changes, and has been getting mammograms almost every six months since that time. On her most recent screening mammogram in January 2001, she was found to have some increasing microcalcifications in the right breast. Focal compression views confirmed the presence of these microcalcifications and she was recommended for a stereotactic breast biopsy. This was performed on March 22, 2001. She was found to have fibrocystic disease with atypical ductal hyperplasia. She is now referred in consideration for the use of tamoxifen. She is post menopausal having undergone a total abdominal hysterectomy bilateral salpingo-oophorectomy at age 26. She has been on hormone replacement therapy for over 20 years. Her family history is remarkable for two maternal great aunts with breast cancer in their 40s. She is 1 para 1. Her past medical history is remarkable for coronary artery disease. She is status post total abdominal hysterectomy and bilateral salpingo-oophorectomy at age 26. She is status post a cholecystectomy and had two other bile duct surgeries following that. She is status post a tonsillectomy as a young child. Jesse Chand M.D. April 26, 2001 Page 2 RE:ANTHONY MONTEZ [id number] Her current medications include Hyzaar, atenolol, dicyclomine, estrogen patches, multivitamin, Lipitor, Tiazac, nitroglycerin patch, Toprol and Maxzide. She reports an allergy to Compazine. Her family history is as described above. In addition, her son has testicular cancer and her father had colon cancer. She also has a strong family history of coronary artery disease. Anthony lives in [place], [place]. 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 She denies any tobacco use and has minimal alcohol intake. On physical examination, her temperature is 98.4, pulse 68, blood pressure 128/84, weight 141 pounds. In general, Anthony is a young white female resting comfortably. Her HEENT examination reveals no scleral icterus. Her oropharynx is clear without lesions. Her extremities are without edema. Her skin examination reveals no rashes, petechiae or ecchymoses. She is alert and oriented times three with an appropriate mood and affect. She has normal motor strength, and normal gait. In summary, Anthony is a 51-year-old woman who presents with a recent breast biopsy revealing atypical ductal hyperplasia. Atypical hyperplasia is not a precancerous lesion, but certainly does put her in a category of increased risk for subsequent development of breast cancer. She would be a candidate for tamoxifen. Tamoxifen has recently been shown in the breast cancer prevention trial to decrease the risk of subsequent invasive breast cancer in women with atypical ductal hyperplasia by over 50%. Additionally, she is eligible for the STAR trial. This is a randomized study comparing tamoxifen versus raloxifene in post menopausal women who are felt to be at high-risk for breast cancer. Anthony was given some information on this and I will have Stephanie Arroyo, the nurse who is in charge of this study, contact Anthony to provide more information on this. My recommendation would be for her to participate in the trial. We did discuss that tamoxifen is associated with an increased risk of thromboembolic disease, but this risk is no different than that of estrogen. Jesse Chand M.D. April 26, 2001 Page 3 Additionally, we discussed that tamoxifen may cause increased hot flashes but that it is not associated with this in the majority of women. There is no further follow-up necessary with us. However, we do remain available should any new issues arise. If you have any questions, please feel free to contact me at [phone]. Sincerely, Marie Amaya M.D. [facility]/54332.let cc:Talon Stallings M.D. documented in this encounter Plan of Treatment Not on filedocumented as of this encounter Visit Diagnoses Not on filedocumented in this encounter"
--- OUTSIDE RECORDS SUMMARY | ~2019-09-02 | XMS | Encounter Summary ---
Demographics + + + | Address | [address] | | | [place] [address] | + + + | Home Phone | | + + + | Preferred Language | Unknown | + + + | Marital Status | | + + + | Islam Affiliation | CAT | + + + | Race | White | + + + | Ethnic Group | Not or | + + + Author + + + | Author | [facility] | + + + | Organization | [facility] [employer] [facility] | + + + | Address | Unknown | + + + | Phone | Unavailable | + + + Support + + +---------+ + | Name | Relationship | Address | Phone | + + +---------+ + | Charlene Rouse | ECON | Unknown | | + + +---------+ + Care Team Providers + +------+ + | Care Input Output Clerk Name | Role | Phone | + +------+ + | Jesse Chand MD | PCP | | + +------+ + Encounter Details +--------+ + + + + | Date | Type | Department | Care Team | Description | +--------+ + + + + | 08/13/ | Home Care Music Therapist | Otolaryngology | [place], | Chronic cough | | 2017 | | Laryngology Services | Mamta Argueta PA-C | (Primary Dx) | | | | at [facility] [address] | [address] | | | | | Ave [place], [place] | [place], [place] | | | | | [address] | [address] | | | | | [phone] | [phone] | | | | | | | [...] filedocumented as of this encounter Visit Diagnoses + + | Diagnosis | + + | Chronic cough - Primary Cough | + + documented in this encounter"
--- OUTSIDE RECORDS SUMMARY | ~2019-09-02 | XMS | Encounter Summary ---
Demographics + + + | Address | [address] | | | [place] [address] | + + + | Home Phone | | + + + | Preferred Language | Unknown | + + + | Marital Status | | + + + | Mormon Affiliation | 1041 | + + + | Race | Unknown | + + + | Ethnic Group | Unknown | + + + Author + + + | Author | [facility] | | | and [place] | + + + | Organization | [facility] | | | and [place] | + + + | Address | Unknown | + + + | Phone | Unavailable | + + + Support + + +---------+ + | Name | Relationship | Address | Phone | + + +---------+ + | Shaggy Gunnarmiguelito | ECON | Unknown | | + + +---------+ + | Shreya Romero | ECON | Unknown | | + + +---------+ + Care Team Providers + +------+ + | Care Can Carrier Name | Role | Phone | + +------+ + | Jesse Chand MD | PCP | | + +------+ + Encounter Details +--------+ + + + + | Date | Type | Department | Care Team | Description | +--------+ + + + + | 12/31/ | Hospital | [facility] | Conversion | | | 2016 | Encounter | [facility] | Transaction, | | | | | CLINIC [address] | Provider Unknown | | | | | [address] [place], [place] | | | | | | [address] | (Fax) | | | | | [phone] | | | +--------+ + + + [...] + + + | Blood Pressure | 135/73 | 01/01/2016 12:11 PM | | | | | PDT | | + + + + + | Pulse | 78 | 01/01/2016 12:11 PM | | | | | PDT [...] + + + + | Weight | 73.6 kg (162 lb 4.2 | 01/01/2016 12:11 PM | | | | oz) | PDT | | + + + + + | Height | 154.9 cm (5' 1") | 01/01/2016 12:11 PM | | | | | PDT | | + + + + + | Body Mass Index | 30.66 | 01/01/2016 12:11 PM | | | | | PDT | | + + + + + documented in this encounter Medications at Time of Discharge [...] every 7 days. | | | | 0 | | tablet | | | | | | + + + +---------+ + + | cholecalciferol | Take 1,000 Units by | | 0 | 01/11/20 | | | (VITAMIN D-3) 1000 | mouth Daily. | | | 12 | 0 | | UNITS TABS | | | | | | + + + +---------+ + + | cyclobenzaprine | Take 10 mg by mouth | | 0 | | | | (FLEXERIL) 5 MG | 3 times daily as | | | | 0 | | tablet | needed for Muscle | | | | | | | spasms. | | | | | + + + +---------+ + + | DEXAMETHASONE | SOLN-2 tsp. swished | | 0 | 01/11/20 | | | SODIUM PHOSPHATE | in mouth two times | | | 12 | 0 | | | daily three days; 1 [...] 6 hours as | | | | 0 | | | needed for Anxiety. | [...] mcg | | | | 12 | 0 | | tablet | | | | | | + + + +---------+ + + | nitroglycerin | 1 patch applied | | 0 | 01/11/20 | | | (NITRO-DUR) 0.4 | daily | | | 12 | 0 | | mg/hr | | | | | | + + + +---------+ + + | trazodone | Take 150 mg by mouth | | 0 | | | | (DESYREL) 150 MG | nightly. | | | | 0 | | tablet | | | | | | + + + +---------+ + + | venlafaxine | Take 75 mg by mouth | | 0 | | | | (EFFEXOR) 75 MG | Daily. | | | | 0 | | tablet | | | | | | + + + +---------+ + + documented as of this encounter Plan of Treatment Not on filedocumented as of this encounter Procedures + +--------+ + + + | Procedure Name | Priori | Date/Time | Associated Diagnosis | Comments | | | ty | | | | + +--------+ + + + | ECG 12 LEAD | Routin | 01/01/2016 | | Results for this | | | e | 12:43 PM | | procedure are in the | | | | PDT | | results section. | + +--------+ + + + | BASIC METABOLIC | Routin | 01/01/2016 | | Results for this | | PANEL | e | 12:24 PM | | procedure are in the | | | | PDT | | results section. | + +--------+ + + + documented in this encounter Results ECG 12 lead (01/01/2016 12:43 PM PDT) + + + + + + | Component | Value | Ref Range | Performed | Pathologist | | | | | At | Signature | + + + + + + | DIAGNOSIS: | Sinus rhythm with | | EXTERNAL | | | | occasional Premature | | LAB | | | | atrial | | | | | | complexesNonspecific T | | | | | | wave abnormalityAbnormal | | | | | | ECGWhen compared with | | | | | | ECG of 18-MAR-2015 | | | | | | 10:09, Confirmed by | | | | | | MUSTAPHA SCHNEIDER ([id number]) on | | | | | | 01/02/2016 7:19:32 AM | | | | + + + + + + + + | Specimen | + + | | + + + + + | Narrative | Performed At | + + + | Historically converted procedure from [facility] Epic environment | EXTERNAL LAB | + + + + +---------+ + + | Performing | Address | City/State/Zipcode | Phone Number | | Organization | | | | + +---------+ + + | EXTERNAL LAB | | | | + +---------+ + + Basic Metabolic Panel (01/01/2016 12:24 PM PDT) + + + + + + | Component | Value | Ref Range | Performed | Pathologist | | | | | At | Signature | + + + + + + | Na | 141Comment: Testing | 135 - 145 | EXTERNAL | | | | performed at [facility], [address] | mmol/L | LAB | | | | [address], | | | | | | [place] [address] | | | | + + + + + + | K | 4.0Comment: Testing | 3.5 - 4.9 | EXTERNAL | | | | performed at [facility], [address] | mmol/L | LAB | | | | [address], | | | | | | [place] [address] | | | | + + + + + + | Cl | 105Comment: Testing | 99 - 109 mmol/L | EXTERNAL | | | | performed at [facility], [address] | | LAB | | | | [address], | | | | | | [place] [address] | | | | + + + + + + | CO2 | 30Comment: Testing | 23 - 32 mmol/L | EXTERNAL | | | | performed at [facility], [address] | | LAB | | | | [address], | | | | | | [place] [address] | | | | + + + + + + | Anion Gap | 10Comment: Testing | 5 - 20 mmol/L | EXTERNAL | | | | performed at [facility], [address] | | LAB | | | | [address], | | | | | | [place] [address] | | | | + + + + + + | Glucose, | 86Comment: Testing | 65 - 99 mg/dL | EXTERNAL | | | Fasting | performed at [facility], [address] | | LAB | | | | [address], | | | | | | [place] [address] | | | | + + + + + + | BUN | 12Comment: Testing | 8 - 25 mg/dL | EXTERNAL | | | | performed at [facility], [address] | | LAB | | | | [address], | | | | | | [place] [address] | | | | + + + + + + | Creatinine | 0.8Comment: Testing | 0.50 - 1.00 | EXTERNAL | | | | performed at [facility], [address] | mg/dL | LAB | | | | [address], | | | | | | [place] [address] | | | | + + + + + + | BUN/Creatin | 15Comment: Testing | | EXTERNAL | | | ine Ratio | performed at [facility], [address] | | LAB | | | | [address], | | | | | | [place] [address] | | | | + + + + + + | Calcium | 9.1Comment: Testing | 8.5 - 10.5 | EXTERNAL | | | | performed at [facility], [address] | mg/dL | LAB | | | | [address], | | | | | | [place] [address] | | | | + + + + + + | Estimated | >60Comment: GFR <60: | mL/min/1.73m2 | EXTERNAL | | | GFR | CHRONIC KIDNEY DISEASE, | | LAB | | | | IF FOUND OVER A 3 MONTH | | | | | | PERIOD.GFR <15: KIDNEY | | | | | | FAILURE.FOR | | | | | | AMERICANS, MULTIPLY THE | | | | | | CALCULATED GFR BY | | | | | | 1.210.Testing performed | | | | | | at [facility], [address] | | | | | | [address], | | | | | | [place] [address] | | | | + + + + + + + + | Specimen | + + | Blood specimen | | (specimen) | + + + +---------+ + + | Performing | Address | City/State/Zipcode | Phone Number | | Organization | | | | + +---------+ + + | EXTERNAL LAB | | | | + +---------+ + + documented in this encounter Visit Diagnoses Not on filedocumented in this encounter
--- OUTSIDE RECORDS SUMMARY | ~2019-09-02 | XMS | Encounter Summary ---
Demographics + + + | Address | [address] | | | [place] [address] | + + + | Home Phone | | + + + | Preferred Language | Unknown | + + + | Marital Status | | + + + | Restorationist Affiliation | 1041 | + + + | Race | Unknown | + + + | Ethnic Group | Unknown | + + + Author + + + | Author | [facility] | | | and [place] | + + + | Organization | [facility] | | | and [place] [...] Team Providers + +------+ + | Care Boiler Tender Name | Role | Phone | + +------+ + | Jesse Chand MD | PCP | | + +------+ + Reason for Visit +--------+ + | Reason | Comments | +--------+ + | Other | | +--------+ + Encounter Details +--------+ + + + + | Date | Type | Department | Care Team | Description | +--------+ + + + + | 07/27/ | Telephone | [facility] [place] | Jace Mcdonald | Other | | 2015 | | NEUR[address]URGERY [address] | [address] | | | | | [address] | [address] | | | | | [place], [place] | [place] [address] | | | | | [address] | [phone] | | | | | [phone] | | | +--------+ + + + [...]
--- OUTSIDE RECORDS SUMMARY | ~2019-09-02 | XMS | Encounter Summary ---
Demographics + + + | Address | [address] | | | [place] [address] | + + + | Home Phone | | + + + | Preferred Language | Unknown | + + + | Marital Status | | + + + | Sabianism Affiliation | 1041 | + + + | Race | Unknown | + + + | Ethnic Group | Unknown | + + + Author + + + | Author | [facility] | | | and [place] | + + + | Organization | [facility] | | | and [place] [...] Team Providers + +------+ + | Care Service Counselor Name | Role | Phone | + +------+ + | Jesse Chand MD | PCP | | + +------+ + Encounter Details +--------+ + + + + | Date | Type | Department | Care Team | Description | +--------+ + + + + | 12/31/ | Hospital | [facility] | Conversion | | | 2016 | Encounter | CENTER [facility] | Transaction, | | | | | CLINIC [address] | Provider Unknown | | | | | [address] [place], [place] | | | | | | [address] | (Fax) | | | | | [phone] | | | +--------+ + + + [...] + + | Historically converted procedure from [facility] Epic environment | EXTERNAL LAB | + [...] EXTERNAL | | | | performed at [facility], [address] | mmol/L | LAB | | | | [address], | | | | | | [place] [address] | | | | + + + + + + | K | 4.0Comment: Testing | 3.5 - 4.9 | EXTERNAL | | | | performed at [facility], [address] | mmol/L | LAB | | | | [address], | | | | | | [place] [address] | | | | + + + + + + | Cl | 105Comment: Testing | 99 - 109 mmol/L | EXTERNAL | | | | performed at [facility], [address] | | LAB | | | | [address], | | | | | | [place] [address] | | | | + + + + + + | CO2 | 30Comment: Testing | 23 - 32 mmol/L | EXTERNAL | | | | performed at [facility], [address] | | LAB | | | | [address], | | | | | | [place] [address] | | | | + + + + + + | Anion Gap | 10Comment: Testing | 5 - 20 mmol/L | EXTERNAL | | | | performed at [facility], [address] | | LAB | | | | [address], | | | | | | [place] [address] | | | | + + + + + + | Glucose, | 86Comment: Testing | 65 - 99 mg/dL | EXTERNAL | | | Fasting | performed at [facility], [address] | | LAB | | | | [address], | | | | | | [place] [address] | | | | + + + + + + | BUN | 12Comment: Testing | 8 - 25 mg/dL | EXTERNAL | | | | performed at [facility], [address] | | LAB | | | | [address], | | | | | | [place] [address] | | | | + + + + + + | Creatinine | 0.8Comment: Testing | 0.50 - 1.00 | EXTERNAL | | | | performed at [facility], [address] | mg/dL | LAB | | | | [address], | | | | | | [place] [address] | | | | + + + + + + | BUN/Creatin | 15Comment: Testing | | EXTERNAL | | | ine Ratio | performed at [facility], [address] | | LAB | | | | [address], | | | | | | [place] [address] | | | | + + + + + + | Calcium | 9.1Comment: Testing | 8.5 - 10.5 | EXTERNAL | | | | performed at [facility], [address] | mg/dL | LAB | | | | [address], | | | | | | [place] [address] | | | | + + + [...] | | | | | [place] [address] | | | | + + + [...]
--- OUTSIDE RECORDS SUMMARY | ~2019-09-02 | XMS | Encounter Summary ---
Demographics + + + | Address | [address] | | | [place] [address] | + + + | Home Phone | | + + + | Preferred Language | Unknown | + + + | Marital Status | | + + + | Uatsdin Affiliation | 1041 | + + + | Race | Unknown | + + + | Ethnic Group | Unknown | + + + Author + + + | Author | [facility] | | | and [place] | + + + | Organization | [facility] | | | and [...] Team Providers + +------+ + | Care Automation And Control Engineer Name | Role | Phone | + +------+ + | Jesse Chand MD | PCP | | + +------+ + Encounter Details +--------+ + + + + | Date | Type | Department | Care Team | Description | +--------+ + + + + | 07/13/ | Orders Only | [facility] [place] | [facility] | Backache, | | 2014 | | NEUR[address]URGERY [address] | [address] | unspecified (Primary | | | | [address] | [address] | Dx) | | | | [place], [place] | [place] [address] | | | | | [address] | [phone] | | | | | [phone] | | | +--------+ + + + [...] as of this encounter Plan of Treatment + +---------+--------+ + + | Name | Type | Priori | Associated Diagnoses | Order Schedule | | | | ty | | | + +---------+--------+ + + | XR Lumbar Spine 4 + | Imaging | Routin | Backache, | Expected: 07/23/2014 | | Vw | | e | unspecified | (Approximate), | | | | | | Expires: 07/12/2015 | + +---------+--------+ + + documented as of this encounter Visit Diagnoses + + | Diagnosis | + + | Backache, unspecified - Primary | + + documented in this encounter"
--- OUTSIDE RECORDS SUMMARY | ~2019-09-02 | XMS | Encounter Summary ---
Demographics + + + | Address | [address] | | | [place] [address] | + + + | Home Phone | | + + + | Preferred Language | Unknown | + + + | Marital Status | | + + + | Anabaptist Affiliation | CAT | + + + | Race | White | + + + | Ethnic Group | Not or | + + + Author + + + | Author | [facility] | + + + | Organization | [facility] | + + + | Address | Unknown | + + + | Phone | Unavailable | + + + Support + + +---------+ + | Name | Relationship | Address | Phone | + + +---------+ + | Charlene Rouse | ECON | Unknown | | + + +---------+ + Care Team Providers + +------+ + | Care Pediatric Nephrologist Name | Role | Phone | + +------+ + | Jesse Chand MD | PCP | | + +------+ + Encounter Details +--------+ + + + + | Date | Type | Department | Care Team | Description | +--------+ + + + + | 04/23/ | Documentati | Otolaryngology | Seymour Pratt MD | | | 2017 | on | Laryngology Services | [address] | | | | | at [facility] [address] | [address] [place], | | | | | [place], [place] | [place] [address] | | | | | [address] | [phone] | | | | | [phone] | | | +--------+ + + + [...]
--- OUTSIDE RECORDS SUMMARY | ~2019-09-02 | XMS | Encounter Summary ---
Demographics + + + | Address | [address] | | | [place] [address] | + + + | Home Phone | | + + + | Preferred Language | Unknown | + + + | Marital Status | | + + + | Jewish Affiliation | 1041 | + + + | Race | Unknown | + + + | Ethnic Group | Unknown | + + + Author + + + | Author | [facility] | | | and [place] | + + + | Organization | [facility] | | | and [place] [...] Team Providers + +------+ + | Care Air Conditioning Unit Tester Name | Role | Phone | + +------+ + PCP | Unavailable | + +------+ + Encounter Details +--------+ + + + + | Date | Type | Department | Care Team | Description | +--------+ + + + + | 07/18/ | Hospital | [facility] | Umberto Joseph, | Other Specified | | 2009 - | Encounter | CONVERSION [address] | MD [address] | Rehabilitation | | | | [address] | [address] | Procedure | | 08/16/ | | [place], [place] | [place], [place] | | | 2009 | | [address] | [address] | | | | | [phone] | [phone] | | | | | | | [...] + | Diagnosis | + + | Other specified rehabilitation procedure(V57.89) Other specified rehabilitation | | procedure | + + documented in this encounter"
--- OUTSIDE RECORDS SUMMARY | ~2019-09-02 | XMS | Encounter Summary ---
Demographics + + + | Address | [address] | | | [place] [address] | + + + | Home Phone | | + + + | Preferred Language | Unknown | + + + | Marital Status | | + + + | Latter-Day Affiliation | 1041 | + + + | Race | Unknown | + + + | Ethnic Group | Unknown | + + + Author + + + | Author | [facility] | | | and [place] | + + + | Organization | [facility] | | | and [place] | [...] Team Providers + +------+ + | Care Vice President Of Marketing Name | Role | Phone | + [...] AV | Dx) | | | | [place], [place] | [place] [address] | | | | | [address] | [phone] | | | | | [phone] | | | +--------+ + + + [...]
--- OUTSIDE RECORDS SUMMARY | ~2019-09-02 | XMS | Encounter Summary ---
Demographics + + + | Address | [address] | | | [place] [address] | + + + | Home Phone | | + + + | Preferred Language | Unknown | + + + | Marital Status | | + + + | Yarsani Affiliation | 1041 | + + + | Race | Unknown | + + + | Ethnic Group | Unknown | + + + Author + + + | Author | [facility] | | | and [place] | + + + | Organization | [facility] | | | and [...] Team Providers + +------+ + | Care Performance Makeup Artist Name | Role | Phone | + [...] | SR | | | | | [address] | | | | | | [place], [place] | | | | | | [address] | | | | | | [phone] | | | +--------+ + + + [...]
--- OUTSIDE RECORDS SUMMARY | ~2019-09-02 | XMS | Encounter Summary ---
Demographics + + + | Address | [address] | | | [place] [address] | + + + | Home Phone | | + + + | Preferred Language | Unknown | + + + | Marital Status | | + + + | Hinduism Affiliation | 1041 | + + + | Race | Unknown | + + + | Ethnic Group | Unknown | + + + Author + + + | Author | [facility] | | | and [place] | + + + | Organization | [facility] | | [...] Team Providers + +------+ + | Care Bean Picker Name | Role | Phone | + +------+ + PCP | Unavailable | + +------+ + Encounter Details +--------+ + + + + | Date | Type | Department | Care Team | Description | +--------+ + + + + | 06/05/ | Hospital | [facility] | Wilder Mosquera MD | | | 1996 | Encounter | MED CTR GENERIC OP | [address], [place] | | | | | CONV DEPT [address] | [address] [place], [place] | | | | | [address] [place], | [address] | | | | | [place] [address] | | | | | | [phone] | | | +--------+ + + + [...]
--- OUTSIDE RECORDS SUMMARY | ~2019-09-02 | XMS | Encounter Summary ---
Demographics + + + | Address | [address] | | | [place] [address] | + + + | Home Phone | | + + + | Preferred Language | Unknown | + + + | Marital Status | | + + + | Episcopal Affiliation | 1041 | + + + | Race | Unknown | + + + | Ethnic Group | Unknown | + + + Author + + + | Author | [facility] | | | and [place] | + + + | Organization | [facility] | | | and [place] [...] Team Providers + +------+ + | Care Mud Analysis Supervisor Name | Role | Phone | + +------+ + | Jesse Chand MD | PCP | | + +------+ + Reason for Referral Diagnostic/Screening (Routine) +--------+--------+ + + + + | Status | Reason | Specialty | Diagnoses / | Referred By | Referred To | | | | | Procedures | Contact | Contact | +--------+--------+ + + + + | Closed | | MRI | Diagnoses | West, | | | | | | Myelopathy | Jace | | | | | | ([facility]IN [facility]) | MYNOR Rojas | | | | | | Procedures | [address] | | | | | | MRI Cervical | [address] | | | | | | Spine wo | [place] | | | | | | Contrast | [address] | | | | | | | Phone: | | | | | | | [phone] | | | | | | | Fax: | | | | | | | [phone] | | +--------+--------+ + + + + Reason for Visit + + + | Reason | Comments | + + + | New Patient | Back pain | + + + Evaluate & Treat (Routine) +--------+--------+ + + + + | Status | Reason | Specialty | Diagnoses / | Referred By | Referred To | | | | | Procedures | Contact | Contact | +--------+--------+ + + + + | Closed | | Neurosurgery | Diagnoses | Mannie, | Gerardo Stroud | | | | | Radicular | Jesse Gamble MD [address] | | | | | syndrome | MD Jason | [address] | | | | | Low back | [address] | [place], [place] | | | | | pain Left | [address] | [address] | | | | | leg weakness | [place], | Phone: | | | | | Procedures | [place] | [phone] | | | | | [place] OFFICE | [address] | Fax: | | | | | CONSULTATION | Phone: | [phone] | | | | | NEW/ESTAB | [phone] | | | | | | PATIENT 62 | Fax: | | | | | | MIN | [phone] | | +--------+--------+ + + + + Encounter Details +--------+---------+ + + + | Date | Type | Department | Care Team | Description | +--------+---------+ + + + | 07/26/ | Office | [facility] | Jace Mcdonald | DDD (degenerative | | 2015 | Visit | NEUROSURGERY [address] | [address] | disc disease), | | | | [address] | lumbar (Primary Dx); | | | | [place], [place] | [place] [address] | Lumbar | | | | [address] | [phone] | radiculopathy; | | | | [phone] | | Lumbar facet | | | | | | arthropathy; | | | | | | Myelopathy (HCC) | +--------+---------+ + + + Social History [...] + + + | Blood Pressure | 138/90 | 07/26/2014 7:54 AM | | | | | PDT | | + + + + + | Pulse | 84 | 07/26/2014 7:54 AM | | | | | PDT | | + + + + + | Temperature | - | - | | + + + + + | Respiratory Rate | 14 | 07/26/2014 7:54 AM | | | | | PDT | | + + + + + | Oxygen Saturation | - | - | | + + + + + | Inhaled Oxygen | - | - | | | Concentration | | | | + + + + + | Weight | 75.8 kg (167 lb) | 07/26/2014 7:54 AM | | | | | PDT | | + + + + + | Height | 154.9 cm (5' 1") | 07/26/2014 7:54 AM | | | | | PDT | | + + + + + | Body Mass Index | 31.55 | 07/26/2014 7:54 AM | | | | | PDT | | + + + + + documented in this encounter Patient Instructions Patient Instructions Jace Mcdonald PA - 07/26/2014 8:56 AM PDTToday we discussed g etting an injection in your low back. We also discussed obtaining an MRI of her cervical sp ine. After your MRI is completed I would like to see you in the office to review the result s documented in this encounter Progress Notes Brannon Nona L - 07/26/2014 8:07 AM PDTFormatting of this note might be different from jorge reza. SCOT Trevino [address] [place] [address], [address] [place], [place] [id number] FAX: NEUROSURGERY HISTORY AND PHYSICAL EXAMINATION CHIEF COMPLAINT: Chief Complaint Patient presents with New Patient Back pain HISTORY OF PRESENT ILLNESS: The patient is a 64 y.o. female with the complaint of low back and leg pain. The patient states she's had many years of intermittent low back discomfort which she has treated conservatively. She will also occasionally get left leg pain associat ed with this. Over the last year and a half or so she's had worsening problems with her low back. The patient's has had an extended illness. 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 She de scribes the pain as being across the middle low back but eventually settling into the left s mi. She also notices pain radiating down the posterior portion of her leg extending into h er foot. She feels a weakness and abnormal sensation in her foot. She also notices some ti ngling in her leg and foot in the same distribution. She had a very severe problem with her low back in April which lasted several days. She did participate with physical therapy a nd eventually it has improved. She continues to have some intermittent back pain as well as leg discomfort although it is much less severe. Her foot bothers her more at this time jared n her back. The patient also relates problems with balancing that has worsened over the last year. She has noted over the last year or 2 worsening problems with fine motor skills of her hands an d changes in her handwriting. Although the patient does have back pain and is limited due t o pain in her back and her leg she also notices weakness of her legs when she walks which re quires her to stop for a few minutes before she can proceed. The patient has not fallen but has come close to falling many times The patient denies any changes in bowel or bladder function. She does have a history of a colectomy and has some issues with diarrhea but this is not new Patient does have a history of Prinzmetal angina and coronary spasm but no coronary artery disease. Her symptoms are controlled with medications Her symptoms improve with rest. Her symptoms worsen with standing, sitting, walking, running, kneeling, bending, twisting a nd cough. She has tried physical therapy and medications PAST MEDICAL HISTORY: Past Medical History Diagnosis Date Osteoarthritis Hypertension Hyperlipidemia Neuropathy Hypothyroid Migraine Prinzmetal's angina (HCC) Heart murmur PAST SURGICAL HISTORY: Past Surgical History Procedure Laterality Date Tonsillectomy Hysterectomy Ovary removal Cholecystectomy concurrent Spinchter of Oddi surgery Breast biopsy Hand surgery CURRENT MEDICATIONS: Current Outpatient Prescriptions Medication Sig Dispense Refill aspirin (ASPIRIN LOW DOSE) 81 MG tablet Take 81 mg by mouth Daily. cholecalciferol (VITAMIN D-3) 1000 UNITS TABS Take 1,000 Units by mouth Daily. Cholestyramine POWD one scoop or one packet two times daily in fluid or applesauce cyclobenzaprine (FLEXERIL) 5 MG tablet Take 5 mg by mouth 3 times daily as needed for M uscle spasms. desvenlafaxine (PRISTIQ) 100 MG 24 hr tablet 1/2 to 1 tablet daily DEXAMETHASONE SODIUM PHOSPHATE SOLN-2 tsp. swished in mouth two times daily three days; 1 tsp two times daily three days and repeat as needed diazepam (VALIUM) 2 mg tablet Take 2 mg by mouth every 6 hours as needed for Anxiety. diltiazem (DILACOR XR) 240 MG 24 hr capsule 1 tablet daily with 4 pellets and may modif y dosage depending on pressure furosemide (LASIX) 40 mg tablet Take 40 mg by mouth Daily. HYDROcodone-acetaminophen (VICODIN) 5-500 mg per tablet 1/2 to 2 every 6 hours as neede d levothyroxine (LEVOTHROID) 125 mcg tablet 1/2 tablet daily LORazepam (ATIVAN) 0.5 mg tablet 1-2 by mouth every 6 hours as needed nitroglycerin (NITRO-DUR) 0.4 mg/hr 1 patch applied daily olmesartan (BENICAR) 40 MG tablet 1/2 - 1 tablet by mouth once a day opium tincture 10 mg/mL TINC put 0.8 cc in 4 ounces of water as needed for diarrhea oxyCODONE (ROXICODONE) 5 mg tablet Take 5 mg by mouth every 4 hours as needed for Pain. rosuvastatin (CRESTOR) 20 mg tablet Take 20 mg by mouth Daily. trazodone (DESYREL) 150 MG tablet Take 150 mg by mouth nightly. valacyclovir (VALTREX) 1 G tablet 2 tablets by mouth two times daily for 7 days as need ed venlafaxine (EFFEXOR) 75 MG tablet Take 75 mg by mouth Daily. No current facility-administered medications for this visit. ALLERGIES: Allergies Allergen Reactions Alprazolam Bupropion Hcl Compazine Vilazodone Hcl SOCIAL HISTORY: The patient reports that she has never smoked. She does not have any smokeless tobacco his tory on file. She reports that she drinks alcohol. She reports that she does not use illicit drugs. FAMILY HISTORY: Family History Problem Relation Age of Onset Arthritis Mother Cancer Father Diabetes Mother Heart disease Mother Hypertension Father Alzheimer's disease Father Cancer Son Testicular Heart failure Brother Hypertension Mother REVIEW OF SYSTEMS GENERALLY: No fever, + night sweats, no anemia, no fatigue, + recent profound weight dhillon ges. EYES: No eye problems, + use of corrective lenses, no eye injury, no double vision, no bli ndness, + impaired sight. EARS, NOSE, AND THROAT: No changes in taste or smell, no hearing difficulty, no ringing in the ears, no ear drainage, no dizziness, no voice changes, no difficulty swallowing, + sign ificant snoring, no sleep apnea, no sinus problems, + major dental work. NEUROLOGICALLY: Please see the review of systems discussed above in the history of present illness. In addition, the patient has numbness/pain of hands, numbness/pain of legs, awake with numbness/pain, pain in neck, pain in back, fainting spells, loss of consciousness, rajinder mor/shaking, migraine, memory loss, confusion. PSYCHIATRIC: No depression, no sleep disorders, no anxiety, no bipolar disorder, no psycho tic episodes. CARDIOVASCULAR: No heart attacks, + heart murmur, no heart fluttering, + chest pain, + ank le swelling. LUNG DISEASE: No shortness of breath, no cough, no tuberculosis, no bloody cough, no asth ma, no emphysema/COPD. GASTROINTESTINAL: No bowel disease, no nausea or vomiting, no rectal bleeding, no constipa tion, no stool incontinence, no liver disease, + gallbladder disease, + abdominal pain, no u lcers. KIDNEY DISEASE: No urinary frequency, + painful or difficult urination, + incontinence, + bladder problems. ENDOCRINE: No diabetes, + thyroid disease, no osteopenia or osteoporosis, no breast draina ge. SKIN: + breast lumps, no skin changes, no rashes, no itches. HEMATOLOGIC/LYMPHATIC: No enlarged lymph nodes, no easy or unusual bleeding, no personal h istory of cancer. RHEUMATOLOGIC: + joint arthritis/pain, no rheumatoid arthritis. PHYSICAL EXAMINATION: Blood pressure 138/90, pulse 84, resp. rate 14, height 1.549 m (5' 1"), weight 75.751 kg (1 67 lb). Body mass index is 31.57 kg/(m^2). GENERAL: Jocelyne Montez is in no acute distress with unlabored respirations. The patient does not appear uncomfortable throughout the exam today. HEENT: HEAD/FACE: EYES: EARS: NASOPHARNYX: OROPHARNYX: Normocephalic and atraumatic. There are no areas of recent trauma. Normal sclerae without icterus. No drainage or tenderness. Clear without drainage. Clear without erythema. NECK (ANTERIOR): Supple and without palpable masses. CHEST: Clear to ausculation without crackles or wheeze. HEART: Regular rate and rhythm without murmurs. ABDOMEN: Soft, non-tender, non-distended, and without palpable masses. The patient is obese . SPINE: There is tenderness in the midline of the cervical or thoracic spine. There is no m ajor palpable deformity of the spine. The lumbar spine shows there is tenderness in the midline of the L3, L4, L5, S1 levels. To palpation, there is tenderness over the SI joint on the left EXTREMITIES: No cyanosis, clubbing, or edema. Distal pulses are palpable. NEUROLOGICAL EXAM: MENTAL STATUS: The patient is awake, alert, and oriented. She follows simple and complex commands. Her speech is fluent, she comprehends speech well, and she repeats well. She has no apparent deficits with short or termite technician memory. CRANIAL NERVES: Fundoscopic Exam: The optic disc is sharp. Normal vascular pattern is visualized II: Acuity is intact. Swanson are full to confrontation. III, IV, : The pupils are reactive. Extraocular movements are intact. No ptosis is note d. V: Facial sensation is intact and symmetric. VII: Facial movements are symmetric. VIII: Hearing is intact bilaterally. IX, X: The uvula and palate move appropriately. XI: Shrug is equal bilaterally. XII: Tongue protrusion is midline. MOTOR EXAM: (5 IS NORMAL) * Indicates pain limited MUSCLE/ MOVEMENT: RIGHT LEFT Deltoids 5 5 Biceps 5 5 Triceps 5 5 Wrist Flexion 5 5 Wrist Extension 5 5 Median Intrinsics 5 5 Ulnar Intrinsics 5 5 Jewel Sawyer Strength 5 5 Hip Flexion 5 5 Hip Extension 5 5 Knee Flexion 5 5 Knee Extension 5 5 Dorsiflexion 5 5 Extensor Hallicus Longus 5 5 Plantarflexion 5 4+ SENSORY EXAM: Sensory exam shows no diminished sensation to light touch or pain throughout the upper and lower extremities. REFLEXES: (2 OR 2+ IS NORMAL) REFLEX: RIGHT LEFT BICEPS 2+ 2+ BRACHIORADIALIS 3+ 3+ PATELLAR 3+ 3+ ACHILLES 2 2 ROJAS'S ABSENT ABSENT PLANTAR DOWNGOING DOWNGOING GAIT: Gait is steady. RADIOGRAPHIC REVIEW: The patient's imaging was reviewed in detail with the patient today during the visit. The MRI from of her lumbar spine shows degenerative disc disease at L4-5 and L5-S1. There is no significant spinal stenosis noted there is some mild encroachment upon the nerves of both o f these levels but no significant or severe foraminal narrowing. She does have some facet a rthropathy. Lumbar flexion and extension views show no sign of instability or spondylolisthesis. ASSESSMENT: NEUROSURGICAL DIAGNOSES: Encounter Diagnoses Name Primary? DDD (degenerative disc disease), lumbar Yes Lumbar radiculopathy Lumbar facet arthropathy Myelopathy (HCC) GENERAL DIAGNOSES: Past Medical History Diagnosis Date Osteoarthritis Hypertension Hyperlipidemia Neuropathy Hypothyroid Migraine Prinzmetal's angina (HCC) Heart murmur PLAN: Jocelyne Montez presented today, and it was a pleasure seeing this patient and assessing he r problems. The patient has degenerative disc disease at L4-5 and L5 but most of her anatom y shows fairly mild degenerative changes. She does however have dorsiflexion weakness in he r left foot. She also has a history and exam findings that would suggest possible early mye lopathy. She was told at one time she had abnormalities on her cervical MRI. This was appr oximately 8 years ago I had a lengthy discussion with the patient about her options for care including surgical a nd non-surgical options. We are planning to start conservative therapy with L5-S1 epidural steroid injections on the left side. We will also plan for an MRI of her cervical spine. 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 We are hoping that conservative therapy will benefit her symptoms.. ELECTRONICALLY SIGNED BY: SCOT Trevino, 07/26/2014 8:59 documented in th is encounter Plan of Treatment + +---------+--------+ + + | Name | Type | Priori | Associated Diagnoses | Order Schedule | | | | ty | | | + +---------+--------+ + + | MRI Cervical Spine | Imaging | Routin | Myelopathy (HCC) | Expected: | | wo Contrast | | e | | 07/26/2014, Expires: | | | | | | 07/27/2015 | + +---------+--------+ + + documented as of this encounter Visit Diagnoses + + | Diagnosis | + + | DDD (degenerative disc disease), lumbar - Primary Degeneration of lumbar or | | lumbosacral intervertebral disc | + + | Lumbar radiculopathy Thoracic or lumbosacral neuritis or radiculitis, unspecified | + + | Lumbar facet arthropathy Lumbosacral spondylosis without myelopathy | + + | Myelopathy (HCC) Unspecified disease of spinal cord | + + documented in this encounter
--- OUTSIDE RECORDS SUMMARY | ~2019-09-02 | XMS | Encounter Summary ---
Demographics + + + | Address | [address] | | | [place] [address] | + + + | Home Phone | | + + + | Preferred Language | Unknown | + + + | Marital Status | | + + + | Hinduism Affiliation | 1041 | + + + | Race | Unknown | + + + | Ethnic Group | Unknown | + + + Author + + + | Author | [facility] | | | and [place] | + + + | Organization | [facility] | | | and [...] Team Providers + +------+ + | Care Financial Systems Analyst Name | Role | Phone | + +------+ + | Jesse Chand MD | PCP | | + +------+ + Encounter Details +--------+ + + + + | Date | Type | Department | Care Team | Description | +--------+ + + + + | 06/30/ | Hospital | [facility] | Conversion | Chronic cough | | 2016 | Encounter | [facility] [address] | Transaction, | | | | | [address] | Provider Unknown | | | | | [place], [place] | [phone] | | | | | [address] | | | | | | [phone] | | | +--------+ + + + [...] | Procedure Note | + + | Anton Rios Conversion - 12/01/2018 12:48 PM PDT ANTHONY Tye MONTEZ years | | FemaleCT CHEST HIGH [...]
--- OUTSIDE RECORDS SUMMARY | ~2019-09-02 | XMS | Encounter Summary ---
Demographics + + + | Address | [address] | | | [place] [address] | + + + | Home Phone | | + + + | Preferred Language | Unknown | + + + | Marital Status | | + + + | Rastafari Affiliation | 1041 | + + + | Race | Unknown | + + + | Ethnic Group | Unknown | + + + Author + + + | Author | [facility] | | | and [place] | + + + | Organization | [facility] | | | and [place] [...] Team Providers + +------+ + | Care Core Extruder Name | Role | Phone | + +------+ + PCP | Unavailable | + +------+ + Encounter Details +--------+ + + + + | Date | Type | Department | Care Team | Description | +--------+ + + + + | 04/07/ | Hospital | [facility] | Wilder Mosquera MD | | | 2006 | Encounter | MED CTR XRAY [address] | [address] [place] | | | | | [address] | [address] [place], [place] | | | | | [place] [address] | [address] | | | | | [phone] | | | +--------+ + + + [...]
--- OUTSIDE RECORDS SUMMARY | ~2019-09-02 | XMS | Encounter Summary ---
Demographics + + + | Address | [address] | | | [place] [address] | + + + | Home Phone | | + + + | Preferred Language | Unknown | + + + | Marital Status | | + + + | Anglican Affiliation | 1041 | + + + | Race | Unknown | + + + | Ethnic Group | Unknown | + + + Author + + + | Author | [facility] | | | and [place] | + + + | Organization | [facility] | [...] Team Providers + +------+ + | Care Postbed Stitcher Name | Role | Phone | + +------+ + PCP | Unavailable | + +------+ + Encounter Details +--------+ + + + + | Date | Type | Department | Care Team | Description | +--------+ + + + + | 10/14/ | Hospital | [facility] | Wilder Mosquera MD | | | 1995 | Encounter | MED CTR GENERIC OP | [address], [place] | | | | | CONV DEPT [address] | [address] [place], [place] | | | | | [place], | [address] | | | | | [place] [address] | | | | | | [phone] | | | +--------+ + + + [...]
--- OUTSIDE RECORDS SUMMARY | ~2019-09-02 | XMS | Encounter Summary ---
Demographics + + + | Address | [address] | | | [place] [address] | + + + | Home Phone | | + + + | Preferred Language | Unknown | + + + | Marital Status | | + + + | Sikhism Affiliation | 1041 | + + + | Race | Unknown | + + + | Ethnic Group | Unknown | + + + Author + + + | Author | [facility] | | | and [place] | + + + | Organization | [facility] | | [...] Team Providers + +------+ + | Care Student Affairs Dean Name | Role | Phone | + +------+ + | Garcia Valle MD | PCP | | + +------+ + Reason for Visit Auth/Cert +--------+--------+ + + + + | Status | Reason | Specialty | Diagnoses / | Referred By | Referred To | | | | | Procedures | Contact | Contact | +--------+--------+ + + + + | | | | Diagnoses | | | | | | | NSTEMI | | | | | | | (non-ST | | | | | | | elevated | | | | | | | myocardial | | | | | | | infarction) | | | | | | | (HCC) | | | | | | | NSTEMI | | | +--------+--------+ + + + + Encounter Details +--------+ + + + + | Date | Type | Department | Care Team | Description | +--------+ + + + + | 05/19/ | Hospital | [facility] | Jon Carpio MD | Acute coronary | | 2019 - | Encounter | MED CTR ICU [address] | [address] | syndromes (HCC); | | | | [place], | [place] | Dyslipidemia; | | 05/20/ | | [place] [address] | [id number] | Essential (primary) | | 2019 | | [phone] | | hypertension; | | | | | Eduinh, | Syncope, vasovagal; | | | | | MD [address] | Prinzmetal angina | | | | | [address] [place] | ([facility]) | | | | | [place] [address] | | | | | | [phone] | | | | | | | [...] + + + | Blood Pressure | 135/78 | 05/20/2018 4:00 AM | | | | | PST | | + + + + + | Pulse | 66 | 05/20/2018 4:00 AM | | | | | PST | | + + + + + | Temperature | 36.5 C (97.7 F) | 05/20/2018 4:00 AM | | | | | PST | | + + + + + | Respiratory Rate | 13 | 05/20/2018 4:00 AM | | | | | PST | | + + + + + | Oxygen Saturation | 97% | 05/20/2018 4:00 AM | | | | | PST | | + + + + + | Inhaled Oxygen | - | - | | | Concentration | | | | + + + + + | Weight | 83.2 kg (183 lb 6.8 | 05/20/2018 4:00 AM | | | | oz) | PST | | + + + + + | Height | 152.4 cm (5') | 05/19/2018 8:49 AM | | | | | PST | | + + + + + | Body Mass Index | 35.82 | 05/19/2018 8:49 AM | | | | | PST | | + + + + + documented in this encounter Discharge Summaries Suyapa Walker MD - 05/20/2018 1:50 PM PST [place] HOSPITALIST DISCHARGE SUMMARY Pt. Name/Age/: Anthony Montez 68 y.o. 1950 Date of Admission: 05/19/2018 Date of Discharge: 05/20/2018 Admitting Physician: Jon Carpio MD Primary Care Provider: Garcia Valle MD Discharging Physician: Suyapa Walker MD DISCHARGE DIAGNOSES: Active Hospital Problems Diagnosis Prinzmetal angina Dyslipidemia Essential (primary) hypertension Resolved Hospital Problems Diagnosis Syncope, vasovagal HOSPITAL COURSE: Please refer to the H&P for full details and the most recent rounding rounding (progress) n ote. 68 yo F with history of Prinzmetal angina diagnosed in 1999 who presented after a syncopal event at home. She reports passing out in the bathroom. Went to [facility] where workup re vealed troponin 0.082. EKG showed normal sinus rhythm. Transferred to [facility] for further cardiac evaluation. Seen by Dr Fosneca who recommended noninvasive testing. Of note, repeat EKG here showed normal sinus rhythm. Troponins 0.05 => 0.02. Patient was briefly on a heparin dr virgilio here but this was discontinued. Stress test results negative/low risk. Suspect patient's syncope could have been vasovagal in etiology. Mild troponin elevation likely 2/2 mild cardi ac strain, do not suspect ACS. Did advise patient to hold lasix at home (no clear indication for this medication) until she can follow up with her PCP. Safe to resume other medications . Patient denied chest pain on the date of DC. NM stress test: 1. Persantine EKG is negative. 2. Probably a normal Persantine sestamibi myocardial perfusion imaging study. Normal left ventricular size, wall thickness and motion. Preserved left ventricular systolic function. LVEF by gated SPECT is 86%. Evidence of inferior wall/diaphragmatic soft tissue attenuati on. DISCHARGE MEDICATIONS: Discharge Medications Unchanged Medications Details alendronate 70 mg tablet Take 70 mg by mouth every 7 days. aka: FOSAMAX ASPIRIN LOW DOSE 81 MG tablet Generic drug: aspirin Take 81 mg by mouth Daily. cholecalciferol 1000 units Tabs Take 1,000 Units by mouth Daily. aka: VITAMIN D-3 CRESTOR 20 mg tablet Generic drug: rosuvastatin Take 20 mg by mouth Daily. cyclobenzaprine 5 MG tablet Take 10 mg by mouth 3 times daily as needed for Muscle spasms. aka: FLEXERIL DEXAMETHASONE SODIUM PHOSPHATE (GLUCOCORTICOSTEROIDS) SOLN-2 tsp. swished in mouth two times daily three days; 1 tsp two times daily three days and repeat as needed diazePAM 2 mg tablet Take 2 mg by mouth every 6 hours as needed for Anxiety. aka: VALIUM dilTIAZem 240 mg 24 hr capsule 1 tablet daily with 4 pellets and may modify dosage depending on pressure aka: DILACOR XR ESTRACE VAGINAL 0.1 mg/g vaginal cream Generic drug: estradiol Place 2 g vaginally nightly. LEVOTHROID 125 mcg tablet Generic drug: levothyroxine 1/2 tablet daily NITRO-DUR 0.4 mg/hr Generic drug: nitroglycerin 1 patch applied daily traZODone 150 MG tablet Take 150 mg by mouth nightly. aka: DESYREL VALTREX 1 g tablet Generic drug: valACYclovir 2 tablets by mouth two times daily for 7 days as needed venlafaxine 75 MG tablet Take 75 mg by mouth Daily. aka: EFFEXOR VICODIN 5-500 mg per tablet Generic drug: HYDROcodone-acetaminophen 1/2 to 2 every 6 hours as needed Discontinued Medications LASIX 40 mg tablet Generic drug: furosemide Most recent weight: Input and output for last 24hrs: Wt Readings from Last 1 Encounters: 05/20/18 83.2 kg (183 lb 6.8 oz) I/O last 24 Hours: In: 519 [P.O.:400; I.V.:119] Out: 300 [Urine:300] Vitals Ranges: Temp: [36.2 C (97.1 F)-37.2 C (99 F)] 36.5 C (97.7 F) Pulse: [66-85] 66 Resp: [10-19] 13 BP: (94-144)/(50-78) 135/78 Vitals: Temp: 36.5 C (97.7 F) BP: 135/78 Pulse: 66 Resp: 13 SpO2: 97 % SpO2 97 % on room air PHYSICAL EXAM: Patient seen and examined by me on 05/20/18 Gen: WDWN, pleasant CV: regular rate and rhythm Pulm: LCAB Ext: no edema PROCEDURES AND CONSULTS: Procedures: none Consults: Cardiology PENDING RESULTS: none DISPOSITION AND DISCHARGE INSTRUCTIONS: Follow-up Information Garcia Valle MD. Schedule an appointment as soon as possible for a visit in 1 week. Specialty: Family Medicine Why: Hospital follow up Contact information: [facility] [address] Condition: stable Diet: general Less than 30 minutes were spent on discharge and coordination of post-hospital care. Electronically signed by: Suyapa Walker MD, 05/20/2018 13:50 [facility] documented in this enco unter Discharge Instructions Instructions Suyapa Walker MD - 05/20/2018Julie, You were hospitalized due to a mildly elevated cardiac enzyme blood test. Your stress test was normal indicating that you likely did not have a heart attack. You can resume all of your home medications with the exception of lasix, which I would hold for now as it can drop your blood pressure. Diltiazem can also do this but it is important for you to continue the diltiazem given your history of vasospasm (Prinzmetal angina). Please follow up with your primary doctor in 1-2 weeks for a hospital follow up visit. Suyapa Walker MD documented in this encounter Medications at Time [...] documented as of this encounter Progress Notes Gilbert Arroyo, PharmD - 05/19/2018 7:49 PM PSTFormatting of this note might be differ ent from the original. HEPARIN PER PHARMACY: FOLLOW UP NOTE Anthony Montez is a 68 y.o. female admitted on 05/19/2018 8:18. Heparin infusion is orde red. Diagnosis: ACS Protocol: CARDIAC DOSE, goal anti-Xa range: 0.2 - 0.4 units/mL Recent Labs Lab 05/19/18 1852 05/19/18 1200 05/19/18 1141 HGB -- -- -- 12.6 HCT -- -- -- 39.7 PLT -- -- -- 334 INR -- 1.1 -- -- HEPANTIXA 0.37 0.72 < > -- < > = values in this interval not displayed. Date 05/19 05/19 Time of Xa test 1200 1852 Xa 0.72 0.37 PTT n/a -- Platelets 334 -- Current (units/hr) 1,000 850 Bolus (units) 5,000 -- Hold (minutes) 30 -- New (units/hr) 850 850 Weight at start of infusion 89.1 kg (adjustments based on this dosing weight) ASSESSMENT/PLAN: 1. Dosing plan: Any adverse events or interruptions in therapy: No Bolus: No additional bolus at this time (Patient was given a x1 bolus of 5,000 units at outside hospital on 05/19 @ 0624) Infusion: Continue current infusion rate of 850 units/hr (Heparin infusion was initiated by outside hospital at 1,000 units/hour on 05/19 @ 06) Per dosing protocol 2. Discussed and coordinated with nurse 3. Weight. Admission: Weight: 89.1 kg (196 lb 6.9 oz) Wt. Current: Weight: 89.1 kg ( 196 lb 6.9 oz) 4. Monitoring - report to attending provider if: HGB < 8 g/dL or drop greater than 2 g/dL from baseline = 10.6 g/dL HCT < 25% or drop greater than 6 points from baseline = 33.7% PLT < 100 K/uL or drop greater than 50% from baseline = 167 K/uL Rate greater than 25 units/kg/hr = 2228 units/hr ? CBC without diff every other day while on Heparin. ? Xa 6hrs after infusion initiation and any rate change until 2 consecutive Xa are in range then daily. ? If bolus is 5,000 units or greater, consider ordering Xa/PTT in 8 hours ? Next anti-Xa ordered for: 05/20 @ 0100. IMPROVE Bleeding Risk Score Calculator Table: Heparin Infusion Dosing and Monitoring Per P&T approved Heparin Infusion Protocol Electronically signed by: Gilbert Arroyo, PharmD 05/19/2018 19:49 ara Arroyo, Bulking Machine Operator - 05/19/2018 11:51 AM PST HEPARIN MONITORING AND DOSING PER PHARMACY Anthony Montez is a 68 y.o. female admitted on 05/19/2018 8:18. Heparin infusion is orde red. 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 If recent oral Xa inhibitor, use PTT monitoring for 1-5 days depending on renal function and then switch to anti-xa monitoring. Bleeding risks Unknown History of liver dysfunction or ETOH abuse: Unknown History of HIT: NO Recent Labs Lab 05/19/18 1141 HGB 12.6 HCT 39.7 PLT 334 Date 05/19 Time of Xa test 1200 Xa 0.72 PTT -- Platelets 334 Current (units/hr) 1000 Bolus (units) 5000 Hold (minutes) 30 minutes (1300- 1330) New (units/hr) 850 * Weight at start of infusion 89.1 kg (adjustments based on this dosing weight) ASSESSMENT/PLAN: 1. Communicate with prescriber within 24 hours of infusion start to discuss bleeding risks, clotting risks, goals for therapy, and any other prescriber preferences. 2. DC other anticoagulants as appropriate (list): none 3. Dosing plan: Any adverse events or interruptions in therapy: No, initiating infusion Bolus: Patient was given a x1 bolus of 5000 units at outside hospital at 0624 Infusion: initiated by outside hospital at 1000 units/hour at 0627 Per dosing protocol 4. Discussed and coordinated with nurse 5. Weight. Admission: Weight: 89.1 kg (196 lb 6.9 oz) Wt. Current: Weight: 89.1 kg (196 lb 6.9 oz) 6. Monitoring - report to attending provider if: H/H reported at outside hospital 13.3/44.0 HGB < 8 g/dL or drop greater than 2 g/dL from baseline = 11.3 g/dL HCT < 25% or drop greater than 6 points from baseline = 38.0% PLT < 100 K/uL or drop greater than 50% from baseline = 167 K/uL Rate greater than 25 units/kg/hr = 2250 units/hr ? CBC without diff every other day while on Heparin. ? Xa 6hrs after infusion initiation and any rate change until 2 consecutive Xa are in range then daily. ? If bolus is 5,000 units or greater, consider ordering Xa/PTT in 8 hours ? Next anti-Xa ordered for: 05/19 @ 1900. IMPROVE Bleeding Risk Score Calculator Table: Heparin Infusion Dosing and Monitoring Per P&T approved Heparin Infusion Protocol Electronically signed by: Mara Arroyo, Bulking Machine Operator 05/19/2018 11:51 documented in this encounter Plan of Treatment Not on filedocumented as of this encounter Procedures + +--------+ + + + | Procedure Name | Priori | Date/Time | Associated Diagnosis | Comments | | | ty | | | | + +--------+ + + + | NM NUCLEAR STRESS | Routin | 05/20/2018 | | Results for this | | TEST (PHARMACOLOGIC | e | 11:15 AM | | procedure are in the | | - VASODILATOR) | | PST | | results section. | + +--------+ + + + | CBC NO DIFFERENTIAL | Routin | 05/20/2018 | | Results for this | | | e | 4:29 AM | | procedure are in the | | | | PST | | results section. | + +--------+ + + + | TSH | STAT | 05/20/2018 | | Results for this | | | | 4:29 AM | | procedure are in the | | | | PST | | results section. | + +--------+ + + + | MAGNESIUM | Routin | 05/20/2018 | | Results for this | | | e | 4:29 AM | | procedure are in the | | | | PST | | results section. | + +--------+ + + + | COMPREHENSIVE | Routin | 05/20/2018 | | Results for this | | METABOLIC PANEL | e | 4:29 AM | | procedure are in the | | | | PST | | results section. | + +--------+ + + + | HEPARIN XA, | Routin | 05/19/2018 | | Results for this | | UNFRACTIONATED | e | 6:52 PM | | procedure are in the | | | | PST | | results section. | + +--------+ + + + | TROPONIN I | Routin | 05/19/2018 | | Results for this | | | e | 6:52 PM | | procedure are in the | | | | PST | | results section. | + +--------+ + + + | ECHO COMPLETE | Routin | 05/19/2018 | | Results for this | | | e | 2:05 PM | | procedure are in the | | | | PST | | results section. | + +--------+ + + + | ECG 12 LEAD | Routin | 05/19/2018 | | Results for this | | | e | 12:10 PM | | procedure are in the | | | | PST | | results section. | + +--------+ + + + | HEPARIN XA, | Routin | 05/19/2018 | | Results for this | | UNFRACTIONATED | e | 12:00 PM | | procedure are in the | | | | PST | | results section. | + +--------+ + + + | PROTIME INR | STAT | 05/19/2018 | | Results for this | | | | 12:00 PM | | procedure are in the | | | | PST | | results section. | + +--------+ + + + | TROPONIN I | Routin | 05/19/2018 | | Results for this | | | e | 11:41 AM | | procedure are in the | | | | PST | | results section. | + +--------+ + + + | CBC NO DIFFERENTIAL | Routin | 05/19/2018 | | Results for this | | | e | 11:41 AM | | procedure are in the | | | | PST | | results section. | + +--------+ + + + | MAGNESIUM | Routin | 05/19/2018 | | Results for this | | | e | 11:41 AM | | procedure are in the | | | | PST | | results section. | + +--------+ + + + | COMPREHENSIVE | Routin | 05/19/2018 | | Results for this | | METABOLIC PANEL | e | 11:41 AM | | procedure are in the | | | | PST | | results section. | + +--------+ + + + | XR CHEST AP PORTABLE | Routin | 05/19/2018 | | Results for this | | | e | 11:30 AM | | procedure are in the | | | | PST | | results section. | + +--------+ + + + | CULTURE, MRSA | Routin | 05/19/2018 | | Results for this | | | e | 9:02 AM | | procedure are in the | | | | PST | | results section. | + +--------+ + + + | LABS - EXTERNAL SCAN | | 05/19/2018 | | Results for this | | | | 12:00 AM | | procedure are in the | | | | PST | | results section. | + +--------+ + + + | LABS - EXTERNAL SCAN | | 05/19/2018 | | Results for this | | | | 12:00 AM | | procedure are in the | | | | PST | | results section. | + +--------+ + + + | ECG - EXTERNAL SCAN | | 05/19/2018 | | Results for this | | | | 12:00 AM | | procedure are in the | | | | PST | | results section. | + +--------+ + + + | ECG - EXTERNAL SCAN | | 05/19/2018 | | Results for this | | | | 12:00 AM | | procedure are in the | | | | PST | | results section. | + +--------+ + + + documented in this encounter Results NM Nuclear Stress Test (Vasodilator) (05/20/2018 11:15 AM PST) + +--------+ + + + | Component | Value | Ref Range | Performed | Pathologist | | | | | At | Signature | + +--------+ + + + | BASELINE | 80 | bpm | [facility] | | | HEART RATE | | | | | + +--------+ + + + | BASELINE | 140/85 | mmHg | [facility] | | | BLOOD | | | | | | PRESSURE | | | | | + +--------+ + + + | PEAK HEART | 99 | | [facility] | | | RATE | | | | | + +--------+ + + + | PEAK BLOOD | 158/77 | mmHG | [facility] | | | PRESSURE | | | | | + +--------+ + + + | Target HR | 131 | | [facility] | | + +--------+ + + + | Percent HR | 64 | | [facility] | | + +--------+ + + + | LVEF-SPECT | 86 | % | [facility] | | | NUCLEAR | | | | | | STRESS/VIAB | | | | | | ILITY | | | | | + +--------+ + + + + + | Specimen | + + | | + + + + + | Narrative | Performed At | + + + | 1. | [facility] | | Persantine EKG is negative.2. Probably a normal Persantine | | | sestamibi myocardial perfusion imaging study. Normal left | | | ventricular size, wall thickness and motion. Preserved left | | | ventricular systolic function. LVEF by gated SPECT is 86%. Evidence | | | of inferior wall/diaphragmatic soft tissue attenuation. | | + + + + +---------+ + + | Performing | Address | City/State/Zipcode | Phone Number | | Organization | | | | + +---------+ + + | [facility] | | | | + +---------+ + + TSH (05/20/2018 4:29 AM PST) + + + + + + | Component | Value | Ref Range | Performed | Pathologist | | | | | At | Signature | + + + + + + | TSH | 0.65Comment: This is a | 0.45 - 5.33 | [facility] | | | | third generation TSH | uIU/mL | [facility] | | | | test. | | MEDICAL | | | | | | CENTER - | | | | | | LABORATORY | | + + + + + + + + | Specimen | + + | Blood | + + + + + + + | Performing | Address | City/State/Zipcode | Phone Number | | Organization | | | | + + + + + | [facility] | [address] | [place] | [phone] | | [facility] | | [address] | | | - LABORATORY | | | | + + + + + Magnesium (05/20/2018 4:29 AM PST) + +-------+ + + + | Component | Value | Ref Range | Performed | Pathologist | | | | | At | Signature | + +-------+ + + + | Magnesium | 2.0 | 1.8 - 2.5 mg/dL | [facility] | | | | | | [facility] | | | | | | MEDICAL | | | | | | CENTER - | | | | | | LABORATORY | | + +-------+ + + + + + | Specimen | + + | Blood | + + + + + + + | Performing | Address | City/State/Zipcode | Phone Number | | Organization | | | | + + + + + | [facility] | [address] | [place] | [phone] | | [facility] | | [address] | | | - LABORATORY | | | | + + + + + CBC no Differential (05/20/2018 4:29 AM PST) + +-------+ + + + | Component | Value | Ref Range | Performed | Pathologist | | | | | At | Signature | + +-------+ + + + | WBC | 8.3 | 4.0 - 11.0 K/uL | [facility] | | | | | | [facility] | | | | | | MEDICAL | | | | | | CENTER - | | | | | | LABORATORY | | + +-------+ + + + | RBC | 4.32 | 3.70 - 5.20 | [facility] | | | | | M/uL | [facility] | | | | | | MEDICAL | | | | | | CENTER - | | | | | | LABORATORY | | + +-------+ + + + | Hemoglobin | 12.9 | 11.5 - 16.0 | [facility] | | | | | g/dL | [facility] | | | | | | MEDICAL | | | | | | CENTER - | | | | | | LABORATORY | | + +-------+ + + + | Hematocrit | 40.2 | 34.0 - 47.0 % | [facility] | | | | | | [facility] | | | | | | MEDICAL | | | | | | CENTER - | | | | | | LABORATORY | | + +-------+ + + + | MCV | 93.1 | 83.0 - 101.0 fL | [facility] | | | | | | [facility] | | | | | | MEDICAL | | | | | | CENTER - | | | | | | LABORATORY | | + +-------+ + + + | MCH | 29.9 | 28.0 - 35.0 pg | [facility] | | | | | | [facility] | | | | | | MEDICAL | | | | | | CENTER - | | | | | | LABORATORY | | + +-------+ + + + | MCHC | 32.1 | 32.0 - 36.0 | [facility] | | | | | g/dL | [facility] | | | | | | MEDICAL | | | | | | CENTER - | | | | | | LABORATORY | | + +-------+ + + + | RDW-CV | 13.0 | <15.0 % | [facility] | | | | | | [facility] | | | | | | MEDICAL | | | | | | CENTER - | | | | | | LABORATORY | | + +-------+ + + + | RDW-SD | 44.6 | 35.1 - 46.3 fL | [facility] | | | | | | [facility] | | | | | | MEDICAL | | | | | | CENTER - | | | | | | LABORATORY | | + +-------+ + + + | Platelet | 319 | 140 - 440 K/uL | [facility] | | | Count | | | [facility] | | | | | | MEDICAL | | | | | | CENTER - | | | | | | LABORATORY | | + +-------+ + + + | MPV | 10.2 | 6.5 - 12.4 fL | [facility] | | | | | | [facility] | | | | | | MEDICAL | | | | | | CENTER - | | | | | | LABORATORY | | + +-------+ + + + | % nRBC | 0 | 0 - 2 per 100 | [facility] | | | | | WBC's | [facility] | | | | | | MEDICAL | | | | | | CENTER - | | | | | | LABORATORY | | + +-------+ + + + | Absolute | 0.00 | 0.00 - 0.01 | [facility] | | | nRBC | | K/uL | [facility] | | | | | | MEDICAL | | | | | | CENTER - | | | | | | LABORATORY | | + +-------+ + + + + + | Specimen | + + | Blood | + + + + + + + | Performing | Address | City/State/Zipcode | Phone Number | | Organization | | | | + + + + + | [facility] | [address] | [place] | [phone] | | [facility] | | [address] | | | - LABORATORY | | | | + + + + + Comprehensive Metabolic Panel (05/20/2018 4:29 AM PST) + + + + + + | Component | Value | Ref Range | Performed | Pathologist | | | | | At | Signature | + + + + + + | Na | 139 | 136 - 149 | [facility] | | | | | mmol/L | [facility] | | | | | | MEDICAL | | | | | | CENTER - | | | | | | LABORATORY | | + + + + + + | K | 4.0 | 3.5 - 5.1 | [facility] | | | | | mmol/L | [facility] | | | | | | MEDICAL | | | | | | CENTER - | | | | | | LABORATORY | | + + + + + + | Cl | 107 | 98 - 109 mmol/L | [facility] | | | | | | [facility] | | | | | | MEDICAL | | | | | | CENTER - | | | | | | LABORATORY | | + + + + + + | CO2 | 27 | 24 - 31 mmol/L | [facility] | | | | | | [facility] | | | | | | MEDICAL | | | | | | CENTER - | | | | | | LABORATORY | | + + + + + + | Anion Gap | 5 | 3 - 16 mmol/L | [facility] | | | | | | [facility] | | | | | | MEDICAL | | | | | | CENTER - | | | | | | LABORATORY | | + + + + + + | Glucose | 116 (H) | 70 - 109 mg/dL | [facility] | | | | | | [facility] | | | | | | MEDICAL | | | | | | CENTER - | | | | | | LABORATORY | | + + + + + + | BUN | 7 | 7 - 18 mg/dL | [facility] | | | | | | [facility] | | | | | | MEDICAL | | | | | | CENTER - | | | | | | LABORATORY | | + + + + + + | Creatinine | 0.85 | 0.60 - 1.30 | [facility] | | | | | mg/dL | [facility] | | | | | | MEDICAL | | | | | | CENTER - | | | | | | LABORATORY | | + + + + + + | eGFR if not | >60Comment: GLOMERULAR | >=60 | [facility] | | | | FILTRATION | mL/min/1.73m2 | [facility] | | | FRENCH | RATE,ESTIMATED | | MEDICAL | | | | mL/min/1.99s7Temv than | | CENTER - | | | | 60 Chronic kidney | | LABORATORY | | | | disease,if found over a | | | | | | 3-month period.Less than | | | | | | 15 Kidney failureFor | | | | | | | | | | | | Americans,multiply the | | | | | | calculated GFR by 1.21. | | | | | | | | | | + + + + + + | Calcium | 8.7 | 8.3 - 10.5 | [facility] | | | | | mg/dL | [facility] | | | | | | MEDICAL | | | | | | CENTER - | | | | | | LABORATORY | | + + + + + + | Albumin | 3.8 | 3.2 - 5.0 g/dL | [facility] | | | | | | [facility] | | | | | | MEDICAL | | | | | | CENTER - | | | | | | LABORATORY | | + + + + + + | Bilirubin | 0.6 | 0.1 - 1.5 mg/dL | [facility] | | | Total | | | [facility] | | | | | | MEDICAL | | | | | | CENTER - | | | | | | LABORATORY | | + + + + + + | Total | 5.9 (L) | 6.0 - 7.8 g/dL | [facility] | | | Protein | | | [facility] | | | | | | MEDICAL | | | | | | CENTER - | | | | | | LABORATORY | | + + + + + + | AST | 16 | 10 - 42 U/L | [facility] | | | | | | [facility] | | | | | | MEDICAL | | | | | | CENTER - | | | | | | LABORATORY | | + + + + + + | ALT | 19 | 6 - 45 U/L | [facility] | | | | | | [facility] | | | | | | MEDICAL | | | | | | CENTER - | | | | | | LABORATORY | | + + + + + + | Alkaline | 37 (L) | 40 - 110 U/L | [facility] | | | Phosphatase | | | [facility] | | | | | | MEDICAL | | | | | | CENTER - | | | | | | LABORATORY | | + + + + + + | Globulin | 2.1 | 2.1 - 3.8 g/dL | [facility] | | | | | | [facility] | | | | | | MEDICAL | | | | | | CENTER - | | | | | | LABORATORY | | + + + + + + | Albumin/Anali | 1.8 | 0.8 - 2.0 | [facility] | | | bulin Ratio | | | [facility] | | | | | | [facility] | | | | | | CENTER - | | | | | | LABORATORY | | + + + + + + | BUN/Creatin | 8.2 | | [facility] | | | ine Ratio | | | [facility] | | | | | | [facility] | | | | | | CENTER - | | | | | | LABORATORY | | + + + + + + + + | Specimen | + + | Blood | + + + + + + + | Performing | Address | City/State/Zipcode | Phone Number | | Organization | | | | + + + + + | [facility] | [address] | [place] | [phone] | | [facility] | | [address] | | | - LABORATORY | | | | + + + + + Heparin XA (05/19/2018 6:52 PM PST) + +-------+ + + + | Component | Value | Ref Range | Performed | Pathologist | | | | | At | Signature | + +-------+ + + + | Heparin | 0.37 | IU/mL | [facility] | | | Unfractiona | | | [facility] | | | [place] | | | MEDICAL | | | | | | CENTER - | | | | | | LABORATORY | | + +-------+ + + + + + | Specimen | + + | Blood | + + + + + | Narrative | Performed At | + + + | Unfractionated Heparin (UFH) Therapeutic range: 0.30 - 0.70 IU/mL | [facility] | | | [facility] | | | [facility] | | | - LABORATORY | + + + + + + + + | Performing | Address | City/State/Zipcode | Phone Number | | Organization | | | | + + + + + | [facility] | [address] | [place] | [phone] | | [facility] | | [address] | | | - LABORATORY | | | | + + + + + Troponin I (05/19/2018 6:52 PM PST) + + + + + + | Component | Value | Ref Range | Performed | Pathologist | | | | | At | Signature | + + + + + + | Troponin I | 0.02Comment: Reference | <0.06 ng/mL | [facility] | | | | Ranges:0.00-0.06 = | | [facility] | | | | NORMAL>0.06 = | | MEDICAL | | | | SUSPICIOUS FOR | | CENTER - | | | | MYOCARDIAL DAMAGE NOTE: | | LABORATORY | | | | Values greater than 0.50 | | | | | | ng/mL have been shown | | | | | | to be strongly | | | | | | associated with acute | | | | | | myocardial infarction. | | | | | | The [employer] | | | | | | Cardiology (ACC) | | | | | | recommends a decision | | | | | | limit of 0.06 ng/mL for | | | | | | this assay. Results | | | | | | greater than 0.06 can | | | | | | reflect a pre-infarct | | | | | | acute coronary syndrome, | | | | | | but can also reflect | | | | | | myocardial necrosis or | | | | | | injury that is not due | | | | | | to coronary artery | | | | | | disease. Some of these | | | | | | causes are sepsis, | | | | | | hypocolemia, atrial | | | | | | fibrillation, heart | | | | | | failure, pulmonary | | | | | | embolism, myocarditis, | | | | | | myocardial contusion, | | | | | | and renal failure. The | | | | | | diagnosis of myocardial | | | | | | infarction should be | | | | | | based on a combination | | | | | | of the patient's | | | | | | clinical presentation | | | | | | and the clinical | | | | | | laboratory test results | | | | | | (especially serial | | | | | | troponin levels). | | | | + + + + + + + + | Specimen | + + | Blood | + + + + + + + | Performing | Address | City/State/Zipcode | Phone Number | | Organization | | | | + + + + + | [facility] | [address] | [place] | [phone] | | [facility] | | [address] | | | - LABORATORY | | | | + + + + + ECHO Complete (05/19/2018 2:05 PM PST) + +--------+ + + + | Component | Value | Ref Range | Performed | Pathologist | | | | | At | Signature | + +--------+ + + + | Patient | 196 | | [facility] | | | Weight | | | | | | (lbs) | | | | | + +--------+ + + + | Patient | 5'0" | | [facility] | | | Height | | | | | + +--------+ + + + | LVIDd | 4.41 | cm | [facility] | | + +--------+ + + + | FS | 33 | % | [facility] | | + +--------+ + + + | LA volume | 52.84 | mL | [facility] | | + +--------+ + + + | Ascending | 2.82 | cm | [facility] | | | aorta | | | | | + +--------+ + + + | Aortic arch | 2.84 | cm | [facility] | | + +--------+ + + + | AV mean | 5.71 | mmHg | [facility] | | | gradient | | | | | + +--------+ + + + | MV Area by | 3.71 | cm2 | [facility] | | | P 1/2 | | | | | | method | | | | | + +--------+ + + + | IVRT | 100.35 | msec | [facility] | | + +--------+ + + + | LVOT peak | 97.87 | cm/s | [facility] | | | sang | | | | | + +--------+ + + + | LVOT peak | 22.55 | cm | [facility] | | | VTI | | | | | + +--------+ + + + | AV peak sang | 167.21 | cm/s | [facility] | | + +--------+ + + + | AV VTI | 34.89 | cm | [facility] | | + +--------+ + + + | AV peak | 11.18 | mmHg | [facility] | | | gradient | | | | | + +--------+ + + + | MV peak | 3.38 | mmHg | [facility] | | | gradient | | | | | + +--------+ + + + | MV Pressure | 59.27 | msec | [facility] | | | 1/2 time | | | | | + +--------+ + + + | LA Volume | 29 | mL/m2 | [facility] | | | Index | | | | | + +--------+ + + + | AV LVOT | 3.83 | mmHg | [facility] | | | Peak | | | | | | Gradient | | | | | + +--------+ + + + | AV LVOT | 2 | mmHg | [facility] | | | Mean | | | | | | Gradient | | | | | + +--------+ + + + | LV | 6.83 | cm | [facility] | | | Diastolic | | | | | | Length 4C | | | | | + +--------+ + + + | LV | 75 | % | [facility] | | | [place] | | | | | | Biplane EF | | | | | + +--------+ + + + | LV ED | 37.27 | ml | [facility] | | | Volume | | | | | | ([place]) | | | | | + +--------+ + + + | LV ED | 20 | ml/m2 | [facility] | | | Volume | | | | | | Index | | | | | + +--------+ + + + | LV ES | 9.28 | ml | [facility] | | | Volume | | | | | + +--------+ + + + | LVOT Mean | 67.18 | cm/s | [facility] | | | Velocity | | | | | + +--------+ + + + | MV E' | 10 | cm/s | [facility] | | | Septal | | | | | | Velocity | | | | | + +--------+ + + + | MV | 449.9 | cm/s2 | [facility] | | | Deceleratio | | | | | | n [facility] | | | | | + +--------+ + + + | MV | 204.37 | msec | [facility] | | | Deceleratio | | | | | | n Time | | | | | + +--------+ + + + | MV E/A | 0.74 | | [facility] | | | Ratio | | | | | + +--------+ + + + | MV Peak | 124.6 | cm/s | [facility] | | | A-Wave | | | | | + +--------+ + + + | MV Peak | 91.94 | cm/s | [facility] | | | E-Wave | | | | | + +--------+ + + + | AV Mean | 110.81 | cm/s | [facility] | | | Velocity | | | | | + +--------+ + + + | LA/Aorta | 1.63 | | [facility] | | | Ratio | | | | | + +--------+ + + + | MV E/E | 9.19 | | [facility] | | | SEPTAL | | | | | + +--------+ + + + | LA Major | 0.3489 | cm | [facility] | | + +--------+ + + + | LV ES | 5 | ml/m2 | [facility] | | | Volume | | | | | | Index | | | | | + +--------+ + + + | Aortic Root | 2.81 | cm | [facility] | | | Diameter | | | | | + +--------+ + + + | IVS | 0.94 | cm | [facility] | | | Diastolic | | | | | | Thickness | | | | | | MM | | | | | + +--------+ + + + | LVPW | 0.88 | cm | [facility] | | | Diastolic | | | | | | Thickness | | | | | | MM | | | | | + +--------+ + + + | IVS | 0.84 | cm | [facility] | | | Systolic | | | | | | Thickness | | | | | | MM | | | | | + +--------+ + + + | LV Systolic | 2.95 | cm | [facility] | | | Diameter | | | | | | MM | | | | | + +--------+ + + + | LVPW | 1.13 | cm | [facility] | | | Systolic | | | | | | Thickness | | | | | | MM | | | | | + +--------+ + + + | AV Cusp | 1.91 | cm | [facility] | | | Seperation | | | | | | MM | | | | | + +--------+ + + + | LA Systolic | 4.58 | cm | [facility] | | | Diameter | | | | | | MM | | | | | + +--------+ + + + | TAPSE | 2.2 | cm | [facility] | | + +--------+ + + + | LVEF-TTE | 75 | | [facility] | | | TRANSTHORAC | | | | | | IC ECHO | | | | | + +--------+ + + + + + | Specimen | + + | | + + + + + | Narrative | Performed At | + + + | Transthoracic | [facility] | | Echocardiography Report (TTE) Demographics Patient Name LISA | | | ANTHONY Room Number 457 SYBIL | | | Patient Number [id number] Date of Study | | | 05/19/2018 Visit Number [id number] Accession | | | [id number] Referring Physician NATACHA Number | | | | | | SENTHILRAJ Date of 1950 Thrill Performer | | | ADRIUS HOLLOWAY Age 68 year(s) | | | Interpreting NATACHA | | | Chief Engineer Research DAIANA | | | | | | LUCIA FONSECA MD | | | MARLENY HINES MD Gender | | | Female 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 Procedure dateDate: 05/19/2018Start: 01:19 PM Technical | | | Quality: Adequate visualizationStudy Location: ICU Patient Status: | | | RoutineHeight: 60 inchesWeight: 196 poundsBSA: 1.85 m^2BMI: 38.28 | | | kg/m^2Rhythm: Normal Sinus RhythmHR: 73 bpm ConclusionsSummaryLeft | | | ventricle is normal in size and function. Ejection fraction | | | isestimated at 70-75%.Diastolic parameters are indeterminate.Left | | | atrium is mildly enlarged.No significant valvular disease noted. | | | Signature | | | | | | PM | | | -------- FindingsMitral ValveStructurally normal mitral valve without | | | significant stenosis orregurgitation.Aortic ValveAortic valve is | | | trileaflet without significant stenosis or regurgitation.Tricuspid | | | ValveStructurally normal tricuspid valve without significant stenosis | | | orregurgitation. Unable to accurately assess RV systolic pressures in | | | theabsence of significant tricuspid regurgitation.Pulmonic ValveNormal | | | pulmonic valve structure and function. Normal pulmonary valve andRVOT | | | flow by color and Doppler flow imaging.Left AtriumLeft atrium is | | | mildly enlarged.Left VentricleLeft ventricle is normal in size and | | | function. Ejection fraction isestimated at 70-75%.Diastolic parameters | | | are indeterminate.Right AtriumNormal right atrial size.Right | | | VentricleNormal right ventricular size.Right ventricle global systolic | | | function is normal.TAPSE = 2.2 cm.Pericardial EffusionNo evidence of | | | pericardial effusion.Pleural EffusionNo evidence of pleural | | | effusion.MiscellaneousMeasurements and calculations provided in the | | | report sections maybeincomplete. Additional m-mode, 2D, Doppler, | | | Doppler tissue, strain, andother hemodynamic assessments performed and | | | documented within the imageviewer. Valves Mitral Valve Peak E-Wave: | | | 91.94 cm/s Peak A-Wave: 124.6 cm/s Tissue Doppler Septal e' | | | Velocity: 10.00 cm/s Septal E/e' Ratio: Aortic Valve Peak Velocity: | | | 167.21 cm/s Mean Gradient: 5.71 mmHg Peak Gradient: | | | 11.18 mmHg LVOT Peak Velocity: 97.87 cm/s Structures Left Atrium | | | LA A/P Dimension: 4.58 cm LA Volume: 52.84 ml | | | LA/Aorta:1.63 LA Vol/BSA Index: 29 mL/m^2 LA Major:0.3489 Left | | | Ventricle Diastolic Dimension: 4.41 cm Systolic | | | Dimension: 2.95 cm Septum Diastolic: 0.94 cm PW Diastolic: 0.88 cm EF | | | [id number]% EF Calculated: 75% Miscellaneous Aorta Aortic Root: | | | 2.81 cm Ascending Aorta: 2.82 cm | | |Mitral Valve | | |Structurally normal mitral valve without significant stenosis or | | |regurgitation. | | |Aortic Valve | | |Aortic valve is trileaflet without significant stenosis or regurgitation. | | |Tricuspid Valve | | |Structurally normal tricuspid valve without significant stenosis or | | |regurgitation. Unable to accurately assess RV systolic pressures in the | | |absence of significant tricuspid regurgitation. | | |Pulmonic Valve | | |Normal pulmonic valve structure and function. Normal pulmonary valve and | | |RVOT flow by color and Doppler flow imaging. | | |Left Atrium | | |Left atrium is mildly enlarged. | | |Left Ventricle | | |Left ventricle is normal in size and function. Ejection fraction is | | |estimated at 70-75%. | | |Diastolic parameters are indeterminate. | | |Right Atrium | | |Normal right atrial size. | | |Right Ventricle | | |Normal right ventricular size. | | |Right ventricle global systolic function is normal. | | |TAPSE = 2.2 cm. | | |Pericardial Effusion | | |No evidence of pericardial effusion. | | |Pleural Effusion | | |No evidence of pleural effusion. | | |Miscellaneous | | |Measurements and calculations provided in the report sections maybe | | |incomplete. Additional m-mode, 2D, Doppler, Doppler tissue, strain, and | | |other hemodynamic assessments performed and documented within the image | | |viewer. | | | | | |Valves | | | | | | Mitral Valve | | | | | | Peak E-Wave: 91.94 cm/s | | | Peak A-Wave: 124.6 cm/s | | | | | | Tissue Doppler | | | | | | Septal e' Velocity: 10.00 cm/s | | | Septal E/e' Ratio: | | | | | | Aortic Valve | | | | | | Peak Velocity: 167.21 cm/s Mean Gradient: 5.71 mmHg | | | Peak Gradient: 11.18 mmHg | | | | | | LVOT | | | | | | Peak Velocity: 97.87 cm/s | | | | | |Structures | | | | | | Left Atrium | | | | | | LA A/P Dimension: 4.58 cm LA Volume: 52.84 ml | | | LA/Aorta:1.63 | | | LA Vol/BSA Index: 29 mL/m^2 | | | LA Major:0.3489 | | | | | | Left Ventricle | | | | | | Diastolic Dimension: 4.41 cm Systolic Dimension: 2.95 cm | | | Septum Diastolic: 0.94 cm | | | PW Diastolic: 0.88 cm | | | EF [id number]% | | | EF Calculated: 75% | | | | | | Miscellaneous | | | | | | Aorta | | | | | | Aortic Root: 2.81 cm | | | Ascending Aorta: 2.82 cm | | | | | + + + + + | Procedure Note | + + | Anton Rios In - 06/02/2018 1:10 PM [facility] Transthoracic Echocardiography Report | | (TTE) Demographics Patient Name LISA CRUZ Room Number 457 | | SYBIL Patient Number [id number] Date of Study 05/19/2018 Visit Number | | [id number] Referring Physician JACEKFELIPE Number | | SENTHILRAJ Date of 1950 | | Thrill Performer DARIUS HOLLOWAY Age 68 year(s) Interpreting | | NATACHA Chief Engineer Research DAIANA | | LUCIA FONSECA MD | | MARLENY HINES MD Gender Female Nurse | | Stress TechnicianProcedureType of Study TTE procedure: | | ECHO Complete.Procedure dateDate: 05/19/2018Start: 01:19 PMTechnical Quality: Adequate | | visualizationStudy Location: ICUPatient Status: RoutineHeight: 60 inchesWeight: 196 | | poundsBSA: 1.85 m^2BMI: 38.28 kg/m^2Rhythm: Normal Sinus RhythmHR: 73 | | bpmConclusionsSummaryLeft ventricle is normal in size and function. Ejection fraction | | isestimated at 70-75%.Diastolic parameters are indeterminate.Left atrium is mildly | | enlarged.No significant valvular disease | | noted.Signature | | --- | | 01:09 | | PM FindingsMi | | tral ValveStructurally normal mitral valve without significant stenosis | | orregurgitation.Aortic ValveAortic valve is trileaflet without significant stenosis or | | regurgitation.Tricuspid ValveStructurally normal tricuspid valve without significant | | stenosis orregurgitation. Unable to accurately assess RV systolic pressures in | | theabsence of significant tricuspid regurgitation.Pulmonic ValveNormal pulmonic valve | | structure and function. Normal pulmonary valve andRVOT flow by color and Doppler flow | | imaging.Left AtriumLeft atrium is mildly enlarged.Left VentricleLeft ventricle is normal | | in size and function. Ejection fraction isestimated at 70-75%.Diastolic parameters are | | indeterminate.Right AtriumNormal right atrial size.Right VentricleNormal right | | ventricular size.Right ventricle global systolic function is normal.TAPSE = 2.2 | | cm.Pericardial EffusionNo evidence of pericardial effusion.Pleural EffusionNo evidence | | of pleural effusion.MiscellaneousMeasurements and calculations provided in the report | | sections maybeincomplete. Additional m-mode, 2D, Doppler, Doppler tissue, strain, | | andother hemodynamic assessments performed and documented within the imageviewer.Valves | | Mitral Valve Peak E-Wave: 91.94 cm/s Peak A-Wave: 124.6 cm/s Tissue Doppler Septal e' | | Velocity: 10.00 cm/s Septal E/e' Ratio: Aortic Valve Peak Velocity: 167.21 cm/s | | Mean Gradient: 5.71 mmHg Peak Gradient: 11.18 mmHg LVOT Peak Velocity: 97.87 | | cm/sStructures Left Atrium LA A/P Dimension: 4.58 cm LA Volume: 52.84 ml | | LA/Aorta:1.63 LA Vol/BSA Index: 29 mL/m^2 LA Major:0.3489 Left Ventricle Diastolic | | Dimension: 4.41 cm Systolic Dimension: 2.95 cm Septum Diastolic: 0.94 cm PW | | Diastolic: 0.88 cm EF Usmvgblls38% EF Calculated: 75% Miscellaneous Aorta Aortic Root: | | 2.81 cm Ascending Aorta: 2.82 cm | |Left ventricle is normal in size and function. Ejection fraction is | |estimated at 70-75%. | |Diastolic parameters are indeterminate. | |Left atrium is mildly enlarged. | |No significant valvular disease noted. | | | |Signature | | | | Electronically signed by MARLENY HINES MD(Interpreting physician) on | | 06/02/2018 01:09 PM | | | | | |Findings | |Mitral Valve | |Structurally normal mitral valve without significant stenosis or | |regurgitation. | |Aortic Valve | |Aortic valve is trileaflet without significant stenosis or regurgitation. | |Tricuspid Valve | |Structurally normal tricuspid valve without significant stenosis or | |regurgitation. Unable to accurately assess RV systolic pressures in the | |absence of significant tricuspid regurgitation. | |Pulmonic Valve | |Normal pulmonic valve structure and function. Normal pulmonary valve and | |RVOT flow by color and Doppler flow imaging. | |Left Atrium | |Left atrium is mildly enlarged. | |Left Ventricle | |Left ventricle is normal in size and function. Ejection fraction is | |estimated at 70-75%. | |Diastolic parameters are indeterminate. | |Right Atrium | |Normal right atrial size. | |Right Ventricle | |Normal right ventricular size. | |Right ventricle global systolic function is normal. | |TAPSE = 2.2 cm. | |Pericardial Effusion | |No evidence of pericardial effusion. | |Pleural Effusion | |No evidence of pleural effusion. | |Miscellaneous | |Measurements and calculations provided in the report sections maybe | |incomplete. Additional m-mode, 2D, Doppler, Doppler tissue, strain, and | |other hemodynamic assessments performed and documented within the image | |viewer. | | | |Valves | | | | Mitral Valve | | | | Peak E-Wave: 91.94 cm/s | | Peak A-Wave: 124.6 cm/s | | | | Tissue Doppler | | | | Septal e' Velocity: 10.00 cm/s | | Septal E/e' Ratio: | | | | Aortic Valve | | | | Peak Velocity: 167.21 cm/s Mean Gradient: 5.71 mmHg | | Peak Gradient: 11.18 mmHg | | | | LVOT | | | | Peak Velocity: 97.87 cm/s | | | |Structures | | | | Left Atrium | | | | LA A/P Dimension: 4.58 cm LA Volume: 52.84 ml | | LA/Aorta:1.63 | | LA Vol/BSA Index: 29 mL/m^2 | | LA Major:0.3489 | | | | Left Ventricle | | | | Diastolic Dimension: 4.41 cm Systolic Dimension: 2.95 cm | | Septum Diastolic: 0.94 cm | | PW Diastolic: 0.88 cm | | EF Vbycifbsg24% | | EF Calculated: 75% | | | | Miscellaneous | | | | Aorta | | | | Aortic Root: 2.81 cm | | Ascending Aorta: 2.82 cm | + + + +---------+ + + | Performing | Address | City/State/Zipcode | Phone Number | | Organization | | | | + +---------+ + + | [facility] | | | | + +---------+ + + ECG 12 lead (05/19/2018 12:10 PM PST) + + + + + + | Component | Value | Ref Range | Performed | Pathologist | | | | | At | Signature | + + + + + + | VENTRICULAR | 80 | BPM | [facility] | | | RATE EKG | | | | | + + + + + + | ATRIAL RATE | 80 | BPM | [facility] | | + + + + + + | P-R | 156 | ms | [facility] | | | INTERVAL | | | | | + + + + + + | QRS | 80 | ms | [facility] | | | DURATION | | | | | + + + + + + | Q-T | 412 | ms | [facility] | | | INTERVAL | | | | | + + + + + + | Q-T | 475 | ms | [facility] | | | INTERVAL | | | | | | (CORRECTED) | | | | | + + + + + + | P WAVE AXIS | 49 | degrees | [facility] | | + + + + + + | QRS AXIS | 37 | degrees | [facility] | | + + + + + + | T AXIS | 26 | degrees | [facility] | | + + + + + + | INTERPRETAT | Normal sinus | | [facility] | | | ION TEXT | rhythmDiffuse | | | | | | Nonspecific T wave | | | | | | abnormalityLong | | | | | | QTcAbnormal ECGNo | | | | | | previous ECGs | | | | | | availableConfirmed by | | | | | | BRITTA BAKER MD ([id number]) | | | | | | on 05/19/2018 8:11:16 PM | | | | + + + + + + + + | Specimen | + + | | + + + + + | Narrative | Performed At | + + + | | | + + + + +---------+ + + | Performing | Address | City/State/Zipcode | Phone Number | | Organization | | | | + +---------+ + + | [facility] | | | | + +---------+ + + Heparin XA (05/19/2018 12:00 PM PST) + +-------+ + + + | Component | Value | Ref Range | Performed | Pathologist | | | | | At | Signature | + +-------+ + + + | Heparin | 0.72 | IU/mL | [facility] | | | Unfractiona | | | [facility] | | | [place] | | | [facility] | | | | | | CENTER - | | | | | | LABORATORY | | + +-------+ + + + + + | Specimen | + + | Blood | + + + + + | Narrative | Performed At | + + + | Unfractionated Heparin (UFH) Therapeutic range: 0.30 - 0.70 IU/mL | [facility] | | | [facility] | | | [facility] | | | - LABORATORY | + + + + + + + + | Performing | Address | City/State/Zipcode | Phone Number | | Organization | | | | + + + + + | [facility] | [address] | [place] | [phone] | | [facility] | | [address] | | | - LABORATORY | | | | + + + + + Protime INR (05/19/2018 12:00 PM PST) + + + + + + | Component | Value | Ref Range | Performed | Pathologist | | | | | At | Signature | + + + + + + | Prothrombin | 14.3 (H) | 11.3 - 13.9 | [facility] | | | Time | | seconds | [facility] | | | | | | MEDICAL | | | | | | CENTER - | | | | | | LABORATORY | | + + + + + + | INR | 1.1Comment: Usual Oral | 0.9 - 1.1 | [facility] | | | | Anticoagulation Range: | | [facility] | | | | 2.0 - 3.0High | | MEDICAL | | | | Level Oral | | CENTER - | | | | Anticoagulation Range: | | LABORATORY | | | | 2.5 - 3.5 | | | | + + + + + + + + | Specimen | + + | Blood | + + + + + + + | Performing | Address | City/State/Zipcode | Phone Number | | Organization | | | | + + + + + | [facility] | [address] | [place] | [phone] | | [facility] | | [address] | | | - LABORATORY | | | | + + + + + Magnesium (05/19/2018 11:41 AM PST) + +-------+ + + + | Component | Value | Ref Range | Performed | Pathologist | | | | | At | Signature | + +-------+ + + + | Magnesium | 2.0 | 1.8 - 2.5 mg/dL | [facility] | | | | | [facility] | | | | | [facility] | | | | | | [facility] - | | | | | | LABORATORY | | + +-------+ + + + + + | Specimen | + + | Blood | + + + + + + + | Performing | Address | City/State/Zipcode | Phone Number | | Organization | | | | + + + + + | [facility] | [address] | [place] | [phone] | | [facility] | | [address] | | | - LABORATORY | | | | + + + + + CBC no Differential (05/19/2018 11:41 AM PST) + + + + + + | Component | Value | Ref Range | Performed | Pathologist | | | | | At | Signature | + + + + + + | WBC | 7.8 | 4.0 - 11.0 K/uL | [facility] | | | | | | [facility] | | | | | | MEDICAL | | | | | | CENTER - | | | | | | LABORATORY | | + + + + + + | RBC | 4.28 | 3.70 - 5.20 | [facility] | | | | | M/uL | [facility] | | | | | | MEDICAL | | | | | | CENTER - | | | | | | LABORATORY | | + + + + + + | Hemoglobin | 12.6 | 11.5 - 16.0 | [facility] | | | | | g/dL | [facility] | | | | | | [facility] | | | | | | CENTER - | | | | | | LABORATORY | | + + + + + + | Hematocrit | 39.7 | 34.0 - 47.0 % | [facility] | | | | | | [facility] | | | | | | MEDICAL | | | | | | CENTER - | | | | | | LABORATORY | | + + + + + + | MCV | 92.8 | 83.0 - 101.0 fL | [facility] | | | | | | [facility] | | | | | | MEDICAL | | | | | | CENTER - | | | | | | LABORATORY | | + + + + + + | MCH | 29.4 | 28.0 - 35.0 pg | [facility] | | | | | | [facility] | | | | | | MEDICAL | | | | | | CENTER - | | | | | | LABORATORY | | + + + + + + | MCHC | 31.7 (L) | 32.0 - 36.0 | [facility] | | | | | g/dL | [facility] | | | | | | MEDICAL | | | | | | CENTER - | | | | | | LABORATORY | | + + + + + + | RDW-CV | 13.2 | <15.0 % | [facility] | | | | | | [facility] | | | | | | [facility] | | | | | | [facility] - | | | | | | LABORATORY | | + + + + + + | RDW-SD | 45.1 | 35.1 - 46.3 fL | [facility] | | | | | | [facility] | | | | | | [facility] | | | | | | [facility] - | | | | | | LABORATORY | | + + + + + + | Platelet | 334 | 140 - 440 K/uL | [facility] | | | Count | | | [facility] | | | [facility] | | [facility] | | | | | | [facility] - | | | | | | LABORATORY | | + + + + + + | MPV | 10.0 | 6.5 - 12.4 fL | [facility] | | | | | | [facility] | | | | | | [facility] | | | | | | [facility] - | | | | | | LABORATORY | | + + + + + + | % nRBC | 0 | 0 - 2 per 100 | [facility] | | | | | WBC's | [facility] | | | | | | [facility] | | | | | | CENTER - | | | | | | LABORATORY | | + + + + + + | Absolute | 0.00 | 0.00 - 0.01 | [facility] | | | nRBC | | K/uL | [facility] | | | | | | [facility] | | | | | | CENTER - | | | | | | LABORATORY | | + + + + + + + + | Specimen | + + | Blood | + + + + + + + | Performing | Address | City/State/Zipcode | Phone Number | | Organization | | | | + + + + + | [facility] | [address] | [place] | [phone] | | [facility] | | [address] | | | - LABORATORY | | | | + + + + + Comprehensive Metabolic Panel (05/19/2018 11:41 AM PST) + + + + + + | Component | Value | Ref Range | Performed | Pathologist | | | | | At | Signature | + + + + + + | Na | 139 | 136 - 149 | [facility] | | | | | mmol/L | [facility] | | | | | | MEDICAL | | | | | | CENTER - | | | | | | LABORATORY | | + + + + + + | K | 3.9 | 3.5 - 5.1 | [facility] | | | | | mmol/L | [facility] | | | | | | [facility] | | | | | | CENTER - | | | | | | LABORATORY | | + + + + + + | Cl | 107 | 98 - 109 mmol/L | [facility] | | | | | | [facility] | | | | | | [facility] | | | | | | CENTER - | | | | | | LABORATORY | | + + + + + + | CO2 | 24 | 24 - 31 mmol/L | [facility] | | | | | | [facility] | | | | | | [facility] | | | | | | CENTER - | | | | | | LABORATORY | | + + + + + + | Anion Gap | 8 | 3 - 16 mmol/L | [facility] | | | | | | [facility] | | | | | | [facility] | | | | | | CENTER - | | | | | | LABORATORY | | + + + + + + | Glucose | 102 | 70 - 109 mg/dL | [facility] | | | | | | [facility] | | | | | | [facility] | | | | | | CENTER - | | | | | | LABORATORY | | + + + + + + | BUN | 7 | 7 - 18 mg/dL | [facility] | | | | | | [facility] | | | [facility] | | [facility] | | | | | | CENTER - | | | | | | LABORATORY | | + + + + + + | Creatinine | 0.82 | 0.60 - 1.30 | [facility] | | | | | mg/dL | [facility] | | | | | | MEDICAL | | | | | | CENTER - | | | | | | LABORATORY | | + + + + + + | eGFR if not | >60Comment: GLOMERULAR | >=60 | [facility] | | | | FILTRATION | mL/min/1.73m2 | [facility] | | | FRENCH | RATE,ESTIMATED | | MEDICAL | | | | mL/min/1.82f2Ztei than | | CENTER - | | | | 60 Chronic kidney | | LABORATORY | | | | disease,if found over a | | | | | | 3-month period.Less than | | | | | | 15 Kidney failureFor | | | | | | | | | | | | Americans,multiply the | | | | | | calculated GFR by 1.21. | | | | | | | | | | + + + + + + | Calcium | 9.2 | 8.3 - 10.5 | [facility] | | | | | mg/dL | [facility] | | | | | | MEDICAL | | | | | | CENTER - | | | | | | LABORATORY | | + + + + + + | Albumin | 4.0 | 3.2 - 5.0 g/dL | [facility] | | | | | | [facility] | | [facility] | | | [facility] | | | | | | CENTER - | | | | | | LABORATORY | | + + + + + + | Bilirubin | 0.6 | 0.1 - 1.5 mg/dL | [facility] | | | Total | | | [facility] | | | | | | MEDICAL | | | | | | CENTER - | | | | | | LABORATORY | | + + + + + + | Total | 6.5 | 6.0 - 7.8 g/dL | [facility] | | | Protein | | | [facility] | | | | | | MEDICAL | | | | | | CENTER - | | | | | | LABORATORY | | + + + + + + | AST | 21 | 10 - 42 U/L | [facility] | | | | | | [facility] | | | | | | MEDICAL | | | | | | CENTER - | | | | | | LABORATORY | | + + + + + + | ALT | 22 | 6 - 45 U/L | [facility] | | | | | | [facility] | | | | | | MEDICAL | | | | | | CENTER - | | | | | | LABORATORY | | + + + + + + | Alkaline | 40 | 40 - 110 U/L | [facility] | | | Phosphatase | | | [facility] | | | | | | MEDICAL | | | | | | CENTER - | | | | | | LABORATORY | | + + + + + + | Globulin | 2.5 | 2.1 - 3.8 g/dL | [facility] | | | | | | [facility] | | | | | | MEDICAL | | | | | | CENTER - | | | | | | LABORATORY | | + + + + + + | Albumin/Anali | 1.6 | 0.8 - 2.0 | [facility] | | | bulin Ratio | | | [facility] | | | | | | MEDICAL | | | | | | CENTER - | | | | | | LABORATORY | | + + + + + + | BUN/Creatin | 8.5 | | [facility] | | | ine Ratio | | | [facility] | | | | | | MEDICAL | | | | | | CENTER - | | | | | | LABORATORY | | + + + + + + + + | Specimen | + + | Blood | + + + + + + + | Performing | Address | City/State/Zipcode | Phone Number | | Organization | | | | + + + + + | [facility] | [address] | [place] | [phone] | | [facility] | | [address] | | | - LABORATORY | | | | + + + + + Troponin I (05/19/2018 11:41 AM PST) + + + + + + | Component | Value | Ref Range | Performed | Pathologist | | | | | At | Signature | + + + + + + | Troponin I | 0.05Comment: Reference | <0.06 ng/mL | [facility] | | | | Ranges:0.00-0.06 = | | [facility] | | | | NORMAL>0.06 = | | MEDICAL | | | | SUSPICIOUS FOR | | CENTER - | | | | MYOCARDIAL DAMAGE NOTE: | | LABORATORY | | | | Values greater than 0.50 | | | | | | ng/mL have been shown | | | | | | to be strongly | | | | | | associated with acute | | | | | | myocardial infarction. | | | | | | The [employer] | | | | | | Cardiology (ACC) | | | | | | recommends a decision | | | | | | limit of 0.06 ng/mL for | | | | | | this assay. Results | | | | | | greater than 0.06 can | | | | | | reflect a pre-infarct | | | | | | acute coronary syndrome, | | | | | | but can also reflect | | | | | | myocardial necrosis or | | | | | | injury that is not due | | | | | | to coronary artery | | | | | | disease. Some of these | | | | | | causes are sepsis, | | | | | | hypocolemia, atrial | | | | | | fibrillation, heart | | | | | | failure, pulmonary | | | | | | embolism, myocarditis, | | | | | | myocardial contusion, | | | | | | and renal failure. The | | | | | | diagnosis of myocardial | | | | | | infarction should be | | | | | | based on a combination | | | | | | of the patient's | | | | | | clinical presentation | | | | | | and the clinical | | | | | | laboratory test results | | | | | | (especially serial | | | | | | troponin levels). | | | | + + + + + + + + | Specimen | + + | Blood | + + + + + + + | Performing | Address | City/State/Zipcode | Phone Number | | Organization | | | | + + + + + | [facility] | [address] | [place] | [phone] | | [facility] | | [address] | | | - LABORATORY | | | | + + + + + XR Chest AP Portable (05/19/2018 11:30 AM PST) + + | Specimen | + + | | + + + + + | Narrative | Performed At | + + + | SINGLE AP CHEST 05/19/2018 11:25 AM CLINICAL HISTORY: ACS with | [facility] | | h/o CHF COMPARISON: CT abdomen 2005 FINDINGS: The | | | cardiomediastinal silhouette and pulmonary vasculature are | | | unremarkable. Mild elevation of the right hemidiaphragm is chronic. | | | The lungs are clear without visible pneumothorax or pleural | | | effusion. Bones and soft tissues are unremarkable. IMPRESSION - | | | 1. NO RADIOGRAPHIC EVIDENCE OF ACTIVE DISEASE IN THE CHEST. | | | Dictated and Signed by: Tuan Pisano MD Electronically signed: | | | 05/19/2018 12:46 PM | | + + + + + | Procedure Note | + + | Anton Rios Results In - 05/19/2018 12:49 PM PST SINGLE AP CHEST 05/19/2018 11:25 AM | | | | CLINICAL HISTORY: ACS with h/o CHF | | | | COMPARISON: CT abdomen 2005 | | | | FINDINGS: The cardiomediastinal silhouette and pulmonary vasculature are | | unremarkable. Mild elevation of the right hemidiaphragm is chronic. The lungs | | are clear without visible pneumothorax or pleural effusion. Bones and soft | | tissues are unremarkable. | | | | IMPRESSION - | | | | 1. NO RADIOGRAPHIC EVIDENCE OF ACTIVE DISEASE IN THE CHEST. | | | | Dictated and Signed by: Tuan Pisano MD | | Electronically signed: 05/19/2018 12:46 PM | + + + +---------+ + + | Performing | Address | City/State/Zipcode | Phone Number | | Organization | | | | + +---------+ + + | [facility] | | | | + +---------+ + + Culture, MRSA (05/19/2018 9:02 AM PST) + + + + + + | Component | Value | Ref Range | Performed | Pathologist | | | | | At | Signature | + + + + + + | Culture | Negative for MRSA by | | [facility] | | | | chromogenic agar method | | [facility] | | | | | | MEDICAL | | | | | | CENTER - | | | | | | LABORATORY | | + + + + + + | Culture | 4+ Coagulase positive | | [facility] | | | | Staphylococcus | | [facility] | | | | | | MEDICAL | | | | | | CENTER - | | | | | | LABORATORY | | + + + + + + + + | Specimen | + + | Tissue - Both | | anterior nares (body | | structure) | + + + + + + + | Performing | Address | City/State/Zipcode | Phone Number | | Organization | | | | + + + + + | [facility] | [address] | [place] | [phone] | | [facility] | | [address] | | | - LABORATORY | | | | + + + + + LABS - EXTERNAL SCAN (05/19/2018 12:00 AM PST) + + + | Narrative | Performed At | + + + | Ordered by an | | | unspecified provider. | | + + + LABS - EXTERNAL SCAN (05/19/2018 12:00 AM PST) + + + | Narrative | Performed At | + + + | Ordered by an | | | unspecified provider. | | + + + ECG - EXTERNAL SCAN (05/19/2018 12:00 AM PST) + + + | Narrative | Performed At | + + + | Ordered by an | | | unspecified provider. | | + + + ECG - EXTERNAL SCAN (05/19/2018 12:00 AM PST) + + + | Narrative | Performed At | + + + | Ordered by an | | | unspecified provider. | | + + + documented in this encounter Visit Diagnoses + + | Diagnosis | + + | Acute coronary syndromes (HCC) Intermediate coronary syndrome | + + | Dyslipidemia Other and unspecified hyperlipidemia | + + | Essential (primary) hypertension Unspecified essential hypertension | + + | Syncope, vasovagal Syncope and collapse | + + | Prinzmetal angina (HCC) Prinzmetal angina | + + documented in this encounter Administered Medications + +--------+ +--------+------+------+ | Medication Order | MAR | Action | Dose | Rate | Site | | | Action | Date | | | | + +--------+ +--------+------+------+ | acetaminophen (TYLENOL) tablet | Given | 05/20/19 | 650 mg | | | | 650 mg 650 mg, Oral, EVERY 4 | | 19 8:46 | | | | | HOURS PRN, Pain, Mild Pain, | | AM PST | | | | | Fever, Headaches, or fever >= | | | | | | | 38.6 C (101.5 F), Starting Savanna | | | | | | | 05/19/18 at 1113 | | | | | | + +--------+ +--------+------+------+ +---+---+ | | | +---+---+ + +-------+ +-------+---+---+ | aspirin chewable tablet 81 mg | Given | 05/20/19 | 81 mg | | | | 81 mg, Oral, DAILY, First dose on | | 19 8:47 | | | | | Savanna 05/19/18 at 1145 | | AM PST | | | | + +-------+ +-------+---+---+ +---+---+ | | | +---+---+ + +-------+ +--------+---+---+ | clopidogrel (PLAVIX) tablet 600 | Given | 05/19/19 | 600 mg | | | | mg 600 mg, Oral, ONCE, Savanna | | 19 11:54 | | | | | 05/19/18 at 1145, For 1 dose | | AM PST | | | | + +-------+ +--------+---+---+ + +---+ | | | + +---+ | guaiFENesin (ROBITUSSIN) 100 | | | mg/5 mL liquid 200 mg 200 mg, | | | Oral, EVERY 4 HOURS PRN, Cough, | | | Starting Savanna 05/19/18 at 2023 | | + +---+ | | | + +---+ + +---------+ + + +---+ | heparin in half-normal saline | New Bag | 05/19/19 | 850 | 17 mL/hr | | | 50 units/mL infusion 850 | | 19 1:47 | Units/hr | | | | Units/hr (17 mL/hr), at 17 mL/hr, | | PM PST | | | | | Intravenous, CONTINUOUS, | | | | | | | Starting Savanna 05/19/18 at 1330, For | | | | | | | 1 day, Pharmacy heparin protocol | | | | | | | for ACS, CARDIAC DOSE; goal | | | | | | | anti-Xa range: 0.2 - 0.4 unit/mL, | | | | | | | | | | | | | + +---------+ + + +---+ +---+---+ | | | +---+---+ + +-------+ +---------+---+---+ | levothyroxine (SYNTHROID) | Given | 05/20/19 | 125 mcg | | | | tablet 125 mcg 125 mcg, Oral, | | 19 7:40 | | | | | DAILY BEFORE BREAKFAST, First | | AM PST | | | | | dose on Savanna 05/19/18 at 1145, Give | | | | | | | before breakfast., | | | | | | + +-------+ +---------+---+---+ +---+---+ | | | +---+---+ + +-------+ +-------+---+---+ | metoprolol tartrate (LOPRESSOR) | Given | 05/20/19 | 25 mg | | | | tablet 25 mg 25 mg, Oral, 2 | | 19 8:47 | | | | | TIMES DAILY, First dose on Savanna | | AM PST | | | | | 05/19/18 at 1145, Hold for SBP<100 | | | | | | | or HR<50, | | | | | | + +-------+ +-------+---+---+ +---+---+ | | | +---+---+ + +-------+ +--------+---+---+ | regadenoson (LEXISCAN) | Given | 05/20/19 | 0.4 mg | | | | injection 0.4 mg 0.4 mg, | | 19 7:26 | | | | | Intravenous, ONCE PRN, protocol, | | AM PST | | | | | Starting Wed05/20/18 at 0726, For | | | | | | | 1 dose, Give IV push over 10 | | | | | | | seconds, then follow immediately | | | | | | | with 5 mL saline flush., Nuclear | | | | | | | Medicine | | | | | | + +-------+ +--------+---+---+ +---+---+ | | | +---+---+ + +-------+ +-------+---+---+ | rosuvastatin (CRESTOR) tablet | Given | 05/20/19 | 40 mg | | | | 40 mg 40 mg, Oral, DAILY, First | | 19 8:46 | | | | | dose on Wed05/19/18 at 1145 | | AM PST | | | | + +-------+ +-------+---+---+ +-------+ +-------+---+---+ | Given | 05/19/19 | 40 mg | | | | | 19 11:53 | | | | | | AM PST | | | | +-------+ +-------+---+---+ + +---+ | | | + +---+ | sodium chloride (OCEAN) 0.65% | | | nasal spray 2 spray 2 spray, | | | Each Nare, EVERY 1 HOUR PRN, | | | Nasal Dryness, Starting Savanna | | | 05/19/18 at 2023 | | + +---+ | | | + +---+ + +-------+ + +---+---+ | technetium TC-99M sestamibi | Given | 05/20/19 | 10.33 | | | | (CARDIOLITE) injection 10.33 | | 19 7:19 | millicur | | | | millicurie 10.33 millicurie, | | AM PST | ies | | | | Intravenous, ONCE PRN, Other, | | | | | | | Starting Wed05/20/18 at 0719, For | | | | | | | 1 dose, Nuclear Medicine | | | | | | + +-------+ + +---+---+ +---+---+ | | | +---+---+ + +-------+ + +---+---+ | technetium TC-99M sestamibi | Given | 05/20/19 | 32.1 | | | | (CARDIOLITE) injection 32.1 | | 19 11:14 | millicur | | | | millicurie 32.1 millicurie, | | AM PST | ies | | | | Intravenous, ONCE PRN, Other, | | | | | | | Starting Wed05/20/18 at 1114, For | | | | | | | 1 dose, Nuclear Medicine | | | | | | + +-------+ + +---+---+ +---+---+ | | | +---+---+ + +-------+ +--------+---+---+ | traZODone (DESYREL) tablet 150 | Given | 05/19/19 | 100 mg | | | | mg 150 mg, Oral, NIGHTLY, First | | 19 9:00 | | | | | dose on Wed05/19/18 at 2100 | | PM PST | | | | + +-------+ +--------+---+---+ +---+---+ | | | +---+---+ documented in this encounter
--- OUTSIDE RECORDS SUMMARY | ~2019-09-02 | XMS | Encounter Summary ---
Demographics + + + | Address | [address] | | | [place] [address] | + + + | Home Phone | | + + + | Preferred Language | Unknown | + + + | Marital Status | | + + + | Orthodox Affiliation | 1041 | + + + | Race | Unknown | + + + | Ethnic Group | Unknown | + + + Author + + + | Author | [facility] | | | and [place] | + + + | Organization | [facility] | | | and [place] [...] Team Providers + +------+ + | Care Shipping Receiving Clerk Name | Role | Phone | + +------+ + PCP | Unavailable | + +------+ + Encounter Details +--------+ + + + + | Date | Type | Department | Care Team | Description | +--------+ + + + + | 05/19/ | Hospital | [facility] | Wilder Mosquera MD | | | 1993 - | Encounter | MED CTR GENERIC IP | [address], [place] | | | | | CONV DEPT [address] [place], [place] | | | 05/20/ | | [address] [place], | [address] | | | 1991 | | [place] [address] | | | | | | [phone] | | | +--------+ + + + [...]
--- OUTSIDE RECORDS SUMMARY | ~2019-09-02 | XMS | Encounter Summary ---
Demographics + + + | Address | [address] | | | [place] [address] | + + + | Home Phone | | + + + | Preferred Language | Unknown | + + + | Marital Status | | + + + | Anabaptism Affiliation | 1041 | + + + | Race | Unknown | + + + | Ethnic Group | Unknown | + + + Author + + + | Author | [facility] | | | and [place] | + + + | Organization | [facility] | | | and [place] [...] Team Providers + +------+ + | Care Machine Shop Worker Name | Role | Phone | [...] | Specialty | Physical | Diagnoses | Golden, | Raul Golden | | | Services | Medicine and | Bilateral | Raul Gamble MD | Ellie Gamble MD [address] | | | Required | Rehabilitatio | hand | [address] | | | | n | numbness | [address] | [place], | | | | | Hand | [place], | [place] [address] | | | | | weakness | [place] [address] | Phone: | | | | | Procedures | Phone: | [phone] | | | | | DOS 12/05/14 | [phone] | Fax: | | | | | | Fax: | [phone] | | | | | | [phone] | | +--------+ + + + + [...] | Specialty | Physical | Diagnoses | [place], | Raul Golden | | | Services | Medicine and | DDD | Jace | Ellie Gamble MD [address] | | | Required | Rehabilitatio | (degenerativ | [address] Rojas | [address] | | | | n | e disc | [address] | [place], | | | | | disease), | [address] | [place] [address] | | | | | lumbar | [place], [place] | Phone: | | | | | Lumbar | [address] | [phone] | | | | | radiculopath | Phone: | Fax: | | | | | y | [phone] | [phone] | | | | | Paresthesia | Fax: | | | | | | of both | [phone] | | | | | | hands | | | +--------+ + + + + + Encounter Details +--------+---------+ + + + | Date | Type | Department | Care Team | Description | +--------+---------+ + + + | 11/01/ | Office | [facility] | Raul Golden, | Bilateral hand | | 2014 | Visit | PHYSIATRY [address] | MD [address] | numbness (Primary | | | | [address] | [place] | Dx); Hand weakness; | | | | [place] | [address] | Midline low back | | | | [address] | | pain with left-sided | | | | [phone] | | sciatica | +--------+---------+ + + [...] MD - 11/01/2014 12:51 PM PDT [facility] [address] [facility] [facility] [address] OFFICE NOTE RAUL GOLDEN JR, MD Patient: ANTHONY MONTEZ Admitting: MR #: [id number] LOC: PT TYPE: Adm Date: 11/01/2014 : [...] of obj ects and not having the floor and wall applier liquid strength to open bottles and jars. She [...] pain, her back pain is currently resolved. Nikhil tly, no pain, 0/10. She has been having episodes of back pain. We discussed in her situat ion where she is having no pain, the most important thing that we can do is try to move tow ards prevention of episodes. She is encouraged to continue exercises as outlined by previ ous physical therapy on a routine daily basis [...] Transcribed on 11/01/2014 20:20:13 by sb job# [id number] Confirmation #: [id number] cc: JESSE KIMBLE [place] PA-C TMars, Raul Gamble MD - 11/01/2014 11:38 AM PDTThis office note has been dictated. Job ID# [id number] signed by Raul Golden MD at 11/01/2014 12:51 PM PDTdocumented in this encounter Plan of Treatment + + +--------+ + + | Name [...]
--- OUTSIDE RECORDS SUMMARY | ~2019-09-02 | XMS | Encounter Summary ---
Demographics + + + | Address | [address] | | | [place] [address] | + + + | Home Phone | | + + + | Preferred Language | Unknown | + + + | Marital Status | | + + + | Worship Affiliation | 1041 | + + + | Race | Unknown | + + + | Ethnic Group | Unknown | + + + Author + + + | Author | [facility] | | | and [place] | + + + | Organization | [facility] | | | and [...] Team Providers + +------+ + | Care Bushing Press Operator Name | Role | Phone | + +------+ + | Garcia Valle MD | PCP | | + +------+ + Encounter Details +--------+ + + + + | Date | Type | Department | Care Team | Description | +--------+ + + + + | 04/09/ | Orders Only | [facility] | Homero Lizarraga Edgardo, | | | 2014 | | CARDIOLOGY [place] | MD [address] | | | | | [address] | [place] [address] | | | | | [address] | [phone] | | | | | [place], [place] | | | | | | [address] | | | | | | [phone] | | | +--------+ + + + [...] + +--------+ + + + | NM MYOCARDIAL | Routin | 04/09/2015 | | Results for this | | PERFUSION MULT SPECT | e | 3:27 PM | | procedure are in the | | | | PST | | results section. | + +--------+ + + + documented in this encounter Results NM Myocardial Perfusion Mult SPECT (04/09/2015 3:27 PM PST) + + | Specimen | + + | | + + + + + | Narrative | Performed At | + + + | [facility] CARDIOLOGY Nuclear Treadmill Stress Test With | | | Lexiscan Intervention INDICATION FOR TEST: 65 year old female | | | being evaluated for hypertension and chest pain RISK FACTORS: | | | Hypertension, hyperlipidemia, family history, post menopausal, stress | | | Previous Cardiac Procedures: no PROCEDURE: Norris protocol. | | | Rest dose- 10.5 mCi of Tc-99 Myoview given intravenously. Stress dose- | | | At 08:21 minutes 30.3 mCi of Tc-99 Myoview given intravenously. | | | Injected 0.4 mg IV of Lexiscan over 10 seconds at 7:46 minutes to | | | complete stress. Effective Dose Equivalent: 13.4 mSv. Predicted | | | exercise time was 5 minutes. Predicted Maximum HR: 157. Predicted 85% | | | Max HR: 133. REST DATA: HR: 64 bpm. BP: 123/77. ECG: Sinus | | | rhythm rate 64. Nonspecific ST and T wave abnormalities. STRESS | | | DATA: Exercise Time: 7:46 minutes, HR achieved: 118 bpm, Max BP: | | | 159/76. RPP: 01970. METS: 10.10. Symptoms lightheaded and shortness of | | | breath The test was terminated due to Lexiscan intervention for | | | fatigue, patient walked to 75% MPHR. ECG: No arrhythmias. No | | | ischemia. EJECTION FRACTION: REST EF: 69% STRESS EF: 78%. | | | IMAGING: The quality of the images are good. No artifacts are seen. | | | SPECT images show no significant rest or stress perfusion abnormality. | | | Gated images show normal wall motion and normal systolic thickening. | | | Post stress ejection fraction 70%. LVH appears to be present. | | | IMPRESSIONS: Average exercise tolerance Exercise-induced shortness | | | of breath noted Uneventful chemical stress infusion No | | | exercise-induced arrhythmias or ECG evidence of ischemia No | | | significant rest or stress perfusion abnormality LVH appears to be | | | present Normal LV systolic function No comparison studies available | | | Homero Lizarraga MD, FACC, FACP, FASIL | | + + + + + | Procedure Note | + + | Gabriel, Rad Conversion - 12/09/2018 12:26 PM [facility] | | Treadmill Stress Test With Lexiscan Intervention INDICATION FOR TEST: 65 year old | | female being evaluated for hypertension and chest pain RISK FACTORS: Hypertension, | | hyperlipidemia, family history, post menopausal, stress Previous Cardiac Procedures: no | | PROCEDURE: Norris protocol. Rest dose- 10.5 mCi of Tc-99 Myoview given intravenously. | | Stress dose- At 08:21 minutes 30.3 mCi of Tc-99 Myoview given intravenously. Injected | | 0.4 mg IV of Lexiscan over 10 seconds at 7:46 minutes to complete stress. Effective | | Dose Equivalent: 13.4 mSv. Predicted exercise time was 5 minutes. Predicted Maximum HR: | | 157. Predicted 85% Max HR: 133. REST DATA: HR: 64 bpm. BP: 123/77. ECG: Sinus rhythm | | rate 64. Nonspecific ST and T wave abnormalities. STRESS DATA: Exercise Time: 7:46 | | minutes, HR achieved: 118 bpm, Max BP: 159/76. RPP: 30956. METS: 10.10. Symptoms | | lightheaded and shortness of breath The test was terminated due to Lexiscan intervention | | for fatigue, patient walked to 75% MPHR. ECG: No arrhythmias. No ischemia. EJECTION | | FRACTION: REST EF: 69% STRESS EF: 78%. IMAGING:The quality of the images are good. No | | artifacts are seen. SPECT images show no significant rest or stress perfusion | | abnormality. Gated images show normal wall motion and normal systolic thickening. Post | | stress ejection fraction 70%. LVH appears to be present. IMPRESSIONS:Average exercise | | toleranceExercise-induced shortness of breath notedUneventful chemical stress infusionNo | | exercise-induced arrhythmias or ECG evidence of ischemiaNo significant rest or stress | | perfusion abnormalityLVH appears to be presentNormal LV systolic functionNo comparison | | studies available Homero Lizarraga MD, FACC, FACP, FASNC | |The quality of the images are good. No artifacts are seen. SPECT images show no significant rest or stress perfusion abnormality. Gated images show normal wall motion and normal systo lic thickening. Post stress ejection fraction 70%. LVH appears to be | |present. | | | |IMPRESSIONS: | |Average exercise tolerance | |Exercise-induced shortness of breath noted | |Uneventful chemical stress infusion | |No exercise-induced arrhythmias or ECG evidence of ischemia | |No significant rest or stress perfusion abnormality | |LVH appears to be present | |Normal LV systolic function | |No comparison studies available | | | |Homero Lizarraga MD, FACC, FACP, FASNC | | | | | + + documented in this encounter Visit Diagnoses Not on filedocumented in this encounter"
--- OUTSIDE RECORDS SUMMARY | ~2019-09-02 | XMS | Encounter Summary ---
Demographics + + + | Address | [address] | | | [place] [address] | + + + | Home Phone | | + + + | Preferred Language | Unknown | + + + | Marital Status | | + + + | Roman Catholic Affiliation | 1041 | + + + | Race | Unknown | + + + | Ethnic Group | Unknown | + + + Author + + + | Author | [facility] | | | and [place] | + + + | Organization | [facility] | | | and [place] [...] Team Providers + +------+ + | Care Coupling Machine Operator Name | Role | Phone | + +------+ + | Jesse Chand MD | PCP | | + +------+ + Reason for Visit Service/Procedure (Routine) +--------+--------+ + + + + | Status | Reason | Specialty | Diagnoses / | Referred By | Referred To | | | | | Procedures | Contact | Contact | +--------+--------+ + + + + | Closed | | Radiology | Diagnoses | | [facility] | | | | | Thoracic or | [place], | [address] | | | | | lumbosacral | Flakito Peter MD | [place], | | | | | neuritis or | [address] | [place] | | | | | | ST [place] | [address] | | | | | radiculitis, | [place], [place] | Phone: | | | | | unspecified | [id number] | [phone] | | | | | Procedures | Phone: | Fax: | | | | | PA INJECT | [phone] | [phone] | | | | | ANES/STEROID | Fax: | | | | | | FORAMEN | [phone] | | | | | | LUMBAR/SACRA | | | | | | | L W IMG | | | | | | | GUIDE ,1 | | | | | | | LEVEL PA | | | | | | | TRIAMCINOLON | | | | | | | E ACET INJ | | | | | | | NOS, 10 MG | | | | | | | Left L5-S1 | | | | | | | TFESI-Referr | | | | | | | al joelle Pandey | | | | | | | West | | | +--------+--------+ + + + + Encounter Details +--------+ + + + + | Date | Type | Department | Care Team | Description | +--------+ + + + + | 08/27/ | [facility] | [facility] | Flakito Nicholson | Lumbar radiculopathy | | 2014 | Encounter | MED CTR XRAY [address] | [address], [address] | | | | | [place] | [facility] [place] | | | | | [place] [address] | [id number] | | | | | [phone] | | | | | | | Rotary DrillerMario | | | | | | [place] | | +--------+ + + + + [...] this encounter Last Filed Vital Signs + +---------+ + + | Vital Sign | Reading | Time Taken | Comments | + +---------+ + + | Blood Pressure | 140/85 | 08/27/2014 1:36 PM | | | | | PDT | | + +---------+ + + | Pulse | 77 | 08/27/2014 1:36 PM | | | | | PDT | | + +---------+ + + | Temperature | - | - | | + +---------+ + + | Respiratory Rate | - | - | | + +---------+ + + | Oxygen Saturation | - | - | | + +---------+ + + | Inhaled Oxygen | - | - | | | Concentration | | | | + +---------+ + + | Weight | - | - | | + +---------+ + + | Height | - | - | | + +---------+ + + | Body Mass Index | - | - | | + +---------+ + + documented in this encounter Medications [...] + + + +---------+ + + | Cholestyramine | one scoop or one | | 0 | 12/14/19 | | | POWD | packet two times | | | 12 | 5 | | | daily in fluid or | | | | | | | applesauce | | | | | + + [...] + + + +---------+ + + | desvenlafaxine | 1/2 to 1 tablet | | 0 | 01/11/20 | | | (PRISTIQ) 100 MG 24 | daily | | | 12 | 5 | | hr tablet | | | | | | [...] + + + +---------+ + + | lorazepam (ATIVAN) | Take 1 tablet by | 2 | 0 | 08/09/19 | | | 2 MG tablet | mouth an hour prior | tablet | | 15 | 5 | | | to procedure, repeat | | | | | | | in 30 minutes if | | | | | | | needed. | | | | | + + + +---------+ + + | nitroglycerin | 1 patch applied | | 0 | 01/11/20 | | | (NITRO-DUR) 0.4 | daily | | | 12 | 0 | | mg/hr | | | | | | + + + +---------+ + + | olmesartan | 1/2 - 1 tablet by | | 0 | 01/11/20 | | | (BENICAR) 40 MG | mouth once a day | | | 12 | 5 | | tablet | | | | | | + + + +---------+ + + | opium tincture 10 | put 0.8 cc in 4 | | 0 | 12/16/19 | | | mg/mL TINC | ounces of water as | | | 12 | 5 | | | needed for diarrhea | | | | | + + + +---------+ + + | oxyCODONE | Take 5 mg by mouth | | 0 | | | | (ROXICODONE) 5 mg | every 4 hours as | | | | 5 | | tablet | needed for Pain. | | | | | + + [...] | + +--------+ + + + | FL EPIDURAL STEROID | Routin | 08/27/2014 | Lumbar | Results for this | | INJECTION LUMBAR | e | 1:29 PM | radiculopathy | procedure are in the | | TRANSFORAMINAL | | PDT | | results section. | + +--------+ + + + documented in this encounter Results FL LAILA Lumbar Transforaminal (08/27/2014 1:29 PM PDT) + + | Specimen | + + | | + + + + + | Narrative | Performed At | + + + | 08/27/2014 Transforaminal Epidural Steroid Injection Diagnosis: | [facility] | | Lumbar radiculopathy ICD-9 Code 724.4 Jocelyne Montez | [facility] | | presents to the fluoroscopy suite for a fluoroscopically-guided [facility] | | L5-S1 transforaminal epidural steroid injection as part of | - IMAGING | | conservative management for chronic pain with lumbar radiculopathy | | | and degenerative disk disease. After informed consent was | | | obtained, the patient lay in the prone position on the fluoroscopy | | | table. The area was identified under fluoroscopic guidance. The | | | area was prepped and draped in sterile fashion. A 25-gauge, | | | 1.5-inch needle was inserted into this region and approximately 3 mL | | | of buffered 1% lidocaine was infused. Then, a 22-gauge spinal | | | needle was inserted into the posterior superior transforaminal space | | | and advanced into the epidural space under fluoroscopic guidance. | | | Confirmation into the epidural space was obtained with infusion of | | | approximately 1 mL of Omnipaque contrast which showed epidural flow | | | as well as nerve sheath flow. Then, a combination of 1.5 mL of | | | 1% lidocaine and 1.5 mL of 6 mg/mL Celestone was infused. The | | | patient tolerated the procedure well without complications. Pre- and | | | post-procedure blood pressures were stable. The patient was given | | | verbal as well as written follow-up instructions. Prior to | | | the start of the procedure, the following were performed and/or | | | verified, including correct patient identity, correct site/side marked | | | and visible, agreement on the procedure to be done, correct patient | | | positioning and an accurate procedure consent form. Any safety | | | precautions based on clinical history and/or medication use have been | | | addressed. I personally performed the procedure above. | | | Estimated blood loss: Minimal Complications: None Findings: As | | | expected Anesthesia: Local 1% Lidocaine | | + + + + + + + + | Performing | Address | City/State/Zipcode | Phone Number | | Organization | | | | + + + + + | [facility] | [address] | [place] | [phone] | | [facility] | | [id number] | | | - IMAGING | | | | + + + + + documented in this encounter Visit Diagnoses + + | Diagnosis | + + | Lumbar radiculopathy Thoracic or lumbosacral neuritis or radiculitis, unspecified | + + documented in this encounter Administered Medications + +--------+ +------+------+------+ | Medication Order | MAR | Action | Dose | Rate | Site | | | Action | Date | | | | + +--------+ +------+------+------+ | betamethasone (CELESTONE | Given | 08/28/19 | 6 mg | | | | SOLUSPAN) injection 6 mg 6 mg, | | 15 1:37 | | | | | Other, ONCE, 08/27/14 at 1345, | | PM PDT | | | | | For 1 dose, Shake well. Not for | | | | | | | IV use., | | | | | | + +--------+ +------+------+------+ +---+---+ | | | +---+---+ + +-------+ +-------+---+---+ | iohexol (OMNIPAQUE 300) 300 | Given | 08/28/19 | 4 mLs | | | | mg/mL injection 4 mL 4 mL, | | 15 1:34 | | | | | INTRATHECAL, ONCE, 08/27/14 at | | PM PDT | | | | | 1345, For 1 dose | | | | | | + +-------+ +-------+---+---+ +---+---+ | | | +---+---+ + +-------+ +------+---+ + | lidocaine 1% injection 1 mL 1 | Given | 08/28/19 | 1 mL | | Other | | mL, Intradermal, ONCE, Wed | | 15 1:30 | | | (Comment | | 08/27/14 at 1345, For 1 dose | | PM PDT | | | ) | + +-------+ +------+---+ + +---+---+ | | | +---+---+ + +-------+ +------+---+---+ | sodium bicarbonate (NEUT) 4% | Given | 08/28/19 | 1 mL | | | | injection 1 mL 1 mL, | | 15 1:30 | | | | | Intravenous, ONCE, 08/27/14 at | | PM PDT | | | | | 1345, For 1 dose, Use for | | | | | | | addition to other parenteral | | | | | | | solutions., | | | | | | + +-------+ +------+---+---+ +---+---+ | | | +---+---+ documented in this encounter"
--- OUTSIDE RECORDS SUMMARY | ~2019-09-02 | XMS | Encounter Summary ---
Demographics + + + | Address | [address] | | | [place] [address] | + + + | Home Phone | | + + + | Preferred Language | Unknown | + + + | Marital Status | | + + + | Jainism Affiliation | CAT | + + + | Race | White | + + + | Ethnic Group | Not or | + + + Author + + + | Author | [facility] | + + + | Organization | [facility] | + + + | Address | Unknown | + + + | Phone | Unavailable | + + + Support + + +---------+ + | Name | Relationship | Address | Phone | + + +---------+ + | Charlene Rouse | ECON | Unknown | | + + +---------+ + Care Team Providers + +------+ + | Care Propellant Charge Loader Name | Role | Phone | + +------+ + | Jesse Chand MD | PCP | | + +------+ + Encounter Details +--------+ + + + + | Date | Type | Department | Care Team | Description | +--------+ + + + + | 07/09/ | Documentati | Otolaryngology | [place], | | | 2017 | on | Laryngology Services | Mamta Argueta PA-C | | | | | at [facility] [address] | [address] | | | | | [address] [place], [place] | [place], [place] | | | | | [address] | [address] | | | | | [phone] | [phone] | | | | | | | [...]
--- OUTSIDE RECORDS SUMMARY | ~2019-09-02 | XMS | Encounter Summary ---
Demographics + + + | Address | [address] | | | [place] [address] | + + + | Home Phone | | + + + | Preferred Language | Unknown | + + + | Marital Status | | + + + | Baptism Affiliation | 1041 | + + + | Race | Unknown | + + + | Ethnic Group | Unknown | + + + Author + + + | Author | [facility] | | | and [place] | + + + | Organization | [facility] | | | and [place] [...] Team Providers + +------+ + | Care Attenuator Name | Role | Phone | + [...] Physical | Diagnoses | West, | Raul Davis | | | Services | Medicine and | DDD | Jace | Ellie Gamble MD [address] | | | Required | Rehabilitatio | (degenerativ | [place] | [address] | | | | n | e disc | [address] | SARAH SMITH, | | | | | disease), | [address] | [place] [address] | | | | | lumbar | [place] | Phone: | | | | | Lumbar | [address] | [phone] | | | | | radiculopath | Phone: | Fax: | | | | | y | [phone] | [phone] | | | | | Paresthesia | Fax: | | | | | | of both | [phone] | | | | | | hands | | | +--------+ + + + + + Reason for Visit + + + | Reason | Comments | + + + | Back Pain | MRI review | + + + Encounter Details +--------+---------+ + + + | Date | Type | Department | Care Team | Description | +--------+---------+ + + + | 09/18/ | Office | [facility] | Dannie Mcdonaldlas | DDD (degenerative | | 2015 | Visit | NEUROSURGERY [address] | [address] | disc disease), | | | | [address] | [address] | lumbar (Primary Dx); | | | | [place], [place] | [place] [address] | Lumbar | | | | [address] | [phone] | radiculopathy; | | | | [phone] | | Paresthesia of both | | | | | | hands | +--------+---------+ + + + Social History [...] + + + | Blood Pressure | 127/84 | 09/18/2014 3:21 PM | | | | | PDT | | + + + + + | Pulse | 86 | 09/18/2014 3:21 PM | | | | | PDT | | + + + + + | Temperature | - | - | | + + + + + | Respiratory Rate | 16 | 09/18/2014 3:21 PM | | | | | PDT | | + + + + + | Oxygen Saturation | - | - | | + + + + + | Inhaled Oxygen | - | - | | | Concentration | | | | + + + + + | Weight | 77.1 kg (170 lb) | 09/18/2014 3:21 PM | | | | | PDT | | + + + + + | Height | 154.9 cm (5' 1") | 09/18/2014 3:21 PM | | | | | PDT | | + + + + + | Body Mass Index | 32.12 | 09/18/2014 3:21 PM | | | | | PDT | | + + + + + documented in this encounter Patient Instructions Patient Instructions Jace Mcdonald PA - 09/18/2014 4:04 PM PDTToday we decided to set an appointment up with Dr. davis for further evaluation and treatment of your low back s ymptoms as well as perform nerve testing of your upper extremities. After your nerve testin g has been completed you can return to our office to review the results.Electronically rickey d by SCOT Byrd at 09/18/2014 4:04 PM PDT documented in this encounter Progress Notes Jace Mcdonald PA - 09/18/2014 4:12 PM PDTFormatting of this note might be differen t from the original. SCOT Trevino [address] [facility], [address] [place] [address] FAX: NEUROSURGERY HISTORY AND PHYSICAL EXAMINATION CHIEF COMPLAINT: Chief Complaint Patient presents with Back Pain MRI review HISTORY OF PRESENT ILLNESS: The patient is a 64 y.o. female with the complaint of low back and leg pain. As well as hand tingling. The patient was previously seen in our office. C onservative therapy was attempted with her lower back and leg symptoms we also obtained an M RI of her cervical spine. She is here to recheck on her progress. The patient had a L5-S1 epidural steroid injection on the left with early on having some improvement of her low back pain but no help in her posterior calf discomfort. This relief of symptoms with short live d only for a few hours. For about 4 day she had a flare of low back discomfort and muscle s pasms. She subsequently returned to her baseline with no significant improvement of her sym ptoms since that time At this time her back and leg pain is not terrible but she does note that she will have flaring of her pain that is quite bothersome to her. She would like to a void surgery if possible The patient states she's had many years of intermittent low back discomfort which she has treated conservatively. She will also occasionally get left leg pain associated with this. Over the last year and a half or so she's had worsening problems with her low back. The monique dior's has had an extended illness. 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 She describes the p ain as being across the middle low back but eventually settling into the left side. She als o notices pain radiating down the posterior portion of her leg extending into her foot. She feels a weakness and abnormal sensation in her foot. She also notices some tingling in her leg and foot in the same distribution. She had a very severe problem with her low back in April which lasted several days. She did participate with physical therapy and eventually it has improved. She continues to have some intermittent back pain as well as leg discomfo rt although it is much less severe. Her foot bothers her more at this time than her back. The patient also relates problems [...] Current Outpatient Prescriptions Medication Sig Dispense Refill alendronate (FOSAMAX) 70 mg tablet Take 70 mg by mouth every 7 days. aspirin (ASPIRIN LOW DOSE) 81 MG tablet Take 81 mg by mouth Daily. cholecalciferol (VITAMIN D-3) 1000 UNITS TABS Take 1,000 Units by mouth Daily. Cholestyramine POWD one scoop or one packet two times daily in fluid or applesauce cyclobenzaprine (FLEXERIL) 5 MG tablet Take 10 mg by mouth 3 times daily as needed for Muscle spasms. desvenlafaxine (PRISTIQ) 100 MG 24 hr [...] may modif y dosage depending on pressure estradiol (ESTRACE VAGINAL) 0.1 mg/g vaginal cream Place 2 g vaginally nightly. furosemide (LASIX) 40 mg tablet Take 40 mg by mouth Daily. HYDROcodone-acetaminophen (VICODIN) 5-500 mg per tablet 1/2 to 2 every 6 hours as neede d levothyroxine (LEVOTHROID) 125 mcg tablet 1/2 tablet daily lorazepam (ATIVAN) 2 MG tablet Take 1 tablet by mouth an hour prior to procedure, repea t in 30 minutes if needed. 2 tablet 0 nitroglycerin (NITRO-DUR) 0.4 mg/hr 1 patch applied [...] no rheumatoid arthritis. PHYSICAL EXAMINATION: Blood pressure 127/84, pulse 86, resp. rate 16, height 1.549 m (5' 1"), weight 77.111 kg (1 70 lb). Body mass index is 32.14 kg/(m^2). GENERAL: Jocelyne Montez is in no acute distress with unlabored respirations. The patien crispin does not appear uncomfortable throughout the exam [...] has no apparent deficits with short or usp memory. CRANIAL NERVES: Fundoscopic Exam: The optic [...] Intrinsics 5 5 Ulnar Intrinsics 5 5 [employer] Strength 5 5 Hip Flexion 5 5 Hip Extension 5 5 Knee Flexion 5 5 Knee Extension 5 5 Dorsiflexion 5 5 Extensor Hallicus Longus 5 5 Plantarflexion 5 5 SENSORY EXAM: Sensory exam shows no diminished [...] She does have some facet a rthropathy. The patient cervical MRI showed no cord signal changes. Her degenerative changes are worse at C5-6 with moderate central stenosis. Lumbar flexion and extension views show no sign of instability or spondylolisthesis. ASSESSMENT: NEUROSURGICAL DIAGNOSES: Encounter Diagnoses Name Primary? DDD (degenerative disc disease), lumbar Yes Lumbar radiculopathy Paresthesia of both hands GENERAL DIAGNOSES: Past Medical History Diagnosis Date Osteoarthritis Hypertension Hyperlipidemia Neuropathy Hypothyroid Migraine Prinzmetal's angina (HCC) Heart murmur PLAN: Jocelyne Montez presented today, and it was a pleasure seeing this patient and assessing her problems. The patient's back and leg continued to bother her although she does feel lik e her hands bother her more. I have asked her to have nerve conduction studies as well as a n evaluation and to get established with physiatry for ongoing conservative therapy of her l ow back and legs. 2 she's had her nerve studies of her upper extremities and I would like h er to return to our office to review her tests with Dr. lee and make further recommendations ELECTRONICALLY SIGNED BY: SCOT Trevino, 09/18/2014 16:12 documented in th is encounter Plan of Treatment +-------+ +--------+ + + | Name | Type | Priori | Associated Diagnoses | Order Schedule | | | | ty | | | +-------+ +--------+ + + | DAVIS | Outpatient | Routin | DDD (degenerative | Ordered: 09/18/2014 | | | Referral | e | disc disease), | | | | | | lumbar Lumbar | | | | | | radiculopathy | | | | | | Paresthesia of both | | | | | | hands | | +-------+ +--------+ + + documented as of this encounter Visit Diagnoses + + | Diagnosis | + + | DDD (degenerative disc disease), lumbar - Primary Degeneration of lumbar or | | lumbosacral intervertebral disc | + + | Lumbar radiculopathy Thoracic or lumbosacral neuritis or radiculitis, unspecified | + + | Paresthesia of both hands | + + documented in this encounter
--- OUTSIDE RECORDS SUMMARY | ~2019-09-02 | XMS | Encounter Summary ---
Demographics + + + | Address | [address] | | | [place] [address] | + + + | Home Phone | | + + + | Preferred Language | Unknown | + + + | Marital Status | | + + + | Hoahaoism Affiliation | CAT | + + + | Race | White | + + + | Ethnic Group | Not or | + + + Author + + + | Author | [facility] | + + + | Organization | [facility] | + + + | Address | Unknown | + + + | Phone | Unavailable | + + + Support + + +---------+ + | Name | Relationship | Address | Phone | + + +---------+ + | Charlene Rouse | ECON | Unknown | | + + +---------+ + Care Team Providers + +------+ + | Care Craft Superintendent Name | Role | Phone | + [...] Le | | | | | at [facility] [address] | [place], | | | | | [place], [place] | [place] [address] | | | | | [address] | [phone] | | | | | [phone] | | | +--------+ + + + [...]
--- OUTSIDE RECORDS SUMMARY | ~2019-09-02 | XMS | Encounter Summary ---
Demographics + + + | Address | [address] | | | [place] [address] | + + + | Home Phone | | + + + | Preferred Language | Unknown | + + + | Marital Status | | + + + | Jewish Affiliation | 1041 | + + + | Race | Unknown | + + + | Ethnic Group | Unknown | + + + Author + + + | Author | [facility] | | | and [place] | + + + | Organization | [facility] | | | and [place] [...] Team Providers + +------+ + | Care Video Control Operator Name | Role | Phone | + +------+ + PCP | Unavailable | + +------+ + Encounter Details +--------+ + + + + | Date | Type | Department | Care Team | Description | +--------+ + + + + | 03/15/ | Hospital | [facility] | Wilder Mosquera MD | | | 2006 | Encounter | MED CTR GENERIC OP | [address], [place] | | | | | CONV DEPT [address] | [address] [place], [place] | | | | | [place], | [address] | | | | | [place] [address] | | | | | | [phone] | | | +--------+ + + + [...]
--- OUTSIDE RECORDS SUMMARY | ~2019-09-02 | XMS | Encounter Summary ---
Demographics + + + | Address | [address] | | | [place] [address] | + + + | Home Phone | | + + + | Preferred Language | Unknown | + + + | Marital Status | | + + + | Confucianism Affiliation | 1041 | + + + | Race | Unknown | + + + | Ethnic Group | Unknown | + + + Author + + + | Author | [facility] | | | and [place] | + + + | Organization | [facility] | | | and [...] Team Providers + +------+ + | Care Treating Plant Operator Name | Role | Phone | + +------+ + | Jesse Chand MD | PCP | | + +------+ + Encounter Details +--------+ + + + + | Date | Type | Department | Care Team | Description | +--------+ + + + + | 07/24/ | Abstract | [facility] | Abigail Petty, | | | 2014 | | NEUROSURGERY [address] | RN | | | | | [address] [facility] | | | | | | [place] | | | | | | [address] | | | | | | [phone] | | | +--------+ + + + [...]
--- OUTSIDE RECORDS SUMMARY | ~2019-09-02 | XMS | Encounter Summary ---
Demographics + + + | Address | [address] | | | [place] [address] | + + + | Home Phone | | + + + | Preferred Language | Unknown | + + + | Marital Status | | + + + | Jewish Affiliation | 1041 | + + + | Race | Unknown | + + + | Ethnic Group | Unknown | + + + Author + + + | Author | [facility] | | | and [place] | + + + | Organization | [facility] | | | and [place] [...] Team Providers + +------+ + | Care Addictions Recovery Specialist Name | Role | Phone | + +------+ + PCP | Unavailable | + +------+ + Encounter Details +--------+ + + + + | Date | Type | Department | Care Team | Description | +--------+ + + + + | 04/04/ | Hospital | [facility] | Wilder Mosquera MD | | | 1998 | Encounter | MED CTR GENERIC OP | [address] [place], [place] | | | | | CONV DEPT [address] | [address] [place], [place] | | | | | [place], | [address] | | | | | [place] [address] | | | | | | [phone] | | | +--------+ + + + [...]
--- OUTSIDE RECORDS SUMMARY | ~2019-09-02 | XMS | Encounter Summary ---
Demographics + + + | Address | [address] | | | [place] [address] | + + + | Home Phone | | + + + | Preferred Language | Unknown | + + + | Marital Status | | + + + | Gnosticist Affiliation | 1041 | + + + | Race | Unknown | + + + | Ethnic Group | Unknown | + + + Author + + + | Author | [facility] | | | and [place] | + + + | Organization | [facility] | | | and [...] Team Providers + +------+ + | Care Lath Tier Name | Role | Phone | + +------+ + PCP | Unavailable | + +------+ + Encounter Details +--------+ + + + + | Date | Type | Department | Care Team | Description | +--------+ + + + + | 05/28/ | Hospital | [facility] | Wilder Mosquera MD | | | 2000 | Encounter | MED CTR GENERIC OP | [address] [place], [place] | | | | | CONV DEPT [address] | [address] [place], [place] | | | | | [place], | [address] | | | | | [place] [address] | | | | | | [phone] | | | +--------+ + + + [...]
--- OUTSIDE RECORDS SUMMARY | ~2019-09-02 | XMS | Encounter Summary ---
Demographics + + + | Address | [address] | | | [place] [address] | + + + | Home Phone | | + + + | Preferred Language | Unknown | + + + | Marital Status | | + + + | Yazidism Affiliation | 1041 | + + + | Race | Unknown | + + + | Ethnic Group | Unknown | + + + Author + + + | Author | [facility] | | | and [place] | + + + | Organization | [facility] [...] Team Providers + +------+ + | Care Die Try Out Worker Stamping Name | Role | Phone | + +------+ + PCP | Unavailable | + +------+ + Encounter Details +--------+ + + + + | Date | Type | Department | Care Team | Description | +--------+ + + + + | 06/29/ | Hospital | [facility] | Wilder Mosquera MD | | | 2000 | Encounter | MED CTR XRAY [address] | [address], [place] | | | | | [place] | [address] [place], [place] | | | | | [place] [address] | [address] | | | | | [phone] | | | +--------+ + + + [...]
--- OUTSIDE RECORDS SUMMARY | ~2019-09-02 | XMS | Encounter Summary ---
Demographics + + + | Address | [address] | | | [place] [address] | + + + | Home Phone [...] Author | [facility] | | | and [place] | + + + | Organization | [facility] | | | and [...] Team Providers + +------+ + | Care Check Grader Name | Role | Phone | + +------+ + | Eliseo Grady MD | PCP | | + +------+ + Reason for Visit + + + | Reason | Comments | + + + | Medication Refill | | + + + Encounter Details +--------+--------+ + + + | Date | Type | Department | Care Team | Description | +--------+--------+ + + + | 06/19/ | Refill | [facility] | Homero Lizarraga, | Medication Refill | | 2019 | | [facility] | [address] | | | | | [address] | [place] [address] | | | | | [place], [place] | [phone] | | | | | [address] | | | | | | [phone] | | | +--------+--------+ + + + [...]
--- OUTSIDE RECORDS SUMMARY | ~2019-09-02 | XMS | Encounter Summary ---
Demographics + + + | Address | [address] | | | [place] [address] | + + + | Home Phone | | + + + | Preferred Language | Unknown | + + + | Marital Status | | + + + | Jain Affiliation | 1041 | + + + | Race | Unknown | + + + | Ethnic Group | Unknown | + + + Author + + + | Author | [facility] | | | and [place] | + + + | Organization | [facility] | | | and [place] | + + + | Address | Unknown | + + + | Phone | Unavailable | + + + Support + + +---------+ + | Name | Relationship | Address | Phone | + + +---------+ + | Shagyg Montez | ECON | Unknown | | + + +---------+ + | Shreya Romero | ECON | Unknown | | + + +---------+ + Care Team Providers + +------+ + | Care Supervisor Pipelines Name | Role | Phone | + [...] + + | 08/01/ | Telephone | [facility] | Jace Mcdonald | Appointment | | 2014 | | NEUROSURGERY [address] | [address] | | | | | [facility] [address] | [address] | | | | | [place], [place] | [place] [address] | | | | | [address] | [phone] | | | | | [phone] | | | +--------+ + + + [...]
--- OUTSIDE RECORDS SUMMARY | ~2019-09-02 | XMS | Encounter Summary ---
Demographics + + + | Address | [address] | | | [place] [address] | + + + | Home Phone | | + + + | Preferred Language | Unknown | + + + | Marital Status | | + + + | Cheondoism Affiliation | CAT | + + + | Race | White | + + + | Ethnic Group | Not or | + + + Author + + + | Author | [facility] | + + + | Organization | [facility] | + + + | Address | Unknown | + + + | Phone | Unavailable | + + + Support + + +---------+ + | Name | Relationship | Address | Phone | + + +---------+ + | Charlene Rouse | ECON | Unknown | | + + +---------+ + Care Team Providers + +------+ + | Care Wilderness Guide Name | Role | Phone | + +------+ + | Jesse Chand MD | PCP | | + +------+ + Reason for Visit +--------+ + | Reason | Comments | +--------+ + | Other | jeremiah | +--------+ + Encounter Details +--------+ + + + + | Date | Type | Department | Care Team | Description | +--------+ + + + + | 09/07/ | Telephone | [facility] | Wesley [facility]ry, | Other (jeremiah) | | 2008 | | [facility] | [address] | | | | | [address] | [facility] | | | | | [address] | [place], [place] | | | | | [place], [address] [place] [address] | [address] | | | | | [place], [place] | [phone] | | | | | [address] | | | | | | [phone] | | | +--------+ + + + [...]
--- OUTSIDE RECORDS SUMMARY | ~2019-09-02 | XMS | Encounter Summary ---
Demographics + + + | Address | [address] | | | [place] [address] | + + + | Home Phone | | + + + | Preferred Language | Unknown | + + + | Marital Status | | + + + | Episcopalian Affiliation | CAT | + + + | Race | White | + + + | Ethnic Group | Not or | + + + Author + + + | Author | [facility] | + + + | Organization | [facility] | + + + | Address | Unknown | + + + | Phone | Unavailable | + + + Support + + +---------+ + | Name | Relationship | Address | Phone | + + +---------+ + | Charlene Rouse | ECON | Unknown | | + + +---------+ + Care Team Providers + +------+ + | Care Extractions Technologist Name | Role | Phone | + [...] | | MD [address] | | | | | [address] | [address] | | | | | | [place], | [place], [place] | | | | | | [place] [address] | [address] | | | | | | Phone: | Phone: | | | | | | [phone] | [phone] | | | | | | Fax: | Fax: | | | | | | [phone] | [phone] | + +--------+ + + + + Encounter Details +--------+---------+ + + + | Date | Type | Department | Care Team | Description | +--------+---------+ + + + | 07/29/ | Office | Otolaryngology | [place], | Chronic cough | | 2017 | Visit | Laryngology Services | Mamta Argueta PA-C | (Primary Dx); 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 If you need to speak to an ENT physician after normal business hours, please call [phone] and ask to have the ENT phys ician neuropsychology medical consultant paged. 1. Start taking 4 puffs Qvar 40mcg twice daily - if your cough comes right back then we tommy l try gabapentin. If the higher dose seems to keep the cough suppressed, let me know to send a new inhaler ([email or web address]) 2. If the Qvar doesn't work call [...] instruments: Description #1: laryngoscope Serial ID #1: [id number] Mamta Silva PA-C - 07/29/2016 1:00 PM PDTFormatting of this note might be different from the enmanuela wagner. PATIENT NAME: Jocelyne Montez : 1950 REFERRING PROVIDER: LE LÓPEZ [facility] [facility] [address] / [place] [address] PRIMARY CARE PROVIDER: Jesse Chand MD CLINIC: [facility] REASON FOR FOLLOW-UP: Chief Complaint Patient presents with Follow-up visit HPI: Jocelyne Montez is a 66 y.o. 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 Jocelyne' s modified barium swallow and esophagram [...] | + +--------+ + + + | [place] | Routin | 07/29/2016 | Chronic cough [...]
--- OUTSIDE RECORDS SUMMARY | ~2019-09-02 | XMS | Encounter Summary ---
Demographics + + + | Address | [address] | | | [place] [address] | + + + | Home Phone | | + + + | Preferred Language | Unknown | + + + | Marital Status | | + + + | Mormonism Affiliation | CAT | + + + | Race | White | + + + | Ethnic Group | Not or | + + + Author + + + | Author | [facility] | + + + | Organization | [facility] | + + + | Address | Unknown | + + + | Phone | Unavailable | + + + Support + + +---------+ + | Name | Relationship | Address | Phone | + + +---------+ + | Charlene Rouse | ECON | Unknown | | + + +---------+ + Care Team Providers + +------+ + | Care Public Works Laborer Name | Role | Phone | + [...] | | 2007 | | [facility] | [address] | ([facility] patient ) | | | | [address] | [facility] | | | | | [address] | [place], [place] | | | | | Pavilion, [facility] floor | [address] | | | | | [place], [place] | [phone] | | | | | [address] | | | | | | [phone] | | | +--------+ + + + [...]
--- OUTSIDE RECORDS SUMMARY | ~2019-09-02 | XMS | Encounter Summary ---
Demographics + + + | Address | [address] | | | [place] [address] | + + + | Home Phone | | + + + | Preferred Language | Unknown | + + + | Marital Status | | + + + | Scientologist Affiliation | CAT | + + + | Race | White | + + + | Ethnic Group | Not or | + + + Author + + + | Author | [facility] | + + + | Organization | [facility] | + + + | Address | Unknown | + + + | Phone | Unavailable | + + + Support + + +---------+ + | Name | Relationship | Address | Phone | + + +---------+ + | Charlene Rouse | ECON | Unknown | | + + +---------+ + Care Team Providers + +------+ + | Care Software Applications Designer Name | Role | Phone | + +------+ + | Jesse Chand MD | PCP | | + +------+ + Encounter Details +--------+ + + + + | Date | Type | Department | Care Team | Description | +--------+ + + + + | 08/13/ | [facility] | Otolaryngology | [place], | Chronic cough | | 2017 | | Laryngology Services | Mamta Argueta PA-C | (Primary Dx) | | | | at [facility] [address] | [address] | | | | | Ave [place], [place] | [place], [place] | | | | | [address] | [address] | | | | | [phone] | [phone] | | | | | | | [...]
--- OUTSIDE RECORDS SUMMARY | ~2019-09-02 | XMS | Encounter Summary ---
Demographics + + + | Address | [address] | | | [place] [address] | + + + | Home Phone | | + + + | Preferred Language | Unknown | + + + | Marital Status | | + + + | Pentecostal Affiliation | CAT | + + + | Race | White | + + + | Ethnic Group | Not or | + + + Author + + + | Author | [email or web address] | + + + | Organization | [facility] | + + + | Address | Unknown | + + + | Phone | Unavailable | + + + Support + + +---------+ + | Name | Relationship | Address | Phone | + + +---------+ + | Charlene Rouse | ECON | Unknown | | + + +---------+ + Care Team Providers + +------+ + | Care Career Agent Name | Role | Phone | [...] Le | | | | | at [facility] [address] | [address] [place], | | | | | [place], [place] | [place] [address] | | | | | [address] | [phone] | | | | | [phone] | | | +--------+ + + + [...]
--- OUTSIDE RECORDS SUMMARY | ~2019-09-02 | XMS | Encounter Summary ---
Demographics + + + | Address | [address] | | | [place] [address] | + + + | Home Phone | | + + + | Preferred Language | Unknown | + + + | Marital Status | | + + + | Amish Affiliation | CAT | + + + | Race | White | + + + | Ethnic Group | Not or | + + + Author + + + | Author | [facility] | + + + | Organization | [facility] | + + + | Address | Unknown | + + + | Phone | Unavailable | + + + Support + + +---------+ + | Name | Relationship | Address | Phone | + + +---------+ + | Charlene Rouse | ECON | Unknown | | + + +---------+ + Care Team Providers + +------+ + | Care Certified Massage Therapist Name | Role | Phone | + +------+ + | Jesse Chand MD | PCP | | + +------+ + Encounter Details +--------+ + + + + | Date | Type | Department | Care Team | Description | +--------+ + + + + | 07/30/ | Telephone | Otolaryngology | [place], | | | 2017 | | Laryngology Services | Mamta Argueta PA-C | | | | | at [facility] [address] | [address] | | | | | Ave [place], [place] | [place], [place] | | | | | [address] | [address] | | | | | [phone] | [phone] | | | | | | | [...]
--- OUTSIDE RECORDS SUMMARY | ~2019-09-02 | XMS | Encounter Summary ---
Demographics + + + | Address | [address] | | | [place] [address] | + + + | Home Phone | | + + + | Preferred Language | Unknown | + + + | Marital Status | | + + + | Taoism Affiliation | CAT | + + + | Race | White | + + + | Ethnic Group | Not or | + + + Author + + + | Author | [facility] | + + + | Organization | [facility] | + + + | Address | Unknown | + + + | Phone | Unavailable | + + + Support + + +---------+ + | Name | Relationship | Address | Phone | + + +---------+ + | Charlene Rouse | ECON | Unknown | | + + +---------+ + Care Team Providers + +------+ + | Care Elementary School Teacher Name | Role | Phone | + [...] Le | | | | | at [facility] [address] | [address] [place], | | | | | [place], [place] | [place] [address] | | | | | [address] | [phone] | | | | | [phone] | | | +--------+ + + + [...]
--- OUTSIDE RECORDS SUMMARY | ~2019-09-02 | XMS | Encounter Summary ---
Demographics + + + | Address | [address] | | | [place] [address] | + + + | Home Phone | | + + + | Preferred Language | Unknown | + + + | Marital Status | | + + + | Scientology Affiliation | 1041 | + + + | Race | Unknown | + + + | Ethnic Group | Unknown | + + + Author + + + | Author | [facility] | | | and [place] | + + + | Organization | [facility] | | | and [place] [...] Team Providers + +------+ + | Care Neon Glass Bender Name | Role | Phone | + +------+ + PCP | Unavailable | + +------+ + Encounter Details +--------+ + + + + | Date | Type | Department | Care Team | Description | +--------+ + + + + | 04/23/ | Hospital | [facility] | Umberto Joseph, | Other Specified | | 2009 - | Encounter | CONVERSION DEP [address] | MD [address] | Rehabilitation | | | | [address] | [address] | Procedure | | 05/19/ | | [place], [place] | [place], [place] | | | 2009 | | [address] | [address] | | | | | [phone] | [phone] | | | | | | | [...]
--- OUTSIDE RECORDS SUMMARY | ~2019-09-02 | XMS | Clinical Summary ---
Demographics + + + | Address | [address] [facility] [address] | | | [place] [address] | + + + | Home Phone | | + + + | Preferred Language | Unknown | + + + | Marital Status | | + + + | Jew Affiliation | 1041 | + + + | Race | Unknown | + + + | Ethnic Group | Unknown | + + + Author + + + | Author | [facility] | | | and [place] | + + + | Organization | [facility] | | [...] Team Providers + +------+ + | Care Systems Software Designer Name | Role | Phone | [...] two times daily for | | | 08/06 | | e | | | 7 days as needed | | | 12 | | | + + + +---------+------+------+-------+ +---+ + | | Additional | | | InformationPatient | | | not taking. Reported | | | on 06/20/2019 2:07 | | | PM | +---+ + + + +--------+----+------+---+-------+ | diltiazem (DILACOR | 1 tablet daily with | | 0 | 09/2 | | Activ | | XR) 240 MG 24 hr | 4 pellets and may | | | 08/06 | | e | | capsule | modify dosage | | | 12 | | | | | depending on | | | | | | | | pressure | | | | | | + + +--------+----+------+---+-------+ | | 1/2 to 2 every 6 | | 0 | 09/2 | | Activ | | HYDROcodone-acetamin | hours as needed | | | 420 | | e | | ophen (VICODIN) | | | | 12 | | | | 5-500 mg per tablet | | | | | | | + + +--------+----+------+---+-------+ | estradiol (ESTRACE | Place 2 g vaginally | | 0 | | | Activ | | VAGINAL) 0.1 mg/g | nightly. | | | | | e | | vaginal cream | | | | | | | + + +--------+----+------+---+-------+ | celecoxib | Take 200 mg by mouth | | 0 | 12/2 | | Activ | | (CELEBREX) 200 mg | 2 times daily. | | | 0/20 | | e | | capsule | | | | 19 | | | + + +--------+----+------+---+-------+ | famotidine | Take 40 mg by mouth | | 0 | | | Activ | | (PEPCID) 40 MG | Daily. | | | | | e | | tablet | | | | | | | + + +--------+----+------+---+-------+ | gabapentin | Take 300 mg by mouth | | 0 | | | Activ | | (NEURONTIN) 300 mg | 2 times daily. | | | | | e | | capsule | | | | | | | + + +--------+----+------+---+-------+ | | Inhale 2 puffs into | | 0 | | | Activ | | budesonide-formotero | the lungs 2 times | | | | | e | | l (SYMBICORT) | daily. | | | | | | | 160-4.5 mcg/puff | | | | | | | | inhaler | | | | | | | + + +--------+----+------+---+-------+ | levothyroxine | Take 88 mcg by mouth | | 0 | | | Activ | | (SYNTHROID) 88 mcg | every morning | | | | | e | | tablet | (before breakfast). | | | | | | + + +--------+----+------+---+-------+ | isosorbide | Take 1 tablet by | 90 | 2 | 03/0 | | Activ | | mononitrate (IMDUR) | mouth Daily. | tablet | | 3/20 | | e | | 30 mg ER tablet | | | | 20 | | | + + +--------+----+------+---+-------+ | nitroglycerin | Place 1 tablet under | 25 | 11 | 06/17 | | Activ | | (NITROSTAT) 0.4 mg | the tongue every 5 | tablet | | 0/20 | | e | | SL tablet | minutes as needed. 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 | + + + + + [...] | 9 | + + + + Encounters +--------+---------+ + + + | Date | Type | Specialty | Care Team | Description | +--------+---------+ + + + | 06/26/ | Refill | Cardiology | Homero Lizarraga, | Medication Refill | | 2020 | | | MD | | +--------+---------+ + + + | 06/19/ | Office | Cardiology | Homero Lizarraga, | Prinzmetal angina | | 2020 | Visit | | MD | ([facility]) (Primary Dx) | +--------+---------+ + + + | 06/19/ | Refill | Cardiology | Homero Lizarraga, | Medication Refill | | 2019 | | | MD | | +--------+---------+ + + + from Last 3 Months [...] + + + | Blood Pressure | 142/70 | 06/20/2019 1:55 PM | | | | | PST | | + + + + + | Pulse | 89 | 06/20/2019 1:55 PM | | | | | PST [...] + | Oxygen Saturation | 97% | 06/20/2019 1:55 PM | | | | | PST | | + + + + + | Inhaled Oxygen | - | - | | | Concentration | | | | + + + + + | Weight | 82.1 kg (181 lb) | 06/20/2019 1:55 PM | | | | | PST | | + + + + + | Height | 152.4 cm (5') | 06/20/2019 1:55 PM | | | | | PST | | + + + + + | Body Mass Index | 35.35 | 06/20/2019 1:55 PM | | | | | PST [...] + + + + | Vaccine: Zoster (2 | | 03/28/2019 | | | of 2) | 0 | | | + + + + + | Vaccine: | | 01/16/2019 | | | Dtap/Tdap/Td (2 - | 9 | | | | Td) | | | | + + + + + | Vaccine: Influenza | Completed | 01/16/2019, 04/26/2018 | | + + + + + Procedures + +--------+ + + + | Procedure Name | Priori | Date/Time | Associated Diagnosis | Comments | | | ty | | | | + +--------+ + + + | ECG 12 LEAD | Routin | 06/20/2019 | Prinzmetal angina | Results for this | | | e | 2:13 PM | (HCC) | procedure are in the | | | | PST | | results section. | + +--------+ + + + from Last 3 Months Results ECG 12 lead (06/20/2019 2:13 PM PST) + + + + + + | Component | Value | Ref Range | Performed | Pathologist | | | | | At | Signature | + + + + + + | VENTRICULAR | 85 | BPM | [facility] | | | RATE EKG | | | | | + + + + + + | ATRIAL RATE | 85 | BPM | [facility] | | + + + + + + | P-R | 148 | ms | [facility] | | | INTERVAL | | | | | + + + + + + | QRS | 80 | ms | [facility] | | | DURATION | | | | | + + + + + + | Q-T | 352 | ms | [facility] | | | INTERVAL | | | | | + + + + + + | Q-T | 418 | ms | [facility] | | | INTERVAL | | | | | | (CORRECTED) | | | | | + + + + + + | P WAVE AXIS | 55 | degrees | [facility] | | + + + + + + | QRS AXIS | 56 | degrees | [facility] | | + + + + + + | T AXIS | 49 | degrees | [facility] | | + + + + + + | INTERPRETAT | Normal sinus | | [facility] | | | ION TEXT | rhythmNonspecific ST | | | | | | and/or T wave | | | | | | abnormalitiesWhen | | | | | | compared with ECG of | | | | | | -DEC-2015 | | | | | | 12:43,Premature atrial | | | | | | complexes are no longer | | | | | | Present Confirmed by | | | | | | LUDA LIZARRAGA MD ([id number]) on | | | | | | 06/25/2019 4:09:19 PM | | | | + + [...] | | | + +---------+ + + from Last 3 Months Insurance [...] +--------+ +---------+--------+ | MEDICARE | MEDICA | [id number] | | [phone] | | Medica | | | RE | | 017-Pr | 5 | | re | | | PART A | | esent | | | | | | AND B | | | | | | + +--------+ +--------+ +---------+--------+ | [employer] [place] | MUTUAL | [id number] | | [phone] | | Indemn | | | AND | | 017-Pr | 0 | | ity | | | UNITED | | esent | | | | | | [place] | | | | | | | | MDCR | | | | | | | | SUPPL | | | | | | + +--------+ +--------+ +---------+--------+ | MEDICARE | MEDICA | [id number] | | [phone] | | Medica | | | RE | | 017-Pr | 5 | | re | | | PART A | | esent | | | | | | AND B | | | | | | + +--------+ +--------+ +---------+--------+ | [employer] | MUTUAL | [id number] | | [phone] | | Indemn | | | OF | | 017-Pr | 0 | | ity | | | [place] | | esent | | | | [...] [address] | | | al/Fam | | 1949 | [phone] | [address] | | | mike | | | 7 (Home) | [place] [address] | | | | | | [phone] | | | | | | | 2 (Work) | | + +--------+ +--------+ + + | Jocelyne Montez | Person | Self [birth year] | [address] | | | al/Fam | | 1949 | [phone] | [address] | | | mike | | | 7 (Home) | [place] [address] | + +--------+ +--------+ + + Advance Directives + + + + + | Type | Date Recorded | Patient | Explanation | | | | Corner Former | | + + + + + | Power of | | | | | Graduate School Dean | | | | + + + [...]
--- OUTSIDE RECORDS SUMMARY | ~2019-09-02 | XMS | Encounter Summary ---
Demographics + + + | Address | [address] | | | [place] [address] | + + + | Home Phone | | + + + | Preferred Language | Unknown | + + + | Marital Status | | + + + | Synagogue Affiliation | 1041 | + + + | Race | Unknown | + + + | Ethnic Group | Unknown | + + + Author + + + | Author | [facility] | | | and [place] | + + + | Organization | [facility] | | | and [place] [...] Team Providers + +------+ + | Care Keyseater Operator Name | Role | Phone | + +------+ + | Eliseo Grady MD | PCP | | + +------+ + Reason for Visit + + + | Reason | Comments | + + + | New Patient | | + + + | Chest Pain | | + + + Evaluate & Treat (Routine) + +--------+ + + + + | Status | Reason | Specialty | Diagnoses / | Referred By | Referred To | | | | | Procedures | Contact | Contact | + +--------+ + + + + | Authorized | | Cardiology | Diagnoses | Miguel A, | Zia, | | | | | Angina | Eliseo Brown, | Homero Reynoso MD | | | | | pectoris | [address] | [address] | | | | | with | [address] | [address] | | | | | documented | [place], | [facility] [place] | | | | | spasm ([facility]) | [place] [address] | [address] Phone: | | | | | Procedures | Phone: | [phone] | | | | | Consult | [phone] | Fax: | | | | | | Fax: | [phone] | | | | | | [phone] | | + +--------+ + + + + Encounter Details +--------+---------+ + + + | Date | Type | Department | Care Team | Description | +--------+---------+ + + + | 06/19/ | Office | [facility] | Homero Lizarraga, | Prinzmetal angina | | 2020 | Visit | CARDIOLOGY [place] | [address] | ([facility]) (Primary Dx) | | | | [address] | [place] [address] | | | | | [place] | [phone] | | | | | [address] | | | | | | [phone] | | | +--------+---------+ + + + Social History [...] + + + documented in this encounter Progress Notes Homero Lizarraga MD - 06/20/2019 2:15 PM PSTFormatting of this note might be different fro m the original. CARDIOVASCULAR NEW PATIENT : 1950 DATE OF SERVICE: 06/20/2019 PROVIDER: HOMERO LIZARRAGA MD PRIMARY CARE: Eliseo Grady MD REASON FOR CONSULTATION: Chief Complaint Patient presents with New Patient Chest Pain HPI: She is a 69-year-old female here for the first time in 3 years. She has history of Prinzmet al's angina, GERD, chronic cough, severe sleep apnea, hypertension. She has been treated wit h aspirin, nitrates, calcium channel blockers and CPAP. Currently, no symptoms of angina, he art failure, arrhythmia, claudication, or TIA-type symptoms. She had a hospital admission to [facility] at [place] about a year ago. She had a normal perfusion study and benign ech ocardiogram. She is compliant and tolerates her medicines well. She is compliant with her CP AP device. Occasional palpitations, nothing severe. These have been evaluated on multiple pr evious occurrences. PH, FH, SH, and medications reviewed in the chart. PAST MEDICAL HISTORY: Past Medical History: Diagnosis Date Apnea 2015 Chronic cough Chronic diarrhea GERD (gastroesophageal reflux disease) 10/01/2015 Heart murmur Heart murmur Hemorrhage of gastrointestinal tract, unspecified Hyperlipidemia Hypertension Hypertension Hypothyroid Migraine Moderate persistent asthma without complication 06/19/2015 Neuropathy (HCC) OFELIA (obstructive sleep apnea) 06/19/2015 Osteoarthritis Prinzmetal angina (HCC) Prinzmetal's angina (HCC) Seasonal allergies Past Surgical History: Procedure Laterality Date BREAST BIOPSY CHOLECYSTECTOMY concurrent Spinchter of Oddi surgery CHOLECYSTECTOMY COLONOSCOPY 2009 [place] HAND SURGERY HYSTERECTOMY HYSTERECTOMY OTHER SURGICAL HISTORY Bilateral OTHER SURGICAL HISTORY UNLISTED PROCEDURE ARTHROSCOPY - ganglion cyst OTHER SURGICAL HISTORY 01/08/2016 FLEXIBLE SIGMOIDOSCOPY - Procedure: SIGMOIDOSCOPY - FLEXIBLE; Surgeon: Moe Paiz MD; Location: [facility]; Service: Gastroenterology; Laterality: N/A; OVARY REMOVAL TONSILLECTOMY TONSILLECTOMY AND ADENOIDECTOMY UPPER GASTROINTESTINAL ENDOSCOPY 11/2014 UPPER GASTROINTESTINAL ENDOSCOPY 01/08/2016 Procedure: ESOPHAGOGASTRODUODENOSCOPY; Surgeon: Moe Paiz MD; Location: [facility]; Service: Gastroenterology; Laterality: N/A; FAMILY HISTORY: Family History Problem Relation Age of Onset Arthritis Mother Cancer Father Diabetes Mother Heart disease Mother Hypertension Father Alzheimer's disease Father Cancer Son Testicular Heart failure Brother Hypertension Mother Heart disease Mother Diabetes, NIDDM Mother Diabetes, IDDM Brother Heart defect Brother Malig hypertherm Neg Hx SOCIAL HISTORY: Social History Socioeconomic History Marital status: Spouse name: Not on file Number of children: 3 Years of education: Not on file Highest education level: Not on file Occupational History Not on file Social Needs Financial resource strain: Not on file Food insecurity: Worry: Not on file Inability: Not on file Transportation needs: Medical: Not on file Non-medical: Not on file Tobacco Use Smoking status: Never Smoker Substance and Sexual Activity Alcohol use: Yes Drug use: No Comment: Drug use: No Sexual activity: Never Lifestyle Physical activity: Days per week: Not on file Minutes per session: Not on file Stress: Not on file Relationships Social connections: Talks on phone: Not on file Gets together: Not on file Attends orthodoxy service: Not on file Active member of club or organization: Not on file Attends meetings of clubs or organizations: Not on file Relationship status: Not on file Intimate partner violence: Fear of current or ex partner: Not on file Emotionally abused: Not on file Physically abused: Not on file Forced sexual activity: Not on file Other Topics Concern Not on file Social History Narrative Not on file CURRENT MEDICATIONS: Outpatient Encounter Medications as of 06/20/2019 Medication Sig Dispense Refill [DISCONTINUED] alendronate (FOSAMAX) 70 mg tablet Take 70 mg by mouth every 7 days. aspirin (ASPIRIN LOW DOSE) 81 MG tablet Take 81 mg by mouth Daily. budesonide-formoterol (SYMBICORT) 160-4.5 mcg/puff inhaler Inhale 2 puffs into the lung s 2 times daily. celecoxib (CELEBREX) 200 mg capsule Take 200 mg by mouth 2 times daily. [DISCONTINUED] cholecalciferol (VITAMIN D-3) 1000 UNITS TABS Take 1,000 Units by mouth Daily. [DISCONTINUED] cyclobenzaprine (FLEXERIL) 5 MG tablet Take 10 mg by mouth 3 times daily as needed for Muscle spasms. [DISCONTINUED] DEXAMETHASONE SODIUM PHOSPHATE SOLN-2 tsp. swished in mouth two times da mike three days; 1 tsp two times daily three days and repeat as needed [DISCONTINUED] diazepam (VALIUM) 2 mg tablet Take 2 mg by mouth every 6 hours as needed for Anxiety. diltiazem (DILACOR XR) 240 MG 24 hr capsule 1 tablet daily with 4 pellets and may modif y dosage depending on pressure estradiol (ESTRACE VAGINAL) 0.1 mg/g vaginal cream Place 2 g vaginally nightly. famotidine (PEPCID) 40 MG tablet Take 40 mg by mouth Daily. gabapentin (NEURONTIN) 300 mg capsule Take 300 mg by mouth 2 times daily. HYDROcodone-acetaminophen (VICODIN) 5-500 mg per tablet 1/2 to 2 every 6 hours as neede d [DISCONTINUED] isosorbide dinitrate (ISORDIL) 10 mg tablet Take 10 mg by mouth Daily. [DISCONTINUED] levothyroxine (LEVOTHROID) 125 mcg tablet 1/2 tablet daily levothyroxine (SYNTHROID) 88 mcg tablet Take 88 mcg by mouth every morning (before lelia kfast). [DISCONTINUED] nitroglycerin (NITRO-DUR) 0.4 mg/hr 1 patch applied daily rosuvastatin (CRESTOR) 20 mg tablet Take 20 mg by mouth Daily. [DISCONTINUED] trazodone (DESYREL) 150 MG tablet Take 150 mg by mouth nightly. valacyclovir (VALTREX) 1 G tablet 2 tablets by mouth two times daily for 7 days as need ed (Patient not taking: Reported on 06/20/2019) [DISCONTINUED] venlafaxine (EFFEXOR) 75 MG tablet Take 75 mg by mouth Daily. No facility-administered encounter medications on file as of 06/20/2019. ALLERGIES: Alendronate; Alprazolam; Bupropion hcl; Compazine; Morphine; and Vilazodone hcl REVIEW OF SYSTEMS: Review of Systems Constitutional: Negative. Respiratory: Negative. Cardiovascular: Negative. Musculoskeletal: Negative. Neurological: Negative. Psychiatric/Behavioral: Positive for sleep disturbance and stress. All other systems reviewed and negative. PHYSICAL EXAM: VITAL SIGNS: BP 142/70 | Pulse 89 | Ht 1.524 m (5') | Wt 82.1 kg (181 lb) | SpO2 97% | BMI 35.35 kg/m GENERAL - Well developed, well-nourished, appears stated age, in no acute distress. HEENT - Normocephalic, atraumatic. No arcus senillis, no scleral icterus. NECK - Supple. No thyromegaly. CARDIOVASCULAR - No JVD, no carotid bruit. Carotid upstroke normal bilaterally. Regular rat e and rhythm. No rub. No gallop. Normal S1 and S2. 2/6 systolic murmur. CHEST - Nontender. LUNGS - Clear to auscultation. No wheezing, no crackles, no rales, no rhonchi and normal re spiratory rate and rhythm. EXTREMITIES - No edema, clubbing or cyanosis. No deformities, no tenderness, and no discolo ration or ulceration. NEURO/PSYCH - Alert and oriented x3, mood and affect appropriate. No obvious focal motor or sensory deficits. Cranial nerves are grossly intact. MUSCULOSKELETAL - No muscle spasms, no muscle atrophy and no joint deformities. SKIN - No pallor, no jaundice, no cyanosis. ASSESSMENT: DATA: ECG order interpreted today shows sinus rhythm, rate 85, minor nonspecific ST and T wave ab normality. Perfusion study, May 2018 unremarkable with EF 86%. Echocardiogram, April 2018, showed EF 70% to 75% with no significant valvular disease. IMPRESSION: 1. Prinzmetal's angina, stable. 2. Hypertension. 3. Sleep apnea. 4. COPD. 5. GERD. PLAN: Change Isordil to Imdur 30 mg a day. Continue diltiazem, aspirin and sublingual nitrates as needed. Continue CPAP. I have asked her to work with her PCP on risk factor management incl uding her blood pressure. We will see on as-needed basis. I have also recommended stress man agement. Documented by Kaley. Cardiac Medications: Continue as prescribed. Homero Lizarraga MD FACC, FACP, FASNC documented in this en counter Plan of Treatment Not on filedocumented as [...] | | e | 2:13 PM | ([facility]) | procedure are in the | | | | PST | | results section. | + +--------+ + + + documented in this encounter Results ECG 12 lead (06/20/2019 2:13 PM [...] | | | | LUDA LIZARRAGA MD ([id number]) on | | | | | | [...] + | Diagnosis | + + | Prinzmetal angina (HCC) - Primary Prinzmetal angina | + + documented in this encounter"
--- OUTSIDE RECORDS SUMMARY | ~2019-09-02 | XMS | Encounter Summary ---
Demographics + + + | Address | [address] | | | [place] [address] | + + + | Home Phone | | + + + | Preferred Language | Unknown | + + + | Marital Status | | + + + | Pentecostalism Affiliation | 1041 | + + + | Race | Unknown | + + + | Ethnic Group | Unknown | + + + Author + + + | Author | [facility] | | | and [place] | + + + | Organization | [facility] | | | and [place] [...] Team Providers + +------+ + | Care Information Assurance Name | Role | Phone | + +------+ + PCP | Unavailable | + +------+ + Encounter Details +--------+ + + + + | Date | Type | Department | Care Team | Description | +--------+ + + + + | 10/12/ | Hospital | [facility] | William Tinajero MD | Unspecified | | 2005 | Encounter | CONVERSION DEP [address] | [address] | Essential | | | | [address] | [address], [address] [address] | Hypertension | | | | [place], [place] | [address] | | | | | [address] | [phone] | | | | | [phone] | | | +--------+ + + + [...]
--- OUTSIDE RECORDS SUMMARY | ~2019-09-02 | XMS | Encounter Summary ---
Demographics + + + | Address | [address] | | | [place] [address] | + + + | Home Phone | | + + + | Preferred Language | Unknown | + + + | Marital Status | | + + + | Adventist Affiliation | 1041 | + + + | Race | Unknown | + + + | Ethnic Group | Unknown | + + + Author + + + | Author | [facility] | | | and [place] | + + + | Organization | [facility] | | | and [place] [...] Team Providers + +------+ + | Care Stamping Die Maker Name | Role | Phone | + +------+ + PCP | Unavailable | + +------+ + Encounter Details +--------+ + + + + | Date | Type | Department | Care Team | Description | +--------+ + + + + | 04/07/ | Hospital | [facility] | Wilder Mosquera MD | | | 2006 | Encounter | MED CTR XRAY [address] | [address], [address] | | | | | [place] | [address] [place], [place] | | | | | [place] [address] | [address] | | | | | [phone] | | | +--------+ + + + [...]
--- OUTSIDE RECORDS SUMMARY | ~2019-09-02 | XMS | Encounter Summary ---
Demographics + + + | Address | [address] | | | [place] [address] | + + + | Home Phone [...] + | Author | [facility] | | | and [place] | + + + | Organization | [facility] | | | and [place] [...] Team Providers + +------+ + | Care Bus Transportation Manager Name | Role | Phone | + +------+ + PCP | Unavailable | + +------+ + Encounter Details +--------+ + + + + | Date | Type | Department | Care Team | Description | +--------+ + + + + | 10/12/ | Hospital | [facility] | William Tinajero MD | Unspecified | | 2005 | Encounter | CONVERSION DEP [address] | [address] | Essential | | | | [address] | [address], [address] | Hypertension | | | | [place], [place] | [address] | | | | | [address] | [phone] | | | | | [phone] | | | +--------+ + + + [...]
--- OUTSIDE RECORDS SUMMARY | ~2019-09-02 | XMS | Encounter Summary ---
Demographics + + + | Address | [address] | | | [place] [address] | + + + | Home Phone | | + + + | Preferred Language | Unknown | + + + | Marital Status | | + + + | Mu-Ism Affiliation | CAT | + + + | Race | White | + + + | Ethnic Group | Not or | + + + Author + + + | Author | [facility] | + + + | Organization | [facility] | + + + | Address | Unknown | + + + | Phone | Unavailable | + + + Support + + +---------+ + | Name | Relationship | Address | Phone | + + +---------+ + | Charlene Rouse | ECON | Unknown | | + + +---------+ + Care Team Providers + +------+ + | Care Out Of Town Collection Clerk Name | Role | Phone | + +------+ + | Jesse Chand MD | PCP | | + +------+ + Reason for Visit + + + | Reason | Comments | + + + | Rectocele | | + + + Office Visit - E/M Services (Routine) +--------+--------+ + + + + | Status | Reason | Specialty | Diagnoses / | Referred By | Referred To | | | | | Procedures | Contact | Contact | +--------+--------+ + + + + | Closed | | Obstetrics & | | Non-[facility] | [facility] | | | | Gynecology | | Epic Dept | [address] | | | | | | | [address] [place] | | | | | | | [address] | | | | | | | [address], [address] | | | | | | | floor | | | | | | | [place], [place] | | | | | | | [address] | | | | | | | Phone: | | | | | | | [phone] | | | | | | | Fax: | | | | | | | [phone] | +--------+--------+ + + + + Encounter Details +--------+---------+ + + + | Date | Type | Department | Care Team | Description | +--------+---------+ + + + | 08/29/ | [facility] | Wesley Terry, | Myalgia; Frequent | | 2007 | Visit | [facility] | [address] | Bowel Movements | | | | [address] | [address] | | | | | [address] | [place], [place] | | | | | [address], [address] floor | [address] | | | | | [place], [place] | [phone] | | | | | [address] | | | | | | [phone] | | | +--------+---------+ + + + [...] + + + | Blood Pressure | 167/93 | 08/30/2007 1:37 PM | | | | | PDT | | + + + + + | Pulse | 69 | 08/30/2007 1:37 PM | | | | | PDT [...] + + + + | Weight | 60.1 kg (132 lb 8 | 08/30/2007 1:37 PM | | | | oz) | PDT | | + + + + + | Height | 154.9 cm (5' 1") | 08/30/2007 1:37 PM | | | | | PDT | | + + + + + | Body Mass Index | 25.04 | 08/30/2007 1:37 PM | | | | | PDT | | + + + + + documented in this encounter Progress Notes Wesley Terry - 09/13/2007 9:37 AM PDT This is a corerction. Ms Prakash has BMs currently 20-30 times per day, not every 20-30 da ys. esley Terry - 0 08/30/2007 4:23 PM PDT I have seen and examined the patient and agree with Dr Bradley's note and assessment Bar Novoa Md A - 0 08/30/2007 2:23 PM PDTHPI: Ms. Prakash is a 57 yo woman here for pelvic pain of five months duration following laparoscopic hand-assisted total colectomy by Dr. Umberto Joseph 1 05/26. The pain occurs at the end of the day, often requiring narcotics. Worse with extended periods of sitting or sitting in a hard chair. No physical movements are provocative, and th e pain is not relieved with a bowel movement. Prior to the colectomy, she had a BM every 3 w eeks, currently she has a BM 20-30 times per day. She has mild baseline stress urinary inco ntinence which does not bother her. She previously tried pelvic PT following her cystocele/r ectocele repair, but was unsure of the indication. She has not tried PT following her colect liat. REVIEW OF SYSTEMS GENERAL: None ENT: None EYES: None MUSCULOSKELETAL: Joint Pain Arthritis GI: Diarrhea Heartburn CV: High Blood Pressure Chest Pain RESP: None PSYCH: None ENDOCRINE: None HEMATOLOGIC: None The past medical history, surgical history, family history, social history, and current med ications were reviewed on the patient intake questionnaire found in the scanned documents in [employer]. They have also been entered into the [employer] database. PHYSICAL EXAM HEIGHT: 5ft 1ins. WEIGHT 132.5pounds BLOOD PRESSURE 167/93 BMI [id number]/m2 GENERAL: Healthy appearing, no acute distress NECK: No thyromegaly, no masses LYMPH: No supraclavicular or inguinal lymphadenopathy RESPIRATORY: Breathing without difficulty CARDIOVASCULAR: No pedal edema ABDOMEN: Well-healed low transverse incision No HSM, mass, or hernias SKIN: No vulvar irritation or lesions noted NEUROLOGIC GAIT: Normal SACRAL SENSATION: Grossly Intact LEFT BULBOCAVERNOSUS REFLEX: Present RIGHT BULBOCAVERNOSUS REFLEX: Present ORIENTATION: Oriented to time, place, and person AFFECT: Normal GENERAL PELVIC EXAM EXTERNAL GENITALIA: Normal estrogen effect URETHRA: Normal BLADDER: Non tender to palpation VAGINA Normal diameter ANTERIOR VAGINAL RUGAE Normal POSTERIOR VAGINAL RUGAE Normal CERVIX Surgically absent UTERUS Surgically absent ADNEXA Surgically absent ANUS & PERINEUM: Normal sphincter tone ANAL CANAL: Normal length ANAL SQUEEZE: Symmetric Squeeze HEMOCCULT not done PELVIC FLOOR EXAMS SUPINE PELVIC ORGAN PROLAPSE QUANTIFICATION (POPQ) Character of Anterior Vaginal Defect None Character of Posterior Vaginal Defect None PELVIC FLOOR MUSCLE ASSESSMENT PELVIC FLOOR COORDINATION: Performs Correctly Symmetric PELVIC FLOOR PRESSURE CREATION: 3 (Max = 4) DURATION OF PELVIC FLOOR CONTRACTION: 2 (Seconds) TOTAL PELVIC FLOOR STRENGTH/ABILITY SCORE: 6 (Max = 12) RIGHT PELVIC FLOOR MUSCLE TENDERNESS?: Present LEFT PELVIC FLOOR MUSCLE TENDERNESS?: Absent ASSESSMENT Pelvic Pain Diarrhea Levator Myalgia PLAN PT for Pain Reduction Cyclobenzaprine for muscle spasm documented in this enco unter Plan of Treatment + + +--------+ + + | Name | Type | Priori | Associated Diagnoses | Order Schedule | | | | ty | | | + + +--------+ + + | [place] | Procedures | Routin | | Ordered: 08/30/2007 | | INSERT,NON-INDWELLIN | | e | | | | G BLADDER CATHETER | | | | | + + +--------+ + + documented as of this encounter Procedures + +--------+ + + + | Procedure Name | Priori | Date/Time | Associated Diagnosis | Comments | | | ty | | | | + +--------+ + + + | UA 10 DIP POC | Routin | 08/30/2007 | | Results for this | | | e | 1:47 PM | | procedure are in the | | | | PDT | | results section. | + +--------+ + + + documented in this encounter Results UA DIPSTICK ONLY, POC (08/30/2007 1:47 PM PDT) + +-------+ + + + | Component | Value | Ref Range | Performed | Pathologist | | | | | At | Signature | + +-------+ + + + | COLOR (UA | Straw | | [facility] | | | DIP), POC | | | OF CARE | | | | | | TESTS | | + +-------+ + + + | APPEARANCE | Clear | | [facility] | | | (UA DIP), | | | OF CARE | | | POC | | | TESTS | | + +-------+ + + + | LEUKOCYTES | Neg | Negative | [facility] | | | (UA DIP), | | | OF CARE | | | POC | | | TESTS | | + +-------+ + + + | NITRITES | Neg | Negative | [facility] | | | (UA DIP), | | | OF CARE | | | POC | | | TESTS | | + +-------+ + + + | UROBILINOGE | Norm | 0.2 JJ | [facility] | | | N (UA DIP), | | UNITS | OF CARE | | | POC | | | TESTS | | + +-------+ + + + | PROTEIN (UA | Neg | Negative to | [facility] | | | DIP), POC | | Trace mg/dL | OF CARE | | | | | | TESTS | | + +-------+ + + + | PH (UA | 5.0 | 5 - 8 | [facility] | | | DIP), POC | | | OF CARE | | | | | | TESTS | | + +-------+ + + + | BLOOD (UA | Neg | Negative | [facility] | | | DIP), POC | | | OF CARE | | | | | | TESTS | | + +-------+ + + + | SPECIFIC | 1.005 | 1.005 - 1.03 | [facility] | | | GRAVITY (UA | | | OF CARE | | | DIP), POC | | | TESTS | | + +-------+ + + + | KETONES (UA | Neg | Negative mg/dL | [facility] | | | DIP), POC | | | OF CARE | | | | | | TESTS | | + +-------+ + + + | BILIRUBIN | Neg | Negative | [facility] | | | (UA DIP), | | | OF CARE | | | POC | | | TESTS | | + +-------+ + + + | GLUCOSE (UA | Neg | Negative to | [facility] | | | DIP), POC | | Trace mg/dL | OF CARE | | | | | | TESTS | | + +-------+ + + + + + | Specimen | + + | Urine | + + + + + + + | Performing | Address | City/State/Zipcode | Phone Number | | Organization | | | | + + + + + | [facility] | [address] | [place], [place] | | | [facility] | [address] | [address] | | | TESTS | | | | + + + + + | [facility] | [address] | [place], [place] | | | TESTS | [facility] | [address] | | + + + + + documented in this encounter Visit Diagnoses + + | Diagnosis | + + | Myalgia Mylagia and myositis, unspecified | + + | Frequent bowel movements Other symptoms involving digestive system | + + documented in this encounter
--- OUTSIDE RECORDS SUMMARY | ~2019-09-02 | XMS | Encounter Summary ---
Demographics + + + | Address | [address] | | | [place] [address] | + + + | Home Phone | | + + + | Preferred Language | Unknown | + + + | Marital Status | | + + + | Mosque Affiliation | 1041 | + + + | Race | Unknown | + + + | Ethnic Group | Unknown | + + + Author + + + | Author | [facility] | | | and [place] | + + + | Organization | [facility] | | | and [place] [...] Team Providers + +------+ + | Care Punch Machine Operator Name | Role | Phone [...] [address] | | | | | IMAGING [address] | [address] | | | | | [address] [place] | [place] [address] | | | | | [place] [address] | | | | | | [phone] | | | +--------+ + + + [...]
--- OUTSIDE RECORDS SUMMARY | ~2019-09-02 | XMS | Encounter Summary ---
Demographics + + + | Address | [address] | | | [place] [address] | + + + | Home Phone | | + + + | Preferred Language | Unknown | + + + | Marital Status | | + + + | Christianity Affiliation | 1041 | + + + | Race | Unknown | + + + | Ethnic Group | Unknown | + + + Author + + + | Author | [facility] | | | and [place] | + + + | Organization | [facility] | | | and [place] [...] Team Providers + +------+ + | Care Watch Crystal Cutter Name | Role | Phone | + +------+ + | Jesse Chand MD | PCP | | + +------+ + Encounter Details +--------+ + + + + | Date | Type | Department | Care Team | Description | +--------+ + + + + | 07/15/ | Hospital | [facility] | Conversion | Moderate persistent | | 2016 | Encounter | PULMONARY FUNCTION | Transaction, | asthma without | | | | LAB [address] | Provider Unknown | complication | | | | [place], [place] | [phone] | | | | | [address] | (Fax) | | | | | [phone] | | | +--------+ + + + [...]
--- OUTSIDE RECORDS SUMMARY | ~2019-09-02 | XMS | Encounter Summary ---
Demographics + + + | Address | [address] | | | [place] [address] | + + + | Home Phone [...] + + | Author | [facility] | + + + | Organization | [facility] | + + + | Address | Unknown | + + + | Phone | Unavailable | + + + Support + + +---------+ + | Name | Relationship | Address | Phone | + + +---------+ + | Charlene Rouse | ECON | Unknown | | + + +---------+ + Care Team Providers + +------+ + | Care Preassembler Printed Circuit Board Name | Role | Phone | + [...] PA-C | | | | | at [facility] [address] | [address] | | | | | Ave [place], [place] | [place], [place] | | | | | [address] | [address] | | | | | [phone] | [phone] | | | | | | | [...]
--- OUTSIDE RECORDS SUMMARY | ~2019-09-02 | XMS | Encounter Summary ---
Demographics + + + | Address | [address] | | | [place] [address] | + + + | Home Phone [...] Author | [facility] | | | and [place] | + + + | Organization | [facility] | | | and [place] [...] Team Providers + +------+ + | Care Space Operations Officer Name | Role | Phone | + [...] Jace | | | | | | ([facility]) | [place] | | | | | | Procedures | [address] | | | | | | MRI Cervical | [address] | | | | | | Spine wo | [place] | | | | | | Contrast | [address] | | | | | | | Phone: | | | | | | | [phone] | | | | | | | Fax: | | | | | | | [phone] | | +--------+--------+ + + + + [...] Low back | [address] | [place], [place] | | | | | pain Left | [address] | [address] | | | | | leg weakness | [place], | Phone: | | | | | Procedures | [place] | [phone] | | | | | IN OFFICE | [address] | Fax: | | | | | CONSULTATION | Phone: | [phone] | | | | | NEW/ESTAB | [phone] | | | | | | PATIENT 60 | Fax: | | | | | | MIN | [phone] | | +--------+--------+ + + + + Encounter Details +--------+---------+ + + + | Date | Type | Department | Care Team | Description | +--------+---------+ + + + | 07/26/ | Office | [facility] | Jace Mcdonald | DDD (degenerative | | 2015 | Visit | NEUROSURGERY [address] | [address] | disc disease), | | | | [address] | [address] | lumbar (Primary Dx); | | | | [place], [place] | [place] [address] | Lumbar | | | | [address] | [phone] | radiculopathy; | | | | [phone] | | Lumbar facet | | | [...] be different from jorge reza. 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 CRANIAL NERVES: Fundoscopic Exam: The optic [...] Intrinsics 5 5 Ulnar Intrinsics 5 5 Junior Sales Assistant Strength 5 5 Hip Flexion 5 5 [...]
--- OUTSIDE RECORDS SUMMARY | ~2019-09-02 | XMS | Encounter Summary ---
Demographics + + + | Address | [address] | | | [place] [address] | + + + | Home Phone | | + + + | Preferred Language | Unknown | + + + | Marital Status | | + + + | Scientologist Affiliation | 1041 | + + + | Race | Unknown | + + + | Ethnic Group | Unknown | + + + Author + + + | Author | [facility] | | | and [place] | + + + | Organization | [facility] | | | and [place] [...] Team Providers + +------+ + | Care Egg Caser Name | Role | Phone | + [...] | Procedure | | 05/19/ | | [place], [place] | [place], [place] | | | 2009 | | [address] | [address] | | | | | [phone] | [phone] | | | | | | | [...]
--- OUTSIDE RECORDS SUMMARY | ~2019-09-02 | XMS | Encounter Summary ---
Demographics + + + | Address | [address] | | | [place] [address] | + + + | Home Phone [...] + | Author | [facility] | | | and [place] | + + + | Organization | [facility] | | | and [place] [...] Team Providers + +------+ + | Care Viscose Cellar Charge Hand Name | Role | Phone | + [...] Description | +--------+--------+ + + + | 06/26/ | Refill | [facility] | Homero Lizarraga, | Medication Refill | | 2019 | | [facility] | [address] | | | | | [address] | [place] [address] | | | | | [place], [place] | [phone] | | | | | [address] | | | | | | [phone] | | | +--------+--------+ + + + [...]
--- OUTSIDE RECORDS SUMMARY | ~2019-09-02 | XMS | Encounter Summary ---
Demographics + + + | Address | [address] | | | [place] [address] | + + + | Home Phone | | + + + | Preferred Language | Unknown | + + + | Marital Status | | + + + | Pentecostalism Affiliation | 1041 | + + + | Race | Unknown | + + + | Ethnic Group | Unknown | + + + Author + + + | Author | [facility] | | | and [place] | + + + | Organization | [facility] | | [...] Team Providers + +------+ + | Care Quality Process Engineer Name | Role | Phone | [...] | hand | [address] | | | | n | numbness | [address] | [place], | | | | | Hand | [place], | [place] [address] | | | | | weakness | [place] [address] | Phone: | | | | | Procedures | Phone: | [phone] | | | | | DOS 12/05/14 | [phone] | Fax: | | | | | | Fax: | [phone] | | | | | | [phone] | | +--------+ + + + + [...] | (degenerativ | [address]jas | [address] | | | | n | e disc | [address] | [place], | | | | | disease), | [address] | [place] [address] | | | | | lumbar | [place], [place] | Phone: | | | | | Lumbar | [address] | [phone] | | | | | radiculopath | Phone: | Fax: | | | | | y | [phone] | [phone] | | | | | Paresthesia | Fax: | | | | | | of both | [phone] | | | | | | hands | | | +--------+ + + + + + Encounter Details +--------+---------+ + + + | Date | Type | Department | Care Team | Description | +--------+---------+ + + + | 11/01/ | Office | [facility] | Raul Golden, | Bilateral hand | | 2014 | Visit | PHYSIATRY [address] | MD [address] | numbness (Primary | | | | [address] | [place] | Dx); Hand weakness; | | | | [place] | [address] | Midline low back | | | | [address] | | pain with left-sided | | | | [phone] | | sciatica | +--------+---------+ + + [...] MD - 11/01/2014 12:51 PM PDT [facility] [address] 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 She [...] Transcribed on 11/01/2014 20:20:13 by sb job# [id number] Confirmation #: [id number] cc: JESSE KIMBLE [place] PA-C TMars, Raul Gamble MD - 11/01/2014 11:38 AM PDTThis office note has been dictated. Job ID# [id number] signed by Raul Golden MD at 11/01/2014 [...]
--- OUTSIDE RECORDS SUMMARY | ~2019-09-02 | XMS | Encounter Summary ---
Demographics + + + | Address | [address] | | | [place] [address] | + + + | Home Phone | | + + + | Preferred Language | Unknown | + + + | Marital Status | | + + + | Mu-Ism Affiliation | 1041 | + + + | Race | Unknown | + + + | Ethnic Group | Unknown | + + + Author + + + | Author | [facility] | | | and [place] | + + + | Organization | [facility] | | | and [...] Team Providers + +------+ + | Care Music Therapist [employer] Name | Role | Phone | + [...] | Procedure | | 08/16/ | | [place], [place] | [place], [place] | | | 2009 | | [address] | [address] | | | | | [phone] | [phone] | | | | | | | [...]
--- OUTSIDE RECORDS SUMMARY | ~2019-09-02 | XMS | Encounter Summary ---
Demographics + + + | Address | [address] | | | [place] [address] | + + + | Home Phone [...] | Author | [facility] | + + + | Organization | [facility] | + + + | Address | Unknown | + + + | Phone | Unavailable | + + + Support + + +---------+ + | Name | Relationship | Address | Phone | + + +---------+ + | Charlene Rouse | ECON | Unknown | | + + +---------+ + Care Team Providers + +------+ + | Care Delivery Man Name | Role | Phone | + +------+ + | Jesse Chand MD | PCP | | + +------+ + Encounter Details +--------+ + + + + | Date | Type | Department | Care Team | Description | +--------+ + + + + | 07/24/ | Ancillary | Registration [id number] | | | | 2007 | [address] | [address] | | | | | [address] | [address] Mailcode: [id number] | | | | | | [place], [place] | | | | | | [address] | | | | | | [phone] | | | +--------+ + + + [...]
--- OUTSIDE RECORDS SUMMARY | ~2019-09-02 | XMS | Encounter Summary ---
Demographics + + + | Address | [address] | | | [place] [address] | + + + | Home Phone | | + + + | Preferred Language | Unknown | + + + | Marital Status | | + + + | Baptism Affiliation | 1041 | + + + | Race | Unknown | + + + | Ethnic Group | Unknown | + + + Author + + + | Author | [facility] | | | and [place] | + + + | Organization | [facility] | | [...] Team Providers + +------+ + | Care Oracle Agile Plm Consultant Name | Role | Phone | + [...] | (degenerativ | MY[place] Rojas | [address] | | | | n | e disc | [address] | [place], | | | | | disease), | [address] | [place] [address] | | | | | lumbar | [place] | Phone: | | | | | Lumbar | [address] | [phone] | | | | | radiculopath | Phone: | Fax: | | | | | y | [phone] | [phone] | | | | | Paresthesia | Fax: | | | | | | of both | [phone] | | | | | | hands [...] + + | 09/18/ | Office | [facility] | Dannie Mcdonaldlas | DDD (degenerative | | 2015 | Visit | NEUROSURGERY [address] | [address] | disc disease), | | | | [address] | [address] | lumbar (Primary Dx); | | | | [place], [place] | [place] [address] | Lumbar | | | | [address] | [phone] | radiculopathy; | | | | [phone] | | Paresthesia of both | | [...] t from the original. SCOT Trevino [address] [facility] [address] [place] [address] FAX: NEUROSURGERY HISTORY AND PHYSICAL EXAMINATION CHIEF [...] has no apparent deficits with short or intermediate memory. CRANIAL NERVES: Fundoscopic Exam: The optic [...] Intrinsics 5 5 Ulnar Intrinsics 5 5 Occupational Therapy Aides Teacher Strength 5 5 Hip Flexion 5 5 [...]
--- OUTSIDE RECORDS SUMMARY | ~2019-09-02 | XMS | Encounter Summary ---
Demographics + + + | Address | [address] | | | [place] [address] | + + + | Home Phone [...] | Author | [facility] [employer] [facility] | + + + | Organization | [facility] | + + + | Address | Unknown | + + + | Phone | Unavailable | + + + Support + + +---------+ + | Name | Relationship | Address | Phone | + + +---------+ + | Charlene Rouse | ECON | Unknown | | + + +---------+ + Care Team Providers + +------+ + | Care Trim Line Worker Name | Role | Phone | + +------+ + | Jesse Chand MD | PCP | | + +------+ + Encounter Details +--------+ + + + + | Date | Type | Department | Care Team | Description | +--------+ + + + + | 08/18/ | Abstract [facility] | Wesley Terry, | | | 2007 | | [facility] | [address] | | | | | [address] | [address] | | | | | [address] | [place], [place] | | | | | Ty, 7th floor | [address] | | | | | [place], [place] | [phone] | | | | | [address] | | | | | | [phone] | | | +--------+ + + + [...] AM PDTHistory abstracted from records dated 07/25/07 [facility] [address] Tatianna Jung. Pt has upcoming appt August 30, 2007. documented in this enc ounter Plan of Treatment Not on filedocumented as of this encounter Visit Diagnoses Not on filedocumented in this encounter"
--- OUTSIDE RECORDS SUMMARY | ~2019-09-02 | XMS | Encounter Summary ---
Demographics + + + | Address | [address] | | | [place] [address] | + + + | Home Phone | | + + + | Preferred Language | Unknown | + + + | Marital Status | | + + + | Sabianism Affiliation | CAT | + + + | Race | White | + + + | Ethnic Group | Not or | + + + Author + + + | Author | [facility] | + + + | Organization | [facility] | + + + | Address | Unknown | + + + | Phone | Unavailable | + + + Support + + +---------+ + | Name | Relationship | Address | Phone | + + +---------+ + | Charlene Rouse | ECON | Unknown | | + + +---------+ + Care Team Providers + +------+ + | Care Cotton Factor Name | Role | Phone | + [...] PA-C | | | | | at [facility] [address] | [address] | | | | | [address] [place], [place] | [place], [place] | | | | | [address] | [address] | | | | | [phone] | [phone] | | | | | | | [...]
--- OUTSIDE RECORDS SUMMARY | ~2019-09-02 | XMS | Encounter Summary ---
Demographics + + + | Address | [address] | | | [place] [address] | + + + | Home Phone [...] Author | [facility] [employer] [facility] | + + + | Organization | [facility] | + + + | Address | Unknown | + + + | Phone | Unavailable | + + + Support + + +---------+ + | Name | Relationship | Address | Phone | + + +---------+ + | Charlene Rouse | ECON | Unknown | | + + +---------+ + Care Team Providers + +------+ + | Care Senior Ssis Developer Name | Role | Phone | + [...] Ave | | | | | | [address], | [place], [place] | | | | | | [place] [address] | [address] | | | | | | Phone: | Phone: | | | | | | [phone] | [phone] | | | | | | Fax: | Fax: | | | | | | [phone] | [phone] | + +--------+ + + + + [...] cord dysfunction; | | | | [address] [place], [place] | [place], [place] | 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 If you need to speak to an ENT physician after normal business hours, please call [phone] and ask to have the ENT phys ician top distribution executive paged. 1. Start taking 4 puffs Qvar 40mcg twice daily - if your cough comes right back then we tommy l try gabapentin. If the higher dose seems to keep the cough suppressed, let me know to send a new inhaler ([email or web address]) 2. If the Qvar doesn't work call [...] instruments: Description #1: laryngoscope Serial ID #1: [id number] Mamta Silva PA-C - 07/29/2016 1:00 PM PDTFormatting of this note might be different from the enmanuela wagner. PATIENT NAME: Jocelyne Montez : 1950 REFERRING PROVIDER: LE LÓPEZ [facility] [facility] / [place] [address] PRIMARY CARE PROVIDER: Jesse Chand MD CLINIC: [facility] REASON FOR FOLLOW-UP: Chief Complaint Patient presents with Follow-up visit HPI: Jocelyne Montez is a 66 y.o. female who was last seen at the [facility] for cough that [...] Modified barium swallow 07/30/15 with Jasmine Contreras CF-PLUG MAKER Oral Phase: Oral bolus control and preparation [...] when idalia argueta comes back up to [place] for another visit or is visiting her family in [place]. Jocelyne' s modified barium swallow and esophagram [...] | + +--------+ + + + | [place] | Routin | 07/29/2016 | Chronic cough [...]
--- OUTSIDE RECORDS SUMMARY | ~2019-09-02 | XMS | Encounter Summary ---
Demographics + + + | Address | [address] | | | [place] [address] | + + + | Home Phone | | + + + | Preferred Language | Unknown | + + + | Marital Status | | + + + | Christian Affiliation | CAT | + + + | Race | White | + + + | Ethnic Group | Not or | + + + Author + + + | Author | [facility] | + + + | Organization | [facility] | + + + | Address | Unknown | + + + | Phone | Unavailable | + + + Support + + +---------+ + | Name | Relationship | Address | Phone | + + +---------+ + | Charlene Rouse | ECON | Unknown | | + + +---------+ + Care Team Providers + +------+ + | Care Implementation Project Coordinator Name | Role | Phone | + +------+ + | Jesse Chand MD | PCP | | + +------+ + Reason for Visit + + + | Reason | Comments | + + + | Fall | | + + + | Shoulder pain | | + + + AUTH/CERT +--------+--------+ + + + + | Status | Reason | Specialty | Diagnoses / | Referred By | Referred To | | | | | Procedures | Contact | Contact | +--------+--------+ + + + + | | | | | | | +--------+--------+ + + + + Encounter Details +--------+ + + + + | Date | Type | Department | Care Team | Description | +--------+ + + + + | 03/11/ | Emergency | [facility] | Eileen Dudley, | | | 2019 | | Medicine [address] | [facility] [address] [facility] | | | | | [place], [place] | [facility] | | | | | [id number] | [place], [place] | | | | | | [address] | | | | | | [phone] | | | | | | | [...] + + documented in this encounter Discharge Instructions AttachmentsThe following attachments cannot be sent through Care Everywhere.Musculoskeletal Pain (Angolan)Scapular: Exercises (Angolan)Shoulder Stretches: Exercises (Angolan)documente d in this encounter Medications at Time of Discharge + + + +---------+ + + | Medication | Sig | Dispensed | Refills | Start | End Date | | | | | | Date | | + + + +---------+ + + | Aspirin 81 mg Oral | po 1 daily | | 0 | | | | Tablet | | | | | | + + + +---------+ + + | beclomethasone 80 | Inhale 2 puffs two | 1 | 3 | 08/14/19 | | | mcg/actuation | times daily. | Inhaler | | 17 | | | inhalation aerosol | | | | | | + + + +---------+ + + | celecoxib | Take by mouth. | | 0 | | | | (CELEBREX ORAL) | | | | | | + + + +---------+ + + | cholecalciferol, | Take by mouth. | | 0 | 01/11/20 | | | Vitamin D3, 1,000 | | | | 12 | | | unit oral tablet | | | | | | + + + +---------+ + + | cyclobenzaprine | take 1 tablet (10 | 60 | 1 | 08/30/19 | | | (FLEXERIL) 10 mg | mg) by oral route 2 | | | 08 | | | Oral Tablet | times per day as | | | | | | | needed for pelvic | | | | | | | muscle spasm | | | | | + + + +---------+ + + | denosumab (PROLIA) | Inject under the | | 0 | | | | 60 mg/mL | skin (SUBC). | | | | | | subcutaneous syringe | | | | | | + + + +---------+ + + | dilTIAZem CD 24 | Take by mouth. | | 0 | | | | hour release 240 mg | | | | | | | oral | | | | | | | capsule,extended | | | | | | | release 24hr | | | | | | + + + +---------+ + + | | take 2 tablets (5 | | 0 | | | | diphenoxylate-atropi | mg) by oral route 4 | | | | | | ne (LOMOTIL) | times per day as | | | | | | 2.5-0.025 mg Oral | needed | | | | | | Tablet | | | | | | + + + +---------+ + + | fexofenadine 180 | Take by mouth. | | 0 | | | | mg oral tablet | | | | | | + + + +---------+ + + | Fluticasone | Instill in nose. | | 0 | | | | Furoate 27.5 | | | | | | | mcg/actuation nasal | | | | | | | spray,suspension | | | | | | + + + +---------+ + + | furosemide (LASIX) | take 1 tablet (20 | | 0 | | | | 20 mg Oral Tablet | mg) by oral route | | | | | | | once daily | | | | | + + + +---------+ + + | GABAPENTIN ORAL | Take by mouth. | | 0 | | | + + + +---------+ + + | | Take by mouth. | | 0 | 04/15/20 | | | hydroCHLOROthiazide | | | | 15 | | | 25 mg oral tablet | | | | | | + + + +---------+ + + | | 1/2 to 2 every 6 | | 0 | / | | | HYDROcodone-acetamin | hours as needed | | | 12 | | | ophen 5-500 mg oral | | | | | | | tablet | | | | | | + + + +---------+ + + | inhalational | Use as directed. | 1 each | 0 | 07/30/19 | | | spacing device | | | | 17 | | + + + +---------+ + + | ISOSORBIDE ORAL | Take by mouth. | | 0 | | | + + + +---------+ + + | montelukast 10 mg | Take by mouth. | | 0 | 06/19/19 | | | oral tablet | | | | 16 | | + + + +---------+ + + | nitroglycerin 0.4 | place 1 tablet (0.4 | | 0 | | | | mg Sublingual | mg) by sublingual | | | | | | Tablet, Sublingual | route at [...] | recommended | | | | | + + + +---------+ + + | rosuvastatin | Take by mouth. | | 0 | 01/11/20 | | | (CRESTOR) 20 mg oral | | | | 12 | | | tablet | | | | | | + + + +---------+ + + | traZODone 150 mg | Take by mouth. | | 0 | | | | oral tablet | | | | | | + + + +---------+ + + | valACYclovir | 2 tablets by mouth | | 0 | 01/11/20 | | | (VALTREX) 1 g oral | two times daily for | | | 12 | | | tablet | 7 days as [...] + + documented in this encounter Results X-RAY SHOULDER 3+ VIEWS RIGHT (03/11/2019 [...] Note | + ----+ | Service Account, Radiant Res In Interface - 03/11/2019 4:02 PM [...] RADIOLOGY | [address] | [place], [place] | [phone] | | VOICE RECOGNITION | | [address] | | + + + + + [...] Note | + ---------+ | Service Account, Prospectvision Res In Interface - 03/11/2019 3:28 PM [...] RADIOLOGY | [address] | [place] | [phone] | | VOICE RECOGNITION | | [address] | | + + + + + [...] Note | + -------+ | Service Account, Fliqq In Interface - 03/11/2019 3:29 PM PST [...] + + | Performing | Address | City/State/[facility] | Phone Number | | Organization | | | | + + + + + | [facility] | [address] | [place], [place] | [phone] | | VOICE RECOGNITION | | [address] | | + + + + + [...] | | alignment. Vertebral heights are preserved. Mtxb-sa-noutpsam | | | spondylotic changes are most [...] be positional or due to muscle spasm. Jjfv-ow-cckbaped spondylotic | | | changes. Signed By: [...] alignment. Vertebral heights are preserved. | | Wmak-qo-edweorzg spondylotic changesare most pronounced at the C5-6 [...] can be positional or due to muscle spasm.Hysq-sk-kyozohsd spondylotic | | changes. Signed By: Garcia Bravo DO On 03/11/2019 15:23:21 | | | |Visualized paranasal sinuses and mastoid air cells appear clear. Calvarium is grossly intac t. | | | |Cervical spine: | |There is normal alignment. Vertebral heights are preserved. Qwbo-xo-yducjhvo spondylotic ch anges | |are most pronounced [...] positional or due to muscle spasm. | |Efkm-ke-jmtznfel spondylotic changes. | | | | | |Signed By: Garcia Bravo DO On 03/11/2019 15:23:21 | + --------+ + + + + + | Performing | Address | City/State/Zipcode | Phone Number | | Organization | | | | + + + + + | [facility] | [address] | [place], [place] | [phone] | | VOICE RECOGNITION | | [address] | | + + + + + [...] | | alignment. Vertebral heights are preserved. Huxu-cn-gvguiwbz | | | spondylotic changes are most [...] be positional or due to muscle spasm. Guph-iu-bnczuxnb spondylotic | | | changes. Signed By: [...] alignment. Vertebral heights are preserved. | | Xedc-zg-ppjlapss spondylotic changesare most pronounced at the C5-6 [...] can be positional or due to muscle spasm.Jqev-nx-iaxlqjba spondylotic | | changes. Signed By: Garcia Bravo DO On 03/11/2019 15:23:21 | | | |Visualized paranasal sinuses and mastoid air cells appear clear. Calvarium is grossly intac t. | | | |Cervical spine: | |There is normal alignment. Vertebral heights are preserved. Unwh-hp-tkhvqkqv spondylotic ch anges | |are most pronounced [...] positional or due to muscle spasm. | |Hjvh-kn-bhjaxfgx spondylotic changes. | | | | | |Signed By: Garcia Bravo DO On 03/11/2019 15:23:21 | + --------+ + + + + + | Performing | Address | City/State/Zipcode | Phone Number | | Organization | | | | + + + + + | [facility] | [address] | [facility] [place] | [phone] | | VOICE RECOGNITION | | [address] | | + + + + + [...] [facility] | [address] | [place], [place] | | | LAB | | [address] | | + + + + + INR (03/11/2019 2:47 PM PST) + + + + + + | Component | Value | Ref Range | Performed | Pathologist | | | | | At | Signature | + + + + + + | INR | 0.87 (L) | 0.90 - 1.20 INR | [facility] | | | | | | [facility] [...] [facility] | [address] | [place], [place] | | | LAB | | [address] | | + + + + + [...] | | [facility] | | | [facility] | | | | | + +---------+ [...] Disease Education Program. Estimated GFR Interpretive | [facility] | | Information: <60 mL/min/1.73 sq m [...] + | [facility] | [address] | [place], [place] | | | LAB | | [address] | | + + + + + documented in this encounter Visit Diagnoses + + | Diagnosis | + + | Acute pain of right shoulder - Primary | + + | Pain of right scapula Disorder of bone and cartilage, unspecified | + + | Fall, initial encounter | + + | Chest wall pain Painful respiration | + + | Neck pain Cervicalgia | + + documented in this encounter Administered Medications + +--------+ + +------+------+ | Medication Order | MAR | Action | Dose | Rate | Site | | | Action | Date | | | | + +--------+ + +------+------+ | acetaminophen (TYLENOL) tablet | Given | 03/11/20 | 1,000 mg | | | | 1,000 mg 1,000 mg, oral, ONCE, 1 | | 19 4:46 | | | | | dose, 03/11/19 at 1715 | | PM PST | | | | + +--------+ + +------+------+ +---+---+ | | | +---+---+ + +-------+ +--------+---+---+ | HYDROmorphone (DILAUDID) | Given | 03/11/20 | 0.5 mg | | | | injection 0.5 mg 0.5 mg, | | 19 2:51 | | | | | intravenous, ONCE, 1 dose, Sat | | PM PST | | | | | 03/11/19 at 1445 | | | | | | + +-------+ +--------+---+---+ +---+---+ | | | +---+---+ + +-------+ +-------+---+---+ | ketorolac (TORADOL) injection | Given | 03/11/20 | 30 mg | | | | 30 mg 30 mg, intravenous, ONCE, | | 19 4:45 | | | | | 1 dose, 03/11/19 at 1645 | | PM PST | | | | + +-------+ +-------+---+---+ +---+---+ | | | +---+---+ + + + +---------+---+ + | lidocaine (LIDODERM) 5 % patch | Applied | 03/11/20 | 1 patch | | Right | | 1 patch 1 patch, transdermal, | Patch | 19 4:48 | | | Shoulder | | EVERY 24 HOURS, First dose on Sat | | PM PST | | | | | 03/11/19 at 1645, Until | | | | | | | Discontinued | | | | | | + + + +---------+---+ + +---+---+ | | | +---+---+ + +-------+ +------+---+---+ | ondansetron (ZOFRAN) injection | Given | 03/11/20 | 4 mg | | | | 4 mg 4 mg, intravenous, ONCE, 1 | | 19 2:51 | | | | | dose, 03/11/19 at 1515 | | PM PST | | | | + +-------+ +------+---+---+ +---+---+ | | | +---+---+ documented in this encounter
--- OUTSIDE RECORDS SUMMARY | ~2019-09-02 | XMS | Encounter Summary ---
Demographics + + + | Address | [address] | | | [place] [address] | + + + | Home Phone | | + + + | Preferred Language | Unknown | + + + | Marital Status | | + + + | Orthodoxy Affiliation | 1041 | + + + | Race | Unknown | + + + | Ethnic Group | Unknown | + + + Author + + + | Author | [facility] | | | and [place] | + + + | Organization | [facility] | | | and [place] [...] Team Providers + +------+ + | Care Joint Machine Operator Name | Role | Phone | + +------+ + PCP | Unavailable | + +------+ + Encounter Details +--------+ + + + + | Date | Type | Department | Care Team | Description | +--------+ + + + + | 01/11/ | Abstract | [place] [facility] | Yuki Hernandez | | | 2011 | | Conversion Location | [address] | | | | | [address] | [address] | | | | | [place], [place] | [place] [address] | | | | | [address] | [phone] | | | | | [phone] | | | +--------+ + + + [...]
--- OUTSIDE RECORDS SUMMARY | ~2019-09-02 | XMS | Encounter Summary ---
Demographics + + + | Address | [address] | | | [place] [address] | + + + | Home Phone | | + + + | Preferred Language | Unknown | + + + | Marital Status | | + + + | Sikhism Affiliation | 1041 | + + + | Race | Unknown | + + + | Ethnic Group | Unknown | + + + Author + + + | Author | [facility] | | | and [place] | + + + | Organization | [facility] | | | and [place] | [...] Team Providers + +------+ + | Care Teletype Technician Name | Role | Phone | + +------+ + PCP | Unavailable | + +------+ + Encounter Details +--------+ + + + + | Date | Type | Department | Care Team | Description | +--------+ + + + + | 09/29/ | Hospital | [facility] | Talon Torres, | | | 1993 - | Encounter | MED CTR GENERIC IP | MD [address] | | | | | CONV DEPT [address] | [place], [place] | | | 10/04/ | | [place], | [address] | | | 1993 | | [place] [address] | | | | | | [phone] | | | +--------+ + + + [...]
--- OUTSIDE RECORDS SUMMARY | ~2019-09-02 | XMS | Encounter Summary ---
Demographics + + + | Address | [address] | | | [place] [address] | + + + | Home Phone | | + + + | Preferred Language | Unknown | + + + | Marital Status | | + + + | Alevism Affiliation | CAT | + + + | Race | White | + + + | Ethnic Group | Not or | + + + Author + + + | Author | [facility] | + + + | Organization | [facility] | + + + | Address | Unknown | + + + | Phone | Unavailable | + + + Support + + +---------+ + | Name | Relationship | Address | Phone | + + +---------+ + | Charlene Rouse | ECON | Unknown | | + + +---------+ + Care Team Providers + +------+ + | Care Die Maker Name | Role | Phone [...] | | | [address] | [facility] | | | | | [address] | [place], [place] | | | | | Pavilion, [facility] floor | [address] | | | | | [place], [place] | [phone] | | | | | [address] | | | | | | [phone] | | | +--------+ + + + [...]
--- OUTSIDE RECORDS SUMMARY | ~2019-09-02 | XMS | Encounter Summary ---
Demographics + + + | Address | [address] | | | [place] [address] | + + + | Home Phone | | + + + | Preferred Language | Unknown | + + + | Marital Status | | + + + | Scientologist Affiliation | 1041 | + + + | Race | Unknown | + + + | Ethnic Group | Unknown | + + + Author + + + | Author | [facility] | | | and [place] | + + + | Organization | [facility] | | | and [place] [...] Team Providers + +------+ + | Care C Java Developer Name | Role | Phone | + +------+ + | Eliseo Grady MD | PCP | | + +------+ + Encounter Details +--------+ + + + + | Date | Type | Department | Care Team | Description | +--------+ + + + + | 05/19/ | Orders Only | [facility] | Jason Camejo, | | | 2018 | | MED CTR | ICE CREAM SERVER | | | | | [facility] | | | | | | [address] [place] | | | | | | [place] [address] | | | | | | [phone] | | | +--------+ + + + [...]
--- OUTSIDE RECORDS SUMMARY | ~2019-09-02 | XMS | Encounter Summary ---
Demographics + + + | Address | [address] | | | [place] [address] | + + + | Home Phone [...] Author | [facility] | | | and [place] | + + + | Organization | [facility] | | | and [place] | [...] Team Providers + +------+ + | Care Environmental Services Worker Name | Role | Phone | + +------+ + PCP | Unavailable | + +------+ + Encounter Details +--------+ + + + + | Date | Type | Department | Care Team | Description | +--------+ + + + + | 05/20/ | Hospital | [facility] | Umberto Joseph, | Other Specified | | 2009 - | Encounter | CONVERSION [address] | MD [address] | Rehabilitation | | | | [address] | [address] | Procedure | | 06/16/ | | [place], [place] | [place], [place] | | | 2009 | | [address] | [address] | | | | | [phone] | [phone] | | | | | | | [...]
--- OUTSIDE RECORDS SUMMARY | ~2019-09-02 | XMS | Encounter Summary ---
Demographics + + + | Address | [address] | | | [place] [address] | + + + | Home Phone | | + + + | Preferred Language | Unknown | + + + | Marital Status | | + + + | Adventism Affiliation | 1041 | + + + | Race | Unknown | + + + | Ethnic Group | Unknown | + + + Author + + + | Author | [facility] | | | and [place] | + + + | Organization | [facility] | | [...] Team Providers + +------+ + | Care Turbine Mechanic Name | Role | Phone | + [...] | | [address] | [address] | | | | | [place], [place] | [place] [address] | | | | | [address] | [phone] | | | | | [phone] | | | +--------+ + + + [...]
--- OUTSIDE RECORDS SUMMARY | ~2019-09-02 | XMS | Encounter Summary ---
Demographics + + + | Address | [address] | | | [place] [address] | + + + | Home Phone [...] + + + | Author | [facility] [place] [facility] | + + + | Organization | [facility] | + [...] Team Providers + +------+ + | Care Newscast Director Name | Role | Phone | + [...] [id number] | | | | | | [place], [place] | | | | | | [address] | | | | | | [phone] | | | +--------+ + + + [...]
--- OUTSIDE RECORDS SUMMARY | ~2019-09-02 | XMS | Encounter Summary ---
Demographics + + + | Address | [address] | | | [place] [address] | + + + | Home Phone | | + + + | Preferred Language | Unknown | + + + | Marital Status | | + + + | Islam Affiliation | 1041 | + + + | Race | Unknown | + + + | Ethnic Group | Unknown | + + + Author + + + | Author | [facility] | | | and [place] | + + + | Organization | [facility] | | | and [...] Providers + +------+ + | Care Systems Auditor Name | Role | Phone | + +------+ + | Garcia Valle MD | PCP | | + +------+ + Encounter Details +--------+ + + + + | Date | Type | Department | Care Team | Description | +--------+ + + + + | 05/02/ | Orders Only | [facility] | Homero Lizarraga Edgardo, | | | 2015 | | CARDIOLOGY ROCÍO | [address] | | | | | [address] | [place] [address] | | | | | [place], [place] | [phone] | | | | | [address] | | | | | | [phone] | | | +--------+ + + + [...] +--------+ + + + | ECHO COMPLETE W | Routin | 05/02/2015 | | Results for this | | CONTRAST | e | 3:41 PM | | procedure are in the | | | | PST | | results section. | + +--------+ + + + documented in this encounter Results ECHO Complete w Contrast (05/02/2015 3:41 PM PST) + + | Specimen | + + | | + + + + + | Impressions | Performed At | + + + | 1. This was a technically difficult study with suboptimal views. 2. | | | Overall left ventricular systolic function is normal with, an EF | | | between 65 - 70 %. | | + + + + + + | Narrative | Performed At | + + + | Patient Name: ANTHONY MONTEZ Date of : 1950 | | | Performing Physician: Homero Lizarraga MD, | | | FACC, FACP, FASNC | | | | | | INDICATIONS Dizziness CONCLUSIONS 1. | | | This was a technically difficult study with suboptimal views. 2. | | | Overall left ventricular systolic function is normal with, an EF | | | between 65 - 70 %. FINDINGS -------- ECG rhythm: Sinus rhythm. | | | Study: A 2-dimensional transthoracic echocardiogram with m-mode, | | | spectral and color flow Doppler was perfomed. Study: Definity | | | contrast agent was used to better delineate the left ventricular wall | | | segments. Study: This was a technically difficult study with | | | suboptimal views. Left Ventricle: Overall left ventricular systolic | | | function is normal with, an EF between 65 - 70 %. Left Ventricle: The | | | left ventricle cavity size is normal. Left Ventricle: Left | | | ventricular wall thickness is normal. Left Ventricle: No regional | | | wall motion abnormalities. Left Ventricle: The diastolic filling | | | pattern is normal for the age of the patient. Right Ventricle: The | | | right ventricle is normal in size. Left Atrium: The left atrium is | | | normal in size. Right Atrium: The right atrium is normal in size. | | | Aortic Valve: The aortic valve is trileaflet and appears structurally | | | normal. Aortic Valve: There is no evidence of aortic regurgitation. | | | Aortic Valve: There is no evidence of aortic stenosis. Mitral Valve: | | | The mitral valve is normal. Mitral Valve: No mitral regurgitation. | | | Tricuspid Valve: The tricuspid valve appears structurally normal. | | | Tricuspid Valve: Pulmonary artery systolic pressure could not be | | | assessed due to the absence of adequate TR jet. Pulmonic Valve: The | | | pulmonic valve is normal. Pulmonic Valve: Trace pulmonic | | | regurgitation. Pericardium: There is no pericardial effusion. | | | IVC/Hepatic Veins: The IVC is normal size (1.5-2.5cm) and collapses | | | >50% with sniff, consistent with central venous pressures of 5-10mmHg. | | | Aorta: The aortic root, ascending aorta and aortic arch are normal. | | | Mass: No mass visualized Thrombus: No clot visualized Thrombus: No | | | vegetation visualized. Septum: No ASD observed. Septum: No VSD | | | observed. Contrast: Poor visualization. Definity was used to opacify | | | the left ventricular chamber and improve delineation of the | | | endocardial border. MEASUREMENTS Ao asc: 2.96 | | | cm IVC: 1.50 cm LA Major: 3.87 cm EDV(Teich): 60.95 ml | | | IVSd: 0.78 cm LVIDd: 3.77 cm LVPWd: 0.77 cm LVOT Area: | | | 3.07 cm2 LVOT Diam: 1.97 cm %FS: 31.33 % EF(Teich): 59.95 | | | % ESV(Teich): 24.40 ml LVIDs: 2.59 cm SV(Teich): 36.54 ml | | | RA Major: 3.70 cm RVIDd: 2.34 cm LVEF MOD A2C: 71.26 % SV | | | MOD A2C: 33.21 ml LVEF MOD A4C: 69.34 % SV MOD A4C: 39.97 | | | ml EF Biplane: 69.67 % LVEDV MOD BP: 52.23 ml LVESV MOD BP: | | | 15.84 ml LVEDV MOD A2C: 46.59 ml LVLd A2C: 6.97 cm LVEDV | | | MOD A4C: 57.65 ml LVLd A4C: 7.16 cm LVESV MOD A2C: 13.38 ml | | | LVLs A2C: 5.54 cm LVESV MOD A4C: 17.67 ml LVLs A4C: 5.84 | | | cm LAESV(A-L): 20.99 ml LAESV Index (A-L): 11.92 ml/m2 LAAs | | | A2C: 10.77 cm2 LAESV A-L A2C: 23.82 ml LALs A2C: 4.13 cm | | | LAAs A4C: 9.27 cm2 LAESV A-L A4C: 18.08 ml LALs A4C: 4.03 | | | cm Ao Diam: 2.76 cm LA Diam: 3.80 cm LA/Ao: 1.37 AV | | | maxP.15 mmHg AV meanP.54 mmHg AV Vmax: 1.42 m/s AV | | | Vmean: 0.85 m/s AV VTI: 24.13 cm ASTRID Vmax: 1.98 cm2 ASTRID | | | (VTI): 2.27 cm2 LVOT maxP.40 mmHg LVOT meanP.58 | | | mmHg LVSI Dopp: 31.17 ml/m2 LVSV Dopp: 54.86 ml LVOT Vmax: | | | 0.92 m/s LVOT Vmean: 0.57 m/s LVOT VTI: 17.83 cm IVRT: | | | 86.50 ms MV A Michael: 1.02 m/s MV Dec Jessamine: 3.57 m/s2 MV DecT: | | | 192.68 ms MV E Michael: 0.68 m/s MV E/A Ratio: 0.67 MV PHT: | | | 55.87 ms MVA By PHT: 3.93 cm2 Septal e': 0.07 m/s Septal | | | E/e': 8.94 Lateral e': 0.08 m/s Lateral E/e': 8.44 RAP: | | | 5 mmHg Branch Billing Payroll Clerk: ABHI Authenticated by: Homero Lizarraga MD, | | | FACC, FACP, FASNC Report Date/Time: -- [id number] | | + + + + + | Procedure Note | + + | Gabriel, Rad Conversion - 12/08/2018 8:45 PM PDT Patient Name: Tila MONTEZ of | | : 1950 Performing Physician: Homero Lizarraga MD, [facility], | | FAC, | | FASNC INDICATIONS--------- | | --Dizziness CONCLUSIONS 1. This was a technically difficult study with | | suboptimal views.2. Overall left ventricular systolic function is normal with, an EF | | between 65 - 70 %. FINDINGS--------ECG rhythm: Sinus rhythm.Study: A 2-dimensional | | transthoracic echocardiogram with m-mode, spectral and color flow Doppler was | | perfomed.Study: Definity contrast agent was used to better delineate the left | | ventricular wall segments.Study: This was a technically difficult study with suboptimal | | views.Left Ventricle: Overall left ventricular systolic function is normal with, an EF | | between 65 - 70 %.Left Ventricle: The left ventricle cavity size is normal.Left | | Ventricle: Left ventricular wall thickness is normal.Left Ventricle: No regional wall | | motion abnormalities.Left Ventricle: The diastolic filling pattern is normal for the age | | of the patient.Right Ventricle: The right ventricle is normal in size.Left Atrium: The | | left atrium is normal in size.Right Atrium: The right atrium is normal in size.Aortic | | Valve: The aortic valve is trileaflet and appears structurally normal.Aortic Valve: | | There is no evidence of aortic regurgitation.Aortic Valve: There is no evidence of | | aortic stenosis.Mitral Valve: The mitral valve is normal.Mitral Valve: No mitral | | regurgitation.Tricuspid Valve: The tricuspid valve appears structurally normal.Tricuspid | | Valve: Pulmonary artery systolic pressure could not be assessed due to the absence of | | adequate TR jet.Pulmonic Valve: The pulmonic valve is normal.Pulmonic Valve: Trace | | pulmonic regurgitation.Pericardium: There is no pericardial effusion.IVC/Hepatic Veins: | | The IVC is normal size (1.5-2.5cm) and collapses >50% with sniff, consistent with | | central venous pressures of 5-10mmHg.Aorta: The aortic root, ascending aorta and aortic | | arch are normal.Mass: No mass visualizedThrombus: No clot visualizedThrombus: No | | vegetation visualized.Septum: No ASD observed.Septum: No VSD observed.Contrast: Poor | | visualization. Definity was used to opacify the left ventricular chamber and improve | | delineation of the endocardial border. MEASUREMENTS Ao asc: 2.96 cmIVC: | | 1.50 cmLA Major: 3.87 cmEDV(Teich): 60.95 mlIVSd: 0.78 cmLVIDd: 3.77 cmLVPWd: | | 0.77 cmLVOT Area: 3.07 [id number] Diam: 1.97 cm%FS: 31.33 %EF(Teich): 59.95 | | %ESV(Teich): 24.40 mlLVIDs: 2.59 cmSV(Teich): 36.54 mlRA Major: 3.70 cmRVIDd: | | 2.34 cmLVEF MOD A2C: 71.26 %SV MOD A2C: 33.21 mlLVEF MOD A4C: 69.34 %SV MOD A4C: | | 39.97 mlEF Biplane: 69.67 %LVEDV MOD BP: 52.23 mlLVESV MOD BP: 15.84 mlLVEDV MOD | | A2C: 46.59 mlLVLd A2C: 6.97 cmLVEDV MOD A4C: 57.65 mlLVLd A4C: 7.16 cmLVESV MOD | | A2C: 13.38 mlLVLs A2C: 5.54 cmLVESV MOD A4C: 17.67 mlLVLs A4C: 5.84 | | cmLAESV(A-L): 20.99 mlLAESV Index (A-L): 11.92 ml/m2LAAs A2C: 10.77 [id number] A-L | | A2C: 23.82 mlLALs A2C: 4.13 cmLAAs A4C: 9.27 [id number] A-L A4C: 18.08 mlLALs A4C: | | 4.03 cmAo Diam: 2.76 cmLA Diam: 3.80 cmLA/Ao: 1.37AV maxP.15 mmHgAV | | meanP.54 mmHgAV Vmax: 1.42 m/Troy Vmean: 0.85 m/Troy VTI: 24.13 cmAVA Vmax: | | 1.98 cm2AVA (VTI): 2.27 [id number] maxP.40 mmHgLVOT meanP.58 mmHgLVSI Dopp: | | 31.17 ml/m2LVSV Dopp: 54.86 mlLVOT Vmax: 0.92 m/sLVOT Vmean: 0.57 m/sLVOT VTI: | | 17.83 cmIVRT: 86.50 msMV A Michael: 1.02 m/sMV Dec Jessamine: 3.57 m/s2MV DecT: 192.68 | | msMV E Michael: 0.68 m/sMV E/A Ratio: 0.67MV PHT: 55.87 msMVA By PHT: 3.93 [id number] | | e': 0.07 m/sSeptal E/e': 8.94Lateral e': 0.08 m/sLateral E/e': 8.44RAP: 5 | | mmHg Branch Billing Payroll Clerk: DHAuthenticated by: Homero Lizarraga MD, FACC, FACP, FASNCReport | | Date/Time: -- [id number] IMPRESSION: 1. This was a technically difficult | | study with suboptimal views.2. Overall left ventricular systolic function is normal | | with, an EF between 65 - 70 %. | | | |MEASUREMENTS | | | |Ao asc: 2.96 cm | |IVC: 1.50 cm | |LA Major: 3.87 cm | |EDV(Teich): 60.95 ml | |IVSd: 0.78 cm | |LVIDd: 3.77 cm | |LVPWd: 0.77 cm | |LVOT Area: 3.07 cm2 | |LVOT Diam: 1.97 cm | |%FS: 31.33 % | |EF(Teich): 59.95 % | |ESV(Teich): 24.40 ml | |LVIDs: 2.59 cm | |SV(Teich): 36.54 ml | |RA Major: 3.70 cm | |RVIDd: 2.34 cm | |LVEF MOD A2C: 71.26 % | |SV MOD A2C: 33.21 ml | |LVEF MOD A4C: 69.34 % | |SV MOD A4C: 39.97 ml | |EF Biplane: 69.67 % | |LVEDV MOD BP: 52.23 ml | |LVESV MOD BP: 15.84 ml | |LVEDV MOD A2C: 46.59 ml | |LVLd A2C: 6.97 cm | |LVEDV MOD A4C: 57.65 ml | |LVLd A4C: 7.16 cm | |LVESV MOD A2C: 13.38 ml | |LVLs A2C: 5.54 cm | |LVESV MOD A4C: 17.67 ml | |LVLs A4C: 5.84 cm | |LAESV(A-L): 20.99 ml | |LAESV Index (A-L): 11.92 ml/m2 | |LAAs A2C: 10.77 cm2 | |LAESV A-L A2C: 23.82 ml | |LALs A2C: 4.13 cm | |LAAs A4C: 9.27 cm2 | |LAESV A-L A4C: 18.08 ml | |LALs A4C: 4.03 cm | |Ao Diam: 2.76 cm | |LA Diam: 3.80 cm | |LA/Ao: 1.37 | |AV maxP.15 mmHg | |AV meanP.54 mmHg | |AV Vmax: 1.42 m/s | |AV Vmean: 0.85 m/s | |AV VTI: 24.13 cm | |ASTRID Vmax: 1.98 cm2 | |ASTRID (VTI): 2.27 cm2 | |LVOT maxP.40 mmHg | |LVOT meanP.58 mmHg | |LVSI Dopp: 31.17 ml/m2 | |LVSV Dopp: 54.86 ml | |LVOT Vmax: 0.92 m/s | |LVOT Vmean: 0.57 m/s | |LVOT VTI: 17.83 cm | |IVRT: 86.50 ms | |MV A Michael: 1.02 m/s | |MV Dec Jessamine: 3.57 m/s2 | |MV DecT: 192.68 ms | |MV E Michael: 0.68 m/s | |MV E/A Ratio: 0.67 | |MV PHT: 55.87 ms | |MVA By PHT: 3.93 cm2 | |Septal e': 0.07 m/s | |Septal E/e': 8.94 | |Lateral e': 0.08 m/s | |Lateral E/e': 8.44 | |RAP: 5 mmHg | | | |Branch Billing Payroll Clerk: | |Authenticated by: Homero Lizarraga MD, FACC, FACP, FASNC | |Report Date/Time: -- [id number]:08 | | | |IMPRESSION: | |1. This was a technically difficult study with suboptimal views. | |2. Overall left ventricular systolic function is normal with, an EF between 65 - 70 %. | + + documented in this encounter Visit Diagnoses Not on filedocumented in this encounter"
--- OUTSIDE RECORDS SUMMARY | ~2019-09-02 | XMS | Encounter Summary ---
Demographics + + + | Address | [address] | | | [place] [address] | + + + | Home Phone [...] Team Providers + +------+ + | Care Insurance Territory Manager Name | Role | Phone | [...]
--- OUTSIDE RECORDS SUMMARY | ~2019-09-02 | XMS | Encounter Summary ---
Demographics + + + | Address | [address] | | | [place] [address] | + + + | Home Phone | | + + + | Preferred Language | Unknown | + + + | Marital Status | | + + + | Restoration Affiliation | 1041 | + + + | Race | Unknown | + + + | Ethnic Group | Unknown | + + + Author + + + | Author | [facility] | | | and [place] | + + + | Organization | [facility] | | | and [place] | + + + | Address | Unknown | + + + | Phone | Unavailable | + + + Support + + +---------+ + | Name | Relationship | Address | Phone | + + +---------+ + | Shaggy cT | ECON | Unknown | | + + +---------+ + | Shreya Romero | ECON | Unknown | | + + +---------+ + Care Team Providers + +------+ + | Care Transmission Builder Name | Role | Phone | + [...] | Procedure | | 06/16/ | | [place], [place] | [place], [place] | | | 2009 | | [address] | [address] | | | | | [phone] | [phone] | | | | | | | [...]
--- OUTSIDE RECORDS SUMMARY | ~2019-09-02 | XMS | Encounter Summary ---
Demographics + + + | Address | [address] | | | [place] [address] | + + + | Home Phone | | + + + | Preferred Language | Unknown | + + + | Marital Status | | + + + | Adventist Affiliation | 1041 | + + + | Race | Unknown | + + + | Ethnic Group | Unknown | + + + Author + + + | Author | [facility] | | | and [place] | + + + | Organization | [facility] | | | and [place] | [...] Team Providers + +------+ + | Care Client Administrator Name | Role | Phone | + +------+ + | Jesse Chand MD | PCP | | + +------+ + Encounter Details +--------+ + + + + | Date | Type | Department | Care Team | Description | +--------+ + + + + | 01/07/ | Hospital | [facility] | Moe Paiz | Chronic cough; | | 2016 | Encounter | [facility] | MD Moira [address] | Gastroesophageal | | | | INTRA [address] | [place] [address] | reflux disease, | | | | BLVD [place], [place] | [phone] | esophagitis presence | | | | [address] | | not specified; | | | | [phone] | | Colon cancer | | | [...] Discharge Summaries by Moe Paiz MD at 01/08/161119 Author: Moe Paiz MD Service: Gastroenterology Author Type: Physician Filed: 01/08/161119 Date of Service: 01/08/161119 Status: Signed Trolley Coach Driver: Moe Paiz MD (Physician) [facility] Service: Gastroenterology Brief Post-op Discharge Note DISCHARGE [...] preparation was | | | performed by [employer], [facility], [facility] | | | [place] [address] (Sustainable Landscape Architect: Bernardo Montiel M.D.; [facility]#: [id number]). Diagnostician: Bernardo Vilchis | Pathologist Electronically Signed 01/09/2016 | | [...]
--- OUTSIDE RECORDS SUMMARY | ~2019-09-02 | XMS | Encounter Summary ---
Demographics + + + | Address | [address] | | | [place] [address] | + + + | Home Phone | | + + + | Preferred Language | Unknown | + + + | Marital Status | | + + + | Baptism Affiliation | 1041 | + + + | Race | Unknown | + + + | Ethnic Group | Unknown | + + + Author + + + | Author | [facility] | | | and [place] | + + + | Organization | [facility] | | | and [...] Team Providers + +------+ + | Care Eap Specialist Name | Role | Phone | [...] | | | [address] [place] | [place] [address] | | | | | [place] [address] | | | | | | [phone] | | | +--------+ + + + [...] +--------+ + + + | XR CHEST 2 VIEWS | Routin | 10/13/2017 | | Results for this | | | e | 10:50 AM | | procedure are in the | | | | PDT | | results section. | + +--------+ + + + documented in this encounter Results XR Chest 2 Vws (10/13/2017 10:50 AM PDT) + + | Specimen | [...]
--- OUTSIDE RECORDS SUMMARY | ~2019-09-02 | XMS | Encounter Summary ---
Demographics + + + | Address | [address] | | | [place] [address] | + + + | Home Phone [...] | Author | [facility] | | | and [place] | + + + | Organization | [facility] | | | and [...] Team Providers + +------+ + | Care Applications Chemist Name | Role | Phone | + +------+ + PCP | Unavailable | + +------+ + Encounter Details +--------+ + + + + | Date | Type | Department | Care Team | Description | +--------+ + + + + | 09/25/ | Hospital | [facility] | Talon Torres, | | | 1991 | Encounter | [facility] | [address] [facility] | | | | | [address] [place] | [place], [place] | | | | | [place], [place] | [address] | | | | | [address] | | | | | | [phone] | | | +--------+ + + + [...]
--- OUTSIDE RECORDS SUMMARY | ~2019-09-02 | XMS | Encounter Summary ---
Demographics + + + | Address | [address] | | | [place] [address] | + + + | Home Phone | | + + + | Preferred Language | Unknown | + + + | Marital Status | | + + + | Voodoo Affiliation | CAT | + + + [...] Team Providers + +------+ + | Care Steward/Stewardess Chief Cargo Vessel Name | Role | Phone | + [...] Medicine [address] | [facility] [address] [facility] | | | | | [place], [place] | [facility] | | | | | [id number] | [place], [place] | | | | | | [address] | | | | | | [phone] | | | | | | | [...] cannot be sent through Care Everywhere.Musculoskeletal Pain (Romanian)Scapular: Exercises (Romanian)Shoulder Stretches: Exercises (Romanian)documente d in this encounter Medications at Time [...] RADIOLOGY | [address] | [place], [place] | [phone] | | VOICE RECOGNITION | | [address] | | + + + + + [...] Note | + ---------+ | Service Account, [employer] In Interface - 03/11/2019 3:28 PM [address] | [place] | [phone] | | VOICE RECOGNITION | | [address] | | + + + + + [...] Note | + -------+ | Service Account, [employer] In Interface - 03/11/2019 3:29 PM PST [...] + + | Performing | Address | City/State/[facility] | Phone Number | | Organization | | | | + + + + + | [facility] | [address] | [place], [place] | [phone] | | VOICE RECOGNITION | | [address] | | + + + + + [...] | | alignment. Vertebral heights are preserved. Rekq-jo-gyvctbva | | | spondylotic changes are most [...] be positional or due to muscle spasm. Rdzd-pm-niqnhmhy spondylotic | | | changes. Signed By: [...] alignment. Vertebral heights are preserved. | | Cpbk-ve-bdntdwnq spondylotic changesare most pronounced at the C5-6 [...] can be positional or due to muscle spasm.Vqtn-yv-fjaqfqqr spondylotic | | changes. Signed By: Garcia Bravo DO On 03/11/2019 15:23:21 | | | |Visualized paranasal sinuses and mastoid air cells appear clear. Calvarium is grossly intac t. | | | |Cervical spine: | |There is normal alignment. Vertebral heights are preserved. Rikb-yz-blhlxcxz spondylotic ch anges | |are most pronounced [...] positional or due to muscle spasm. | |Nbjc-wj-yvbzbuzj spondylotic changes. | | | | | |Signed By: Garcia Bravo DO On 03/11/2019 15:23:21 | + --------+ + + + + + | Performing | Address | City/State/Zipcode | Phone Number | | Organization | | | | + + + + + | [facility] | [address] | [place], [place] | [phone] | | VOICE RECOGNITION | | [address] | | + + + + + [...] | | alignment. Vertebral heights are preserved. Thcf-rq-fssnguko | | | spondylotic changes are most [...] be positional or due to muscle spasm. Eyam-ly-fvhmdbjo spondylotic | | | changes. Signed By: [...] alignment. Vertebral heights are preserved. | | Iabq-mh-xsbkxens spondylotic changesare most pronounced at the C5-6 [...] can be positional or due to muscle spasm.Dmvx-ku-axfmgudi spondylotic | | changes. Signed By: Garcia Bravo DO On 03/11/2019 15:23:21 | | | |Visualized paranasal sinuses and mastoid air cells appear clear. Calvarium is grossly intac t. | | | |Cervical spine: | |There is normal alignment. Vertebral heights are preserved. Wccv-kr-ebllmqus spondylotic ch anges | |are most pronounced [...] positional or due to muscle spasm. | |Dzhf-vt-fkatgttz spondylotic changes. | | | | | |Signed By: Garcia Bravo DO On 03/11/2019 15:23:21 | + --------+ + + + + + | Performing | Address | City/State/Zipcode | Phone Number | | Organization | | | | + + + + + | [facility] | [address] | [facility] [place] | [phone] | | VOICE RECOGNITION | | [address] | | + + + + + [...] [facility] | [address] | [place], [place] | | | LAB | | [address] | | + + + + + [...] [facility] | [address] | [place], [place] | | | LAB | | [address] | | + + + + + [...] | | [facility] | | | [place] | | | | | + +---------+ [...] [facility] | [address] | [place], [place] | | | LAB | | [address] | | + + + + + [...]
--- OUTSIDE RECORDS SUMMARY | ~2019-09-02 | XMS | Encounter Summary ---
Demographics + + + | Address | [address] | | | [place] [address] | + + + | Home Phone [...] | Author | [facility] [employer] [facility] | + + + | Organization | [facility] [facility] | + + + | Address | Unknown | + + + | Phone | Unavailable | + + + Support + + +---------+ + | Name | Relationship | Address | Phone | + + +---------+ + | Charlene Rouse | ECON | Unknown | | + + +---------+ + Care Team Providers + +------+ + | Care Administrative Operations Coordinator Name | Role | Phone | [...] PA-C | | | | | at [facility] [address] | [address] | | | | | [address] [place], [place] | [place], [place] | | | | | [address] | [address] | | | | | [phone] | [phone] | | | | | | | [...]
--- OUTSIDE RECORDS SUMMARY | ~2019-09-02 | XMS | Encounter Summary ---
Demographics + + + | Address | [address] | | | [place] [address] | + + + | Home Phone | | + + + | Preferred Language | Unknown | + + + | Marital Status | | + + + | Jew Affiliation | 1041 | + + + | Race | Unknown | + + + | Ethnic Group | Unknown | + + + Author + + + | Author | [facility] | | | and [place] | + + + | Organization | [facility] | | [...] Team Providers + +------+ + | Care Treer Name | Role | Phone | + [...] + | 08/01/ | Telephone | [facility] | Jace Mcdonald | Appointment | | 2014 | | NEUROSURGERY [address] | [address] | | | | | [facility] [address] | [address] | | | | | [place], [place] | [place] [address] | | | | | [address] | [phone] | | | | | [phone] | | | +--------+ + + + [...]
--- OUTSIDE RECORDS SUMMARY | ~2019-09-02 | XMS | Encounter Summary ---
Demographics + + + | Address | [address] | | | [place] [address] | + + + | Home Phone | | + + + | Preferred Language | Unknown | + + + | Marital Status | | + + + | Pentecostalism Affiliation | 1041 | + + + | Race | Unknown | + + + | Ethnic Group | Unknown | + + + Author + + + | Author | [facility] | | | and [place] | + + + | Organization | [facility] | | [...] Team Providers + +------+ + | Care Material Cutter Name | Role | Phone | [...] documented | [place], | [facility] | | | | | spasm ([facility]) | [place] [address] | [address] Phone: | | | | | Procedures | Phone: | [phone] | | | | | Consult | [phone] | Fax: | | | | | | Fax: | [phone] | | | | | | [phone] | | + +--------+ + + + + Encounter Details +--------+---------+ + + + | Date | Type | Department | Care Team | Description | +--------+---------+ + + + | 06/19/ | Office | [facility] | Homero Lizarraga, | Prinzmetal angina | | 2020 | Visit | CARDIOLOGY YARELI | [address] | ([facility]) (Primary Dx) | | | | [address] | [place] [address] | | | | | [place] | [phone] | | | | | [address] | | | | | | [phone] | | | +--------+---------+ + + + [...] symptoms. She had a hospital admission to [facility] [place] about a year ago. She had a [...] [place] surgery CHOLECYSTECTOMY COLONOSCOPY 2009 [place] HAND SURGERY HYSTERECTOMY HYSTERECTOMY OTHER SURGICAL HISTORY Bilateral OTHER SURGICAL HISTORY UNLISTED PROCEDURE ARTHROSCOPY - ganglion cyst OTHER SURGICAL HISTORY 01/08/2016 FLEXIBLE SIGMOIDOSCOPY - Procedure: SIGMOIDOSCOPY - FLEXIBLE; Surgeon: Moe Paiz MD; Location: [facility]; Service: Gastroenterology; Laterality: N/A; OVARY REMOVAL TONSILLECTOMY TONSILLECTOMY AND ADENOIDECTOMY UPPER GASTROINTESTINAL ENDOSCOPY 11/2014 UPPER GASTROINTESTINAL ENDOSCOPY 01/08/2016 Procedure: ESOPHAGOGASTRODUODENOSCOPY; Surgeon: Moe Paiz MD; Location[facility]; Service: Gastroenterology; Laterality: N/A; FAMILY [...] file Gets together: Not on file Attends baptist service: Not on file Active member of [...] | | e | 2:13 PM | ([facility]) | procedure are in the | | [...] | | | | LUDA LIZARRAGA MD ([id number]) on | | | | | | [...]
--- OUTSIDE RECORDS SUMMARY | ~2019-09-02 | XMS | Encounter Summary ---
Demographics + + + | Address | [address] | | | [place] [address] | + + + | Home Phone | | + + + | Preferred Language | Unknown | + + + | Marital Status | | + + + | Jain Affiliation | 1041 | + + + | Race | Unknown | + + + | Ethnic Group | Unknown | + + + Author + + + | Author | [facility] | | | and [place] | + + + | Organization | [facility] | | [...] Team Providers + +------+ + | Care Banquet Pilot Name | Role | Phone | + +------+ + PCP | Unavailable | + +------+ + Encounter Details +--------+ + + + + | Date | Type | Department | Care Team | Description | +--------+ + + + + | 11/06/ | Hospital | [facility] | Wilder Mosquera MD | | | 1994 | Encounter | MED CTR GENERIC OP | [address], [place] | | | | | CONV DEPT [address] | [address] [place], [place] | | | | | [place], | [address] | | | | | [place] [address] | | | | | | [phone] | | | +--------+ + + + [...]
--- OUTSIDE RECORDS SUMMARY | ~2019-09-02 | XMS | Encounter Summary ---
Demographics + + + | Address | [address] | | | [place] [address] | + + + | Home Phone | | + + + | Preferred Language | Unknown | + + + | Marital Status | | + + + | Shinto Affiliation | 1041 | + + + | Race | Unknown | + + + | Ethnic Group | Unknown | + + + Author + + + | Author | [facility] | | | and [place] | + + + | Organization | [facility] | | | and [...] Team Providers + +------+ + | Care Legal Aid Name | Role | Phone | + +------+ + | Garcia Valle MD | PCP | | + +------+ + Encounter Details +--------+ + + + + | Date | Type | Department | Care Team | Description | +--------+ + + + + | 05/02/ | Orders Only | [facility] | Homero Lizarraga Edgardo, | | | 2015 | | CARDIOLOGY ROCÍO | [address] | | | | | [address] | [place] [address] | | | | | [place], [place] | [phone] | | | | | [address] | | | | | | [phone] | | | +--------+ + + + [...] MV A Michael: 1.02 m/s MV Dec Webster: 3.57 m/s2 MV DecT: | | | 192.68 ms MV E Michael: 0.68 m/s MV E/A Ratio: 0.67 MV PHT: | | | 55.87 ms MVA By PHT: 3.93 cm2 Septal e': 0.07 m/s Septal | | | E/e': 8.94 Lateral e': 0.08 m/s Lateral E/e': 8.44 RAP: | | | 5 mmHg Cna Hha: ABHI Authenticated by: Homero Lizarraga MD, | | | FACC, FACP, FASNC Report Date/Time: -- [id number] | | + + + + + | Procedure Note | + + | Gabriel, Rad Conversion - 12/08/2018 8:45 PM PDT Patient Name: Tila MONTEZ of | | : 1950 Performing Physician: Homero Lizarraga MD, [facility], | | FAC, | | FASNC [...] cmLVPWd: | | 0.77 cmLVOT Area: 3.07 dp2FUCQ Diam: 1.97 cm%FS: 31.33 %EF(Teich): 59.95 | [...] mlLAESV Index (A-L): 11.92 ml/m2LAAs A2C: 10.77 ip3RDKGC A-L | | A2C: 23.82 mlLALs A2C: 4.13 cmLAAs A4C: 9.27 iw8KVTII A-L A4C: 18.08 mlLALs A4C: | | 4.03 cmAo Diam: 2.76 cmLA Diam: 3.80 cmLA/Ao: 1.37AV maxP.15 mmHgAV | | meanP.54 mmHgAV Vmax: 1.42 m/Troy Vmean: 0.85 m/Troy VTI: 24.13 cmAVA Vmax: | | 1.98 cm2AVA (VTI): 2.27 ui9CKYA maxP.40 mmHgLVOT meanP.58 mmHgLVSI Dopp: | | 31.17 ml/m2LVSV Dopp: 54.86 mlLVOT Vmax: 0.92 m/sLVOT Vmean: 0.57 m/sLVOT VTI: | | 17.83 cmIVRT: 86.50 msMV A Michael: 1.02 m/sMV Dec Webster: 3.57 m/s2MV DecT: 192.68 | | msMV E Michael: 0.68 m/sMV E/A Ratio: 0.67MV PHT: 55.87 msMVA By PHT: 3.93 ya1Ljmifo | | e': 0.07 m/sSeptal E/e': 8.94Lateral e': 0.08 m/sLateral E/e': 8.44RAP: 5 | | mmHg Cna Hha: DHAuthenticated by: Homero Lizarraga MD, FACC, FACP, FASNCReport | | Date/Time: -- [id number]:08 IMPRESSION: 1. This was a technically difficult [...] A Michael: 1.02 m/s | |MV Dec Webster: 3.57 m/s2 | |MV DecT: 192.68 ms | |MV E Michael: 0.68 m/s | |MV E/A Ratio: 0.67 | |MV PHT: 55.87 ms | |MVA By PHT: 3.93 cm2 | |Septal e': 0.07 m/s | |Septal E/e': 8.94 | |Lateral e': 0.08 m/s | |Lateral E/e': 8.44 | |RAP: 5 mmHg | | | |Cna Hha: | |Authenticated by: Homero Lizarraga MD, FACC, FACP, FASNC | |Report Date/Time: -- [id number]:28:08 | | | |IMPRESSION: | |1. This was a technically difficult study with suboptimal views. | |2. Overall left ventricular systolic function is normal with, an EF between 65 - 70 %. | + + documented in this encounter Visit Diagnoses Not on filedocumented in this encounter"
--- OUTSIDE RECORDS SUMMARY | ~2019-09-02 | XMS | Encounter Summary ---
Demographics + + + | Address | [address] | | | [place] [address] | + + + | Home Phone | | + + + | Preferred Language | Unknown | + + + | Marital Status | | + + + | Yazidi Affiliation | 1041 | + + + | Race | Unknown | + + + | Ethnic Group | Unknown | + + + Author + + + | Author | [facility] | | | and [place] | + + + | Organization | [facility] | | | and [...] Team Providers + +------+ + | Care Community Relations Liaison Name | Role | Phone | [...] + + | 06/26/ | Refill | [facility] | Homero Lizarraga, | Medication Refill | | 2019 | | [facility] | [address] | | | | | [address] | [place] [address] | | | | | [place], [place] | [phone] | | | | | [address] | | | | | | [phone] | | | +--------+--------+ + + + [...]
--- OUTSIDE RECORDS SUMMARY | ~2019-09-02 | XMS | Encounter Summary ---
Demographics + + + | Address | [address] | | | [place] [address] | + + + | Home Phone [...] Author | [facility] | | | and [place] | + + + | Organization | [facility] | | | and [...] Team Providers + +------+ + | Care Behavioral Services Tech Name | Role | Phone | + +------+ + PCP | Unavailable | + +------+ + Encounter Details +--------+ + + + + | Date | Type | Department | Care Team | Description | +--------+ + + + + | 06/17/ | Hospital | [facility] | Umberto Joseph, | Other Specified | | 2009 - | Encounter | CONVERSION [address] | [place] [address] | Rehabilitation | | | | [address] | [address] | Procedure | | 07/17/ | | [place], [place] | [place], [place] | | | 2009 | | [address] | [address] | | | | | [phone] | [phone] | | | | | | | [...]
--- OUTSIDE RECORDS SUMMARY | ~2019-09-02 | XMS | Encounter Summary ---
Demographics + + + | Address | [address] | | | [place] [address] | + + + | Home Phone | | + + + | Preferred Language | Unknown | + + + | Marital Status | | + + + | Tenriism Affiliation | 1041 | + + + | Race | Unknown | + + + | Ethnic Group | Unknown | + + + Author + + + | Author | [facility] | | | and [place] | + + + | Organization | [facility] [...] Team Providers + +------+ + | Care Pressed Or Blown Glass Worker Name | Role | Phone | + +------+ + PCP | Unavailable | + +------+ + Encounter Details +--------+ + + + + | Date | Type | Department | Care Team | Description | +--------+ + + + + | 03/30/ | Hospital | [facility] | Wilder Mosquera MD | | | 1996 | Encounter | MED CTR GENERIC OP | [address], [place] | | | | | CONV DEPT [address] | [address] [place], [place] | | | | | [place], | [address] | | | | | [place] [address] | | | | | | [phone] | | | +--------+ + + + [...]
--- OUTSIDE RECORDS SUMMARY | ~2019-09-02 | XMS | Encounter Summary ---
Demographics + + + | Address | [address] | | | [place] [address] | + + + | Home Phone [...] Author | [facility] | | | and [place] | + + + | Organization | [facility] [...] Team Providers + +------+ + | Care Chief Cook Name | Role | Phone | + +------+ + PCP | Unavailable | + +------+ + Encounter Details +--------+ + + + + | Date | Type | Department | Care Team | Description | +--------+ + + + + | 09/25/ | Hospital | [facility] | Talon Torres, | | | 1993 | Encounter | MED CTR LABORATORY | [address] [facility] | | | | | [address] [place] | [place], [place] | | | | | [place], [place] | [address] | | | | | [address] | | | | | | [phone] | | | +--------+ + + + [...]
--- OUTSIDE RECORDS SUMMARY | ~2019-09-02 | XMS | Encounter Summary ---
Demographics + + + | Address | [address] | | | [place] [address] | + + + | Home Phone [...] | [facility] | | | and [place] | + + + | Organization | [facility] | | | and [place] | [...] Team Providers + +------+ + | Care Enlisted Advisor Name | Role | Phone | + +------+ + PCP | Unavailable | + +------+ + Encounter Details +--------+ + + + + | Date | Type | Department | Care Team | Description | +--------+ + + + + | 11/26/ | Hospital | [facility] | Wilder Mosquera MD | | | 1991 | Encounter | MED CTR GENERIC OP | [address], [place] | | | | | CONV DEPT [address] | [address] [place], [place] | | | | | [place], | [address] | | | | | [place] [address] | | | | | | [phone] | | | +--------+ + + + [...]
--- OUTSIDE RECORDS SUMMARY | ~2019-09-02 | XMS | Encounter Summary ---
Demographics + + + | Address | [address] | | | [place] [address] | + + + | Home Phone | | + + + | Preferred Language | Unknown | + + + | Marital Status | | + + + | Muslim Affiliation | 1041 | + + + | Race | Unknown | + + + | Ethnic Group | Unknown | + + + Author + + + | Author | [facility] | | | and [place] | + + + | Organization | [facility] | | | and [place] [...] Team Providers + +------+ + | Care Sexual Assault Social Worker Name | Role | Phone | + +------+ + PCP | Unavailable | + +------+ + Encounter Details +--------+ + + + + | Date | Type | Department | Care Team | Description | +--------+ + + + + | 01/02/ | Hospital | [facility] | Wilder Mosquera MD | | | 1990 | Encounter | MED CTR GENERIC OP | [address], [place] | | | | | CONV DEPT [address] | [address] [place], [place] | | | | | [place], | [address] | | | | | [place] [address] | | | | | | [phone] | | | +--------+ + + + [...]
--- OUTSIDE RECORDS SUMMARY | ~2019-09-02 | XMS | Encounter Summary ---
Demographics + + + | Address | [address] | | | [place] [address] | + + + | Home Phone [...] | Author | [facility] | + + + | Organization | [facility] [employer] [facility] | + [...] Team Providers + +------+ + | Care Planning Official Name | Role | Phone | + [...] | | | | at [facility] [address] | [place] [place], | | | | | [place], [place] | [place] [address] | | | | | [address] | [phone] | | | | | [phone] | | | +--------+ + + + [...]
--- OUTSIDE RECORDS SUMMARY | ~2019-09-02 | XMS | Encounter Summary ---
Demographics + + + | Address | [address] | | | [place] [address] | + + + | Home Phone | | + + + | Preferred Language | Unknown | + + + | Marital Status | | + + + | Presybeterian Affiliation | 1041 | + + + | Race | Unknown | + + + | Ethnic Group | Unknown | + + + Author + + + | Author | [facility] | | | and [place] | + + + | Organization | [facility] | | | and [place] [...] Providers + +------+ + | Care Manager Location Name | Role | Phone | + +------+ + PCP | Unavailable | + +------+ + Encounter Details +--------+ + + + + | Date | Type | Department | Care Team | Description | +--------+ + + + + | 05/19/ | Hospital | [facility] | Wilder Mosquera MD | | | 1993 - | Encounter | MED CTR GENERIC IP | [address], [place] | | | | | CONV DEPT [address] | [address] [place], [place] | | | 05/20/ | | [place], | [address] | | | 1993 | | [place] [address] | | | | | | [phone] | | | +--------+ + + + [...]
--- OUTSIDE RECORDS SUMMARY | ~2019-09-02 | XMS | Clinical Summary ---
Demographics + + + | Address | [address] | | | [place] [address] | + + + | Home Phone | | + + + | Preferred Language | Unknown | + + + | Marital Status | | + + + | Quaker Affiliation | CAT | + + + [...] Team Providers + +------+ + | Care Thermal Spray Operator Name | Role | Phone | + +------+ + | Jesse Chand MD | PCP | | + +------+ + Source Comments IRMA is fully live on both EpicCare Ambulatory and EpicCare InPatient.[facility] Allergies + + + + [...] Primary | | diagnosis | + + Family History + + +------+ [...] | MEDICA | xxxxxxxxxxx | Effect | [phone] | [address] | Medica | | | RE A & | | jane | [address] | [phone] | re | | | B | | for | | [place], [place] | | | | | | all | | [address] | | | | | | dates | | | | + +--------+ +--------+ + +--------+ | [employer] [place] | MUTUAL | [id number] | Effect | [phone] | [address] | Indemn | | MEDICARE SUPPL | OF | | jane | 0 | [employer] | ity | | | [place] | | for | | [place] [address] | | | | MEDICA | | all | | [place], [place] | | | | RE | | dates | | [address] | | | | SUPPL | | | | | | + +--------+ +--------+ + +--------+ | [employer] | MODA | xxxxxxxxx | | [phone] | [address] | PPO | | | [employer]EBB | | [phone] | [phone] | [phone] | | | | [place] | | esent | | [place], | | | | [place] | | | | [place] [address] | | + +--------+ +--------+ + +--------+ [...] al/Fam | | 1949 | [phone] | [address] | | | mike | | | 7 (Home) | [place] [address] | | | | | | [phone] | | | | | | | 2 (Work) | | + +--------+ +--------+ + + | Jocelyne Montez | Person | Self | [birth year] | [address] | | | al/Fam | | 1950 | [phone] | [address] | | | mike | | | 7 (Home) | [place] [address] | | | | | | [phone] | | | | | | | 2 (Work) | | + +--------+ +--------+ + +
--- OUTSIDE RECORDS SUMMARY | ~2019-09-02 | XMS | Encounter Summary ---
Demographics + + + | Address | [address] | | | [place] [address] | + + + | Home Phone | | + + + | Preferred Language | Unknown | + + + | Marital Status | | + + + | Druze Affiliation | 1041 | + + + | Race | Unknown | + + + | Ethnic Group | Unknown | + + + Author + + + | Author | [facility] | | | and [place] | + + + | Organization | [facility] [...] Team Providers + +------+ + | Care Township Supervisor Name | Role | Phone | + +------+ + PCP | Unavailable | + +------+ + Encounter Details +--------+ + + + + | Date | Type | Department | Care Team | Description | +--------+ + + + + | 07/01/ | Hospital | [facility] | Wilder Mosquera MD | | | 1992 | Encounter | MED CTR GENERIC OP | [address], [place] | | | | | CONV DEPT [address] | [address] [place], [place] | | | | | [place], | [address] | | | | | [place] [address] | | | | | | [phone] | | | +--------+ + + + [...]
--- OUTSIDE RECORDS SUMMARY | ~2019-09-02 | XMS | Encounter Summary ---
Demographics + + + | Address | [address] | | | [place] [address] | + + + | Home Phone | | + + + | Preferred Language | Unknown | + + + | Marital Status | | + + + | Mormonism Affiliation | 1041 | + + + | Race | Unknown | + + + | Ethnic Group | Unknown | + + + Author + + + | Author | [facility] | | | and [place] | + + + | Organization | [facility] | | | and [place] [...] Team Providers + +------+ + | Care Furniture Salesperson Name | Role | Phone | + [...] | Procedure | | 07/17/ | | [place], [place] | [place], [place] | | | 2009 | | [address] | [address] | | | | | [phone] | [phone] | | | | | | | [...]
--- OUTSIDE RECORDS SUMMARY | ~2019-09-02 | XMS | Encounter Summary ---
Demographics + + + | Address | [address] | | | [place] [address] | + + + | Home Phone [...] | Author | [facility] | | | and [place] | + + + | Organization | [facility] | | | and [place] [...] Team Providers + +------+ + | Care Fire Alarm Operator Name | Role | Phone | + +------+ + PCP | Unavailable | + +------+ + Encounter Details +--------+ + + + + | Date | Type | Department | Care Team | Description | +--------+ + + + + | 11/13/ | Hospital | [facility] | Wilder Mosquera MD | | | 1994 | Encounter | MED CTR XRAY [address] | [address], [place] | | | | | [place] | [address] [place], [place] | | | | | [place] [address] | [address] | | | | | [phone] | | | +--------+ + + + [...]
--- OUTSIDE RECORDS SUMMARY | ~2019-09-02 | XMS | Encounter Summary ---
Demographics + + + | Address | [address] | | | [place] [address] | + + + | Home Phone | | + + + | Preferred Language | Unknown | + + + | Marital Status | | + + + | Faith Affiliation | CAT | + + + | Race | White | + + + | Ethnic Group | Not or | + + + Author + + + | Author | [facility] | + + + | Organization | [facility] [employer] [facility] | + + + | Address | Unknown | + + + | Phone | Unavailable | + + + Support + + +---------+ + | Name | Relationship | Address | Phone | + + +---------+ + | Charlene Rouse | ECON | Unknown | | + + +---------+ + Care Team Providers + +------+ + | Care Hand Edge Bander Name | Role | Phone | + +------+ + | Jesse Chand MD | PCP | | + +------+ + Encounter Details +--------+ + + + + | Date | Type | Department | Care Team | Description | +--------+ + + + + | 07/31/ | Telephone | Otolaryngology | [place], | | | 2017 | | Laryngology Services | Mamta Argutea PA-C | | | | | at [facility] [address] | [address] | | | | | Ave [place], [place] | [place], [place] | | | | | [address] | [address] | | | | | [phone] | [phone] | | | | | | | [...]
--- OUTSIDE RECORDS SUMMARY | ~2019-09-02 | XMS | Encounter Summary ---
Demographics + + + | Address | [address] | | | [place] [address] | + + + | Home Phone [...] + + | Author | [facility] [employer] [facility] | + + + | Organization | [facility] | + + + | Address | Unknown | + + + | Phone | Unavailable | + + + Support + + +---------+ + | Name | Relationship | Address | Phone | + + +---------+ + | Charlene Rouse | ECON | Unknown | | + + +---------+ + Care Team Providers + +------+ + | Care Adjutant General Name | Role | Phone | + [...] [address] | | | | | | [place] [address] | | | | | | [phone] | | | | | | | [...] as of this encounter Progress Notes Interface, Porcelain Buildup Assistant In - 08/29/2010 6:47 PM PDTJanuary 2001-Sent 04/28/01 Jesse Chand M.D. [facility] [address] [place] [address] RE:ANTHONY MONTEZ [id number] Chand: I recently had the [...] April 26, 2001 Page 2 RE:ANTHONY MONTEZ [id number] Her current medications include Hyzaar, atenolol, dicyclomine, estrogen patches, multivitamin, Lipitor, Tiazac, nitroglycerin patch, Toprol and Maxzide. She reports an allergy to Compazine. Her family history is as described above. In addition, her son has testicular cancer and her father had colon cancer. She also has a strong family history of coronary artery disease. Anthony lives in [place], [place]. 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 She denies any tobacco use and has [...] please feel free to contact me at [phone]. Sincerely, Marie Amaya M.D. [facility]/[email or web address].let cc:Talon Stallings M.D. documented in this encounter Plan of Treatment Not on filedocumented as of this encounter Visit Diagnoses Not on filedocumented in this encounter"
--- OUTSIDE RECORDS SUMMARY | ~2019-09-02 | XMS | Encounter Summary ---
Demographics + + + | Address | [address] | | | [place] [address] | + + + | Home Phone [...] | Author | [facility] | | | and [place] | + + + | Organization | [facility] [...] Team Providers + +------+ + | Care Clinical Quality Assurance Specialist Name | Role | Phone | + +------+ + PCP | Unavailable | + +------+ + Encounter Details +--------+ + + + + | Date | Type | Department | Care Team | Description | +--------+ + + + + | 11/26/ | Hospital | [facility] | Wilder Mosquera MD | | | 1991 | Encounter | MED CTR GENERIC OP | [address], [place] | | | | | CONV DEPT [address] | [address] [place], [place] | | | | | [place], | [address] | | | | | [place] [address] | | | | | | [phone] | | | +--------+ + + + [...]
--- OUTSIDE RECORDS SUMMARY | ~2019-09-02 | XMS | Encounter Summary ---
Demographics + + + | Address | [address] | | | [place] [address] | + + + | Home Phone [...] + | Author | [facility] | | | and [place] | + + + | Organization | [facility] | | [...] Team Providers + +------+ + | Care Access Lead Name | Role | Phone | + [...] | | | [address] | [place] [address] | | | | | [place] [address] | | | | | | [phone] | | | +--------+ + + + [...]
--- OUTSIDE RECORDS SUMMARY | ~2019-09-02 | XMS | Encounter Summary ---
Demographics + + + | Address | [address] | | | [place] [address] | + + + | Home Phone [...] + + + | Author | [facility] | + + + | Organization | [facility] | + + + | Address | Unknown | + + + | Phone | Unavailable | + + + Support + + +---------+ + | Name | Relationship | Address | Phone | + + +---------+ + | Charlene Rouse | ECON | Unknown | | + + +---------+ + Care Team Providers + +------+ + | Care Electro Optics Engineer Name | Role | Phone | + +------+ + | Jesse Chand MD | PCP | | + +------+ + Encounter Details +--------+ + + + + | Date | Type | Department | Care Team | Description | +--------+ + + + + | 08/18/ | Abstract [facility] | Wesley Terry, | | | 2007 | | [facility] | [address] | | | | | [address] | [address] | | | | | [address] | [place], [place] | | | | | Ty, 7th floor | [address] | | | | | [place], [place] | [phone] | | | | | [address] | | | | | | [phone] | | | +--------+ + + + [...] AM PDTHistory abstracted from records dated 07/25/[address] [facility] [address] Tatianna Jung. Pt has upcoming appt August 30, 2007. documented in this enc ounter Plan of Treatment Not on filedocumented as of this encounter Visit Diagnoses Not on filedocumented in this encounter"
--- OUTSIDE RECORDS SUMMARY | ~2019-09-02 | XMS | Encounter Summary ---
Demographics + + + | Address | [address] | | | [place] [address] | + + + | Home Phone | | + + + | Preferred Language | Unknown | + + + | Marital Status | | + + + | Anabaptism Affiliation | CAT | + + + | Race | White | + + + | Ethnic Group | Not or | + + + Author + + + | Author | [facility] | + + + | Organization | [facility] | + + + | Address | Unknown | + + + | Phone | Unavailable | + + + Support + + +---------+ + | Name | Relationship | Address | Phone | + + +---------+ + | Charlene Rouse | ECON | Unknown | | + + +---------+ + Care Team Providers + +------+ + | Care Child Monitor Name | Role | Phone | + [...] Le | | | | | at [facility] [address] | [place], | | | | | [place], [place] | [place] [address] | | | | | [address] | [phone] | | | | | [phone] | | | +--------+ + + + [...]
--- OUTSIDE RECORDS SUMMARY | ~2019-09-02 | XMS | Encounter Summary ---
Demographics + + + | Address | [address] | | | [place] [address] | + + + | Home Phone | | + + + | Preferred Language | Unknown | + + + | Marital Status | | + + + | Congregational Affiliation | 1041 | + + + | Race | Unknown | + + + | Ethnic Group | Unknown | + + + Author + + + | Author | [facility] | | | and [place] | + + + | Organization | [facility] | | | and [...] Team Providers + +------+ + | Care Head Of Design Name | Role | Phone | + [...] | | | [address] | [place] [address] | | | | | [place] [address] | | | | | | [phone] | | | +--------+ + + + [...]
--- OUTSIDE RECORDS SUMMARY | ~2019-09-02 | XMS | Encounter Summary ---
Demographics + + + | Address | [address] | | | [place] [address] | + + + | Home Phone [...] + + | Author | [facility] | + + + | Organization | [facility] | [...] Team Providers + +------+ + | Care Automobile Racer Name | Role | Phone | + [...] PA-C | | | | | at [facility] [address] | [address] | | | | | Ave [place], [place] | [place], [place] | | | | | [address] | [address] | | | | | [phone] | [phone] | | | | | | | [...]
--- OUTSIDE RECORDS SUMMARY | ~2019-09-02 | XMS | Encounter Summary ---
Demographics + + + | Address | [address] | | | [place] [address] | + + + | Home Phone | | + + + | Preferred Language | Unknown | + + + | Marital Status | | + + + | Caodaism Affiliation | 1041 | + + + | Race | Unknown | + + + | Ethnic Group | Unknown | + + + Author + + + | Author | [facility] | | | and [place] | + + + | Organization | [facility] | | | and [place] [...] Team Providers + +------+ + | Care Bin Cleaner Name | Role | Phone | + +------+ + | Garcia Valle MD | PCP | | + +------+ + Encounter Details +--------+ + + + + | Date | Type | Department | Care Team | Description | +--------+ + + + + | 04/09/ | Orders Only | [facility] | Homero Lizarraga Edgardo, | | | 2014 | | CARDIOLOGY OLIVET | MD [address] | | | | | [address] | [place] [address] | | | | | [address] | [phone] | | | | | [place], [place] | | | | | | [address] | | | | | | [phone] | | | +--------+ + + + [...] Performed At | + + + | [facility] CARDIOLOGY Nuclear Treadmill Stress Test With [...] Max BP: | | | 159/76. RPP: 16047. METS: 10.10. Symptoms lightheaded and shortness of [...] | | Homero Lizarraga MD, FACC, FACP, FASAR | | + + + + + | Procedure Note | + + | Gabriel, Rad Conversion - 12/09/2018 12:[address] [facility] | | Treadmill Stress Test With Lexiscan [...] achieved: 118 bpm, Max BP: 159/76. RPP: 63287. METS: 10.10. Symptoms | | lightheaded and [...]
--- OUTSIDE RECORDS SUMMARY | ~2019-09-02 | XMS | Encounter Summary ---
Demographics + + + | Address | [address] | | | [place] [address] | + + + | Home Phone | | + + + | Preferred Language | Unknown | + + + | Marital Status | | + + + | Yarsanism Affiliation | 1041 | + + + | Race | Unknown | + + + | Ethnic Group | Unknown | + + + Author + + + | Author | [facility] | | | and [place] | + + + | Organization | [facility] [...] Providers + +------+ + | Care Supervisor Cutting And Boning Name | Role | Phone | + +------+ + | Jesse Chand MD | PCP | | + +------+ + Encounter Details +--------+ + + + + | Date | Type | Department | Care Team | Description | +--------+ + + + + | 08/08/ | Orders Only | [facility] | Sandra Hart, | Lumbar radiculopathy | | 2014 | | PHYSIATRY [address] | DIGITAL PRINTER OPERATOR | (Primary Dx) | | | | [address] | | | | | | [place] | | | | | | [address] | | | | | | [phone] | | | +--------+ + + + [...] Not on filedocumented as of this encounter Results [place] LAILA Lumbar Transforaminal (08/27/2014 1:29 PM PDT) + + | Specimen | + + | | + + + + + | Narrative | Performed At | + + + | 08/27/2014 Transforaminal Epidural Steroid Injection Diagnosis: | [facility] | | Lumbar radiculopathy ICD-9 Code 724.4 Jocelyne Montez | . GLYNN | | presents to the fluoroscopy suite for a fluoroscopically-guided [facility] | | L5-S1 transforaminal epidural steroid [...] | [address] | [address] | [place] | [phone] | | [facility] | | [address] | | | - IMAGING | | | | + + + + + documented in this encounter Visit Diagnoses + + | Diagnosis | + + | Lumbar radiculopathy - Primary Thoracic or lumbosacral neuritis or radiculitis, | | unspecified | + + documented in this encounter"
--- OUTSIDE RECORDS SUMMARY | ~2019-09-02 | XMS | Encounter Summary ---
Demographics + + + | Address | [address] | | | [place] [address] | + + + | Home Phone | | + + + | Preferred Language | Unknown | + + + | Marital Status | | + + + | Nondenominational Affiliation | CAT | + + + [...] Team Providers + +------+ + | Care Logging Crew Supervisor Name | Role | Phone | [...]
--- OUTSIDE RECORDS SUMMARY | ~2019-09-02 | XMS | Encounter Summary ---
Demographics + + + | Address | [address] | | | [place] [address] | + + + | Home Phone | | + + + | Preferred Language | Unknown | + + + | Marital Status | | + + + | Alevism Affiliation | 1041 | + + + | Race | Unknown | + + + | Ethnic Group | Unknown | + + + Author + + + | Author | [facility] | | | and [place] | + + + | Organization | [facility] [...] Team Providers + +------+ + | Care Motorcycle Assembler Name | Role | Phone | [...] [address] | | | | | [address] | [place], | | | | | [phone] | [place] [id number] | | | | | | [phone] | | | | | | | [...] | | | IgG | performed at [facility], [address] | | | | | | [address] [facility] | | | | | | [place] [id number] | | | | + + + [...] | jose miguel IgE | performed at [facility], [address] | | LAB | | | | [facility] | | | | | | [place] [address] | | | | + + + [...]
--- OUTSIDE RECORDS SUMMARY | ~2019-09-02 | XMS | Encounter Summary ---
Demographics + + + | Address | [address] | | | [place] [address] | + + + | Home Phone [...] Author | [facility] | | | and [place] | + + + | Organization | [facility] [...] Team Providers + +------+ + | Care Crm Manager Name | Role | Phone | [...] MED CTR GENERIC OP | [address], [place] | | | | | CONV DEPT [address] | [address] [place], [place] | | | | | [address] [place], | [address] | | | | | [place] [address] | | | | | | [phone] | | | +--------+ + + + [...]
--- OUTSIDE RECORDS SUMMARY | ~2019-09-02 | XMS | Clinical Summary ---
Demographics + + + | Address | [address] | | | [place] [address] | + + + | Home Phone [...] Team Providers + +------+ + | Care Electronic Data Processing Auditor Name | Role | Phone | + +------+ + | Jesse Chand MD | PCP | | + +------+ + Source Comments IRMA is fully live on both EpicCare Ambulatory and EpicCare InPatient.Count Includes [facility] Allergies + + + + + + [...] | B | | for | | [place], [place] | | | | | | all | | [address] | | | | | | dates | | | | + +--------+ +--------+ + +--------+ | [employer] [place] | MUTUAL | [id number] | Effect | [phone] | [address] | Indemn | | MEDICARE SUPPL | OF | | jane | 0 | [employer] | ity | | | [place] | | for | | [place] [address] | | | | MEDICA | | all | | [place] | | | | RE | | dates | | [address] | | | | SUPPL | | | | | | + +--------+ +--------+ + +--------+ | [employer] | MODA | [phone] | | [phone] | [address] | PPO | | | [address] | | [phone] | [phone] | | | | [address] | | esent | | [place], | | | | [place] | | | | [place] [address] | | + +--------+ +--------+ + +--------+ [...] | | 7 (Home) | [place] [address] | | | | | | [phone] | | | | | | | 2 (Work) | | + +--------+ +--------+ + + | Jocelyne Montez | Person | Self | [birth year] | [address] | | | al/Fam | | 1950 | [phone] | [address] | | | mike | | | 7 (Home) | [place] [address] | | | | | | [phone] | | | | | | | 2 (Work) | | + +--------+ +--------+ + +
--- OUTSIDE RECORDS SUMMARY | ~2019-09-02 | XMS | Encounter Summary ---
Demographics + + + | Address | [address] | | | [place] [address] | + + + | Home Phone | | + + + | Preferred Language | Unknown | + + + | Marital Status | | + + + | Religion Affiliation | 1041 | + + + | Race | Unknown | + + + | Ethnic Group | Unknown | + + + Author + + + | Author | [facility] | | | and [place] | + + + | Organization | [facility] | | | and [place] [...] Team Providers + +------+ + | Care Medical Sonographer Name | Role | Phone | + [...] Thoracic or | [place], | [address] | | | | | lumbosacral | Flakito Peter MD | [place], | | | | | neuritis or | [address] | [place] | | | | | | [place] | [address] | | | | | radiculitis, | [place], [place] | Phone: | | | | | unspecified | [address] | [phone] | | | | | Procedures | Phone: | Fax: | | | | | ID INJECT | [phone] | [phone] | | | | | ANES/STEROID | Fax: | | | | | | FORAMEN | [phone] | | | | | | LUMBAR/SACRA | | | | | | | L W IMG | | | | | | | GUIDE ,1 | | | | | | | LEVEL ID | | | | | | | [...] + + + + | 08/27/ | [facility] | [facility] | Flakito Nicholson | Lumbar radiculopathy | | 2014 | Encounter | MED CTR XRAY [address] | T, [address] | | | | | [place] | [facility] [place] | | | | | [place] [address] | [id number] | | | | | [phone] | | | | | | | Switch TenderMario | | | | | | aguila [...] radiculopathy ICD-9 Code 724.4 Jocelyne Montez | [facility] | | presents to the fluoroscopy suite for a fluoroscopically-guided [facility] | | L5-S1 transforaminal epidural steroid injection [...] [address] | [place] | [phone] | | [facility] | | [address] | | | - IMAGING | | [...]
--- OUTSIDE RECORDS SUMMARY | ~2019-09-02 | XMS | Encounter Summary ---
Demographics + + + | Address | [address] | | | [place] [address] | + + + | Home Phone [...] Author | [facility] | | | and [place] | + + + | Organization | [facility] | [...] Team Providers + +------+ + | Care Batch Heat Treat Operator Name | Role | Phone | [...] [address] [facility] | | | | | [place], [place] | [place] [address] | | | | | [address] | [phone] | | | | | [phone] | | | +--------+ + + + [...]
--- OUTSIDE RECORDS SUMMARY | ~2019-09-02 | XMS | Encounter Summary ---
Demographics + + + | Address | [address] | | | [place] [address] | + + + | Home Phone [...] [facility] | | | and [place] | + + + | Organization | [facility] | | | and [place] | [...] Team Providers + +------+ + | Care Learning And Development Coordinator Name | Role | Phone | [...] 2014 | | PHYSIATRY [address] | DEVELOPMENT MANAGER | (Primary Dx) | | | | [address] | | | | | | [place] | | | | | | [address] | | | | | | [phone] | | | +--------+ + + + [...] to the fluoroscopy suite for a fluoroscopically-guided [facility] | | L5-S1 transforaminal epidural steroid injection [...] [address] | [place] | [phone] | | [facility] | | [address] | | | - IMAGING | | | | + + + + + documented in this encounter Visit Diagnoses + + | Diagnosis | + + | Lumbar radiculopathy - Primary Thoracic or lumbosacral neuritis or radiculitis, | | unspecified | + + documented in this encounter"
--- OUTSIDE RECORDS SUMMARY | ~2019-09-02 | XMS | Encounter Summary ---
Demographics + + + | Address | [address] | | | [place] [address] | + + + | Home Phone [...] Author | [facility] | | | and [place] | + + + | Organization | [facility] | | | and [...] Providers + +------+ + | Care Service Desk Manager Name | Role | Phone | + +------+ + | Garcia Valle MD | PCP | | + +------+ + Encounter Details +--------+ + + + + | Date | Type | Department | Care Team | Description | +--------+ + + + + | 05/25/ | Imaging | [facility] | Provider, | | | 2019 | Exam | MED CTR EXTERNAL | MD [address] | | | | | IMAGING [address] | [address] | | | | | [address] [place] | [place] [address] | | | | | [place] [address] | | | | | | [phone] | | | +--------+ + + + [...]
--- OUTSIDE RECORDS SUMMARY | ~2019-09-02 | XMS | Encounter Summary ---
Demographics + + + | Address | [address] | | | [place] [address] | + + + | Home Phone | | + + + | Preferred Language | Unknown | + + + | Marital Status | | + + + | Advent Affiliation | CAT | + + + | Race | White | + + + | Ethnic Group | Not or | + + + Author + + + | Author | [facility] | + + + | Organization | [facility] | + + + | Address | Unknown | + + + | Phone | Unavailable | + + + Support + + +---------+ + | Name | Relationship | Address | Phone | + + +---------+ + | Charlene Rouse | ECON | Unknown | | + + +---------+ + Care Team Providers + +------+ + | Care Construction Scheduler Name | Role | Phone | + +------+ + | Jesse Chand MD | PCP | | + +------+ + Encounter Details +--------+ + + + + | Date | Type | Department | Care Team | Description | +--------+ + + + + | 07/29/ | Hospital | Diagnostic Imaging | [place], | | | 2016 | Encounter | Services at [facility] | Mamta Argueta PA-C | | | | | [address] | [address] | | | | | [place] | [place], [place] | | | | | [facility], 10th Floor | [address] | | | | | [place], [place] | [phone] | | | | | [address] | | | | | | [phone] | | | +--------+ + + + [...] + +--------+ + + + | X-RAY ESOPHAGRAM | Routin | 07/29/2016 | Dysphagia, | Results for this | | | e | 12:08 PM | unspecified type | procedure are in the | | | | PDT | | results section. | + +--------+ + + + | MODIFIED BARIUM | Routin | 07/29/2016 | Dysphagia, | Results for this | | SWALLOWING | e | 12:08 PM | unspecified type | procedure are in the | | [...] Note | + + | Service Account, CE[employer] Tech Res In Interface - 07/29/2016 3:56 PM [...] + | Diagnosis | + + | Dysphagia, unspecified type | + + documented in this encounter"
--- OUTSIDE RECORDS SUMMARY | ~2019-09-02 | XMS | Encounter Summary ---
Demographics + + + | Address | [address] | | | [place] [address] | + + + | Home Phone | | + + + | Preferred Language | Unknown | + + + | Marital Status | | + + + | Pentecostalism Affiliation | CAT | + + + | Race | White | + + + | Ethnic Group | Not or | + + + Author + + + | Author | [facility] | + + + | Organization | [facility] | + + + | Address | Unknown | + + + | Phone | Unavailable | + + + Support + + +---------+ + | Name | Relationship | Address | Phone | + + +---------+ + | Charlene Rouse | ECON | Unknown | | + + +---------+ + Care Team Providers + +------+ + | Care Ctrs Name | Role | Phone | + [...] | | | | | | | [address] | | | | | | | [address] | | | | | | | [address], [address] | | | | | | | floor | | | | | | | [place], [place] | | | | | | | [address] | | | | | | | Phone: | | | | | | | [phone] | | | | | | | Fax: | | | | | | | [phone] | +--------+--------+ + + + + Encounter Details +--------+---------+ + + + | Date | Type | Department | Care Team | Description | +--------+---------+ + + + | 08/29/ | [facility] | [facility] | Wesley Terry, | Myalgia; Frequent | | 2007 | Visit | [facility] | [address] | Bowel Movements | | | | Pavilion [address] | [address] | | | | | [address] | [place], [place] | | | | | [address], 7th floor | [address] | | | | | [place], [place] | [phone] | | | | | [address] | | | | | | [phone] | | | +--------+---------+ + + + [...] questionnaire found in the scanned documents in [employer]. They have also been entered into the [employer] database. PHYSICAL EXAM HEIGHT: 5ft 1ins. WEIGHT 132.5pounds BLOOD PRESSURE 167/93 BMI [id number]/m2 GENERAL: Healthy appearing, no acute distress NECK: [...] | + + +--------+ + + | MD | Procedures | Routin | | Ordered: [...] [place] | [address] | [place], [place] | | | [place] [facility] | [address] | [address] | | | TESTS | | | | + + + + + | [facility] | [address] | [place], [place] | | | TESTS | [facility] | [address] | | + + + + + documented in this encounter Visit Diagnoses + + | Diagnosis | + + | Myalgia Mylagia and myositis, unspecified | + + | Frequent bowel movements Other symptoms involving digestive system | + + documented in this encounter
--- OUTSIDE RECORDS SUMMARY | ~2019-09-02 | XMS | Encounter Summary ---
Demographics + + + | Address | [address] | | | [place] [address] | + + + | Home Phone [...] | Author | [facility] | | | and [place] | + + + | Organization | [facility] | | [...] [address] [place] | | | | | [address] | [place], | | | | | [phone] | [place] [address] | | | | | | [phone] | | | | | | | [...] | | | IgG | performed at [facility], [address] | | | | | | [address] [facility] | | | | | | [place] [address] | | | | + + + [...] | | LAB | | | | [facility] | | | | | | [place] [address] | | | | + + + [...]
--- OUTSIDE RECORDS SUMMARY | ~2019-09-02 | XMS | Encounter Summary ---
Demographics + + + | Address | [address] | | | [place] [address] | + + + | Home Phone [...] | Author | [facility] | | | and [place] | + + + | Organization | [facility] | | | and [...] Team Providers + +------+ + | Care Drier Tender Naphthalene Name | Role | Phone | + +------+ + PCP | Unavailable | + +------+ + Encounter Details +--------+ + + + + | Date | Type | Department | Care Team | Description | +--------+ + + + + | 04/04/ | Hospital | [facility] | Wilder Mosquera MD | | | 1998 | Encounter | MED CTR GENERIC OP | [address], [place] | | | | | CONV DEPT [address] | [address] [place], [place] | | | | | [address] [place], | [address] | | | | | [place] [address] | | | | | | [phone] | | | +--------+ + + + [...]
--- OUTSIDE RECORDS SUMMARY | ~2019-09-02 | XMS | Encounter Summary ---
Demographics + + + | Address | [address] | | | [place] [address] | + + + | Home Phone [...] + | Author | [facility] | | | and [place] | + + + | Organization | [facility] | | | and [...] Providers + +------+ + | Care Behavioral Specialist Name | Role | Phone | + +------+ + PCP | Unavailable | + +------+ + Encounter Details +--------+ + + + + | Date | Type | Department | Care Team | Description | +--------+ + + + + | 06/05/ | Hospital | [facility] | Wilder Mosquera MD | | | 1996 | Encounter | MED CTR GENERIC OP | [address], [place] | | | | | CONV DEPT [address] | [address] [place], [place] | | | | | [place], | [address] | | | | | [place] [address] | | | | | | [phone] | | | +--------+ + + + [...]
--- OUTSIDE RECORDS SUMMARY | ~2019-09-02 | XMS | Encounter Summary ---
Demographics + + + | Address | [address] | | | [place] [address] | + + + | Home Phone | | + + + | Preferred Language | Unknown | + + + | Marital Status | | + + + | Confucianism Affiliation | CAT | + + + | Race | White | + + + | Ethnic Group | Not or | + + + Author + + + | Author | [facility] | + + + | Organization | [facility] [employer] [facility] | + + + | Address | Unknown | + + + | Phone | Unavailable | + + + Support + + +---------+ + | Name | Relationship | Address | Phone | + + +---------+ + | Charlene Rouse | ECON | Unknown | | + + +---------+ + Care Team Providers + +------+ + | Care Telesales Professional Name | Role | Phone | + [...] | | [facility] | [address] [facility] | | | | | [address] | [facility] | | | | | [address] | [place], [place] | | | | | [place], [address] [place] [address] | [address] | | | | | [place], [place] | [phone] | | | | | [address] | | | | | | [phone] | | | +--------+ + + + [...]
--- OUTSIDE RECORDS SUMMARY | ~2019-09-02 | XMS | Encounter Summary ---
Demographics + + + | Address | [address] | | | [place] [address] | + + + | Home Phone [...] Author | [facility] | | | and [place] | + + + | Organization | [facility] | | | and [place] [...] Team Providers + +------+ + | Care Skidder Name | Role | Phone | + +------+ + | Jesse Chand MD | PCP | | + +------+ + Encounter Details +--------+ + + + + | Date | Type | Department | Care Team | Description | +--------+ + + + + | 01/07/ | Hospital | [facility] | Moe Paiz | Chronic cough; | | 2016 | Encounter | [facility] | MD Moira [address] | Gastroesophageal | | | | INTRA OP [address] | [place] [address] | reflux disease, | | | | BLVD [place], [place] | [phone] | esophagitis presence | | | | [address] | | not specified; | | | | [phone] | | Colon cancer | | | [...] 01/08/161119 Date of Service: 01/08/161119 Status: Signed Drag Sawyer: Moe Paiz MD (Physician) [facility] Service: Gastroenterology Brief Post-op Discharge [...] preparation was | | | performed by [employer], [facility], [facility] | | | [place] [address] (Podiatry Teacher: Bernardo Montiel M.D.; [facility]#: [id number]). Diagnostician: Bernardo Vilchis | Pathologist Electronically Signed [...]
--- OUTSIDE RECORDS SUMMARY | ~2019-09-02 | XMS | Encounter Summary ---
Demographics + + + | Address | [address] | | | [place] [address] | + + + | Home Phone | | + + + | Preferred Language | Unknown | + + + | Marital Status | | + + + | Hinduism Affiliation | 1041 | + + + | Race | Unknown | + + + | Ethnic Group | Unknown | + + + Author + + + | Author | [facility] | | | and [place] | + + + | Organization | [facility] | [...] Team Providers + +------+ + | Care Ndt Inspector Name | Role | Phone | + +------+ + PCP | Unavailable | + +------+ + Encounter Details +--------+ + + + + | Date | Type | Department | Care Team | Description | +--------+ + + + + | 06/29/ | Hospital | [facility] | Wilder Mosquera MD | | | 2000 | Encounter | MED CTR XRAY [address] | [address] | | | | | [address] [place] | [address] [place], [place] | | | | | [place] [address] | [address] | | | | | [phone] | | | +--------+ + + + [...]
--- OUTSIDE RECORDS SUMMARY | ~2019-09-02 | XMS | Encounter Summary ---
Demographics + + + | Address | [address] | | | [place] [address] | + + + | Home Phone | | + + + | Preferred Language | Unknown | + + + | Marital Status | | + + + | Holiness Affiliation | 1041 | + + + | Race | Unknown | + + + | Ethnic Group | Unknown | + + + Author + + + | Author | [facility] | | | and [place] | + + + | Organization | [facility] [...] Providers + +------+ + | Care Senior Oracle Developer Name | Role | Phone | [...] | | | [address] [place] | [place] [address] | | | | | [place] [address] | | | | | | [phone] | | | +--------+ + + + [...]
--- OUTSIDE RECORDS SUMMARY | ~2019-09-02 | XMS | Encounter Summary ---
Demographics + + + | Address | [address] | | | [place] [address] | + + + | Home Phone [...] | [facility] | | | and [place] | + + + | Organization | [facility] | | [...] Providers + +------+ + | Care Administrative Assistant Data Entry Name | Role | Phone | + [...] [address] | | | | | | [place], [place] | | | | | | [address] | | | | | | [phone] | | | +--------+ + + + [...]
--- OUTSIDE RECORDS SUMMARY | ~2019-09-02 | XMS | Encounter Summary ---
Demographics + + + | Address | [address] | | | [place] [address] | + + + | Home Phone [...] + | Author | [facility] | | | and [place] | + + + | Organization | [facility] | | | and [...] Team Providers + +------+ + | Care Mobile Product Manager Name | Role | Phone | [...] + + | 05/19/ | Hospital | [facility] | Jon Carpio MD | Acute coronary | | 2019 - | Encounter | MED CTR ICU [address] | [address] | syndromes (HCC); | | | | [place] [employer], | [place] | Dyslipidemia; | | 05/20/ | | [place] [address] | [address] | Essential (primary) | | 2019 | | [phone] | | hypertension; | | | | | Eduinh, | Syncope, vasovagal; | | | | | MD Daiana [address] | Prinzmetal angina | | | | | [address] [place] | ([facility]) | | | | | [place] [address] | | | | | | [phone] | | | | | | | [...] Walker MD - 05/20/2018 1:50 PM PST [place], [place] HOSPITALIST DISCHARGE SUMMARY Pt. Name/Age/: Anthony [...] in the bathroom. Went to [facility] where workup re vealed troponin 0.082. EKG showed normal sinus rhythm. Transferred to [facility] for further cardiac evaluation. Seen by Dr [...] Medicine Why: Hospital follow up Contact information: [facility] [place] [address] Condition: stable Diet: general Less than 30 minutes were spent on discharge and coordination of post-hospital care. Electronically signed by: Suyapa Walker MD, 05/20/2018 13:50 [facility] documented in this enco unter Discharge [...] approved Heparin Infusion Protocol Electronically signed by: Glibert Arroyo, PharmD 05/19/2018 19:49 ara Arroyo, Cardiology Specialist - 05/19/2018 11:51 AM PST HEPARIN MONITORING AND DOSING PER PHARMACY Anthony Montez is a 68 y.o. female admitted on 05/19/2018 8:18. Heparin infusion is orde red. Diagnosis: ACS Protocol: CARDIAC DOSE 0.2- 0.4 units/mL Maximums: bolus 7,000 units, infusion 1,400 unit/h r Initial assessment: Describe any recent anticoagulant use prior to heparin initiation: NONE If FIRE FIGHTERS DISPATCHER medlist shows Xa inhibitor oral agent or [...] Infusion Protocol Electronically signed by: Mara Arroyo, Cardiology Specialist 05/19/2018 11:51 documented in this encounter Plan [...] [address] | [place] | [phone] | | [facility] | | [address] | | | - LABORATORY | | [...] [address] | [place] | [phone] | | [facility] | | [address] | | | - LABORATORY | | [...] + | [facility] | [address] | [place] | [phone] | | [facility] | | [address] | | | - LABORATORY | | [...] mL/min/1.73m2 | [facility] | | | [facility] | RATE,ESTIMATED | | MEDICAL | | | | mL/min/1.16p7Dexi than | | CENTER - | | [...] | 8.7 | 8.3 - 10.5 | [facility] | | | | | mg/dL | [facility] | | | | | | MEDICAL | | | | | | CENTER - | | | | | | LABORATORY | | + + + + + + | Albumin | 3.8 | 3.2 - 5.0 g/dL | [facility] | | | | | | [facility] | | | | | | MEDICAL [...] [address] | [place] | [phone] | | [facility] | | [address] | | | - LABORATORY | | [...] 0.70 IU/mL | [facility] | | | [facility] | | | [facility] | | | - LABORATORY | + + + + + + + + | Performing | Address | City/State/Zipcode | Phone Number | | Organization | | | | + + + + + | [facility] | [address] | [place] | [phone] | | [facility] | | [address] | | | - LABORATORY | | [...] | | | | | | [employer] | | | | | [...] [address] | [place] | [phone] | | [facility] | | [address] | | | - LABORATORY | | [...] | | | | | | n [place] | | | | | + +--------+ [...] 457 [address]BIL | | | Patient Number [id number] Date of Study | | | 05/19/2018 Visit Number [id number] Accession | | | [id number] Referring Physician NATACHA Number | | | | | | SENTHILRAJ Date of 1950 Food Mobile Driver | | | DARIUS HOLLOWAY Age 68 year(s) | | | Interpreting NATACHA | | | Flooring Installer DAIANA | | | | | | LUCIA FONSECA MD | | | MARLENY HINES MD Gender | | | Female Nurse | | | Stress Stroboroma Operator Procedure Type of Study TTE procedure: ECHO [...] Diastolic: 0.88 cm EF | | | Cjatvybvz50% EF Calculated: 75% Miscellaneous Aorta Aortic Root: [...] Diastolic: 0.88 cm | | | EF Vfucwopwj15% | | | EF Calculated: 75% | | | | | | Miscellaneous | | | | | | Aorta | | | | | | Aortic Root: 2.81 cm | | | Ascending Aorta: 2.82 cm | | | | | + + + + + | Procedure Note | + + | Anton Rios In - 06/02/2018 1:10 PM [facility] Transthoracic Echocardiography Report | | (TTE) Demographics Patient Name LISA CRUZ Room Number 457 | | SYBIL Patient Number [id number] Date of Study 05/19/2018 Visit Number | | [id number] Referring Physician JACEKFELIPE Number | | SENTHILRAJ Date of 1950 | | Food Mobile Driver DARIUS HOLLOWAY Age 68 year(s) Interpreting | | NATACHA Flooring Installer DAIANA | | LUCIA FONSECA MD | [...] PW | | Diastolic: 0.88 cm EF Edjkpggpb55% EF Calculated: 75% Miscellaneous Aorta Aortic Root: [...] PW Diastolic: 0.88 cm | | EF Qwqcvjiiz64% | | EF Calculated: 75% | | [...] | | | | BRITTA BAKER MD ([id number]) | | | | | | on [...] + | [facility] | [address] | [place] | [phone] | | [facility] | | [address] | | | - LABORATORY | | [...] [address] | [place] | [phone] | | [facility] | | [address] | | | - LABORATORY | | [...] | [address] | [place] | [phone] | | [facility] | | [address] | | | - LABORATORY | | [...] [address] | [place] | [phone] | | [facility] | | [address] | | | - LABORATORY | | [...] 7 | 7 - 18 mg/dL | [facility] | | | | | | [facility] | | | | | | MEDICAL | | | | | | CENTER - | | | | | | LABORATORY | | + + + + + + | Creatinine | 0.82 | 0.60 - 1.30 | [facility] | | | | | mg/dL | [facility] | | | | | | MEDICAL | | | | | | CENTER - | | | | | | LABORATORY | | + + + + + + | eGFR if not | >60Comment: GLOMERULAR | >=60 | [facility] | | | | FILTRATION | mL/min/1.73m2 | [facility] | | | [place] | RATE,ESTIMATED | | MEDICAL | | | | mL/min/1.53d7Xxfg than | | CENTER - | | [...] [address] | [place] | [phone] | | [facility] | | [address] | | | - LABORATORY | | [...] | | | | | | [employer] | | | | | [...] [address] | [place] | [phone] | | [facility] | | [address] | | | - LABORATORY | | [...] [address] | [place] | [phone] | | [facility] | | [address] | | | - LABORATORY | | [...]
--- OUTSIDE RECORDS SUMMARY | ~2019-09-02 | XMS | Encounter Summary ---
Demographics + + + | Address | [address] | | | [place] [address] | + + + | Home Phone | | + + + | Preferred Language | Unknown | + + + | Marital Status | | + + + | Christianity Affiliation | CAT | + + + | Race | White | + + + | Ethnic Group | Not or | + + + Author + + + | Author | [facility] | + + + | Organization | [facility] [employer] [facility] | + + [...] Providers + +------+ + | Care Insulation Helper Name | Role | Phone | + +------+ + | Jesse Chand MD | PCP | | + +------+ + Encounter Details +--------+ + + + + | Date | Type | Department | Care Team | Description | +--------+ + + + + | 07/29/ | Hospital | Diagnostic Imaging | [place], | | | 2016 | Encounter | Services at [facility] | Mamta Argueta PA-C | | | | | [address] | [address] | | | | | [place] | [place], [place] | | | | | [facility], 10th Floor | [address] | | | | | [place], [place] | [phone] | | | | | [address] | | | | | | [phone] | | | +--------+ + + + [...] Note | + + | Service Account, [employer] Res In Interface - 07/29/2016 3:56 PM [...]
--- OUTSIDE RECORDS SUMMARY | ~2019-09-02 | XMS | Encounter Summary ---
Demographics + + + | Address | [address] | | | [place] [address] | + + + | Home Phone [...] + + + | Author | [facility] | + + + | Organization | [facility] | + + + | Address | Unknown | + + + | Phone | Unavailable | + + + Support + + +---------+ + | Name | Relationship | Address | Phone | + + +---------+ + | Charlene Rouse | ECON | Unknown | | + + +---------+ + Care Team Providers + +------+ + | Care Knife Machine Operator Name | Role | Phone [...] | | | | CONSULT TO | [place], [place] | [facility] floor | | | | | ENT SPEECH | [address] | [place], [place] | | | | | THERAPY | Phone: | [address] | | | | | | [phone] | Phone: | | | | | | Fax: | [phone] | | | | | | [phone] | Fax: | | | | | | | [phone] | +--------+--------+ + + + + Reason [...] S | | | | | | [address] | [address] | | | | | | [place], | [place], [place] | | | | | | [place] [address] | [address] | | | | | | Phone: | Phone: | | | | | | [phone] | [phone] | | | | | | Fax: | Fax: | | | | | | [phone] | [phone] | + +--------+ + + + + [...] [address] | [address] | Dysphagia, | | | | Ave [place], [place] | [place], [place] | unspecified type; | | | | [address] | [address] | Laryngeal | | | | [phone] | [phone] | hyperfunction; | | | | | [...] Josefina Jeffers MA - 07/08/2016 1:00 PM PDTThank you for choosing [facility] Department of Otolaryngology for your health care needs. If you need to speak to an ENT physician after normal business hours, please call [phone] and ask to have the ENT phys ician television technician paged. 1. Start prednisone 30mg (3 tablets) in the morning daily for 2 weeks. I want to see you jessu chen on the last day of the [...] instruments: Description #1: laryngoscope Serial ID #1: [id number] Mamta Silva PA-C - 07/08/2016 1:00 PM PDTFormatting of this note might be different from the enmanuela l. PATIENT: Jocelyne Montez MR#: [id number] : 1950 REQUESTING PROVIDER: Jesse Chand MD [facility] [address] [facility] [address] [place] [address] PRIMARY CARE PROVIDER: Jesse Chand MD CLINIC: [facility] for Voice and Swallowing CHIEF COMPLAINT: Chronic cough HPI: Jocelyne Montez is a 66 y.o. female who is referred to the [facility] for Vo ice and Swallowing for evaluation of cough by her booster pump operator Dr. Golden. She reports co [facility] for the past 4 years. Around the onset of her cough she reports pain in her throat which prompted her to seek evaluation with an appliance fixer in the [facility] area, she is unsur e of [...] so severe she is not going to restorationist. She has cough paroxy sms. She has [...] ed. She is unable to sing in restorationist anymore. Her pitch is lower and she [...] is retired. 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. Her vocal demands are primarily those [...] hyperfunction which is most notable in the anterior-research mechanic ior and lateral dimensions. There is not [...] worsening of her symptoms. Maricel Zambrano PA-C [facility] for Voice and Swallowing Department of [...] + + | [place] | Routin | 07/14/2016 | Chronic cough [...] Note | + + | Service Account, [employer] Res In Interface - 07/29/2016 3:56 PM [...]
--- OUTSIDE RECORDS SUMMARY | ~2019-09-02 | XMS | Clinical Summary ---
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 | + + + + + [...] 2020 | Visit | | MD | ([facility]) (Primary Dx) | +--------+---------+ + + + [...] | | | | LUDA LIZARRAGA MD ([id number]) on | | | | | | [...] +--------+ +---------+--------+ | MEDICARE | MEDICA | [id number] | | [phone] | | Medica | | | RE | | 017-Pr | 5 | | re | | | PART A | | esent | | | | | | AND B | | | | | | + +--------+ +--------+ +---------+--------+ | [employer] | MUTUAL | [id number] | | [phone] | | Indemn | | | AND | | 017-Pr | 0 | | ity | | | UNITED | | esent | | | | | | ENTERPRISE | | | | | | | | MDCR | | | | | | | | SUPPL | | | | | | + +--------+ +--------+ +---------+--------+ | MEDICARE | MEDICA | [id number] | | [phone] | | Medica | | | RE | | 017-Pr | 5 | | re | | | PART A | | esent | | | | | | AND B | | | | | | + +--------+ +--------+ +---------+--------+ | [employer] | MUTUAL | [id number] | | [phone] | | Indemn | | | OF | | 017-Pr | 0 | | ity | | | ENTERPRISE | | esent | | | | [...] | | al/Fam | | 1949 | [phone] | [address] | | | mike | | | 7 (Home) | [place] [address] | | | | | | [phone] | | | | | | | 2 (Work) | | + +--------+ +--------+ + + | Jocelyne Montez | Person | Self | [birth year] | [address] | | | al/Fam | | 1949 | [phone] | [address] | | | mike | | | 7 (Home) | [place] [address] | + +--------+ +--------+ + + Advance Directives + + + + + | Type | Date Recorded | Patient | Explanation | | | | Doctor Naturopathic | | + + + + + | Power of | | | | | Workforce Staffing Advisor | | | | + + + [...]
--- OUTSIDE RECORDS SUMMARY | ~2019-09-02 | XMS | Encounter Summary ---
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
--- OUTSIDE RECORDS SUMMARY | ~2019-09-02 | XMS | Encounter Summary ---
Demographics + + + | Address | [address] | | | [place] [address] | + + + | Home Phone | | + + + | Preferred Language | Unknown | + + + | Marital Status | | + + + | Hinduism Affiliation | 1041 | + + + | Race | Unknown | + + + | Ethnic Group | Unknown | + + + Author + + + | Author | [facility] | | | and [place] | + + + | Organization | [facility] | | [...] Providers + +------+ + | Care Manager Heart Name | Role | Phone | + [...] + + | 06/19/ | Refill | [facility] | Homero Lizarraga, | Medication Refill | | 2019 | | [facility] | [address] | | | | | [address] | [place] [address] | | | | | [place], [place] | [phone] | | | | | [address] | | | | | | [phone] | | | +--------+--------+ + + + [...]
--- OUTSIDE RECORDS SUMMARY | ~2019-09-02 | XMS | Encounter Summary ---
Demographics + + + | Address | [address] | | | [place] [address] | + + + | Home Phone [...] Author | [facility] | | | and [place] | + + + | Organization | [facility] [...] Team Providers + +------+ + | Care Animal Anatomy Teacher Name | Role | Phone | + +------+ + PCP | Unavailable | + +------+ + Encounter Details +--------+ + + + + | Date | Type | Department | Care Team | Description | +--------+ + + + + | 09/29/ | Hospital | [facility] | Talon Torres, | | | 1993 - | Encounter | MED CTR GENERIC IP | MD [address] [facility] | | | | | CONV DEPT [address] | [place], [place] | | | 10/04/ | | [place], | [address] | | | 1993 | | [place] [address] | | | | | | [phone] | | | +--------+ + + + [...]
--- OUTSIDE RECORDS SUMMARY | ~2019-09-02 | XMS | Encounter Summary ---
Demographics + + + | Address | [address] | | | [place] [address] | + + + | Home Phone [...] + | Author | [facility] | | | and [place] | + + + | Organization | [facility] | | | and [place] [...] Team Providers + +------+ + | Care Field Attendant Name | Role | Phone | + +------+ + PCP | Unavailable | + +------+ + Encounter Details +--------+ + + + + | Date | Type | Department | Care Team | Description | +--------+ + + + + | 05/28/ | Hospital | [facility] | Wilder oMsquera MD | | | 2000 | Encounter | MED CTR GENERIC OP | [address] [place] | | | | | CONV DEPT [address] | [address] [place], [place] | | | | | [place], | [address] | | | | | [place] [address] | | | | | | [phone] | | | +--------+ + + + [...]
--- OUTSIDE RECORDS SUMMARY | ~2019-09-02 | XMS | Encounter Summary ---
Demographics + + + | Address | [address] | | | [place] [address] | + + + | Home Phone | | + + + | Preferred Language | Unknown | + + + | Marital Status | | + + + | Baptism Affiliation | CAT | + + + | Race | White | + + + | Ethnic Group | Not or | + + + Author + + + | Author | [facility] | + + + | Organization | [facility] | + + + | Address | Unknown | + + + | Phone | Unavailable | + + + Support + + +---------+ + | Name | Relationship | Address | Phone | + + +---------+ + | Charlene Rouse | ECON | Unknown | | + + +---------+ + Care Team Providers + +------+ + | Care Histological Illustrator Name | Role | Phone | + [...] | | | | CONSULT TO | [place], [place] | [facility] floor | | | | | ENT SPEECH | [address] | [place], [place] | | | | | THERAPY | Phone: | [phone] | | | | | | [phone] | Phone: | | | | | | Fax: | [phone] | | | | | | [phone] | Fax: | | | | | | | [phone] | +--------+--------+ + + + + Encounter Details +--------+ + + + + | Date | Type | Department | Care Team | Description | +--------+ + + + + | 07/29/ | Diagnostic | Otolaryngology | Jasmine Contreras | | | 2017 | Visit | Speech Therapy | | | | | | Services at [facility] | | | | | | [address] | | | | | | [address] [facility] | | | | | | [address], [address] [place] [address] | | | | | | [place], [place] | | | | | | [address] | | | | | | [phone] | | | +--------+ + + + [...] Chi - 07/29/2016 11:00 AM PDT Clinic: [facility] Referring Physician: Jesse Chand MD [facility] [address] [place] [address] PCP: Jesse Chand MD Medical Diagnosis: Chronic [...] oatmeal, hamburger , corn on the cob, german salad. WEIGHT: The patient reports she has gained ~ 25 lbs over the past 3 years. Wt Readings from Last 3 Encounters: 07/29/16 77.1 kg (170 lb) 07/08/16 78 kg (172 lb) 08/30/07 60.1 kg (132 lb 8 oz) SOCIAL HISTORY: The patient currently lives in [place], [place]. COMMUNICATION/SPEECH STATUS: The patient communicates verbally. Speech quality was noted to be normal. Voice quality was clear. In terms of respiration, the patient is breathing easil y at rest. She reports improved breathing since began using bipap for sleep apnea. ORAL-MOTOR EXAMINATION: The patient s ouzinkie dentition is significant for few missing mol ars on right bottom. Normal exam. Cough strength normal. MODIFIED BARIUM SWALLOW STUDY: Prior to starting the study, the patient's name and were verified. The patient was eval uated in the [facility] 10th floor Radiology suite & was [...] you for this consult. Jasmine Contreras MA, CF-ALIGNMENT TECHNICIAN Speech-Language Pathology Fellow [facility] Dept. of Otolaryngology, [id number] [address] Pager: [phone] documented in this encount er Plan of Treatment Not on filedocumented as of this encounter Procedures + +--------+ + + + | Procedure Name | Priori | Date/Time | Associated Diagnosis | Comments | | | ty | | | | + +--------+ + + + | VT EVAL,SWALLOW | Routin | 08/02/2016 | Esophageal | | | FUNCTION,CINE/VIDEO | e | 8:31 PM | dysphagia | | | RECORD | | PDT | Esophageal | | | | | | dysmotility Chronic | | | | | | cough | | + +--------+ + + + | VT EVAL,ORAL & | Routin | 08/02/2016 | [...]
--- OUTSIDE RECORDS SUMMARY | ~2019-09-02 | XMS | Encounter Summary ---
Demographics + + + | Address | [address] | | | [place] [address] | + + + | Home Phone [...] + + | Author | [facility] | | | and [place] | + + + | Organization | [facility] | [...] Team Providers + +------+ + | Care Cyber Software Engineer Name | Role | Phone | [...] | | | | | [address] [facility] [address] | | | | | | [place] | | | | | | [address] | | | | | | [phone] | | | +--------+ + + + [...]
--- OUTSIDE RECORDS SUMMARY | ~2019-09-02 | XMS | Encounter Summary ---
Demographics + + + | Address | [address] | | | [place] [address] | + + + | Home Phone | | + + + | Preferred Language | Unknown | + + + | Marital Status | | + + + | Islam Affiliation | 1041 | + + + | Race | Unknown | + + + | Ethnic Group | Unknown | + + + Author + + + | Author | [facility] | | | and [place] | + + + | Organization | [facility] | [...] Providers + +------+ + | Care Certified Medical Asst Name | Role | Phone | + +------+ + PCP | Unavailable | + +------+ + Encounter Details +--------+ + + + + | Date | Type | Department | Care Team | Description | +--------+ + + + + | 01/02/ | Hospital | [facility] | Wilder Mosquera MD | | | 1990 | Encounter | MED CTR GENERIC OP | [address] [place], [place] | | | | | CONV DEPT [address] | [address] [place], [place] | | | | | [place], | [address] | | | | | [place] [address] | | | | | | [phone] | | | +--------+ + + + [...]
--- OUTSIDE RECORDS SUMMARY | ~2019-09-02 | XMS | Encounter Summary ---
Demographics + + + | Address | [address] | | | [place] [address] | + + + | Home Phone | | + + + | Preferred Language | Unknown | + + + | Marital Status | | + + + | Yazidism Affiliation | CAT | + + + [...] Team Providers + +------+ + | Care Energy Conservation Director Name | Role | Phone | [...]
--- OUTSIDE RECORDS SUMMARY | ~2019-09-02 | XMS | Encounter Summary ---
Demographics + + + | Address | [address] | | | [place] [address] | + + + | Home Phone [...] + | Author | [facility] | | | and [place] | + + + | Organization | [facility] | | | and [...] Team Providers + +------+ + | Care Physical Damage Appraiser Name | Role | Phone | + +------+ + PCP | Unavailable | + +------+ + Encounter Details +--------+ + + + + | Date | Type | Department | Care Team | Description | +--------+ + + + + | 03/15/ | Hospital | [facility] | Wilder Mosquera MD | | | 2006 | Encounter | MED CTR GENERIC OP | [address], [place] | | | | | CONV DEPT [address] | [address] [place], [place] | | | | | [place], | [address] | | | | | [place] [address] | | | | | | [phone] | | | +--------+ + + + [...]
--- OUTSIDE RECORDS SUMMARY | ~2019-09-02 | XMS | Encounter Summary ---
Demographics + + + | Address | [address] | | | [place] [address] | + + + | Home Phone | | + + + | Preferred Language | Unknown | + + + | Marital Status | | + + + | Sikhism Affiliation | 1041 | + + + | Race | Unknown | + + + | Ethnic Group | Unknown | + + + Author + + + | Author | [facility] | | | and [place] | + + + | Organization | [facility] | [...] Team Providers + +------+ + | Care Blanchard Grinder Operator Name | Role | Phone | + +------+ + | Jesse Chand MD | PCP | | + +------+ + Encounter Details +--------+ + + + + | Date | Type | Department | Care Team | Description | +--------+ + + + + | 06/30/ | Hospital | [facility] | Conversion | Chronic cough | | 2016 | Encounter | [facility] [address] | Transaction, | | | | | [address] | Provider Unknown | | | | | [place], [place] | [phone] | | | | | [address] | | | | | | [phone] | | | +--------+ + + + [...]
--- OUTSIDE RECORDS SUMMARY | ~2019-09-02 | XMS | Encounter Summary ---
Demographics + + + | Address | [address] | | | [place] [address] | + + + | Home Phone [...] Author | [facility] | | | and [place] | + + + | Organization | [facility] | | | and [place] | + + + | Address | Unknown | + + + | Phone | Unavailable | + + + Support + + +---------+ + | Name | Relationship | Address | Phone | + + +---------+ + | Shgagy Tc | ECON | Unknown | | + + +---------+ + | Shreya Romero | ECON | Unknown | | + + +---------+ + Care Team Providers + +------+ + | Care Plant Cytologist Name | Role | Phone | + +------+ + PCP | Unavailable | + +------+ + Encounter Details +--------+ + + + + | Date | Type | Department | Care Team | Description | +--------+ + + + + | 10/14/ | Hospital | [facility] | Wilder Mosquera MD | | | 1995 | Encounter | MED CTR GENERIC OP | [address] [place], [place] | | | | | CONV DEPT [address] | [address] [place], [place] | | | | | [place], | [address] | | | | | [place] [address] | | | | | | [phone] | | | +--------+ + + + [...]
--- OUTSIDE RECORDS SUMMARY | ~2019-09-02 | XMS | Encounter Summary ---
Demographics + + + | Address | [address] | | | [place] [address] | + + + | Home Phone [...] + | Author | [facility] | | | and [place] | + + + | Organization | [facility] | [...] Team Providers + +------+ + | Care Screw Machine Tool Setter Name | Role | Phone | + +------+ + PCP | Unavailable | + +------+ + Encounter Details +--------+ + + + + | Date | Type | Department | Care Team | Description | +--------+ + + + + | 07/01/ | Hospital | [facility] | Wilder Mosquera MD | | | 1992 | Encounter | MED CTR GENERIC OP | [address], [place] | | | | | CONV DEPT [address] | [address] [place], [place] | | | | | [place], | [address] | | | | | [place] [address] | | | | | | [phone] | | | +--------+ + + + [...]
--- OUTSIDE RECORDS SUMMARY | ~2019-09-02 | XMS | Encounter Summary ---
Demographics + + + | Address | [address] | | | [place] [address] | + + + | Home Phone | | + + + | Preferred Language | Unknown | + + + | Marital Status | | + + + | Quaker Affiliation | 1041 | + + + | Race | Unknown | + + + | Ethnic Group | Unknown | + + + Author + + + | Author | [facility] | | | and [place] | + + + | Organization | [facility] | | | and [...] Team Providers + +------+ + | Care Wildlife Enforcement Major Name | Role | Phone | + +------+ + | Jesse Chand MD | PCP | | + +------+ + Encounter Details +--------+ + + + + | Date | Type | Department | Care Team | Description | +--------+ + + + + | 07/15/ | Hospital | [facility] | Conversion | Moderate persistent | | 2016 | Encounter | PULMONARY FUNCTION | Transaction, | asthma without | | | | LAB [address] | Provider Unknown | complication | | | | [place], [place] | [phone] | | | | | [address] | (Fax) | | | | | [phone] | | | +--------+ + + + [...]
--- OUTSIDE RECORDS SUMMARY | ~2019-09-02 | XMS | Encounter Summary ---
Demographics + + + | Address | [address] | | | [place] [address] | + + + | Home Phone [...] + | Author | [facility] | + + + | Organization | [facility] | [...] Providers + +------+ + | Care Manager Garden Name | Role | Phone | + [...] | | | | CONSULT TO | [place], [place] | [facility] | | | | | ENT SPEECH | [address] | [place], [place] | | | | | THERAPY | Phone: | [address] | | | | | | [phone] | Phone: | | | | | | Fax: | [phone] | | | | | | [phone] | Fax: | | | | | | | [phone] | +--------+--------+ + + + + Reason [...] Ave | | | | | | [place], | [place], [place] | | | | | | [place] [address] | [address] | | | | | | Phone: | Phone: | | | | | | [phone] | [phone] | | | | | | Fax: | Fax: | | | | | | [phone] | [phone] | + +--------+ + + + + [...] | Dysphagia, | | | | Ave [place], [place] | [place], [place] | unspecified type; | | | | [address] | [address] | Laryngeal | | | | 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 If you need to speak to an ENT physician after normal business hours, please call [phone] and ask to have the ENT phys ician airport operations specialist paged. 1. Start prednisone 30mg (3 tablets) [...] instruments: Description #1: laryngoscope Serial ID #1: [id number] Mamta Silva PA-C - 07/08/2016 1:00 PM PDTFormatting of this note might be different from the enmanuela l. PATIENT: Jocelyne Montez MR#: [id number] : 1950 REQUESTING PROVIDER: Jesse Chand MD [facility] [address] [facility] [address] [place] [address] PRIMARY CARE PROVIDER: Jesse Chand MD CLINIC: [facility] CHIEF COMPLAINT: Chronic cough HPI: Jocelyne Montez is a 66 y.o. female who is referred to the [facility] for Vo ice and Swallowing for evaluation of cough by her district medical examiner Dr. Golden. She reports [facility] for the past 4 years. Around the onset of her cough she reports pain in her throat which prompted her to seek evaluation with an tow boat captain in the [facility] area, she is unsur e of [...] so severe she is not going to yazdanism. She has cough paroxy sms. She has [...] ed. She is unable to sing in yazdanism anymore. Her pitch is lower and she [...] is retired. 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 Her vocal demands are primarily those of [...] which is most notable in the anterior-associate data scientist ior and lateral dimensions. There is not [...] worsening of her symptoms. Maricel Zambrano PA-C [facility] Department of [...] + + | [place] | Routin | 07/14/2016 | Chronic cough [...] Note | + + | Service Account, [employer] In Interface - 07/29/2016 3:56 PM [...]
[~2019-09-02 18:52] MED LIST changes: +FAMOTIDINE40 MG PO
--- OUTSIDE RECORDS SUMMARY | 2019-09-02 18:54 | XMS ---
PreManage Notification: ANTHONY GONZALEZ Security Green Building Architect Events No recent Security Events currently on file CRITERIA MET - [facility] - Has Care Guidelines - PDMP CARE PROVIDERS MARILU GRADY Internal Medicine 03/14/2019-Current PHONE: Unknown Pa has no Care Guidelines for this patient. Care History Medical/Surgical 03/14/2019 [facility] Patient has follow up appt. with Dr. Altamirano tomorrow and appt. with\T\nbsp;Dr. Grady, PCP,\T\nbsp;on 05/19/2019. 03/14/2019 [facility] - Patient is currently established with [facility]. If patient is seen in the ED during business hours. Please contact [facility]Ws at [facility]. Care Recommendation: If this patient has had 5 or more Emergency Department visits in the last 12 months.\T\nbsp; Patient will require education on the scope and purpose of the ED as an acute care provider not a Primary Care Provider and should not be utilized for chronic conditions.\T\nbsp; These are guidelines and the provider should exercise clinical judgment when providing care. E.D. VISIT COUNT (12 MO.) 1 [facility] 2 [facility] TOTAL 3 NOTE: Visits indicate total known visits. 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 GLF 17536. Pain in right shoulder . Other specified disorders of bone, shoulder . Other chest pain . Unspecified fall, initial encounter . Cervicalgia INPATIENT VISIT TRACKING (12 MO.) No inpatient visits to display in this time frame [email or web address]
--- NOTE | 2019-09-04 12:31 | EKG ---
[facility] [address] [facility] [place] [address] Signed Sinus rhythm with premature atrial complexes Otherwise normal ECG When compared with ECG of 07-NOV-2018 07:01, premature atrial complexes are now present Confirmed by ELIS MICHAEL DO ([id number]) on 09/04/2019 12:31:31 PM Electronically Signed By: ELSI MICHAEL DO 09/04/19 1231 PATIENT NAME: SERAFINMAUREENANTHONY Electrocardiogram DATE OF : 54 PHYSICIAN: ELSI MICHAEL DO REPORT #: [id number] REPORT IS CONFIDENTIAL AND NOT TO BE RELEASED WITHOUT AUTHORIZATION
== END 2019-09-02 20:15 | disposition home or self-care (01) ==
LOC: ED 18:52
DX: I10 Essential (primary) hypertension (principal); R06.00 Dyspnea, unspecified; R51 Headache; E78.00 Pure hypercholesterolemia, unspecified; Z88.8 Allergy status to other drugs, medicaments and biological substances; Z79.899 Other long term (current) drug therapy
CPT/HCPCS: 70450; 71045; 80053; 83735; 83880; 84484; 85025; 93005; 93010; 99285-25

== ENCOUNTER 2020-07-10 17:21 | Inpatient (IN) | payer OTHER, MEDICARE ==
[~2020-07-10] VITALS: Ht 152.4 cm; Wt 83.0 kg
--- NOTE | ~2020-07-10 | DS ---
[facility] [address] [place], [place] [address] Draft ADMISSION DATE: 07/10/2020 DISCHARGE DATE: 07/16/2020 REASON FOR ADMISSION: Right subcostal pain, elevated white count, history of ampullary stenosis, and ERCP papillotomy. HISTORY OF PRESENT ILLNESS: This 70-year-old white woman has had episodic epigastric and right subcostal pain. She was seen in the emergency room and evaluated by Dr. Valdez. Subsequently, Dr. Rosado. A CT scan of the abdomen was performed due to persistent right upper abdominal pain, which showed edema and inflammation in the 2nd portion of the duodenum on the medial aspect. The patient has a complex past medical history, which include open cholecystectomy with common duct exploration by Dr. Graham call us a number of years ago with subsequent ERCP papillotomy by Dr. Wilder Mosquera in [place]. She has had numerous visits to [facility] in [place], where probable papillary stenting and other advanced maneuvers had been undertaken. 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 PERTINENT PHYSICAL EXAMINATION: GENERAL: Showed an obese white woman, who looks to be without signs of systemic toxicity. HEENT: Mucous membranes slightly dry. NECK: Trachea midline. CHEST: Clear. HEART: Regular, 90 beats per minute. VITAL SIGNS: Blood pressure 107, systolic. ABDOMEN: Showed tenderness in the epigastric and right subcostal area. EXTREMITIES: Show no clubbing, cyanosis, or edema. LABORATORY STUDIES: Showed a white count of 17.9. Hematocrit normal as well as platelet count. Liver enzymes are normal. Bilirubin normal. Lipase normal at 49. Urinalysis showed five red cells per high-power field. HOSPITAL COURSE: She was admitted and given intravenous antibiotic Ancef was considered a possibility of recurrent ampullary stenosis with impending cholangitis. Attempts at locating records to document her prior interventions were lacking as they were all more than 10 years ago and records at [facility] had been destroyed as well as elsewhere. PATIENT NAME: ANTHONY GONZALEZ DISCHARGE SUMMARY DATE OF : 54 REPORT #: [id number] PHYSICIAN: SILVIA SMITH MD PCP: MARILU SRIVASTAVA MD REPORT IS CONFIDENTIAL AND NOT TO BE RELEASED WITHOUT AUTHORIZATION [facility] [address] [place], [place] [address] Draft Her clinical situation improved. She had persistent tenderness in the right subcostal area however. She did have a temperature spike to 102 on one occasion, but was not systemically toxic and felt completely well with that. Note, was made of her prior ongoing treatment by Dr. Joseph in [place], [place] (colorectal surgeon) as well as a family history of colon cancer in her mother. She notes that she had not been undergone colonoscopy in several years, possibly more than five years. She had progressive improvement, but then developed significant diarrhea. Stool was assessed for C difficile and found to be positive for both antigen and PCR test, but negative for toxin proper. She was begun on Flagyl orally administered and discontinued on her Ancef. She poorly tolerated the Flagyl, having nausea, vomiting, and epigastric pain. This was discontinued and she was started instead on vancomycin 125 mg p.o. q.i.d. Her diarrhea resolved rather promptly and her intolerance of Flagyl was considered most likely, and she tolerated vancomycin very well. Additional lab studies showed normal liver enzymes, progressive decrease of her white count ultimately to 8.0 on July 16, 2020. Her hematocrit was 37.6. Her liver enzymes were essentially normal at admission and remained so during course of hospitalization, though her AST did slightly elevated to 95, but without concurrent other enzyme elevation. Of note, her COVID test was negative at the outside of hospitalization. The possibility of the problem represented not ampullary stenosis, but rather peptic disease. She did undergo upper endoscopy on July 15, 2020. This did not show sign of ulcer, only a small hiatal hernia. The medial wall of the duodenum and ampulla were identified. There appeared to be a small hole near the ampulla, which may represent area of prior stent, ampulotomy and was certainly not obstructive or otherwise problematic. She was found to tolerate a regular diet well. By the day of discharge, she is ambulating well, tolerating a regular diet, has normal lab studies and her tenderness has resolved. The diarrhea has resolved entirely as well. DISCHARGE MEDICATIONS: Will include: 1. Imdur 30 mg p.o. daily. 2. Carafate 1 g p.o. before meals and at bedtime. 3. Protonix 40 mg p.o. daily. 4. Melatonin 6 mg p.o. at bedtime for insomnia. 5. Vancomycin/hydrochloride 125 mg p.o. q.i.d. #7 additional days. 6. Nitroglycerin 0.4 mg sublingual q.5 hours p.r.n. pain, chest pain. PATIENT NAME: ANTHONY GONZALEZ DISCHARGE SUMMARY DATE OF : 54 REPORT #: [id number] PHYSICIAN: SILVIA SMITH MD PCP: MARILU SRIVASTAVA MD REPORT IS CONFIDENTIAL AND NOT TO BE RELEASED WITHOUT AUTHORIZATION [address], [place] [address] Draft 7. Potassium chloride (Klor-Con) 20 mEq p.o. daily. 8. Synthroid 88 mcg p.o. daily. 9. Gabapentin 300 mg p.o. b.i.d. 10. Diltiazem (Cardizem CD) 240 mg p.o. daily. 11. Lasix 40 mg p.r.n. lower extremity swelling. FOLLOWUP PLAN: She will return to see me in approximately a month. At that point, we will consider for C difficile retesting. DISCHARGE DIAGNOSIS: 1. Right upper quadrant abdominal pain and tenderness, elevated white count, etiology uncertain. 2. Distant history of open cholecystectomy with common duct exploration and subsequent multiple interventions of ampulla including probable ampulotomy and stenting (uncertain records ). 3. Episodic angina. 4. Hypothyroidism. MD SIMÓN Hensley/MODL /[id number] cc: MD Crispin Mansfield MD Copies: MARILU SRIVASTAVA MD, WILLIAM S MD ~ PATIENT NAME: ANTHONY GONZALEZ ANN DISCHARGE SUMMARY DATE OF : 54 REPORT #: [id number] PHYSICIAN: SILVIA SMITH MD PCP: MARILU SRIVASTAVA MD REPORT IS CONFIDENTIAL AND NOT TO BE RELEASED WITHOUT AUTHORIZATION
--- OUTSIDE RECORDS SUMMARY | 2020-07-10 17:24 | XMS ---
PreManage Notification: ANTHONY GONZALEZ [employer] Faculty Member Events No recent Security Events currently on file CRITERIA MET - [facility] - Has Care Guidelines CARE PROVIDERS MARILU GRADY Internal Medicine 03/14/2019-Current PHONE: Unknown Pa has no Care Guidelines for this patient. Care History Medical/Surgical 09/04/2019 [facility] Patient has follow up with Dr. Grady on 09/18/2019.\T\nbsp; Left voice mail stating if she needs to see provider to use walk in clinic and to call first if possible. 03/14/2019 [facility] Patient has follow up appt. with Dr. Altamirano tomorrow and appt. with\T\nbsp;Dr. Grady, PCP,\T\nbsp;on 05/19/2019. 03/14/2019 [facility] - Patient is currently established with [facility]. If patient is seen in the ED during business hours. Please contact CHWs at [facility]. Care Recommendation: If this patient has had [...] providing care. E.D. VISIT COUNT (12 MO.) [address] [facility] [place] TOTAL 2 NOTE: Visits indicate total known visits. ED/UCC VISIT TRACKING (12 MO.) 07/10/2020 17:21 [facility] [place] TYPE: Emergency COMPLAINT: - FLANK PAIN 09/02/2019 18:53 [facility] TYPE: Emergency COMPLAINT: - BLOOD PRESSURE PROBLEM DIAGNOSES: - Dyspnea, unspecified - Allergy status to other drugs, medicaments and biological substances - Headache - Headache - Other insurance analyst (current) drug therapy - Essential (primary) hypertension - Pure hypercholesterolemia, unspecified INPATIENT VISIT TRACKING (12 MO.) No inpatient visits to display in this time frame [email or web address]
[2020-07-10] MEDS ORDERED: POTASSIUM CHLO20 ME1 PO (17:45)
[2020-07-10] MEDS ORDERED: IRBESARTAN150 MG PO (17:45)
--- NOTE | 2020-07-10 20:05 | NUR ---
TELEPHONE REPORT RECEIVED FROM ED RN SAMUEL, ALL QUESTIONS ANSWERED. AWAITING COVID RESULTS BEFORE TRANSFERING pt TO FLOOR.
--- NOTE | 2020-07-10 21:00 | NUR ---
ON PHONE WITH NADIA FROM TELEPHARMACY. PER TELEPHARMACY, TORADOL RECOMMENDATION IS 15MG D/T pt'S AGE AND NOT 30MG. AT 0800: SPOKE TO TRUNG FROM PHARMACY, DOSE CHANGED TO 15MG D/T pt's AGE.
--- NOTE | 2020-07-10 21:25 | NUR ---
CALL FROM ED TREMAINE PIERSON RESULTS NEGATIVE. DORENE BAY TO GO TO ED TO BRING pt TO FLOOR.
--- NOTE | 2020-07-10 21:30 | NUR ---
THIS COUNCIL MEMBER TRANSPORTED PT FROM THE ED TO [facility] 124, PT SELF TRANSFERED TO BED VIA AMBULATION, VITALS TAKEN, RN IN ALSO, NO FURTHER NEEDS
--- NOTE | 2020-07-10 21:30 | NUR ---
pt ARRIVED TO THE FLOOR VIA ED STRETCHER WITH HELP FROM DORENE BAY. pt IN BED, QUICK ADMIT COMPLETE. pt A/OX4, REPORTS TOLERABLE PAIN, BUT DOES NOT RATE AT THIS TIME. WILL MONITOR, NO DISTRESS NOTED. VSS, pt ORIENTED TO ROOM. ASSESSMENT ALSO COMPLETE, HARNESS INSPECTOR ALVIN TO COMPLETE REMAINING ADMISSION. NO FURTHER NEEDS, CALL LIGHT IN REACH.
[2020-07-10] MEDS ORDERED: NITROSTAT0.4 MG SL (22:19)
--- NOTE | 2020-07-11 00:02 | NUR ---
IN TO MAKE SURE PT HAD SCDS ON, ANWSERED PTs QESTION ABOUT IV, NO FURTHER NEEDS
--- NOTE | 2020-07-11 01:59 | NUR ---
pt RESTING IN BED WITH EYES CLOSED. RR EVEN AND UNLABORED, NO DISTRESS NOTED. pt APPEARS COMFORTABLE AND RELAXED. CALL LIGHT IN REACH.
--- NOTE | 2020-07-11 02:20 | NUR ---
IN TO GET 2AM VITALS, PT DENIES NEED TO VOID AT THIS TIME, PT BACK TO RESTING AT THIS TIME
--- NOTE | 2020-07-11 02:45 | NUR ---
IN ROOM TO ROUND ON pt, VS RECENTLY OBTAINED AND STABLE. pt DROWSY, AWAKENS TO VOICE. REPORTS TOLERABLE 6/10 PAIN TO ABD, EDUCATED ON CALLING MEAT SEAFOOD ASSOCIATE IF PAIN BECOMES UNTOLERABLE. pt VERBALIZED UNDERSTANDING. DENIES NAUSEA, SCD'S IN PLACE. IV FLUIDS REMAIN INFUSING PER MD ORDERS. CALL LIGHT IN REACH.
--- NOTE | 2020-07-11 05:13 | NUR ---
in to get vitals, pt up to void, no furthe needs at this time
--- NOTE | 2020-07-11 05:25 | NUR ---
scheduled iv abx infusing per md orders, site wnl and flushes easily. new bag iv fluids also hung and infusing at 125mls/hr. prn pain medication given for 6/10 abd pain, see emar. vss and i&o's complete. mint mouth swabs provided, Pt remains npo. no further needs, call light in reach. scd's in place.
--- NOTE | 2020-07-11 07:45 | NUR ---
SHIFT REPORT FROM SEVERO BECKETT INCLUDED: pt in for abdominal pain and fever of 100.7. pt being treated for "inflammed pancreas" at this time. pt needing PRN pain meds for coverage. pts VSS. otherwise doing well. pt in bed currently, breathing even and unlabored, table and call light within reach.
--- NOTE | 2020-07-11 08:45 | NUR ---
MED PASS + ASSESSMENT pt assessment completed at this time, VSS, pts lungs clear, bowel tones hypoactive. pt reports 8/10 intolerable pain and no nausea at this time. pt given PRN toradol at this time. pt able to take all morning meds, only had difficulty with swallowing the potassium, pt began to gag on the med and became nauseated. pt given PRN antiemetic at this time. pt settled in bed. pt denies further needs at this time. table and call light within reach.
--- NOTE | 2020-07-11 09:15 | NUR ---
she wants to wait to shower till after dr. shoemaker comes to see her.
--- NOTE | 2020-07-11 10:00 | NUR ---
ROUNDING pt up to bathroom at this time. pt back to bed. pt reports 4/10 tolerable pain at this time. no nausea. pt denies needs at this time. table and call light within reach.
--- NOTE | 2020-07-11 11:00 | NUR ---
ROUNDING pt sitting up in bed, visiting with at this time and watching TV. pt reports 4/10 tolerable pain at this time. pt denies needs. pt in bed, table and call light within reach.
--- NOTE | 2020-07-11 13:56 | NUR ---
MED PASS + UP TO BATHROOM pt up to bathroom at this time. pts IV ABX infusing as ordered. pt denies needs at this time. table and call light within reach.
--- NOTE | 2020-07-11 14:00 | NUR ---
ROUNDING pt sitting up in bed, visiting with at this time and watching TV. pt reports 5/10 tolerable pain at this time. pt denies needs. pt in bed, table and call light within reach.
[2020-07-11] MEDS ORDERED: ROSUVASTATIN CA40 MG PO (14:46)
[2020-07-11] MEDS ORDERED: ISOSORBIDE MONO30 MG PO (14:46)
--- NOTE | 2020-07-11 16:00 | NUR ---
ROUNDING pt sitting up in bed, at this time and watching TV. pt reports 7/10 intolerable pain at this time. pt given PRN morphine for pain. pt denies needs. pt in bed, table and call light within reach.
--- NOTE | 2020-07-11 16:20 | HP ---
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 HISTORY OF PRESENT ILLNESS: This 70-year-old white woman has had episodic epigastric and right subcostal pain. She presented to the emergency room today and was evaluated by Dr. Valdez, handed off to Dr. Rosado. CT scan of the abdomen was performed for persistent right upper abdominal pain. Of special note, the patient has undergone cholecystectomy with common duct exploration by Dr Kelly Carter many years ago in [place] in the past;she had subsequent ERCP papillotomy by Dr. Wilder Mosquera in [place] a number of years ago. She has had several visits and additional ERCP evaluations at [facility] in [place]. She cannot tell me just when this was, but it has been several years. she says she had stents as well. Imaging studies in the emergency room included a CT scan which showed some inflammatory changes in the head of the pancreas, probably. Most of the inflammation was in the wall fo the duodenum on the medial wall of the the second portion.... There wass no sign of intrahepatic ductal dilatation. dilatation. There is no mass. There was surgical absence of the gallbladder. The patient has had no problems of hyperbilirubinemia clinically. PAST MEDICAL HISTORY: Additionally includes sleep apnea (currently CPAP machine is broken). Additionally, asthma and reactive airways disease. SOCIAL HISTORY: She is accompanied by her , Jagdish Montez, also patient of mine. REVIEW OF SYSTEMS: She denies any shortness of breath or chest pain. She has had no hematemesis or blood per rectum or hemoptysis. PHYSICAL EXAMINATION: GENERAL: Somewhat obese white woman, who looks to be without signs of systemic toxicity. Electronically Signed By: SILVIA SMITH MD 07/11/20 1620 PATIENT NAME: ANTHONY MONTEZ HISTORY AND PHYSICAL DATE OF : 54 REPORT #: [id number] PHYSICIAN: SILVIA SMITH MD PCP: MARILU SRIVASTAVA MD REPORT IS CONFIDENTIAL AND NOT TO BE RELEASED WITHOUT AUTHORIZATION [facility] [address], [place] [address] Signed HEENT: Mucous membranes are slightly dry. Trachea is midline. CHEST: Shows normal respiratory excursion. There is no tachypnea. HEART: Regular, approximately 90 beats per minute. Blood pressure is 107 systolic. NECK: Normal. ABDOMEN: Obese. There is tenderness in the epigastric and right subcostal area. EXTREMITIES: Show no clubbing, cyanosis, or edema. LABORATORY STUDIES: Show a white count of 17.9, hematocrit is normal as was the platelet count. Liver enzymes are normal and bilirubin normal. Lipase normal at 49. Urinalysis abnormal only for 5 red cells per high-power field. 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 She had persisting problems and was seen at a specialized center at [facility] in [place] for which she has undergone more than one ERCP and possibly other interventions.n She says she had biliary stents also, which have been removed in the past. There is no finding at present of an indwelling stent or anything from the past that may have been neglected or ignored. There are mild inflammatory changes in the 2nd portion of the duodenum and to a lesser degree parenchyma of the pancreas itself. There is no sign of pneumobilia indicative of a typical finding for ERCP papillotomy. 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 Since her white count is elevated, she will be admitted and given intravenous antibiotic Ancef and made n.p.o. except for liquids. We will attempt to retrieve records from [place] and [place] to better characterize her past history as she has a poor grasp of it herself. It is unlikely that MRCP would be particularly instructive as to underlying etiology of her problem, unless there was debris or something within the biliary tree; this would be unlikely without intrahepatic ductal dilatation of the biliary tree as well however. I discussed all this with the patient and her , they understand and agreed to this approach. Silvia Smith MD Electronically Signed By: SILVIA SMITH MD 07/11/20 7040 PATIENT NAME: ANTHONY MONTEZ HISTORY AND PHYSICAL DATE OF : 54 REPORT #: [id number] PHYSICIAN: SILVIA SMITH MD PCP: MARILU SRIVASTAVA MD REPORT IS CONFIDENTIAL AND NOT TO BE RELEASED WITHOUT AUTHORIZATION [place] [id number] Signed /JOEL /[id number] cc: MD Dr. Alonzo Mansfield Copies: MARILU SRIVASTAVA MD ~ Electronically Signed By: SILVIA SMITH MD 07/11/20 1620 PATIENT NAME: SERAFINMAUREENANTHONY HISTORY AND PHYSICAL DATE OF : 54 REPORT #: [id number] PHYSICIAN: SILVIA SMITH MD PCP: MARILU SRIVASTAVA MD REPORT IS CONFIDENTIAL AND NOT TO BE RELEASED WITHOUT AUTHORIZATION
--- NOTE | 2020-07-11 16:30 | NUR ---
Spoke with Jocelyne. She states she mostly reside in an RV at [facility], they have a home in [place] and also stay with their daughte r. She uses a cane rarely as she feels more secure walking without. Also has a CPAP, it is broken and she has met the time limit for a new one from [employer]. Has scheduled an appt with Dr. Grady to begin process for sleep study. Denies financial issues. Co pain under her R armpit and rib. States has had surgery for this in the past and would like to have "it" fixed. Denies needs for dc. Will return to her RV, home, or daughters with her spouse on dc.
--- NOTE | 2020-07-11 17:52 | NUR ---
CATERING STAFF MEMBER DOING VITALS. PATIENT HAS FEVER OF 101.
--- NOTE | 2020-07-11 18:05 | NUR ---
CALLED DR SMITH AT THIS TIME Dr Smith called at this time and updated on pts fever of 101.2. pt has been up and walking, and has no other obvious concerns other than pain. MD ordered tylenol 1g Q6 PRN pain/nausea at this time. Order repeated back to patient at this time. MD confirmed.
--- NOTE | 2020-07-11 18:30 | NUR ---
AMBULATION + PRN MED FOR FEVER pts fever 101.2, 1,000mg tylenol given at this time per order. pt able to take med without difficulty. pt up to ambulate the halls at this time. pt able to walk two laps around both nurses stations. pt back to bed at this time. table and call light wihtin reach.
--- NOTE | 2020-07-11 19:31 | NUR ---
SHIFT REPORT RECEIVED FROM STEFAN BECKETT. PT RESTING IN BED. NO NEEDS AT THIS TIME. CALL LIGHT IN REACH.
--- NOTE | 2020-07-11 19:50 | NUR ---
PT BATHROOM CALL LIGHT ON, IN TO ASST PT, FOUND PT AT BATHROOM SINK WITH IV PULLED FROM RIGHT AC, HAD ISMA CATHERINE GRAB THE PRIMARY RN WHILE I APPLIED 2x2 GAUZE AND HAD PT SIT ON THE COMMODE BY THE SINK, RN IN TO ASSESS PT AND WRAP PREVIOUS IV SITE
--- NOTE | 2020-07-11 20:00 | NUR ---
PT SITING IN BED AT THIS TIME, THIS CERTIFIED NURSING ATTENDANT CALLED FOR EVS TO MOP THE FLOOR, TOOK PT VITALS, TEMP IS ELEVATED AND RN IS AWARE, PROVIDED PT WITH ICE CHIPS AND TWO ICE PACKS PER RN, RN IN TO START NEW IV
--- NOTE | 2020-07-11 20:19 | NUR ---
ASSESSMENT COMPLETED. R AC IV PULLED ON ACCIDENT, NEW IV PLACED IN LEFT FA. LUNGS CLEAR, HEAR TONES IRREGULAR. LUNGS CLEAR. ABD FIRM IN UPPER QUADRANTS AND MODERATELY DISTENDED. LOWER ABD WNL. PT DENIES PAIN WITH PALPATION BUT HAS 5/10 PAIN AT REST. RN PAIN MED PROVIDED. SCHEDULED MEDS PROVIDED. BLE TRACE EDEMA. CMS INTACT. NO OTHER NEEDS AT THIS TIME. CALL LIGHT IN REACH.
--- NOTE | 2020-07-11 20:20 | NUR ---
ASSESSMENT COMPLETED. R AC IV PULLED ON ACCIDENT, NEW IV PLACED IN LEFT FA. LUNGS CLEAR, HEAR TONES REGULAR. LUNGS CLEAR. ABD FIRM IN UPPER QUADRANTS AND MODERATELY DISTENDED. LOWER ABD WNL. PT DENIES PAIN WITH PALPATION BUT HAS 5/10 PAIN AT REST. RN PAIN MED PROVIDED. SCHEDULED MEDS PROVIDED. BLE TRACE EDEMA. CMS INTACT. NO OTHER NEEDS AT THIS TIME. CALL LIGHT IN REACH.
--- NOTE | 2020-07-11 21:00 | NUR ---
IN TO RECHECK PT TEMP NO FURTHER NEEDS AT THIS TIME
--- NOTE | 2020-07-11 22:04 | NUR ---
SCHEDULED MED PROVIDED. NO OTHER NEEDS. CALL LIGHT IN REACH.
--- NOTE | 2020-07-12 02:00 | NUR ---
PT RESTING IN BED, EYES CLOSED. RR EVEN, UNLABORED. CALL LIGHT IN REACH.
--- NOTE | 2020-07-12 04:22 | NUR ---
PT RESTING IN BED, EYES CLOSED. RR EVEN, UNLABORED. CALL LIGHT IN REACH.
--- NOTE | 2020-07-12 05:04 | NUR ---
ASSESSMENT, VS AND I&O COMPLETED. PT STATES SHE HAS 5/10 ABD PAIN. PRN PAIN MED PROVIDED. LUNGS CLEAR, HEART TONES REGULAR. IV WNL. ABD MILDLY DISTENDED, BOWEL TONES ACTIVE, PAINFUL WITH PALPATION IN THE UPPER QUADRANTS. PT STATES SHE FEELS SHE IS GETTING "PUFFY" IN HER HANDS AND FACE, TRACE BLE EDEMA NOTED. CMS INTACT. NO OTHER NEEDS AT THIS TIME. CALL LIGHT IN REACH.
--- NOTE | 2020-07-12 06:25 | NUR ---
PT PAIN MANAGED WITH SCHEDULED AND PRN PAIN MEDS. VSS. UOS. PT FEELS SHE IS GETTING TOO MUCH FLUID AND HER FACE AND HANDS ARE EDEMITOUS, BLE TACE EDEMA. PT SLEPT WELL. PT HAD A LOW GRADE FEVER RESOLVED WITH PRN MEDS.
--- NOTE | 2020-07-12 07:30 | NUR ---
REPORT RECEIVED FROM ELVIN RACING SECRETARY AND HANDICAPPER RN. PT AWAKE IN BED. STATES PAIN IS MANAGEABLE AT 4/10. DENIES FURTHER NEEDS AT THIS TIME. CALL LIGHT IN REACH.
--- NOTE | 2020-07-12 09:00 | NUR ---
PT C/O 09/26 ABD PAIN THAT STARTS IN EPIGASTRIC REGION AND RADIATES THROUGHOUT UPPER ABDOMEN. PAIN STARTED AFTER SHE HAD CLEAR LIQUID TRAY FOR BREAKFAST. UPPER ABD DOES FEEL MORE FIRM. 15 MG OF TORADOL GIVEN. DISTENTION REPORTEDLY SUBSIDES WITHIN 1-2 HOURS AFTER EATING. WILL CONTINUE TO MONITOR.
--- NOTE | 2020-07-12 10:00 | NUR ---
PT AMBULATED JENNINGS FOR 1.5 LAPS AROUND NURSES STATIONS. RATING ABD PAIN 4/10. BACK TO ROOM AND UP TO CHAIR. REQUESTING HER "WATER PILL" SHE STATES HER FACE AND HAND FEEL "PUFFY". PT REPORTS SHE NORMALLY TAKES IT ONCE A DAY AT HOME. PT APPEARS TO BE FLUID POSITIVE ACCORDING TO I/O'S. ORDERED PRN ON EMAR FOR "WATER RETENTION". WILL INQUIRE FURTHER.
--- NOTE | 2020-07-12 12:10 | NUR ---
LASIX PO GIVEN ALONG W/ TYLENOL FOR 6/10 ABD PAIN. PT NOW HAS CLEAR LIQUID TRAY. WILL CHECK BACK TO SEE HOW PT TOLERATES LUNCH. SITTING UP IN CHAIR. CALL LIGHT IN REACH.
--- NOTE | 2020-07-12 12:33 | NUR ---
PT SITTING IN CHAIR, ALERT AND ORIENTED. PT WAITING ON DR ISAAC TO EXPLAIN WHAT AN "INFLAMMED PANCREAS" MEANS. SHARED WITH SOPHY EASON PT'S CONCERN. SHE WILL FOLLOW WITH DR SMITH. PT REQUESTED VISIT FROM AND SANJEEV. WALLY EDMONDSON AND FLASH. WILL FOLLOW
--- NOTE | 2020-07-12 13:29 | NUR ---
AFTERNOON VITALS COMPLETE. VSS. PT HAS BEEN AFEBRILE THIS SHIFT. DID RECEIVE 1000 MG OF TYLENOL AT NOON FOR ABD PAIN. PT HAS BEEN UP INDEPENDENTLY IN THE ROOM. VOIDING IN BATHROOM. HAT EMPTIED OF 600 MLS. IV CEFAZOLIN INFUSING. PT REPORTS ABD PAIN HAS DECREASED TO 3/10. SLIGHTLY DISTENDED AFTER CLEAR LIQUID TRAY AT LUNCH. PT RECLINED IN CHAIR RESTING, REFUSING WALK AT THIS TIME SHE HAS BEEN UP WALKING FREQUENTLY IN ROOM. CALL LIGHT IN REACH.
--- NOTE | 2020-07-12 15:30 | NUR ---
ENCOURAGING PT AMBULATION IN THE HALLWAY, HOWEVER PT IS REFUSING AT THIS TIME. STATES SHE IS HAVING SOME DIARRHEA. SHE REPORTS SHE HAS HAD 2 LOOSE STOOLS, SHE ALSO SAYS THIS IS NORMAL FOR HER AT HOME EVER SINCE HER CHOLECTOMY. PT TOLD TO NOTIFY NURSING STAFF IF DIARRHEA PERSISTS OR WORSENS. PT REPORTS ABD PAIN HAS BEEN MINIMAL SINCE TYLENOL, 06/26. UP IN CHAIR FOR MOST OF THE SHIFT, BACK TO BED FOR NOW TO REST. WAS IN TO VISIT AND HAS SINCE DEPARTED. CALL HILL IS IN PT'S REACH.
--- NOTE | 2020-07-12 17:00 | NUR ---
DR SMITH IN TO SEE PT. ORDERS TO ADVANCE TO LOW-FAT DIET, DECREASE LR TO 60 MLS/HR, OBTAIN C.DIFF STOOL SAMPLE FOR DIARRHEA AND IMODIUM TID. PT STATES SHE FEELS BETTER AFTER TALKING TO THE DR ABOUT PLAN REGARDING CURRENT GI PROBLEMS. PT UP TO WALK HALLWAY WITH DORENE.
--- NOTE | 2020-07-12 17:58 | NUR ---
PATIENT SITTING UP IN BED. VITALS AND I&OS CHARTED. VITALS AND I&OS CHARTED, CALL LIGHT AND PERSONAL ITEMS WITHIN EASY REACH
--- NOTE | 2020-07-12 19:05 | NUR ---
C. DIFF STOOL SAMPLE OBTAINED AND SENT TO LAB. PT GIVEN IMODIUM. TOLERATED DINNER WELL SO FAR. PT REPORTS PAIN IS MINIMAL AT THIS TIME AND DOES NOT REQUIRE MEDICATION. AMBULATED 2 LAPS THIS EVENING, SBA. LR DECREASED TO 60 MLS/HR. IN ROOM TO VISIT. NO OTHER NEEDS AT THIS TIME. CALL HILL IN REACH.
--- NOTE | 2020-07-12 19:20 | NUR ---
SHIFT REPORT RECEIVED FROM FREIDA BECKETT. PT IN BR AT THIS TIME.
--- NOTE | 2020-07-12 20:33 | NUR ---
hemodialysis charge nurse rounding note. pt utilizes call light, concerned about smell. informed pt this is smell from helicopter. pt states understanding requests pm meds, states she is ready for bed. primary rn notified. pt denies further needs, concerns, or questions. call light in reach.
--- NOTE | 2020-07-12 21:20 | NUR ---
IN PATIENT ROOM FOR VITALS AND I&O. PATIENT STATES "I WISH I DIDN'T EAT" SHE COMPLAINS OF RIGHT SIDE PAIN. RN NOTIFIED OF THIS COMPLAINT. FRESH WATER PROVIDED. PATIENT DENIES ANY FUTHER NEEDS. CALL LIGHT IN REACH.
--- NOTE | 2020-07-12 22:07 | NUR ---
ASSESSMENT COMPLETED. GCS 15, A&O X4. SCHEDULED MEDS PROVIDED. IV WNL, CDI, FLUSHED WELL. PT STATES SHE HAS 6/10 ABD PAIN AND NAUSEA. PRN NAUSEA AND PAIN MEDS PROVIDED. LUNGS CLEAR, HEART TONES REGULAR. ABD FIRM IN UPPER QUADRANTS, TENDER, MODERATELY DISTENDED, BOWEL TONES ACTIVE. CMS INTACT. PT REPORTS MILD EDEMA IN HANDS. NO OTHER NEEDS AT THIS TIME. CALL LIGHT IN REACH.
--- NOTE | 2020-07-13 00:43 | NUR ---
PT AWAKE IN ROOM. ABD PAIN 5/10, DENIES NEED FOR PAIN INTERVENTION. NO ONEEDS. CALL LIGHT IN REACH.
--- NOTE | 2020-07-13 00:48 | NUR ---
PT DECIDED TO TAKE PAIN MED FOR 5/10 ABD PAIN. PRN TYLENOL PROVIDED. NO OTHER NEEDS AT THIS TIME. CALL LIGHT IN REACH.
--- NOTE | 2020-07-13 03:45 | NUR ---
PT RESTING IN BED, EYES CLOSED. RR EVEN, UNLABORED. CALL LIGHT IN REACH.
--- NOTE | 2020-07-13 05:55 | NUR ---
VS, I&O AND ASSESSMENT COMPLETED. PT STATES PAIN IS 3/10 IN ABD, DENIES NEED FOR INTERVENTION. IV WNL, NEW BAG IV FLUIDS PROVIDED. ABD FIRM IN UPPER QUADRANTS, TENDER, MILD DISTENTION, BOWEL TONES ACTIVE. CMS INTACT. NO OTHER NEEDS AT THIS TIME. CALL LIGHT IN REACH.
--- NOTE | 2020-07-13 05:58 | NUR ---
IN ROOM TO ASSIST RN WITH MORING VITALS AND I&O. PATIENT IS NOT WARM TO TOUCH AND IS CALM/RELAXED. PATIENT DENEIS ANY FUTHER NEEDS. CALL LIGHT WITH IN REACH.
--- NOTE | 2020-07-13 06:28 | NUR ---
PT PAIN MANAGED WITH SCHEDULED AND PRN PAIN MEDS. PT TOLERATED DIET WELL. PT WAS NOT ABLE TO SLEEP UNTIL AFTER 0100. UOS. VSS. IV WNL. ABD FIRM IN UPPER ABD, MILDLY DISTENDED, BOWEL TONES ACTIVE, TENDER. NO EDEMA NOTED IN BLE.
--- NOTE | 2020-07-13 07:10 | NUR ---
BEDSIDE HANDOFF REPORT RECEIVED FROM CURRENCY COUNTER RN. PT RESTING IN BED. PT DENIES NEEDS AT THIS TIME.
--- NOTE | 2020-07-13 08:56 | NUR ---
PT RESTING IN BED. PT WITH POOR APPETITE, DID NOT EAT MUCH OF BREAKAST, DENIES NAUSEA. PT ON ROOM AIR, LUNG SOUNDS CLEAR, DENIES SOB. PT RATING PAIN 3/10, TO RUQ, GIVEN TYLENOL. BOWEL TONES ACTIVE, PT STATES IMODIUM HAS HELPED A LITTLE. CMS INTACT, WITHOUT EDEMA. VSS. DISCUSSED PLAN OF CARE, PT WOULD LIKE TO SHOWER THIS AM. PT DENIES OTHER NEEDS AT THIS TIME.
--- NOTE | 2020-07-13 14:08 | NUR ---
PT RESTING IN BED, WATCHING BASKETBALL. AFTERNOON ASSESSMENT COMPLETED, NO ACUTE CHANGES. PT DENIES LOOSE STOOL TODAY, FLAGYL HAS BEEN STARTED WITH LUNCH. PT DENIES OTHER NEEDS AT THIS TIME.
--- NOTE | 2020-07-13 15:43 | NUR ---
PT CALLED AND REPORTED NAUSEA, SUDDEN ONSET AFTER GOING TO THE RESTROOM. GIVEN 4MG IV ZOFRAN. PT DENIES OTHER NEEDS AT THIS TIME.
--- NOTE | 2020-07-13 16:43 | NUR ---
PT ON ROOM AIR, LUNG SOUNDS CLEAR. PT WITH MILD ABD PAIN, GIVEN TYLENOL X1. PT NAUSEATED THIS AFTERNOON, GIVEN ZOFRAN, NO EMESIS. PT POSITIVE FOR C. DIFF, ORAL FLAGYL STARTED, IMODIUM DISCONTINUED. PT INDEPENDENT IN ROOM. TOLERATING LOW FAT DIET BUT SMALL APPETITE. CMS INTACT, WITHOUT EDEMA. LR INFUSING AT 60ML/HR. PT VOIDING QS.
--- NOTE | 2020-07-13 18:24 | NUR ---
PT SITTING IN CHAIR. PT ASKED IF SHE WANTED HER PURSE PLACED IN CLOSET AND SHE SAID SHE WANTED IT CLOSE IN CASE SHE NEEDED HER NITRO TABLETS, DISCUSSED WITH PT NOT TO TAKE HOME NITRO AND TO CALL RN IF EXPERIENCING CHEST PAIN. CALL PLACED TO DR. SMITH AND DISCUSSED ADDING PRN ORDER FOR NITRO SL PER MED REC, TELEPHONE ORDER TO RESUME.
--- NOTE | 2020-07-13 20:40 | NUR ---
EVENING ASSESSMENT COMPLETE. SCHEDULED MEDS ADMINISTERED PER EMAR. PRN ADMINISTERED FOR 4/10 "NAGGING" RIGHT FLANK/ABD PAIN THAT REMINDS HER OF SHINGLES PAIN WHICH SHE HAS A HX OF. SKIN CLEAR, NO BLISTERS NOTED. PT DENIES NAUSEA. IVF INFUSING. VS AND I&O OBTAINED. PT DENIES QUESTIONS OR CONCERNS. CALL LIGHT IN REACH.
--- NOTE | 2020-07-13 23:15 | NUR ---
CALL LIGHT ANSWERED. PT REPORTS IV "FEELS WEIRD". IV IN LEFT FA NOTED TO BE INFILTRATED. IV DC'D WNL. TIP IN TACT. NEW IV PLACED IN RIGHT FA PER PROTOCOL. PT RAMÓN WELL. IVF INFUSING.
--- NOTE | 2020-07-14 02:15 | NUR ---
PT AWAKENED BY ALARMING IV PUMP. QUALITY REVIEW TRAINER IN TO HANG NEW BACK IVF. PT REPORTS PAIN IS TOLERABLE. DENIES NAUSEA. NO FURTHER NEEDS. CALL LIGHT IN REACH.
--- NOTE | 2020-07-14 04:35 | NUR ---
PT RESTING IN BED WITH EYES CLOSED, NAD.
--- NOTE | 2020-07-14 06:23 | NUR ---
VS AND I&O COMPLETE. PT DENIES ABD PAIN. REPORTS NAUSEA ONLY WITH AMBULATION, DENIES PRN FOR NAUSEA AT THIS TIME. ABD SOFT. BOWEL TONES ACTIVE. PT DENIES BM THIS SHIFT. IVF INFUSING. NO FURTHER NEEDS AT THIS TIME. CALL LIGHT IN REACH.
--- NOTE | 2020-07-14 07:26 | NUR ---
this rn received report from dylan garcia pt appears to be resting at this time with respirations noted
--- NOTE | 2020-07-14 08:20 | NUR ---
THIS RN IN ROOM TO PASS MORNING MEDS. PT STATED SHE HAS BEEN FIGHTING NAUSEA ALL NIGHT BUT WILL TRY AND EAT TOAST AND THEN TAKE HER PILLS. THIS RN TOLD PT TO INFORM HER IF THE NAUSEA GETS WORSE
--- NOTE | 2020-07-14 10:00 | NUR ---
THIS RN IN PTS ROOM TO PASS MEDS AFTER ALLOWING PT TO REST AFTER GIVING ZOFRAN. PT STATES THAT SHE HASN'T VOMITED BUT DOESN'T FEEL MUCH RELIEF FROM THE ZOFRAN. THIS RN WAS HANDING PT MEDS, PT STATED THAT SHE FELT DIZZY AND NAUSEAOUS AGAIN. THIS RN OFFERED PT AN ALOCHOL SWABA AND COLD WASH CLOTHS WHILE THIS RN CALLED .
--- NOTE | 2020-07-14 10:30 | NUR ---
THIS RN CALLED TO DISCUSS PTS SYMPTOMS. NEW ORDERS RECEIVED OF TO DC FLAGYL AND START ORAL VANCO- THIS RN CONFIRMED WITH PHARMASILVESTRE NINO ON DAOSAGE AND TIMING. THIS RN ALSO RECEIEVED ORDER FOR 12.5MG PHENERGAN IV Q6. ORDERS PUT IN EMAR.
--- NOTE | 2020-07-14 11:03 | NUR ---
THIS RN BACK IN PTS ROOM. PT WAS ABLE TO GET HER MORNING MEDS DOWN AND WAS UP TO THE RESTROOM. PT STATES THAT SHE IS DOING OKAY BUT THIS RN ABLE TO GIVE PT PHENERGAN 12.5MG FOR COMFORT. PT STATES TAHT SHE NEEDS NOTHING ELSE AND IS ON BOARD WITH THE NEW PLAN FOR NEW ANTIBIOTIC
--- NOTE | 2020-07-14 15:00 | NUR ---
THIS RN IN PTS ROOM TO CHECK ON PT AND DO ASSESSMENT. PT SITTING IN BED AND IS READING. PT STATES THAT SHE HAS HAD NO NAUSEA SINCE THIS RN PROVIDED HER WITH PHENERGAN OR SINCE STARTING ON THE VANCO. PT ABLE TO EAT HALF OF HER LUNCH WELL. PT STATES THAT SHE NEEDS NOTHING ELSE AT THIS TIME AND ASSESSMENT IS UNREMARABLE FROM THIS AMS
--- NOTE | 2020-07-14 16:13 | NUR ---
ORDERED PATIENT'S DINNER ORDER.
--- NOTE | 2020-07-14 17:22 | NUR ---
THIS RN IN PTS ROOM TO PASS MEDS. PT SITTING IN BED AND STATES THAT SHE HAS HAD NO NAUSEA OR PAIN THIS AFTERNOON. PT HAS NO CONCERNS AND THIS RN PROVIDED PT WITH A HARD COPY ABOUT VANCOMYACIN PO WITH HIGHLIGHTED INFO
--- NOTE | 2020-07-14 19:39 | NUR ---
REPORT RECEIVED FROM SOPHY YANES. pt USING CALL LIGHT, IV PUMP ALARMING, DISTAL OCCLUSION. IV FLUSHED WNL, IVF INFUSING ORDERED. ICE WATER PROVIDED. URINE HAT EMPTIED. CALL LIGHT WITHIN REACH.
--- NOTE | 2020-07-14 19:49 | NUR ---
PHONE CALL TO MD, NEW ORDER FOR PRN MELATONIN RECEIVED, REPEATED BACK TO VERIFY ORDER.
--- NOTE | 2020-07-14 21:45 | NUR ---
pt RESTING IN BED AWAKE WATCHING TV. STATES NAUSEA IS COMING AND GOING IN WAVES. DENIES NEED FOR PRN MEDICATIONS, NO EMESIS. SCHEDULED MEDICATIONS ADMINISTERED ORDERED WITH CRACKERS. IVF INFUSING WNL. CALL LIGHT IN REACH.
--- NOTE | 2020-07-14 21:55 | NUR ---
Assessment complete, plan of care reviewed, pt agreeable. IVF infusing WNL. Pt reports neuropathy "at night" and "sore spots" on body-- states tolerable and chronic, does not request any interventions. Pt reports intermittent nausea, states will call with needs. Call light in reach
--- NOTE | 2020-07-15 00:10 | NUR ---
IV pump alarming, error resolved. Pt resting, states no needs at this time, call light in reach
--- NOTE | 2020-07-15 02:40 | NUR ---
Pt resting in bed with eyes closed, lights dimmed. IVF infusing WNL. No apparent needs, call light in reach.
--- NOTE | 2020-07-15 06:35 | NUR ---
VITALS AND I/O'S COMPLETE. PT RESTING IN BED WITH EYES CLOSED, AWAKENS TO VOICES IN ROOM. PT REPORTS SWELLING IN R ARM AT IV SITE, IV DC'D AND NEW IV PLACED. PT REPORTS NO NAUSEA OR GI UPSET, DENIES NEEDS.
--- NOTE | 2020-07-15 06:54 | NUR ---
IN ROOM FOR VS, VSS. URINE HAT EMPTIED. RIGHT ARM EDEMETOUS, NOT PAINFUL, IV INFILTRATED. D/C'D WNL BY SOPHY LORENZ. NEW IV PLACED LEFT WRIST BY THIS RN, 22 GAUGE. IVF INFUSING ORDERED. CALL LIGHT IN REACH. LIGHTS OFF IN ROOM.
--- NOTE | 2020-07-15 07:23 | NUR ---
SHIFT REPORT FROM NURSE LORENZ. PT CURRENTLY NPO IN ANTICIPATION OF EGD. CALL LIGHT WITHIN REACH.
--- NOTE | 2020-07-15 09:55 | NUR ---
THIS RN IN PTS ROOM TO DO PT ASSESSMENT AND PASS MEDS. PT STATES THAT SHE IS READY FOR HER EGD AND ONLY WANTS TO TAKE THE MOST IMPORTANT MEDS- DILT AND VANCO. PT HAS NO OTHER CONCERNS THIS AM AND NO NAUSEA OR PAIN TO NOTE
--- NOTE | 2020-07-15 12:00 | NUR ---
DID NOT SEE PATIENT SHE IS POSITIVE FOR C-DIFF. SHE IS PLANNED TO GO TO [place] FOR E[place] TODAY. STAFF STATE THERE IS NO CHANGE IN DISCHARGE PLAN.
[2020-07-15] MEDS ORDERED: TRANSDERM-SCOP1 EACH TD (12:27)
[2020-07-15] MEDS ORDERED: VALTREX1000 MG PO (12:28)
--- NOTE | 2020-07-15 12:28 | NUR ---
MED REC COMPLETE
--- NOTE | 2020-07-15 13:51 | NUR ---
PT SITTING IN CHAIR, ALERT AND ORIENTED. SHE INFORMED ME SHE IS TO HAVE AN EGD THIS PM. GAVE ENCOURAGEMENT, PT HAS HAD EGD'S BEFORE. WILL FOLLOW
--- NOTE | 2020-07-15 14:09 | NUR ---
07/15/20 Barak9 Stephanie Gillespie 1406- PT ARRIVES TO PACU AWAKE AND TALKING. PT REPORTS NO PAIN OR NAUSEA. RESP EVEN AND UNLABORED. OXYGEN SAT MID TO HIGH 90'S ON 2L VIA NC.
--- NOTE | 2020-07-15 14:55 | OR ---
[facility] [address] [place], [place] [address] Signed DATE OF OPERATION: 07/15/2020 SURGEON: Silvia Smith MD PREOPERATIVE DIAGNOSES: 1. Persistent right upper abdominal pain. 2. Recent C difficile infection (treated). 3. 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 POSTOPERATIVE DIAGNOSES: 1. Small hiatal hernia without associated esophagitis. 2. Normal-appearing medial wall of duodenum, ampulla identified and possible residual effective intervention. PROCEDURE: Esophagogastroduodenoscopy with biopsy. ANESTHESIA: Intravenous sedation, fentanyl 100 mcg and Versed 5 mg. INDICATION: This 70-year-old white woman was admitted by me to the hospital on 07/10/2020 with significant right upper abdominal pain and elevated white count. Her liver enzymes were essentially normal. She has a complex past medical history including cholecystectomies and open common duct exploration by Dr. Gladys Carter certainly greater than 20 years ago. She also had subsequent ERCP on multiple occasions by Dr. Wilder Mosquera in [place] and at [facility] in [place] and ultimately in [place]. 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 Her liver enzymes have failed to increase over time. A CT scan performed at time of evaluation in the emergency room included an area of thickening of the ampulla with stranding and suggestive of inflammation in the area, but no pancreatic ductal dilatation and certainly no sign of intrahepatic ductal dilatation. In the meantime of Ancef antibiotic, she developed diarrhea (previously had diarrhea attributed to history of cholecystectomy) and C difficile evaluation showed likely to have C difficile infection. She has been treated with Flagyl and converted to vancomycin orally administered considering intolerance of Flagyl, but has no diarrhea at this time. Given her persistent tenderness, though now normalized white count, I have recommended upper endoscopy to assess for peptic disease including ulcer or other Electronically Signed By: SILVIA SMITH MD 07/15/20 1455 PATIENT NAME: ANTHONY GONZALEZ OPERATIVE REPORT DATE OF : 54 REPORT #: [id number] PHYSICIAN: SILVIA SMITH MD PCP: ELISEO GRADY MD REPORT IS CONFIDENTIAL AND NOT TO BE RELEASED WITHOUT AUTHORIZATION [facility] [address] [place] [id number] Signed finding. She understands risks of bleeding, infection, and perforation related to upper endoscopy and wished to proceed. FINDINGS: Esophagus was normal. The stomach did show small hiatal hernia, but otherwise looked reasonably normal. The pylorus was normal as was the duodenum and 2nd and 3rd portions of the duodenum. The ampulla was visualized and appeared to be of normal size overall. There was a small circular defect in conjunction with this, which may be a residual of endoscopically performed. There was bile within the duodenum and minimal amount of stomach attesting to the lack of complete occlusion of the common duct. CLOtest was negative 20 minutes postprocedure. DESCRIPTION OF PROCEDURE: The patient was brought to the endoscopy suite and placed in lateral decubitus position, given intravenous sedation to the point of slurred speech and nystagmus. Lidocaine hypopharyngeal anesthesia had been given previously. A bite block was placed. An Olympus video upper endoscope was passed in the hypopharynx. The vocal cords were briefly visualized and normal. The scope was then advanced into the esophagus, throughout its length it was normal. The scope was passed into the stomach, which was insufflated with air. There was a small amount of bilious fluid in the stomach. The pylorus was widely patent. The scope was passed through into the duodenum. The 2nd and 3rd portions appeared normal. Biopsies were taken of the distal duodenum to assess for celiac disease and withdrawal of scope allowed for good visualization of the ampulla overall. There was certainly no sign of neoplasm of the area. There was no inflammation in the medial wall of the duodenum that I could see. A small rounded periampullary defect was noted, which egressed small amounts of bilious fluid from time to time. This was considered likely a residual of presumed though not proven endoscopic ampullectomy or other intervention. The scope was then withdrawn to the stomach, which was biopsied for both ANDRES and pathologic testing in the antrum and more proximal stomach. Retroflexed view showed a poor flap valve consistent with hiatal hernia. The scope was straightened withdrawn and biopsies taken of the distal esophagus, though it appeared normal. Careful withdrawal of scope showed no other abnormality. She was taken to the recovery room in good condition. CONCLUDING DIAGNOSIS: No specific lesion to likely account for her symptoms of right upper abdominal and right lateral abdominal wall pain. PLAN: She will return to the regular nursing [place] and will be initiated on a regular diet. Consideration for discharge tomorrow will be made. Many of her prehospitalization complaints have largely resolved at this point, though the etiology for that remains Electronically Signed By: SILVIA SMITH MD 07/15/20 1455 PATIENT NAME: ANTHONY GONZALEZ OPERATIVE REPORT DATE OF : 54 REPORT #: [id number] PHYSICIAN: SILVIA SMITH MD PCP: ELISEO GRADY MD REPORT IS CONFIDENTIAL AND NOT TO BE RELEASED WITHOUT AUTHORIZATION [facility] [address] [place], [place] [address] Signed uncertain. MD SIMÓN Hensley/JOEL /[id number] cc: Eliseo Grady MD Copies: ELISEO GRADY MD ~ Electronically Signed By: SILVIA SMITH MD 07/15/20 1455 PATIENT NAME: ANTHONY GONZALEZ OPERATIVE REPORT DATE OF : 54 REPORT #: [id number] PHYSICIAN: SILVIA SMITH MD PCP: ELISEO GRADY MD REPORT IS CONFIDENTIAL AND NOT TO BE RELEASED WITHOUT AUTHORIZATION
--- NOTE | 2020-07-15 15:00 | NUR ---
THIS RN IN PTS ROOM DUE TO PT BEING BACK FROM SURGERY. PT ALERT AND ORIENTED AND IS DOING WELL. PT STATES THAT THE PROCEDURE WENT WELL AND ONLY FEELS SLIGHTLY DIZZY, PT SITTING UP IN BED AND STATES THAT SHE STARTING TO FEEL BETTER.
--- NOTE | 2020-07-15 19:16 | NUR ---
CHARGE NURSE REPORT RECEIVED FROM DAY CHARGE. PT WITH NO NEEDS.
--- NOTE | 2020-07-15 19:20 | NUR ---
REPORT RECEIVED FROM SOPHY YANES. pt RESTING IN BED. NO REQUESTS AT THIS TIME.
--- NOTE | 2020-07-15 20:47 | NUR ---
pt AWAKE RESTING IN BED. pt C/O FLORES, AFTER ASSESSMENT pt STATES FLORES RESOLVES WHILE RN IN ROOM. DENIES NEED FOR INTERVENTION. BOWEL TONES ACTIVE X4. ABD SOFT, NONTENDER. pt CONFUSED REGARDING PLAN OF CARE. DISCUSSED PLAN FOR EVENING, MEDICATION EDUCATION PROVIDED, TO SEE pt TOMORROW. pt VERBALIZES UNDERSTANDING. IV FLUSHED WNL, IVF INFUSING. pt STATES "IF THIS ONE GOES BAD, I'M NOT GETTING ANOTHER ONE". CALL LIGHT IN REACH. ICE WATER PROVIDED.
--- NOTE | 2020-07-15 23:23 | NUR ---
CHECKED ON pt. RESTING IN BED WITH EYES CLOSED. BREATHING EQUAL AND UNLABORED. LIGHTS OFF IN ROOM.
--- NOTE | 2020-07-16 02:10 | NUR ---
CHECKED ON pt. RESTING IN BED ON LEFT SIDE, EYES CLOSED. BREATHING EQUAL AND UNLABORED. LIGHTS OFF IN ROOM.
--- NOTE | 2020-07-16 06:13 | NUR ---
pt AWAKENS TO VOICE. COMPLAINS OF NAUSEA, PRN NAUSEA MEDICATION ADMINISTERED. IVF INFUSING WNL ORDERED. pt STATES SOME PAIN IN ABDOMEN WITH PALPATION, ABD SOFT, BOWEL TONES ACTIVE. pt REPORTS NO BOWEL MOVEMENTS THIS SHIFT. URINE HAT EMPTIED. CALL LIGHT WITHIN REACH. pt NOW WATCHING IMPRACTICAL JOKERS, LAUGHING, ASKING THIS RN IF I'VE SEEN THIS SHOW. NO ADDITIONAL NEEDS. ICE WATER REFILLED.
--- NOTE | 2020-07-16 07:28 | NUR ---
Patient in bed resting, alert and oriented x4. Patient reports tolerable abdominal pain. No nausea reported at this time. Personal supplies and call light within reach. No needs at this time.
--- NOTE | 2020-07-16 11:52 | NUR ---
Patient showered, tolerated well. Patient reports she is ready to go home today. Patient encouraged to drink plenty of fluids. Patient denies nausea, + for flatus, bowel tones active at this time.
--- NOTE | 2020-07-16 12:03 | NUR ---
PT HAD JUST SHOWERED, REQUESTED I COME BACK LATER. WILL FOLLOW NEEDED
[2020-07-16] MEDS ORDERED: VANCOMYCIN HCL125 MG PO (12:48)
[2020-07-16] MEDS ORDERED: MELATONIN3 MG PO (12:49)
--- NOTE | 2020-07-16 13:00 | NUR ---
Spoke with Dr. Toth. Pt will dc today. No change in plan for dc. Pt will dc to with her spouse. She states he has cleaned everything with bleach water due to her C diff.
--- NOTE | 2020-07-17 12:31 | PATH ---
[facility] [address] [place], [place] [address] Signed SPECIMEN(S): A DUODENUM, THIRD PORTION SPECIMEN(S): B DUODENUM, BULB SPECIMEN(S): C ANTRUM/PYLORUS SPECIMEN(S): D LOWER ESOPHAGUS SPECIMEN SOURCE: A. DUODENUM, THIRD PORTION B. DUODENUM, BULB C. ANTRUM/PYLORUS D. LOWER ESOPHAGUS CLINICAL HISTORY: Abdominal pain, nausea, vomiting. + C diff. Leukocytosis. MICROSCOPIC DESCRIPTION: Histologic sections of all submitted blocks are examined by light microscopy. These findings, together with the gross examination, support the pathologic diagnosis. FINAL PATHOLOGIC DIAGNOSIS: A. Duodenum, third portion, biopsy: - Duodenal mucosa with no histopathologic abnormality. - Negative for increased intraepithelial lymphocytes. - Negative for dysplasia or malignancy. B. Duodenum, bulb, biopsy: - Duodenal mucosa with focal gastric surface cell metaplasia. - Negative for increased intraepithelial lymphocytes. - Negative for dysplasia or malignancy. C. Stomach, antrum/pylorus, biopsy: - Antral mucosa with mild chronic, inactive gastritis. - Negative for Helicobacter organisms on HE stain. - Negative for dysplasia or malignancy. D. Esophagus, lower, biopsy: - Squamous mucosa with minimal chronic inflammation and reactive epithelial changes. - Detached strips of intestinal type surface epithelium, see comment. - Negative for dysplasia or malignancy. COMMENT: Regarding specimen D: Sections demonstrate detached strips of bland superficial intestinal-type epithelium. This epithelium does not connect with PATIENT NAME: ANTHONY MONTEZ PATHOLOGY DATE OF : 54 REPORT #: [id number] PHYSICIAN: BASILIO PATHOLOGY PCP: MARILU SRIVASTAVA MD REPORT IS CONFIDENTIAL AND NOT TO BE RELEASED WITHOUT AUTHORIZATION [facility] [address] [place], [place] [address] Signed the background squamous mucosa and could represent carryover artifact from the previously biopsied duodenal mucosa, but given the detachment, intestinal metaplasia cannot be entirely excluded. Clinical correlation is required. NAL:cml:C2NR GROSS DESCRIPTION: Four specimens are received in four containers, labeled `Anthony Wadsworth. A. The specimen, labeled " Anthony Montez," and designated on the requisition "duodenum biopsy," is received in formalin and consists of two charlton soft tissue fragments that measure 0.3 and 0.9 cm in greatest dimension. The specimen is entirely submitted in cassette (A1). B. The specimen, labeled " Anthony Montez," and designated on the requisition "duodenum biopsy," is received in formalin and consists of one charlton soft tissue fragment that measures 0.3 cm in greatest dimension. The specimen is entirely submitted in cassette (B1). C. The specimen, labeled " Anthony Montez," and designated on the requisition "stomach body biopsy," is received in formalin and consists of one charlton soft tissue fragment that measures 0.4 cm in greatest dimension. The specimen is entirely submitted in cassette (C1). D. The specimen, labeled " Anthony Montez," and designated on the requisition "lower esophagus biopsy," is received in formalin and consists of three white-charlton soft tissue fragments that measure 0.1-0.3 cm in greatest dimension. The specimen is entirely submitted in cassette (D1). FB (under the direct supervision of a pathologist) The Gross Description was prepared using a voice recognition system. The report was reviewed for accuracy; however, sound-alike word errors, addition and/or deletions may occur. If there is any question about this report, please contact Client Services. PERFORMING LABORATORY: The technical component was performed by [facility], [address] [place] [id number] (Laboratory Immunologist: Sylvie Keller MD; CLIA# [id number]). Professional interpretation was [facility], [address] [address] (CLIA# [id number]). Diagnostician: Fay العلي MD Pathologist Electronically Signed 07/17/2020 PATIENT NAME: ANTHONY MONTEZ ANN PATHOLOGY DATE OF : 54 REPORT #: [id number] PHYSICIAN: BASILIO PATHOLOGY PCP: MARILU SRIVASTAVA MD REPORT IS CONFIDENTIAL AND NOT TO BE RELEASED WITHOUT AUTHORIZATION [facility] [address] [facility] [place], [place] [address] Signed Copies: ~ PATIENT NAME: ANTHONY MONTEZ PATHOLOGY DATE OF : 54 REPORT #: [id number] PHYSICIAN: BASILIO EATON PCP: MARILU SRIVASTAVA MD REPORT IS CONFIDENTIAL AND NOT TO BE RELEASED WITHOUT AUTHORIZATION
== END 2020-07-16 13:10 | disposition home or self-care (01) | DRG 815 ==
LOC: ED 17:21 → MS 17:22 → ED 17:22 → MS 21:06
PROVIDERS: ADMIT Surgery; ATTEND Surgery
PROC: 0DB38ZX Excision of Lower Esophagus, Via Natural or Artificial Opening Endoscopic, Diagnostic (ICD-10-PCS; 2020-07-15)
PROC: 0DB98ZX Excision of Duodenum, Via Natural or Artificial Opening Endoscopic, Diagnostic (ICD-10-PCS; principal; 2020-07-15 14:00)
DX: D72.829 Elevated white blood cell count, unspecified (principal); A04.72 Enterocolitis due to Clostridium difficile, not specified as recurrent; R10.11 Right upper quadrant pain; Z20.822 Contact with and (suspected) exposure to COVID-19; K44.9 Diaphragmatic hernia without obstruction or gangrene; G47.30 Sleep apnea, unspecified; J45.909 Unspecified asthma, uncomplicated; E66.9 Obesity, unspecified; E03.9 Hypothyroidism, unspecified; I20.9 Angina pectoris, unspecified; R11.0 Nausea; T37.3X5A Adverse effect of other antiprotozoal drugs, initial encounter; Z68.35 Body mass index [BMI] 35.0-35.9, adult; Z88.8 Allergy status to other drugs, medicaments and biological substances; Z90.49 Acquired absence of other specified parts of digestive tract; Z80.0 Family history of malignant neoplasm of digestive organs; Y92.239 Unspecified place in hospital as the place of occurrence of the external cause
CPT/HCPCS: 36415; 74177; 80053; 81001; 82247; 82465; 83615; 83690; 84100; 84478; 84484; 84550; 85025; 87324; 87449; 87493; 96375; 99153; 99285-25; C9803; G0500; J0690; J1170; J1644; J1885; J2250; J2270; J2405; J2550; J3010; J7030; J7121; Q9967; U0003

== ENCOUNTER 2021-03-28 13:53 | Emergency (ER) | payer MEDICARE, OTHER ==
[~2021-03-28] VITALS: Ht 154.9 cm; Wt 76.2 kg
[~2021-03-28 13:53] MED LIST changes: +IRBESARTAN150 MG PO; +ISOSORBIDE MONO30 MG PO; +MELATONIN3 MG PO; +NITROSTAT0.4 MG SL; +POTASSIUM CHLO20 ME1 PO; +ROSUVASTATIN CA40 MG PO; +TRANSDERM-SCOP1 EACH TD; +VALTREX1000 MG PO; +VANCOMYCIN HCL125 MG PO
[2021-03-28] MEDS ORDERED: SYMBICORT 16010.2 GM INH (14:11)
== END 2021-03-28 16:16 | disposition home or self-care (01) ==
LOC: ED 13:53
DX: S09.90XA Unspecified injury of head, initial encounter (principal); S16.1XXA Strain of muscle, fascia and tendon at neck level, initial encounter; W10.8XXA Fall (on) (from) other stairs and steps, initial encounter; I10 Essential (primary) hypertension; E78.00 Pure hypercholesterolemia, unspecified; E03.9 Hypothyroidism, unspecified; K21.9 Gastro-esophageal reflux disease without esophagitis; Z88.8 Allergy status to other drugs, medicaments and biological substances; Z79.899 Other long term (current) drug therapy
CPT/HCPCS: 70450; 72125; 99283-25

== ENCOUNTER 2022-06-22 11:37 | Emergency (ER) | payer MEDICARE, OTHER ==
[~2022-06-22] VITALS: Ht 154.9 cm; Wt 70.3 kg
[~2022-06-22 11:37] MED LIST changes: +SYMBICORT 16010.2 GM INH
== END 2022-06-22 14:47 | disposition home or self-care (01) ==
LOC: ED 11:37
DX: M54.16 Radiculopathy, lumbar region (principal); I10 Essential (primary) hypertension; E78.00 Pure hypercholesterolemia, unspecified; M19.90 Unspecified osteoarthritis, unspecified site; E03.9 Hypothyroidism, unspecified; K21.9 Gastro-esophageal reflux disease without esophagitis; Z88.8 Allergy status to other drugs, medicaments and biological substances; Z79.899 Other long term (current) drug therapy
CPT/HCPCS: 72148; 99283-25

== ENCOUNTER 2024-03-20 07:00 | Inpatient (IN) | payer MEDICARE, OTHER ==
[2024-03-09 10:29] VITALS: BP 125/71
[~2024-03-20] VITALS: Ht 154.9 cm; Wt 75.0 kg
[2024-03-20] VITALS (10 sets, daily range): BP systolic 117–150; BP diastolic 47–64
[~2024-03-20 07:00] MED LIST changes: +ACETAMINOPHEN650 M2 PO; +ADULT LOW DOSE81 MG PO; +CEFAZOLIN SODIUM 2 GM/20 ML SYR IV SCH; +CELECOXIB200 MG PO; +DILTIAZEM 24HR240 M1 PO; +GABAPENTIN 600 MG TAB PO SCH; +IBLOOD GLUCOSE TEST STRIP 1 EA TEST VI PRN; +INTRA-ARTICULAR ANALGESIC INJECTION XX SCH; +IRBESARTAN75 MG PO; +LACTATED RINGER'S 1,000 ML IV SCH; +LIDOCAINE HCL 1% 5 ML SDV INJ ONE; +LOPERAMIDE2 MG PO; +NITROGLYCERIN0.4 MG SL; +ONDANSETRON ODT4 MG PO; +OXYCODONE HCL 5 MG TAB PO SCH; +PANTOPRAZOLE SODIUM 40 MG TABEC PO SCH; +PAXLOVID 300-11 EACH PO; +PRILOSEC OTC20 MG PO; +ROPIVACAINE IN 0.9% SOD CHL/PF 545 ML ELS.PMP.HR IRRIGATION SCH; +Ropivacaine HCl 20 MG/10 ML AMP ONE; +SCOPOLAMINE 1 MG/3 DAYS PATCH 1 EACH TDSY TD SCH; +TRANEXAMIC ACID 2,000 MG in SODIUM CHLORIDE 0.9% 100 ML IV SCH; +VITAMIN D3125 MC2 PO; +ondansetron HCL 4 MG TAB PO SCH
[2024-03-20] MEDS ORDERED: DEXAMETHASONE SOD PHOS 4 MG/ML VIAL ONE (07:51)
[2024-03-20] MEDS ORDERED: LIDOCAINE HCL 2% 20 MG/ML VIAL INJ ONE (07:51)
[2024-03-20] MEDS ORDERED: SODIUM CHLORIDE 0.9% 20 ML IV ONE (07:51)
[2024-03-20] MEDS ORDERED: propofoL 200 MG/20 ML VIAL ONE ×3 (07:51→10:18)
[2024-03-20] MEDS ORDERED: Ropivacaine HCl 0.5% 30 ML VIAL ONE (07:51)
[2024-03-20] MEDS ORDERED: KETOROLAC TROMETHAMINE 30 MG/ML VIAL IV PRN (08:45)
[2024-03-20] MEDS ORDERED: OXYCODONE HCL 5 MG TAB PO PRN (08:45)
[2024-03-20] MEDS ORDERED: SCOPOLAMINE 1 MG/3 DAYS PATCH 1 EACH TDSY ONE (08:57)
[2024-03-20] MEDS ORDERED: LIDOCAINE HCL 2% 5 ML SDV ONE (08:59)
[2024-03-20] MEDS ORDERED: ePHEDrine sulfate 50 MG/ML AMP ONE (09:25)
[2024-03-20] MEDS ORDERED: LACTATED RINGER'S 1,000 ML IV ONE (10:01)
[2024-03-20] MEDS ORDERED: ACETAMINOPHEN 1,000 MG/100 ML VIAL ONE (10:13)
[2024-03-20] MEDS ORDERED: KETOROLAC TROMETHAMINE 30 MG/ML VIAL ONE (10:18)
[2024-03-20] MEDS ORDERED: TRANEXAMIC ACID 2,000 MG in SODIUM CHLORIDE 0.9% 100 ML IV ONE (11:00)
--- NOTE | 2024-03-20 11:11 | NUR ---
03/20/24 1111 Rodo Haro 1043: PT ARRIVED TO PACU VIA BED. PT ON RA. SPINAL LEVEL AT L2. PT COMPLAINS OF MILD ACHING IN HER LEFT LOWER EXTREMITY. PTS DRESSING C/D/I.
--- NOTE | 2024-03-20 11:45 | NUR ---
REPORT RECEIVED FROM SPEECH THERAPY DIRECTOR. PT ALERT AND INTERACTIVE AGREES SHE IS COMFORTABLE FRESH WARM BLANKETS PROVIDED. FAMILY X3 HERE TO VISIT
--- NOTE | 2024-03-20 12:11 | OR ---
[facility] [address] [facility] [place], [place] [address] Signed DATE OF OPERATION: 03/20/2024 SURGEON: Reid Altamirano MD PREOPERATIVE DIAGNOSIS: Left knee degenerative joint disease. POSTOPERATIVE DIAGNOSIS: Left knee degenerative joint disease. PROCEDURE PERFORMED: Left total knee arthroplasty with Maikel. ASSISTANTS: 1. Ayanna Kapadia PA-C. Ayanna was present and critical for all portions of procedure. 2. , MS3. ANESTHESIA: Spinal. BLOOD LOSS: 175 mL. TOURNIQUET TIME: Zero. IMPLANTS: [place] Triathlon size 2, 11 mm polyethylene and a 29 mm patella. BRIEF HISTORY: Anthony is a 73-year-old female with progressive worsening of arthritis that was nonresponsive to nonoperative treatment. Risks and benefits of operative intervention were discussed with her and she elected to proceed. DESCRIPTION OF OPERATION: Once consent was obtained, she was taken to the operating room. After adequate anesthesia, she was placed on the operating table with the left hip bump. The leg was prepped and draped in a standard sterile fashion. The knee was approached through a standard anterior midline incision, carried through the skin and subcutaneous tissue and Electronically Signed By: REID ALTAMIRANO MD 03/20/24 1211 PATIENT NAME: ANTHONY GONZALEZ OPERATIVE REPORT DATE OF : 54 REPORT #: [id number] PHYSICIAN: REID ALTAMIRANO MD PCP: MARILU SRIVASTAVA MD REPORT IS CONFIDENTIAL AND NOT TO BE RELEASED WITHOUT AUTHORIZATION [facility] [address] [place], [place] [address] Signed skin flaps were developed medially and laterally. A low midvastus arthrotomy was performed and the infrapatellar fat pad was excised. The MCL was elevated as a sleeve around to the mid medial portion. Anterior horns of the menisci were transected. The ACL was transected. PCL was found to be intact. The navigation computer arrays were then placed in the medial femoral condyle and proximal tibia. The leg was registered with the computer followed by the fine anatomic points of the knee. Ligamentous balance was then assessed with four anatomic poses. Slight adjustments were made to the rotation of the prosthesis. The robot was then brought in and the four straight cuts were made followed by the two angle cuts with care taken to protect the patellar tendon and MCL. The bony remnants were removed as were any remaining osteophytes. The posterior aspect of the knee was assessed. There were not any significant osteophytes. The trials were then positioned and the knee was taken through range of motion from 0 to 140 degrees with good stability throughout. The patella tracked well. The patella was cut sized and drilled for a 29 mm patella. The distal femoral drill holes were completed and the proximal tibia was finished using the keel punch and followed by the drill holes. Her bone quality was good, so we elected to go with a noncemented prosthesis. The tibia was impacted into position first followed by the polyethylene. The femur was then impacted until it was well-seated and the knee was extended and loaded. The patella was clamped into position until it was seated flush. Again, range of motion was checked and found to be adequate. The patella tracked well. The knee was copiously irrigated with one bottle of Surgiphor followed by normal saline. The On-Q pain pump was percutaneously placed into the adductor canal. The periarticular soft tissues were injected with 100 mL of ropivacaine and Toradol mixture. The arthrotomy was then closed using a combination of #2 FiberWire and #2 Stratafix, subcutaneous tissue with 0 Stratafix and the skin with 3-0 Stratafix. The wound was sealed with Dermabond and Steri-Strips. The wound was then dressed with an Acticoat-7 dressing, ABD, and Guillermo wrap. She tolerated the procedure well. All sponge, needle, and instrument counts were correct. Reid Altamirano MD BA/MODL /[id number] Electronically Signed By: REID ALTAMIRANO MD 03/20/24 1211 PATIENT NAME: ANTHONY GONZALEZ OPERATIVE REPORT DATE OF : 54 REPORT #: [id number] PHYSICIAN: REID ALTAMIRANO MD PCP: MARILU SRIVASTAVA MD REPORT IS CONFIDENTIAL AND NOT TO BE RELEASED WITHOUT AUTHORIZATION [facility] [address] [place] [address] [place] [address] Signed Copies: ~ Electronically Signed By: REID ALTAMIRANO MD 03/20/24 1211 PATIENT NAME: ANTHONY GONZALEZ OPERATIVE REPORT DATE OF : 54 REPORT #: [id number] PHYSICIAN: REID ALTAMIRANO MD PCP: MARILU SRIVASTAVA MD REPORT IS CONFIDENTIAL AND NOT TO BE RELEASED WITHOUT AUTHORIZATION
--- NOTE | 2024-03-20 14:11 | NUR ---
PT RESTING IN BED VISITING WITH FAMILY
--- NOTE | 2024-03-20 14:34 | NUR ---
PT WORKS WITH P/T THEN MOVES TO THE RECLINER. AGREES SHE IS COMFORTABLE AT THIS TIME CRYO IN PLACE VISITORS X2 PRESENT. FRESH H20 AND CALL LIGHT IN REACH PT DENIES NEEDS OF
--- NOTE | 2024-03-20 14:59 | NUR ---
PT NOT AVAILABLE FOR VISIT. PROVIDED PRAYER.
[2024-03-20] MEDS ORDERED: ACETAMINOPHEN 500 MG TAB PO SCH (15:00)
[2024-03-20] MEDS ORDERED: GABAPENTIN 300 MG CAP PO SCH (15:00)
[2024-03-20] MEDS ORDERED: CEFAZOLIN SODIUM 2 GM/20 ML SYR IV SCH (15:00)
--- NOTE | 2024-03-20 15:38 | NUR ---
PT USES CALL LIGHT APPROPRIATELY FOR UP TO TOILET THEN RETURNS TO RECLINER CHAIR. AGREES SHE IS COMFORTABLE REFUSES OFFER OF SNACK OR OTHER ITEMS FOR COMFORT.
--- NOTE | 2024-03-20 16:21 | NUR ---
PT CONTINUES UP IN THE CHAIR WITHOUT COMPLAINT. VISITORS PRESENT X2
--- NOTE | 2024-03-20 16:47 | NUR ---
CRYO FILLED AT 1600 AFTER HELPING PATIENT TRANFER FROM HER CHAIR TO THE BEDSIDE COMMODE.
--- NOTE | 2024-03-20 17:55 | NUR ---
PT UP IN THE CHAIR WITH EVENING MEAL DENIES NEEDS OF. VISITOR IS PRESENT
--- NOTE | 2024-03-20 19:15 | NUR ---
REPORT RECEIVED FROM ANNMARIE BECKETT. pt RESTING IN THE BED. pt DENIES ANY NEEDS AT THIS TIME. CALL LIGHT WITHIN REACH.
--- NOTE | 2024-03-20 20:50 | NUR ---
ASSESSMENT AND VITAL SIGNS DONE. pt UP TO BSC WITH FWW/SBA. CRYO CUFF ON WITH ICE. FOOT PUMP ON. TAL HOSE ON. ON Q SET AT 4. SCHEDULED MEDS ADMINISTERED. DRESSING CDI. pt DENIES ANY PAIN AT THIS TIME. CALL LIGHT WITHIN REACH. NO OTHER NEEDS AT THIS TIME.
[2024-03-20] MEDS ORDERED: CELECOXIB 200 MG CAP PO SCH (21:00)
[2024-03-20] MEDS ORDERED: SENNOSIDES 1 TAB PO SCH (21:00)
--- NOTE | 2024-03-20 22:40 | NUR ---
IV ABX ADMINISTERED PER ORDER, SEE MAR. pt DENIES ANY PAIN AT THIS TIME. pt DENIES ANY NEEDS AT THIS TIME. CALL LIGHT WITHIN REACH. pt RESTING COMFORTABLY.
[2024-03-21] VITALS (11 sets, daily range): BP systolic 98–136; BP diastolic 52–75
--- NOTE | 2024-03-21 00:56 | NUR ---
pt CALLED TO USE THE BSC. VITAL SIGNS DONE. pt DENIES ANY OTHER NEEDS AT THIS TIME. CRYO CUFF ON. SCDS ON. DRESSING CDI. CALL LIGHT WITHIN REACH.
--- NOTE | 2024-03-21 02:43 | NUR ---
pt RESTING IN THE BED WITH EYES CLOSED. RR EVEN AND UNLABORED. CALL LIGHT WITHIN REACH.
--- NOTE | 2024-03-21 06:16 | NUR ---
pt ASSESSMENT AND VITAL SIGNS DONE. CRYO CUFF FILLED WITH ICE. pt UP TO THE BSC, SBA WITH FWW. ON Q PUMP SET AT 8 PER ORDER. SCDS ON. TAL HOSE ON. WATER REFRESHED. pt DENIES ANY OTHER NEEDS AT THIS TIME.
--- NOTE | 2024-03-21 07:30 | NUR ---
MORNING REPORT RECIEVED FROM BUSINESS AND SERVICES INSTRUCTOR RN, PT LAYING IN BED WITH EYES OPEN, INTRODUCED SELF TO PT. PT HAS NO CURRENT NEEDS AT THIS TIME AND CALL LIGHT WITHIN REACH.
[2024-03-21] MEDS ORDERED: LEVOTHYROXINE75 MCG PO (07:33)
[2024-03-21] MEDS ORDERED: Rivaroxaban 10 MG TAB PO SCH (08:00)
[2024-03-21] MEDS ORDERED: DICLOFENAC SOD 75 MG TABEC PO SCH (08:00)
--- NOTE | 2024-03-21 08:10 | NUR ---
PT STATED CONCERNS ABOUT RESTARTING HOME MEDICATIONS. DR. OLIVO WAS CONTACTED AND RECEIVED TELEPHONE ORDER TO RESTART HOME MEDICATIONS.
--- NOTE | 2024-03-21 08:14 | NUR ---
PATIENT IN BED AT THIS TIME. FURNITURE SERVICER WENT INTO PATIENTS ROOM FOR HOURLY ROUNDS. CALL LIGHT WITHIN REACH, NO FURTHER NEEDS AT THIS TIME.
[2024-03-21] MEDS ORDERED: NITROGLYCERIN 0.4 MG SUBL SL PRN (08:30)
[2024-03-21] MEDS ORDERED: dilTIAZem HCL 240 MG CAPCR PO SCH (09:00)
[2024-03-21] MEDS ORDERED: POTASSIUM CHLORIDE 10 MEQ TABCR PO SCH (09:00)
[2024-03-21] MEDS ORDERED: FUROSEMIDE 40 MG TAB PO SCH (09:00)
[2024-03-21] MEDS ORDERED: LEVOTHYROXINE SODIUM 75 MCG TAB PO SCH (09:00)
[2024-03-21] MEDS ORDERED: cefuroxime axetiL 250 MG TAB PO SCH (09:00)
[2024-03-21] MEDS ORDERED: ISOSORBIDE MONONITRATE 30 MG TABCR PO SCH (09:00)
--- NOTE | 2024-03-21 09:00 | NUR ---
PT IN BED WATCHING TV PT REQUESTED WATER AND A WARM BLANKET. PT HAS NO OTHER CONCERNS AT THIS TIME CALL LIGHT WITHIN REACH.
--- NOTE | 2024-03-21 09:39 | NUR ---
MED REC COMPLETE
--- NOTE | 2024-03-21 09:56 | NUR ---
PATIENT ALERT AND ORIENTED IN HER RECLINER. STATES SHE LIVES IN WITH SPOUSE. SHE HAS STEPS TO GET IN AND NO RAMP. STATES SHE HAS 2 CANES AT HOME WELL A SHOWER CHAIR. SHE DRIVES VERY RARELY. SPOUSE DRIVES AND HER DAUGHTER CAN ASSIST WELL. PATIENT HAS NO FINANCIAL CONCERNS, THOUGH SHE STATES MONEY HAS BEEN GETTING "TIGHTER." STATES SHE IS PLANNING ON DISCHARGING TO [facility] FOR SKILLED CARE FROM THIS FACILITY. INFORMED HER WILL SEND RECORDS TODAY TO INITIATE THE TRANSITION TO SKILLED CARE. STATES HER DAUGHTER, CHRISTIANO, WILL TAKE HER WHEN SHE IS DISCHARGED. DENIES OTHER CM NEEDS AT THIS TIME. STATES SHE WILL NOTIFY STAFF WITH CHANGES.
--- NOTE | 2024-03-21 10:15 | NUR ---
SENT REFERRAL TO [facility] BED [facility]
--- NOTE | 2024-03-21 10:15 | NUR ---
PT SITTING IN BED WITH EYES CLOSED RESTING WITH EQUAL BILAT CHEST RISE. PT HAS NO CONCERNS AT THIS TIME.
--- NOTE | 2024-03-21 10:17 | NUR ---
PATIENT IN CHAIR AT THIS TIME. MECHANICAL SYSTEMS DESIGNER CHARTED VITALS AND I&O'S. CALL LIGHT WITHIN REACH, NO FURTHER NEEDS AT THIS TIME.
--- NOTE | 2024-03-21 11:00 | NUR ---
PT HELPED MOVE TO CHAIR AFTER USING THE REST ROOM. PT TOLERATED AMBLATION WELL WITH SMALL AMOUT OF TOLERABLE PAIN. PT SITTING IN CHAIR CURRENTLY WITH NO CONCERNS AND CALL LIGHT WITHIN REACH.
--- NOTE | 2024-03-21 11:01 | NUR ---
PATIENT IN BED AT THIS TIME. RAIL GANG SUPERVISOR WENT INTO PATIENTS ROOM FOR HOURLY ROUNDS. CALL LIGHT WITHIN REACH, NO FURTHER NEEDS AT THIS TIME.
--- NOTE | 2024-03-21 12:20 | NUR ---
PT SITTING IN CHAIR EATING LUNCH, PT REPORTED FEELING ACUTE TINGLING IN LEFT FOOT BUT RESOLVED WITH REPOSITIONING. PT REPORTS NO NEEDS AT THIS TIME. CALL LIGHT WITHIN REACH.
--- NOTE | 2024-03-21 13:00 | NUR ---
PT SITTING IN CHAIR WITH CRYO CUFF ON PT HAS NO CONCERNS AT THIS TIME. PT CALL LIGHT WITHIN REACH.
--- NOTE | 2024-03-21 14:35 | NUR ---
PT SITTING IN CHAIR WITH FRIENDS/FAMILY IN ROOM. PT HAS NO NEEDS AT THIS TIME WITH CALL LIGHT WITHIN REACH.
--- NOTE | 2024-03-21 15:08 | NUR ---
PATIENT IN CHAIR AT THIS TIME. FACILITY COORDINATOR CHARTED VITALS AND I&O'S. FACILITY COORDINATOR ASSISTED PATIENT TO BATHROOM AND THEN BACK TO HER CHAIR. CALL LIGHT WITHIN REACH, NO FURTHER NEEDS AT THIS TIME.
--- NOTE | 2024-03-21 15:30 | NUR ---
PT SITTING IN CHAIR WITH FAMILY/FRIENDS PRESENT IN ROOM. PT REQUESTED WATER BUT HAS NO OTHER NEEDS AT THIS TIME. CALL LIGHT WITHIN REACH.
--- NOTE | 2024-03-21 16:57 | NUR ---
PT SITTING IN CHAIR AWAKE TALKING WITH FAMILY/FRIENDS. PT HAS NO CONCERNS AT THIS TIME CALL LIGHT WITHIN REACH.
--- NOTE | 2024-03-21 17:23 | NUR ---
PATIENT IN CHAIR AT THIS TIME. MATHEMATICAL PHYSICIST ASSISTED PATIENT INTO THE BATHROOM AND THEN BACK TO THE CHAIR. MATHEMATICAL PHYSICIST ALSO REFILLED PATIENTS CRYO CUFF. CALL LIGHT WITHIN REACH, NO FURTHER NEEDS AT THIS TIME.
--- NOTE | 2024-03-21 17:36 | NUR ---
PT SITTING UP IN CHAIR WITH LEGS UP EATING DINNER AND VISITING WITH FAMILY. NO REQUESTS AT THIS TIME. CALL LIGHT WITHIN REACH AND CRYOCUFF ON.
--- NOTE | 2024-03-21 19:03 | NUR ---
PT GIVEN AND EDUCATED ON IS PT ASSISTED INTO THE RESTROOM. PT DOES REPORT THAT HER LEFT KNEE IS MORE PAINFULL THEN EARLIER TODAY WHEN AMBULATING BUT DENIES NEED FOR PAIN MEDICATION AT THIS TIME. PT CURRENTLY IS RESTROOM AND INSTRUCTED TO USE BLUE CALL CORD WHEN ASSISTANCE IS NEEDED.
--- NOTE | 2024-03-21 19:05 | NUR ---
REPORT RECEIVED FROM NADIA BECKETT. pt RESTING IN THE BED. BOARD UPDATED. pt DENIES ANY NEEDS AT THIS TIME. CALL LIGHT WITHIN REACH.
--- NOTE | 2024-03-21 19:14 | NUR ---
PATIENT IN BED AT THIS TIME. PROJECT CONSTRUCTION MANAGER ASSISTED PATIENT FROM BATHROOM BACK TO BED, PROJECT CONSTRUCTION MANAGER CHARTED PATIETNS VOIDINGS. CALL LIGHT WITHIN REACH, NO FURTHER NEEDS AT THIS TIME.
--- NOTE | 2024-03-21 20:50 | NUR ---
ASSESSMENT AND VITAL SIGNS DONE. SCHEDULED MEDICATION ADMINISTERED. DRESSING CDI. CRYO CUFF HAS ICE. SCD'S ON FEET. IV DC'D DUE TO NOT FLUSHING. pt DENIES ANY OTHER NEEDS AT THIS TIME. CALL LIGHT WITHIN REACH.
--- NOTE | 2024-03-21 22:42 | NUR ---
20G PLACED IN RAC, 1 ATTEMPT. PT TOLERATED WELL. CALL LIGHT IN REACH.
[2024-03-22] VITALS (10 sets, daily range): BP systolic 99–126; BP diastolic 52–60
--- NOTE | 2024-03-22 02:00 | NUR ---
pt RESTING IN THE BED. pt DENIES ANY NEEDS AT THIS TIME. CALL LIGHT WITHIN REACH.
--- NOTE | 2024-03-22 03:28 | NUR ---
pt RESTING IN THE BED. pt DENIES ANY NEEDS AT THIS TIME. CALL LIGHT WITHIN REACH.
--- NOTE | 2024-03-22 05:00 | NUR ---
pt ASSESSMENT DONE. pt CALLED AND ASKED FOR PRN PAIN MEDICATION. pt UP TO THE BR. SBA WITH FWW. CRYO CUFF FILLED WITH ICE. SCD'S ON. DRESSING CDI. pt DENIES ANY OTHER NEEDS AT THIS TIME. CALL LIGHT WITHIN REACH.
--- NOTE | 2024-03-22 07:31 | NUR ---
ASSESSMENT COMPLETE, PT SITTING UP IN CHAIR RECLINING WITH LEGS ELEVATED. TAL HOSE ON AND FOOT SCDS IN PLACE. DRSG TO L)KNEE CDI, ON Q SET AT 8, CRYOCUFF IN PLACE. CALL LIGHT WITHIN REACH, NO REQUESTS AT THIS TIME.
--- NOTE | 2024-03-22 08:27 | NUR ---
PATIENT IN CHAIR AT THIS TIME. REHAB/PRE VOCATIONAL COUNSELOR ASSISTED PATIENT TO BATHROOM AND THEN BACK TO HER CHAIR. REHAB/PRE VOCATIONAL COUNSELOR CHARTED VOIDINGS IN ROOM. CALL LIGHT WITHIN REACH, NO FURTHER NEEDS AT THIS TIME.
--- NOTE | 2024-03-22 09:19 | NUR ---
UPDATED CLINICALS FAXED TO [facility] FOR SNF REFERRAL.
--- NOTE | 2024-03-22 09:55 | NUR ---
OT FINISHED WORKING WITH PT.
--- NOTE | 2024-03-22 10:20 | NUR ---
PT JUST FINISHED AMBULATING BACK TO CHAIR FROM RESTROOM, TOLERATED WELL. DR OLIVO IN TO SEE PT AND DISCUSS PLAN OF CARE. CALL LIGHT WITHIN REACH. PT C/O SLIGHT NAUSEA. DR OLIVO ORDER RECEIVED FOR [facility].
[2024-03-22] MEDS ORDERED: ONDANSETRON 4 MG TAB ODT SL PRN (10:30)
--- NOTE | 2024-03-22 11:05 | NUR ---
CALLED AND LEFT MESSAGE FOR LUDA AT [facility] TO DISCUSS REFERRAL. CALLBACK NUMBER LEFT.
--- NOTE | 2024-03-22 11:19 | NUR ---
PT WORKING [facility]
--- NOTE | 2024-03-22 12:58 | NUR ---
CALLED [facility] TO DISCUSS SNF REFERRAL. NO ANSWER.
--- NOTE | 2024-03-22 13:12 | NUR ---
MESSAGE LEFT FOR LUDA, SWING BED COORDINATOR, AT [facility].
--- NOTE | 2024-03-22 15:08 | NUR ---
SITTING IN RECLINER. INFORMED PATIENT UNABLE TO GET A HOLD OF [facility] AFTER MULTIPLE CALLS AND UNSURE IF THEY ARE ABLE TO ACCEPT PATIENT AT THIS TIME FOR SNF CARE. SHE DOES NOT WANT TO GO TO ANY OTHER SNF PROGRAM. WILL ATTEMPT TO CALL [facility] AGAIN THIS AFTERNOON.
--- NOTE | 2024-03-22 15:26 | NUR ---
PATIENT IN CHAIR AT THIS TIME. CARE WORKER WENT INTO PATIENTS ROOMFOR HOURLY ROUNDS. CALL LIGHT WITHIN REACH, NO FURTHER NEEDS AT THIS TIME.
--- NOTE | 2024-03-22 15:59 | NUR ---
PT SITTING UPRIGHT IN CHAIR OCCOMPANIED BY HER IN ROOM, PT DENIES NAUSEA, OR PAIN OUT OF COMFORT ZONE AT THIS TIME. PT HAS CALL LIGHT WITHIN REACH.
--- NOTE | 2024-03-22 16:15 | NUR ---
PATIENT ACCEPTED TO [facility]. ORDERS GIVEN TO CHARGE NURSE FOR DR. OLIVO TO COMPLETE TOMORROW MORNING. PATIENT IS UPDATED WELL. HER DAUGHTER WILL TRANSPORT HER VIA PRIVATE VEHICLE AROUND [id number] 03/22/24.
--- NOTE | 2024-03-22 16:46 | NUR ---
CLARIFICATION ORDER WITH , ROPIVICAINE ON-Q PUMP WAS SET TO 8ML/HR THIS MORNING PER RN BASED ON ORDERS. VERIFIED WITH MD THIS AFTERNOON, ORDER SHOULD BE 4ML/HR. PRIMARY RN NOTIFIED AND ON-Q PUMP CHANGED TO 4ML/HR CONTINUOUS RATE AT THIS TIME. ORDERS UPDATED AT THIS TIME, SEE MAR.
--- NOTE | 2024-03-22 18:46 | NUR ---
PT MOVED TO BED WITH FREINDS SITTING BED SIDE PT HAS NO CONCERNS AT THIS TIME. PT HAS CALL LIGHT WITHIN REACH.
--- NOTE | 2024-03-22 19:10 | NUR ---
REPORT RECEIVED FROM NADIA BECKETT. pt SITTING ON THE EDGE OF THE BED. pt DENIES ANY OTHER NEEDS AT THIS TIME. CALL LIGHT WITHIN REACH.
--- NOTE | 2024-03-22 19:11 | NUR ---
PATIENT IN BED AT THIS TIME. PRESS FEEDER BROOMCORN CHARTED VITALS AND I&O'S. CALL LIGHT WITHIN REACH, NO FURTHER NEEDS AT THIS TIME.
--- NOTE | 2024-03-22 20:39 | NUR ---
BOOSTER OPERATOR OBTAINED VITALS AND I&O. CRYO CUFF REFILLED WITH ICE. PT STATES NO FURTHER NEEDS AT THIS TIME. CALL LIGHT WITHIN REACH.
--- NOTE | 2024-03-22 21:10 | NUR ---
ASSESSMENT AND VITAL SIGNS DONE. pt UP TO THE BR WITH FWW AND SBA. pt BACK TO BED. SCHEDULED MEDS ADMINSITERED. pt C/O 10/26 PAIN. PRN PAIN MEDICATION ADMINISTERED. DRESSING CDI. SCDS ON. CRYO CUFF FULL. pt DENIES ANY OTHER NEEDS AT THIS TIME. CALL LIGHT WITHIN REACH.
--- NOTE | 2024-03-22 21:55 | NUR ---
IN RM TO REASSESS pt PAIN. pt C/O 5/10 PAIN. PRN PAIN MEDS ADMINISTERED TO TITRATE TO THE MAX DOSE. pt DENIES ANY OTHER NEEDS AT THIS TIME. SCOPE PATCH FOUND IN BED. CALL LIGHT WITHIN REACH.
--- NOTE | 2024-03-22 23:36 | NUR ---
pt CALLED STATING SHE WANTED HELP WITH HER BLANKETS. THIS RN IN RM TO HELP pt WITH HER BLANKETS. pt DENIES ANY OTHER NEEDS AT THIS TIME. CALL LIGHT WITHIN REACH.
--- NOTE | 2024-03-23 01:32 | NUR ---
pt RESTING IN THE BED WITH EYES CLOSED. RR EVEN AND UNLABORED. CALL LIGHT WITHIN REACH.
--- NOTE | 2024-03-23 03:25 | NUR ---
pt RESTING IN THE BED WITH EYES CLOSED. RR EVEN AND UNLBORED. CALL LIGHT WITHIN REACH.
[2024-03-23 05:32] VITALS: BP 135/62
[2024-03-23 05:34] VITALS: BP 135/62
--- NOTE | 2024-03-23 06:17 | NUR ---
IN RM WITH LICENSE INSPECTOR TO DO VS. pt UP TO THE BR WITH SBA WITH FWW. pt C/O 07/27 PAIN. PRN PAIN MEDICATION ADMINISTERED. pt DENIES ANY OTHER NEEDS AT THIS TIME. CALL LIGHT WITHIN REACH.
--- NOTE | 2024-03-23 07:00 | NUR ---
RECIEVED MORNING REPORT FROM CHANNELING MACHINE RUNNER RN. PT SITTING UP IN BED AWAKE, PT HAS CALL LIGHT WITHIN REACH AND UPDATED ON POC FOR THE DAY AND INFORMED OF DISCHARGE TIME. PT HAS NO OTHER CONCERNS AT THIS TIME CALL LIGHT WITHIN REACH.
[2024-03-23] MEDS ORDERED: OXYCODONE HCL5 MG PO (07:01)
--- NOTE | 2024-03-23 07:33 | NUR ---
ORDERS, PRESCRIPTION AND PASRR FAXED TO [facility] FOR SNF. DAUGHTER WILL PICK PATIENT UP AROUND 1030 THIS AM FOR TRANSPORT.
--- NOTE | 2024-03-23 08:30 | NUR ---
SHOWED PATIENT HOW TO USE THE [place] CAP.
--- NOTE | 2024-03-23 08:39 | NUR ---
PT ASSISTED INTO RESTROOM BY RN, PT INSTRUCTED TO USE BLUE PULL CORD TO CALL NURSES STATION WHEN FINISHED.
--- NOTE | 2024-03-23 09:36 | NUR ---
PATIENT IN BED AT THIS TIME. COLLAR FOLDER OPERATOR ASSISTED PATIENT INTO BATHROOM AND THEN BACK TO BED. CALL LIGHT WITHIN REACH, NO FURTHER NEEDS AT THIS TIME.
[2024-03-23 10:00] VITALS: BP 133/91
--- NOTE | 2024-03-23 10:00 | NUR ---
PT SITTING IN BED DRESSED IN HER CLOTHES READY TO BE DISCHARGED PT REQUESTED PRN PAIN MEDICATION FOR BEFORE DISCHARGE. PT HAS NO OTHER REQUESTS AT THIS TIME CALL LIGHT WITHIN REACH.
--- NOTE | 2024-03-23 10:00 | NUR ---
AFTER VITALS WERE DONE. PATIENT NEEDED A LITTLE HELP PUTTING ON HER PANTS OVER HER LEFT LEG. PATIENT PUT ON HER OWN SHIRT.
[2024-03-23 10:04] VITALS: BP 133/91
--- NOTE | 2024-03-23 11:56 | NUR ---
PT HAND OFF GIV[facility] TO CHE[facility] AT [facility] [place]. WILL CALL BACK WITH ANY QUESTIONS CONCERNING ONQ PUMP.
== END 2024-03-23 10:55 | DRG 470 ==
LOC: DS 07:00 → MS 11:30 → DS 11:30 → MS 03-23 10:55
PROVIDERS: ADMIT Specialist; ATTEND Specialist
PROC: 0SRD0JZ Replacement of Left Knee Joint with Synthetic Substitute, Open Approach (ICD-10-PCS; principal; 2024-03-20 09:05)
PROC: 8E0Y0CZ Robotic Assisted Procedure of Lower Extremity, Open Approach (ICD-10-PCS; principal; 2024-03-20 09:05)
DX: M17.12 Unilateral primary osteoarthritis, left knee (principal); K21.9 Gastro-esophageal reflux disease without esophagitis; E78.00 Pure hypercholesterolemia, unspecified; E03.9 Hypothyroidism, unspecified; G47.33 Obstructive sleep apnea (adult) (pediatric); M81.0 Age-related osteoporosis without current pathological fracture; E55.9 Vitamin D deficiency, unspecified; I13.10 Hypertensive heart and chronic kidney disease without heart failure, with stage 1 through stage 4 chronic kidney disease, or unspecified chronic kidney disease; N18.9 Chronic kidney disease, unspecified; Z96.651 Presence of right artificial knee joint; F10.10 Alcohol abuse, uncomplicated; M54.16 Radiculopathy, lumbar region; Z87.81 Personal history of (healed) traumatic fracture; Z85.3 Personal history of malignant neoplasm of breast; Z87.19 Personal history of other diseases of the digestive system; Z86.79 Personal history of other diseases of the circulatory system; Z79.899 Other long term (current) drug therapy; Z79.890 Hormone replacement therapy; Z79.620 Long term (current) use of immunosuppressive biologic; Z83.3 Family history of diabetes mellitus; Z68.30 Body mass index [BMI] 30.0-30.9, adult; Z87.39 Personal history of other diseases of the musculoskeletal system and connective tissue; Z98.51 Tubal ligation status; Z90.49 Acquired absence of other specified parts of digestive tract; Z90.89 Acquired absence of other organs; Z90.710 Acquired absence of both cervix and uterus; Z79.891 Long term (current) use of opiate analgesic; Z90.721 Acquired absence of ovaries, unilateral; Z79.01 Long term (current) use of anticoagulants; Z88.8 Allergy status to other drugs, medicaments and biological substances; Z86.16 Personal history of COVID-19; I25.2 Old myocardial infarction
CPT/HCPCS: 01400; 64447; 64450; 64454; 73560; 76942; 97110; 97116; 97161; 97165; 97530; 97535; A9270; C1713; C1776; J0131; J0690; J1100; J1885; J2003; J2704; J2795; J7121; J7999